=== PATIENT | female | born 1940 | race Caucasian/White ===

== ENCOUNTER 2020-07-26 09:49 | Outpatient (RCR) | payer MEDICARE, SELFPAY ==
--- NOTE | 2020-07-26 14:10 | PTOPEVAL ---
Thank you for referring Chel Levine to [facility].? The patient is scheduled to be seen for therapy? ____x/week for ___ weeks. Please review, sign, date and return this plan of care CECE. I agree with and certify that the following plan of care is medically necessary. Referring Physician Date Admitting Provider: Attending Provider: Angela Singer, Referring Provider: *PT Outpatient Evaluation Start: 07/26/20 10:04 Freq: Status: Active Protocol: Document 07/26/20 10:05 [facility] (Rec: 07/26/20 14:09 [facility] [id number]) Therapy Assessment Status Assessment Status Assessment Status Evaluation Evaluation Information Problem Diagnosis bilateral knee pain, generalized weakness, SOA Onset 07/24/20 Additional Evaluation Detail LEFS = 27% functionally declined Subjective Information patient reports she has been Query Text:As Reported By Patient/ having increased difficulty Family with ambulation distance and time since the beginning of the year. she reports she has had increased SOA with normal activities around home and walking to the mailbox. she reports she has been monitored for heart issues but is not seeing a punch press setter. she reports she is sheduled to see a finishing and shipping supervisor. 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 Prior Level of Function Comments Additional Prior Level of Function patient reports she would like Comments to get back to walking her dog, walking around her house, performing chores at home, and recreational participation . Pain Assessment Timing of Pain Assessment Timing of Pain Assessment Assessment Pain Scale Pain Scale Used Numeric (1 - 10) Self Report Pain Assessment Bilateral Thumb(s) Reported Pain Level 6 Bilateral Knee(s) Reported Pain Level 6 Pain Score Pain Score 6,6: Self Report Interventions Used Interventions Used By Clinicians Activity or ADL's,Education, Exercise Lower Extremity Range of Motion General Lower Extremity Range of Motion Gross Lower Extremity Range of Motion -8 degrees from 0 arom Comments
== END 2020-09-06 18:00 | disposition home or self-care (01) ==
LOC: CHSPT 09:49
PROVIDERS: PCP Internal Medicine Geriatric Medicine; Visit Provider Internal Medicine Geriatric Medicine
DX: R06.02 Shortness of breath (principal); M17.10 Unilateral primary osteoarthritis, unspecified knee; M18.0 Bilateral primary osteoarthritis of first carpometacarpal joints; G89.4 Chronic pain syndrome
CPT/HCPCS: 97110; 97162; 97530

== ENCOUNTER 2020-10-04 15:27 | Outpatient (CLI) | payer MEDICARE, SELFPAY ==
[2020-10-04 17:17] LABS: Anion Gap 12 mmol/L (8-16); Blood Urea Nitrogen 21 mg/dL (7-18); Calcium 9.1 mg/dL (8.5-10.1); Carbon Dioxide 27 mmol/L (21-32); Chloride 105 mmol/L (98-108); Estimated Glomerular Filt Rate 42; Glucose 108 mg/dL (70-99); Magnesium 1.8 mg/dL (1.8-2.4); Osmolality Calculated 302 mOsm/kg (285-295); Potassium 4.6 mmol/L (3.5-5.1); Sodium 144 mmol/L (136-145)
== END 2020-10-04 15:28 | disposition home or self-care (01) ==
LOC: CHSLAB 15:32
PROVIDERS: PCP Internal Medicine Geriatric Medicine; Visit Provider Internal Medicine Geriatric Medicine
DX: E13.22 Other specified diabetes mellitus with diabetic chronic kidney disease (principal); I12.9 Hypertensive chronic kidney disease with stage 1 through stage 4 chronic kidney disease, or unspecified chronic kidney disease; N18.30 Chronic kidney disease, stage 3 unspecified; E83.42 Hypomagnesemia
CPT/HCPCS: 36415; 80048; 83735

== ENCOUNTER 2021-07-12 07:32 | Outpatient (CLI) | payer MEDICARE, SELFPAY ==
[2021-07-12 08:26] LABS: Creatinine Urine 98.22 mg/dL (40-278); MALB Creatinine Ratio 77.8 mg/g (0-30); Microalbumin Urine Random 76.5 mg/L
[2021-07-12 08:35] LABS: Hemoglobin A1C 7.1 % (<5.7)
[2021-07-12 08:39] LABS: Alanine Aminotransferase 14 U/L (14-59); Albumin Level 3.5 g/dL (3.4-5.0); Alkaline Phosphatase 60 U/L (46-116); Anion Gap 6 mmol/L (8-16); Aspartate Amino Transferase 13 U/L (15-37); Bilirubin,Total 0.4 mg/dL (0.00-1.00); Blood Urea Nitrogen 22 mg/dL (7-18); Calcium 8.5 mg/dL (8.5-10.1); Carbon Dioxide 32 mmol/L (21-32); Chloride 102 mmol/L (98-108); Estimated Glomerular Filt Rate 47; Glucose 139 mg/dL (70-99); LDL Cholesterol Direct 58 mg/dL (0-130); Osmolality Calculated 295 mOsm/kg (285-295); Potassium 4.2 mmol/L (3.5-5.1); Sodium 140 mmol/L (136-145); Total Protein 6.5 g/dL (6.4-8.2)
== END 2021-07-12 07:33 | disposition home or self-care (01) ==
LOC: CHSLAB 07:37
PROVIDERS: PCP Internal Medicine Geriatric Medicine; Visit Provider Internal Medicine Geriatric Medicine
DX: E11.29 Type 2 diabetes mellitus with other diabetic kidney complication (principal); R80.9 Proteinuria, unspecified
CPT/HCPCS: 36415; 80053; 82043; 83036; 83721

== ENCOUNTER 2021-07-29 07:35 | Outpatient (CLI) | payer MEDICARE, SELFPAY ==
[2021-07-29 08:14] LABS: Anion Gap 11 mmol/L (8-16); Blood Urea Nitrogen 22 mg/dL (7-18); Calcium 8.9 mg/dL (8.5-10.1); Carbon Dioxide 25 mmol/L (21-32); Chloride 105 mmol/L (98-108); Estimated Glomerular Filt Rate 39; Glucose 153 mg/dL (70-99); Osmolality Calculated 298 mOsm/kg (285-295); Potassium 3.9 mmol/L (3.5-5.1); Sodium 141 mmol/L (136-145); Thyroid Stimulating Hormone 1.35 uIU/mL (0.36-3.74)
== END 2021-07-29 07:36 | disposition home or self-care (01) ==
LOC: CHSLAB 07:38
PROVIDERS: PCP Internal Medicine Geriatric Medicine; Visit Provider Internal Medicine Geriatric Medicine
DX: I50.32 Chronic diastolic (congestive) heart failure (principal); E11.59 Type 2 diabetes mellitus with other circulatory complications; I15.2 Hypertension secondary to endocrine disorders
CPT/HCPCS: 36415; 80048; 84443

== ENCOUNTER 2021-10-01 21:32 | Emergency (ER) | payer MEDICARE, SELFPAY ==
--- NOTE | ~2021-10-01 | XR_ITS ---
EXAMINATION: XR chest 1V portable 10/01/2021 22:34 INDICATION: History of A. fib. Vomiting. PROCEDURE: AP portable chest COMPARISON: No prior studies for comparison. FINDINGS: The lungs are clear. The cardiomediastinal silhouette is within normal limits. There are no pleural effusions. There is no pneumothorax suspected. There is a healed left humeral neck fract ure. There is a right shoulder arthroplasty. IMPRESSION: 1: NO ACUTE CARDIOPULMONARY DISEASE. Reviewed, dictated and finalized at location A.
--- NOTE | ~2021-10-01 | CT_ITS ---
EXAMINATION: CT abdomen pelvis wo con DATE: 10/01/2021 22:19 INDICATION: Abdominal pain and nausea TECHNIQUE: Computed tomography (CT) of the abdomen and pelvis was performed without intravenous contr ast. The dose-length product was 1084.80 mGy-cm. Automated exposure control and iterative reconstruct ion technique were employed. COMPARISON: None. FINDINGS: There is a 12 mm nodule in the right lower lobe, image 21. There is a calcified granuloma i n the right lower lobe. Heart size normal. Moderate size hiatal hernia. No significant pleural or per icardial effusion. Status post cholecystectomy. There are calcified granulomas in the liver and splee n. The pancreas, adrenal glands are unremarkable. There are small subcentimeter hypodensities of both kidneys which are too small to characterize. There is a punctate nonobstructing left renal cyst ston e. There is dilated fluid-filled small bowel in the proximal and mid abdomen with transition in the l eft. Umbilical hernia, consistent with obstruction. Transition is best seen on images 120-132 within the hernia. No significant vascular abnormality. No lymphadenopathy. Moderate lower thoracic and lumb ar spondylosis with grade 1 spondylolisthesis at L4-5 and L5-S1. Levoscoliosis. IMPRESSION: 1. Small bowel obstruction with transition in the left periumbilical hernia. 2: Right lower lobe nodule measuring 12 mm, suspicious for bronchogenic carcinoma. Recommend follow-u p [address] chest or PET/CT scan. 3: Moderate size hiatal hernia. Reviewed, dictated and finalized at location A. IMPRESSION: 1. Small bowel obstruction with transition in the left periumbilical hernia. 2: Right lower lobe nodule measuring 12 mm, suspicious for bronchogenic carcino ma. Recommend follow-up [address] chest or PET/CT scan. 3: Moderate size hiatal hernia.
[2021-10-01 21:40] VITALS: BP 151/80; PULSE 90; RESP 20; TEMP 36.3; O2SAT 97
--- NOTE | 2021-10-01 21:54 | ECG_ITS ---
Measurements Intervals [place] Rate: 86 P: 54 TX: 184 QRS: 7 QRSD: 110 T: 62 QT: 366 QTc: 439 Interpretive Statements SINUS RHYTHM LEFT VENTRICULAR HYPERTROPHY AND ST-T CHANGE BORDERLINE ECG Electronically Signed On 10-02-2021 6:33:29 CDT by Eduardo Velasco D.O.
[2021-10-01 22:11] LABS: Add Urine Microscopic? YES; Appearance Urine Clear (Clear); Bilirubin Urine Negative (Negative); Blood Urine Negative (Negative); Color Urine Yellow (Yellow); Glucose Urine UA Negative (Negative); Ketones Urine Negative (Negative); Leukocyte Esterase Ur Trace LEU/UL (Negative); Nitrate Urine Negative (Negative); Protein Urine 2+ (Negative); Specific Grav Ur 1.025 (1.010-1.020); Urobilinogen Urine 0.2 mg/dL (0.2-1.0)
[2021-10-01 22:17] LABS: Bacteria Urine Trace /hpf; RBC Urine 0-2 /hpf (0-2); Squamous Epithelial Cell Urine Few /hpf (Few)
[2021-10-01] MEDS: SODIUM CHLORIDE 0.9% IV 1,000 ML 999 ML IV CONT (22:31)
[2021-10-01 22:32] LABS: Basophils Absolute Auto 0.03 K/mm3 (0.00-0.10); Basophils Percent Auto 0.2 % (0.0-1.0); Eosinophils Absolute Auto 0.06 K/mm3 (0.02-0.50); Eosinophils Percent Auto 0.3 % (1.0-6.0); Hematocrit 42.3 % (35.0-42.0); Hemoglobin 13.6 g/dL (11.7-13.8); Immature Granulocyte Absolute 0.09 K/mm3 (0.00-0.00); Immature Granulocyte Percent A 0.5 % (0.0-0.0); Lymphocytes Absolute Auto 0.79 K/mm3 (1.10-4.50); Lymphocytes Percent Auto 4.5 % (18.0-42.0); Mean Corpuscular HGB Conc 32.2 g/dL (32.0-36.0); Mean Corpuscular Hemoglobin 27.6 pg (27.0-31.0); Mean Corpuscular Volume 85.8 fL (78.0-102.0); Mean Platelet Volume 9.7 fl (9.2-11.8); Monocytes Absolute Auto 0.93 K/mm3 (0.10-0.90); Monocytes Percent Auto 5.3 % (2.0-11.0); Neutrophils Absolute Auto 15.7 K/mm3 (1.7-7.2); Neutrophils Percent Auto 89.2 % (50.0-70.0); Platelet Count Result 297 K/mm3 (150-420); Red Blood Count 4.93 M/mm3 (4.20-5.40); Red Cell Distribution Width 13.6 % (11.6-14.4); White Blood Count 17.6 K/mm3 (4.8-10.8)
[2021-10-01] MEDS: ONDANSETRON INJ 4 MG/2 ML VIAL IV PUSH ×2 (22:34→23:29)
[2021-10-01] MEDS: PANTOPRAZOLE SODIUM IV 40 MG VIAL IV PUSH (22:41)
[2021-10-01 22:43] VITALS: BP 160/82; PULSE 86; RESP 20; O2SAT 97
[2021-10-01 22:48] VITALS: BP 162/73; PULSE 78
[2021-10-01 22:50] VITALS: BP 165/70; PULSE 86
[2021-10-01 22:52] LABS: Alanine Aminotransferase 14 U/L (14-59); Albumin Level 4.5 g/dL (3.4-5.0); Alkaline Phosphatase 97 U/L (46-116); Anion Gap 12 mmol/L (8-16); Aspartate Amino Transferase 14 U/L (15-37); Bilirubin,Total 0.6 mg/dL (0.00-1.00); Blood Urea Nitrogen 28 mg/dL (7-18); Calcium 10.2 mg/dL (8.5-10.1); Carbon Dioxide 27 mmol/L (21-32); Chloride 97 mmol/L (98-108); Estimated CRCL calculation 24 ml/min; Estimated Glomerular Filt Rate 31; Glucose 218 mg/dL (70-99); Lactic Acid Reflex 1.6 mmol/L (0.4-2.0); Osmolality Calculated 294 mOsm/kg (285-295); Potassium 4.1 mmol/L (3.5-5.1); Sodium 136 mmol/L (136-145); Total Protein 8.9 g/dL (6.4-8.2); Troponin I 8.2 ng/L (0.00-60.4)
[2021-10-01 23:06] LABS: Lipase 51 U/L (73-393)
--- NOTE | 2021-10-01 23:16 | PC.NURSE ---
Reports back , ERP discussed c pt and D-I-L need for transfer to GI surgeon. Pt requests to go to [facility], call page placed to Paula Dozier, will await call back.
[2021-10-01 23:26] LABS: SARS-CoV-2 RNA PCR Negative (Negative)
--- NOTE | 2021-10-01 23:39 | PC.NURSE ---
Pt resting, VSS, no n/v, IV antibiotics infusing as per order, Awaiting call back from onckwame Seth.
[2021-10-01] MEDS: metroNIDAZOLE 500 MG/ISO 100ML 500 MG/100 ML BAG 100 MG IVPB (23:43)
--- NOTE | 2021-10-02 00:11 | PC.NURSE ---
Call back from Dr Seth at [facility], spoke c Dr Harris, orders obtained and accepted for transfer.Will await hospitalist to call back.
--- NOTE | 2021-10-02 00:16 | PC.NURSE ---
Hold order for NG tube per Dr Harris. Pt resting, has no n/f and states she is feeling better.
[2021-10-02 00:17] VITALS: BP 160/72; PULSE 81; RESP 18; O2SAT 98
[2021-10-02 00:58] VITALS: BP 142/63; PULSE 84; RESP 18; TEMP 36.6; O2SAT 96
--- NOTE | 2021-10-02 01:00 | PC.NURSE ---
Call back from hospitalist, accepting Dr Leblanc, will await call back for bed assignment and placement. Paperwork signed for transfer. Pt resting, VSS.
--- NOTE | 2021-10-02 01:03 | ED.NAVMDI ---
HPI - Nausea/Vomiting/Diarrhea General Chief complaint: Nausea/Vomiting/Diarrhea Stated complaint: vomiting Time Seen by Provider: 10/01/21 21:36 Source: patient and RN notes reviewed Mode of arrival: wheelchair Limitations: no limitations History of Present Illness MD elicited complaint: nausea, diarrhea and abdominal pain Description of diarrhea: watery Associated nausea: Yes Associated abdominal pain: Yes Location of pain: periumbilical Pain consistency: constant Severity: mild Pain scale (0-10): 3 Quality: cramping and aching Exacerbating factors: none Relieving factors: none Context: history of abdominal surgery Related Data Home Medications Medication Instructions Recorded Confirmed albuterol sulfate 90 mcg/actuation 2 inh inhalation PRN PRN Shortness 10/01/21 10/01/21 aerosol inhaler Of Breath Or Wheezing apixaban 5 mg tablet (Eliquis) 1 tablet PO BID 10/01/21 10/01/21 diltiazem HCl 240 mg 1 cap PO DAILY 10/01/21 10/01/21 capsule,extended release 24 hr, controlled (DILT-XR) furosemide 20 mg tablet 1 tablet PO BID 10/01/21 10/01/21 guaifenesin 400 mg tablet (Chest 1 tablet PO TID PRN Congestion 10/01/21 10/01/21 Congestion Relief) labetalol 100 mg tablet 1 tablet PO BID 10/01/21 10/01/21 omeprazole 20 mg capsule,delayed 1 cap PO DAILY 10/01/21 10/01/21 release rosuvastatin 10 mg tablet 1 tablet PO DAILY 10/01/21 10/01/21 spironolactone 25 mg tablet 12.5 mg PO DAILY 10/01/21 10/01/21 tramadol 50 mg tablet 1 tablet PO BID 10/01/21 10/01/21 insulin degludec 100 unit/mL (3 15 unit subcut DAILY 10/02/21 10/02/21 mL) subcutaneous pen (Tresiba FlexTouch U-100 insulin) Allergies Allergy/AdvReac Type Severity Reaction Status Date / Time No Known Allergies Allergy Verified 10/01/21 22:00 Review of Systems Review of Systems: All systems reviewed & are unremarkable except as noted in HPI and below Constitutional: Constitutional: Reports no additional constitutional complaints Eyes: Eyes: Reports no additional eye complaints ENT: Reports system reviewed and no additional complaints, except as documented Cardiovascular: Cardiovascular: Reports no additional cardiovascular complaints Respiratory: Respiratory: Reports no additional respiratory complaints Gastrointestinal: Gastrointestinal: Reports no additional gastrointestinal complaints Genitourinary: Genitourinary: Reports no additional female genitourinary complaints Musculoskeletal: Musculoskeletal: Reports no additional musculoskeletal complaints Integumentary/Breasts: Skin/Breast: Reports system reviewed and no additional complaints, except as docu Neurologic: Reports system reviewed and no additional complaints, except as documented Psychiatric: Psychiatric: Reports no additional psychiatric complaints Endocrine: Endocrine: Reports no additional endocrine complaints Hematologic/Lymphatic: Hematologic/Lymphatic: Reports no additional hematologic/lymphatic complaints Allergic/Immunologic: Allergic/Immunologic: Reports no additional allergic/immunologic complaints [facility] Past Medical History Medical History (Updated 10/02/21 @ 01:22 by Yany Harris MD) SBO (small bowel obstruction) UTI (urinary tract infection) Exam Const: General: healthy appearing and no acute distress Nutritional Appearance: well nourished Orientation/consciousness: patient oriented x3 Limitations: no limitations HENMT: Head: normal to inspection Ears: external ears normal, TM's normal bilaterally and EAC's normal General nose exam: Normal external nose present and Normal nares present Face and sinus: normal facial exam and sinuses nontender Mouth: Yes Normal oral and palatal mucosa present and Yes moist mucous membranes Teeth and gingiva: dentition normal Throat: posterior oropharynx normal Eyes: Conjunctivae: conjunctivae normal Pupils: Equal, round and reactive pupils present EOM: EOMs intact bilaterally Neck: Neck: normal visual inspe
[2021-10-02 01:31] VITALS: BP 152/78; PULSE 82; RESP 20; TEMP 36.6; O2SAT 98
--- NOTE | 2021-10-02 01:37 | PC.NURSE ---
Report called to Jerilyn at [facility], Call paged for [facility] for pt transfer.
== END 2021-10-02 02:00 | disposition short-term general hospital (02) ==
PROVIDERS: Emergency Provider Emergency Medicine; PCP Internal Medicine Geriatric Medicine
DX: K56.609 Unspecified intestinal obstruction, unspecified as to partial versus complete obstruction (principal); N39.0 Urinary tract infection, site not specified; Z20.822 Contact with and (suspected) exposure to COVID-19
CPT/HCPCS: 36415; 71045; 74176; 80053; 81001; 83605; 83690; 84484; 85025; 87040; 93005; 96361; 96365; 96367; 96375; 96376; 99284; 99285; C9113; C9803; J0696; J2405; J7030; U0003; U0005

== ENCOUNTER 2021-10-02 02:32 | Inpatient (IN) | payer MEDICARE, SELFPAY ==
--- NOTE | ~2021-10-02 | XR_ITS ---
EXAMINATION: XR abdomen obstructive series DATE: 10/03/2021 08:12 INDICATION: Intermittent small bowel obstruction TECHNIQUE: Frontal supine and upright views of the abdomen were obtained. COMPARISON: 10/02/2021 FINDINGS: No free intraperitoneal gas. A few persistent gas-filled but not frankly dilated loops of small bowel consistent with likely improving small bowel obstruction. Cholecystectomy clips in right upper quadr ant. Interval advancement of several small densities potentially barium previously in the stomach but now scattered throughout the bowels in the lower abdomen and pelvis. Calcified nodule at the right l víctor base consistent with old granulomatous disease. Cardiomediastinal silhouette within normal limits for AP technique. Right shoulder arthroplasty. Advanced left glenohumeral osteoarthritis-with old fr acture. IMPRESSION: 1. Improving small bowel obstruction. Reviewed, dictated and finalized at location B.
--- NOTE | ~2021-10-02 | XR_ITS ---
EXAMINATION: XR abdomen obstructive series DATE: 10/02/2021 09:26 INDICATION: Small bowel obstruction. TECHNIQUE: Upright and supine views of the abdomen were obtained. COMPARISON: CT abdomen and pelvis 10/01/2021 FINDINGS: There are dilated loops of small bowel. No free intraperitoneal gas. The colon is decompres sed. Surgical clips in the right upper quadrant are likely from cholecystectomy. There is a right marylin ulder arthroplasty. IMPRESSION: 1. Persistently dilated small bowel, consistent with small bowel obstruction. Reviewed, dictated and finalized at location A.
[2021-10-02 02:40] VITALS: BP 179/88; PULSE 85; RESP 16; TEMP 36.6; O2SAT 97
--- NOTE | 2021-10-02 03:32 | ECG_ITS ---
Measurements Intervals [place] Rate: 77 P: 60 VT: 221 QRS: -6 QRSD: 85 T: 12 QT: 384 QTc: 436 Interpretive Statements SINUS RHYTHM WITH SINUS ARRHYTHMIA WITH FIRST DEGREE AV BLOCK ATRIAL PREMATURE COMPLEXES LOW QRS VOLTAGE IN PRECORDIAL LEADS VOLTAGE CRITERIA FOR LVH BORDERLINE T WAVE ABNORMALITY- INFERIOR LEADS BASELINE WANDER- I, II, AVR, AVL, V4-V6 ABNORMAL ECG Electronically Signed On 10-02-2021 14:27:42 CDT by Eduardo Velasco D.O.
--- NOTE | 2021-10-02 03:33 | ADMGEN ---
This patient, Chel Levine, was admitted to 3 [facility] Surg Room 311-01. Patient/family oriented to hospital policies and general routines including ID bracelet, bed and alarms, visiting hours, pain management, procedures, bathroom and other care routines, personal items, smoking policy, room service/diet, and visiting hours. Information on how to activate the Rapid Response Team has been discussed. Patient/Family are encouraged to report perceived risks to care and to ask questions if they do not understand what they are told or what they should do.
[2021-10-02 04:00] VITALS: BMI 35.6
[2021-10-02] MEDS: DEXTROSE 5%/0.45% SOD CHL 1,000 ML 75 ML IV CONT ×2 (05:00→17:38)
[2021-10-02 06:00] VITALS: BP 166/75; PULSE 93; RESP 16; TEMP 36.7; O2SAT 96
[2021-10-02] MEDS: ONDANSETRON INJ 4 MG/2 ML VIAL IV PUSH (06:02)
[2021-10-02 06:18] LABS: Basophils Percent Auto 0.2 % (0.2-1.2); Hematocrit 38.5 % (37.0-47.0); Hemoglobin 12.4 g/dL (12.0-15.0); Immature Granulocyte Absolute 0.06 K/mm3 (0.00-0.031); Immature Granulocyte Percent A 0.4 % (0-0.5); Lymphocytes Absolute Auto 0.73 K/mm3 (0.9-3.2); Lymphocytes Percent Auto 5.2 % (18.3-44.2); Mean Corpuscular HGB Conc 32.2 g/dl (32-36); Mean Corpuscular Hemoglobin 27.3 pg (26-34); Mean Corpuscular Volume 84.6 fl (80-100); Mean Platelet Volume 9.7 fl (7.4-10.4); Monocytes Absolute Auto 0.9 K/mm3 (0.1-0.6); Neutrophils Absolute Auto 12.5 K/mm3 (1.3-6.7); Neutrophils Percent Auto 88.2 % (45.5-73.1); Platelet Count Result 258 k/mm3 (150-375); Red Blood Count 4.55 M/mm3 (4.2-5.4); Red Cell Distribution Width 13.8 % (11.5-14.5); White Blood Count 14.2 K/mm3 (4.5-10.0)
[2021-10-02 06:39] LABS: Lactic Acid Reflex 1.2 mmol/L (0.7-2.0); Magnesium 1.4 mg/dL (1.6-2.3); Phosphorus 4.5 mg/dL (2.5-4.5)
[2021-10-02 07:05] LABS: Anion Gap 10 mmol/L (8-16); Blood Urea Nitrogen 22 mg/dL (7-17); Carbon Dioxide 26 mmol/L (22-30); Chloride 102 mmol/L (98-107); Estimated CRCL calculation 31 ml/min; Estimated Glomerular Filt Rate 43; Glucose 196 mg/dL (65-110); Sodium 138 mmol/L (137-145)
--- NOTE | 2021-10-02 08:02 | PM.IMHP ---
H&P: HPI History of Present Illness Date/Time: 10/02/21 08:02 Chief Complaint: Nausea, vomiting, diarrhea and acute abdominal Narrative: Patient is an 81-year-old female with a past medical history frequent UTIs, hyperlipidemia, small-bowel obstruction (patient has had previous abdominal surgeries) AFib on Eliquis for anticoagulation, and diabetes mellitus. Patient presented to [facility] from an [facility] due to acute abdominal pain, nausea, episodes of emesis and diarrhea. Patient did endorse multiple doses of MiraLax and Colace prior to admission. Which may have contributed diarrhea episodes. While in the emergency department labs and imaging were obtained. Patient had an elevated WBC 17.6, hemoglobin 13.6, hematocrit 42.3, platelets 297, sodium 136, potassium 4.1, an elevated creatinine at 1.61, patient's baseline 1.2 with an elevated BUN at 28. Patient was also noted to be hyperglycemic at 2:18 a.m., UA essentially negative. CT of the abdomen and pelvis was obtained revealed a small-bowel obstruction with transition in the left. Occult hernia and right lower lobe measuring 12 mm ?suspicious for bronchogenic carcinoma. Recommend follow-up [address] chest or PET/CT scan, however the patient does follow-up with a web art director she was recently referred to, at this time the web art director did not see significant interventions needed to be performed for the shortness of breath the patient has been experiencing as well as the 12 May meter right lower lobe mass. Will however place an order for CT of the chest and defer to primary care physician on outpatient basis within 3 months. The chest x-ray did not reveal acute cardiopulmonary disease. Dr. Seth with General surgery was consulted for a small-bowel obstruction and the patient was transferred to [facility]. While the patient has been admitted pending to hospitalist service she has been made NPO, started on IV fluid resuscitation and replace serum electrolytes. Patient's magnesium was noted to be 1.4 and she received 1 g of magnesium. Pending General surgery's recommendation. She reported that Dr. Seth saw her in the emergency department and reduced her hernia. Serial abdominal x-rays continue disease show possible small bowel obstruction. Will defer NG tube placement to General surgery. Patient is on significant medications for AFib. Patient reports she was recently started on diltiazem approximately 1 month ago, patient also takes labetalol, will continue IV medications for heart rate control. Review of Systems Review of Systems: All systems reviewed & are unremarkable except as noted in HPI and below PMFSH Past Medical History Medical History (Updated 10/02/21 @ 08:23 by Viv Romano APRN) SBO (small bowel obstruction) UTI (urinary tract infection) Family History Family History (Updated 10/02/21 @ 05:24 by Jerilyn Yan RN) Mother Rush disease Father Cancer Social History Social History Smoking status: Never smoker Alcohol intake: never Spiritual care concerns: No Meds Home Medications and Allergies Home Medications Medication Instructions Recorded Confirmed Type albuterol sulfate 90 mcg/actuation 2 inh inhalation PRN PRN Shortness 10/01/21 10/02/21 History aerosol inhaler Of Breath Or Wheezing apixaban 5 mg tablet (Eliquis) 2.5 mg PO BID 10/01/21 10/02/21 History diltiazem HCl 240 mg 1 cap PO DAILY 10/01/21 10/02/21 History capsule,extended release 24 hr, controlled (DILT-XR) furosemide 20 mg tablet 1 tablet PO BID 10/01/21 10/02/21 History guaifenesin 400 mg tablet (Chest 1 tablet PO TID PRN Congestion 10/01/21 10/02/21 History Congestion Relief) labetalol 100 mg tablet 1 tablet PO BID 10/01/21 10/02/21 History omeprazole 20 mg capsule,delayed 1 cap PO DAILY 10/01/21 10/02/21 History release rosuvastatin 10 mg tablet 1 tablet PO DAILY 10/01/21 10/02/21 History spironolactone 25 mg tablet 12
[2021-10-02 08:38] LABS: Hemoglobin A1C 6.9 % (<5.7)
[2021-10-02] MEDS: MAGNESIUM SULF 1 GM/D5W 100 ML 1 GM/100 ML BAG IVPB (09:05)
--- NOTE | 2021-10-02 11:56 | PM.CNGS ---
Assessment and Plan Assessment and plan (1) SBO (small bowel obstruction): Code(s): K56.609 - Unspecified intestinal obstruction, unspecified as to partial versus complete obstruction Status: Acute Assessment and Plan: Secondary to the left periumbilical hernia, which is soft and reducible now. This seems to be resolving. Obstructive series still shows some dilated small bowel but she had a BM this morning and is clinically improving. Will start a clear liquid diet and repeat plain films tomorrow. We discussed treatment options with the patient. She does not require emergent surgery at this time, but she is at risk for future bowel obstructions, incarceration, and/or strangulation of this hernia. She has multiple co-morbidities and is on Eliquis, which increases her risks for surgery, which we discussed. Her Eliquis has been held since yesterday at 8:00 am. We would recommend that if she can tolerate a diet and this resolves, then she could be discharged to follow-up as an outpatient to discuss surgical repair electively once medically optimized. Will order an abdominal binder to be given to the patient now. (2) Periumbilical hernia: Code(s): K42.9 - Umbilical hernia without obstruction or gangrene Status: Acute Assessment and Plan: Soft and reducible. Discussed surgical repair with the patient. See plan above. Will order an abdominal binder. (3) KAVITHA (acute kidney injury): Code(s): N17.9 - Acute kidney failure, unspecified Status: Acute Assessment and Plan: Improving. Continue IV fluid hydration, monitor labs. (4) Leukocytosis: Code(s): D72.829 - Elevated white blood cell count, unspecified Status: Acute Assessment and Plan: Unclear etiology. Could be a stress reaction. Lactic acid normal. WBC trending down and she is afebrile. UA negative. COVID negative. CXR negative. Okay from our standpoint to stop the IV Zosyn. 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 (6) Diabetes mellitus: Code(s): E11.9 - Type 2 diabetes mellitus without complications Status: Acute Assessment and Plan: IDDM on Tresiba. Hgb A1C 6.9. Management per Hospitalist. Currently on a sliding scale and accuchecks. (7) Obesity (BMI 30-39.9): Code(s): E66.9 - Obesity, unspecified Status: Acute Assessment and Plan: Encouraged diet and lifestyle modifications for weight loss. Plan I have discussed the patient's case and plan of care with Dr. Seth. Thank you for allowing us to see the patient in consultation and we will continue to follow along with you. History of Present Illness Consult details Consult date: 10/02/21 Reason for consult: other (Small bowel obstruction secondary to a left periumbilical hernia) Requesting physician: Elza Roman MD Narrative: This is an 81-year-old female who presented to the ER with complaints of nausea and vomiting. She reports that yesterday she had noticed some nausea throughout the day and began vomiting in the afternoon. She also does endorse some periumbilical abdominal pain that was mild and she noticed this after the nausea had began. She has a history of a laparoscopic umbilical hernia repair years ago at [facility] with a recurrent periumbilical hernia. She states this hernia had been asymptomatic leading up to now. She is aware of how to manually reduce this at home. When she had symptoms yesterday, she had noticed the hernia, but was so sick with vomiting she did not think it was related to her hernia and did not try reducing it at home. She came into [place] ER for evaluation last night. CT scan of the abdomen/pelvis showed a small bowel obstruction with a transition point in the left periumbilical hernia. Also n
[2021-10-02 12:20] LABS: Glucose Point of Care 176 mg/dl (65-105)
[2021-10-02 14:00] VITALS: BP 155/75; PULSE 78; RESP 18; TEMP 36.7; O2SAT 97
[2021-10-02 14:03] VITALS: O2SAT 97
[2021-10-02 17:28] LABS: Glucose Point of Care 183 mg/dl (65-105)
[2021-10-02 21:15] VITALS: PULSE 83; O2SAT 95
[2021-10-02 21:37] VITALS: BP 150/57; PULSE 83; RESP 17; TEMP 36.7; O2SAT 95
[2021-10-02 23:29] LABS: Glucose Point of Care 158 mg/dl (65-105)
[2021-10-03 05:34] LABS: Glucose Point of Care 168 mg/dl (65-105)
[2021-10-03 05:55] VITALS: BP 139/60; PULSE 87; RESP 18; TEMP 36.8; O2SAT 95
[2021-10-03 06:48] LABS: Basophils Percent Auto 0.4 % (0.2-1.2); Eosinophils Absolute Auto 0.4 K/mm3 (0-0.3); Eosinophils Percent Auto 4.6 % (0-4.4); Hematocrit 36.4 % (37.0-47.0); Hemoglobin 11.1 g/dL (12.0-15.0); Immature Granulocyte Absolute 0.06 K/mm3 (0.00-0.031); Immature Granulocyte Percent A 0.7 % (0-0.5); Lymphocytes Absolute Auto 1.33 K/mm3 (0.9-3.2); Lymphocytes Percent Auto 14.8 % (18.3-44.2); Mean Corpuscular HGB Conc 30.5 g/dl (32-36); Mean Corpuscular Hemoglobin 27.3 pg (26-34); Mean Corpuscular Volume 89.4 fl (80-100); Mean Platelet Volume 9.9 fl (7.4-10.4); Monocytes Percent Auto 10.6 % (2.6-8.5); Neutrophils Absolute Auto 6.2 K/mm3 (1.3-6.7); Neutrophils Percent Auto 68.9 % (45.5-73.1); Platelet Count Result 236 k/mm3 (150-375); Red Blood Count 4.07 M/mm3 (4.2-5.4)
[2021-10-03 07:07] LABS: Lactic Acid Reflex 1.4 mmol/L (0.7-2.0)
[2021-10-03 07:10] LABS: Alanine Aminotransferase 10 U/L (6-35); Albumin Level 3.7 g/dL (3.5-5.1); Alkaline Phosphatase 65 U/L (38-126); Anion Gap 6 mmol/L (8-16); Aspartate Amino Transferase 18 U/L (14-36); Bilirubin,Total 0.5 mg/dL (0.2-1.3); Blood Urea Nitrogen 15 mg/dL (7-17); Calcium 8.4 mg/dL (8.4-10.2); Carbon Dioxide 26 mmol/L (22-30); Chloride 103 mmol/L (98-107); Estimated CRCL calculation 31 ml/min; Estimated Glomerular Filt Rate 43; Glucose 175 mg/dL (65-110); Magnesium 1.8 mg/dL (1.6-2.3); Potassium 3.7 mmol/L (3.4-5.0); Sodium 135 mmol/L (137-145)
[2021-10-03 08:13] LABS: Glucose Point of Care 187 mg/dl (65-105)
--- NOTE | 2021-10-03 11:13 | PM.IMPN ---
Progress Note: A&P Assessment and Plan (1) SBO (small bowel obstruction): Code(s): K56.609 - Unspecified intestinal obstruction, unspecified as to partial versus complete obstruction Status: Inactive Assessment and Plan: Monitor I&Os, vital signs, neuro status and patient is a fall risk Monitor serum electrolytes and CBC General surgery consulted to further evaluate small bowel obstruction if the patient needs surgical intervention or fails to improve with NG decompression. Defer placement for NG tube for non operative management to General surgery Gentle IV fluid resuscitation given the patient's NPO status Discontinued IV antibiotics LFTs. WNL. UA appears essentially unremarkable. Will review out line facilities chart P.r.n. Anti emetics, avoid reglan serial abdominal imaging continue to revealed possible small bowel obstruction-deferred to General surgery (2) Abnormal CT scan: Code(s): R93.89 - Abnormal findings on diagnostic imaging of other specified body structures Status: Acute Assessment and Plan: Right lower lobe nodule measuring 12 mm, suspicious for bronchogenic carcinoma. Recommend follow-up [address] chest or PET/CT scan. Patient reports she has followed up with Pulmonary about these findings. She has an appointment on October 15. (3) KAVITHA (acute kidney injury): Code(s): N17.9 - Acute kidney failure, unspecified Status: Acute Assessment and Plan: Provide gentle IV fluid resuscitation Patient's baseline creatinine and BUN 1.2/10 1010/02/2021 labs showed improvement from the time of admission. atient did receive IV fluid resuscitation prior to arrival. On arrival creatinine was 1.61 and BUN 28, today BUN 22/creatinine 1.2 (4) Physical debility: Code(s): R53.81 - Other malaise Status: Acute Assessment and Plan: Patient currently feels improved mobility. Will order physical therapy occupational therapy evaluate and treat. (5) Diabetes mellitus: Code(s): E11.9 - Type 2 diabetes mellitus without complications Status: Acute Assessment and Plan: Insulin Lispro sliding scale, Accu-checks qAc and HS and Hold oral hypoglycemics Clear liquid diet advance as tolerated per General surgery HgbA1c 6.9% (6) Hypomagnesemia: Code(s): E83.42 - Hypomagnesemia Status: Acute Assessment and Plan: Patient's magnesium levels noted be 1.4 on labs. Replace serum electrolytes, 1 g magnesium IVPB -stable Subjective Date/time seen: 10/03/21 11:13 Patient reports she feels significantly better. She had a bowel movement yesterday. She has not had a bowel movement today. Repeat imaging appeared improvement of SBO. Continue clear liquid diet. Defer to General surgery. Patient pending discharge based on General surgery's recommendations. General surgery would like to perform an outpatient hernia repair. Abdominal binder will be placed on the patient's, discussed this with the nursing staff at bedside this morning. No acute interventions required during the night. Patient denies any chest pain shortness a breath, abdominal pain. Hernia continues to be reducible. Review of Systems Review of Systems: All systems reviewed & are unremarkable except as noted in HPI and below Exam Narrative: General: No acute distress. Mental Status: Awake, alert and oriented to person, place, and time with clear speech. Skin: Skin in warm, dry and intact without rashes or lesions. Head: Normocephalic and atraumatic. Eyes: Conjunctivae are clear without exudates or hemorrhage. Sclera is non-icteric. EOM are intact, PERRLA. Ears: The external ear and canal are non-tender and without swelling or discharge. Nose: Nasal mucosa is pink and moist. Septum midline. Nares patent bilaterally. Throat: Oral mucosa pink and moist with good dentition. Tongue midline. Neck: The neck supple without adenopathy. Trachea midline. No JVD. Cardi
[2021-10-03 11:42] LABS: Glucose Point of Care 181 mg/dl (65-105)
--- NOTE | 2021-10-03 13:06 | PM.PNGS ---
Progress Note: A&P Assessment and Plan (1) SBO (small bowel obstruction): Code(s): K56.609 - Unspecified intestinal obstruction, unspecified as to partial versus complete obstruction Status: Inactive Assessment and Plan: Resolving. Likely related to either the left periumbilical hernia or intra-abdominal adhesions from previous surgery. Plain films this morning suggest that this is improving. Will advance to a full liquid diet. May be advanced as tolerated to low fiber with diabetic restrictions. Will consult a dietitian to educate the patient on a low fiber, diabetic diet (which is what we would want her to be on when she is eventually discharged). Will also add Miralax daily for bowel stimulation. This should be continued on discharge as well. If she is having more than 3 BMs daily, then she could back off the Miralax and only take as needed. (2) Periumbilical hernia: Code(s): K42.9 - Umbilical hernia without obstruction or gangrene Status: Acute Assessment and Plan: Still soft and reducible. Continue to use the abdominal binder with activity and when sitting up during the day. Educated patient again about how to manually reduce her hernia at home if needed. Will plan to have the patient follow-up with her Facility Assistant, Stone Layer, and PCP after discharge to get clearance for surgery. Instructed her to call our office to schedule a follow-up appointment with Dr. Seth once she has seen all specialist and has been cleared. He can then see her in the office and plan to schedule her hernia repair accordingly. (3) Anticoagulant long-term use: Code(s): Z79.01 - meterman (current) use of anticoagulants Status: Acute Assessment and Plan: Okay to resume Eliquis. (4) Diabetes mellitus: Code(s): E11.9 - Type 2 diabetes mellitus without complications Status: Acute (5) Obesity (BMI 30-39.9): Code(s): E66.9 - Obesity, unspecified Status: Acute Assessment and Plan: Encouraged diet and lifestyle modifications to promote weight loss after discharge. This would benefit her overall health and also help optimize her for surgery. Plan I have discussed the patient's case and plan of care with Dr. Seth. Subjective Subjective Date/Time Seen: 10/03/21 13:06 Patient reports: no new complaints, feels better, tolerating liquids well, flatus (today) and bowel movement (x2 yesterday) Interval history: Patient seen and examined. She reports feeling well today. Feeling better every day. No abdominal pain, nausea, or vomiting. She is doing well with clear liquids. Review of Systems Review of Systems: All systems reviewed & are unremarkable except as noted in HPI and below Exam Const: General: comfortable, no acute distress and awake Orientation/consciousness: patient oriented x3 GI: Inspection: non-distended GI Palp: Yes Soft to palpation, No Tenderness to palpation present (GI), No Guarding due to palpation present (GI), Yes Hernia present (soft, reducible, nontender left periumbilical hernia) and No Rebound tenderness present Auscultation: normal bowel sounds Extrem: General: normal to inspection and no edema Psych: Insight: Good insight present (Psych) Objective Data Vital Signs Vital Signs: Vital Signs - 24 hr 10/02/21 14:03 10/02/21 14:00 10/02/21 20:00 Temperature 98.0 F Pulse Rate 78 Respiratory Rate 18 Blood Pressure 155/75 H Pulse Oximetry 97 97 Oxygen Delivery Room Air Room Air 10/02/21 21:37 10/02/21 21:15 10/03/21 05:55 Temperature 98.0 F 98.2 F Pulse Rate 83 83 87 Respiratory Rate 17 18 Blood Pressure 150/57 H 139/60 Pulse Oximetry 95 95 95 Oxygen Delivery Room Air 10/03/21 08:45 Temperature Pulse Rate Respiratory Rate Blood Pressure Pulse Oximetry Oxygen Delivery Room Air Intake/Output Intake/Output: Intake & Output 09/30/21 10/01/21 10/02/21 10/03/21 23:59 23:59 23:59 23:5
[2021-10-03 13:48] VITALS: BP 152/83; PULSE 67; RESP 18; TEMP 36.6; O2SAT 96
[2021-10-03] MEDS: polyethylene glycoL 3350 17 GM POWD.PACK PO (15:18)
[2021-10-03] MEDS: PANTOPRAZOLE 40 MG TABLET PO (16:15)
[2021-10-03] MEDS: APIXABAN 2.5 MG TABLET PO (16:16)
[2021-10-03] MEDS: FUROSEMIDE 20 MG TABLET PO (16:17)
[2021-10-03 16:53] LABS: Glucose Point of Care 141 mg/dl (65-105)
[2021-10-03 20:50] VITALS: BP 139/62; PULSE 75; RESP 18; TEMP 36.4; O2SAT 96
[2021-10-03 20:53] VITALS: PULSE 75
[2021-10-03] MEDS: LABETALOL HCL 100 MG TABLET PO (20:53)
[2021-10-03 23:08] LABS: Glucose Point of Care 150 mg/dl (65-105)
[2021-10-04 05:15] LABS: Glucose Point of Care 160 mg/dl (65-105)
[2021-10-04 05:30] VITALS: BP 142/55; PULSE 54; RESP 18; TEMP 36.7; O2SAT 95
[2021-10-04 06:40] LABS: Basophils Percent Auto 0.3 % (0.2-1.2); Eosinophils Absolute Auto 0.5 K/mm3 (0-0.3); Eosinophils Percent Auto 5.4 % (0-4.4); Hematocrit 34.8 % (37.0-47.0); Hemoglobin 11.1 g/dL (12.0-15.0); Immature Granulocyte Absolute 0.05 K/mm3 (0.00-0.031); Immature Granulocyte Percent A 0.6 % (0-0.5); Lymphocytes Absolute Auto 1.59 K/mm3 (0.9-3.2); Lymphocytes Percent Auto 18.4 % (18.3-44.2); Mean Corpuscular HGB Conc 31.9 g/dl (32-36); Mean Corpuscular Hemoglobin 27.3 pg (26-34); Mean Corpuscular Volume 85.5 fl (80-100); Mean Platelet Volume 9.7 fl (7.4-10.4); Monocytes Percent Auto 11.1 % (2.6-8.5); Neutrophils Absolute Auto 5.6 K/mm3 (1.3-6.7); Neutrophils Percent Auto 64.2 % (45.5-73.1); Platelet Count Result 229 k/mm3 (150-375); Red Blood Count 4.07 M/mm3 (4.2-5.4); Red Cell Distribution Width 13.7 % (11.5-14.5); White Blood Count 8.7 K/mm3 (4.5-10.0)
[2021-10-04 06:52] LABS: Alanine Aminotransferase 10 U/L (6-35); Albumin Level 3.8 g/dL (3.5-5.1); Alkaline Phosphatase 60 U/L (38-126); Anion Gap 4 mmol/L (8-16); Aspartate Amino Transferase 20 U/L (14-36); Bilirubin,Total 0.4 mg/dL (0.2-1.3); Blood Urea Nitrogen 14 mg/dL (7-17); Calcium 8.8 mg/dL (8.4-10.2); Carbon Dioxide 31 mmol/L (22-30); Chloride 103 mmol/L (98-107); Estimated CRCL calculation 31 ml/min; Estimated Glomerular Filt Rate 43; Glucose 145 mg/dL (65-110); Potassium 3.7 mmol/L (3.4-5.0); Sodium 138 mmol/L (137-145)
[2021-10-04 08:18] LABS: Glucose Point of Care 161 mg/dl (65-105)
[2021-10-04 08:32] VITALS: PULSE 58
[2021-10-04] MEDS: APIXABAN 2.5 MG TABLET PO ×2 (08:32→16:20)
[2021-10-04] MEDS: FUROSEMIDE 20 MG TABLET PO ×2 (08:32→16:20)
[2021-10-04] MEDS: polyethylene glycoL 3350 17 GM POWD.PACK PO (08:32)
[2021-10-04] MEDS: LABETALOL HCL 100 MG TABLET PO (08:32)
[2021-10-04] MEDS: PANTOPRAZOLE 40 MG TABLET PO (08:32)
[2021-10-04] MEDS: ROSUVASTATIN 10 MG TABLET PO (08:32)
--- NOTE | 2021-10-04 10:30 | PM.DS ---
DS: Admitting Diagnosis Discharge Date 10/04/2021 Admitting Diagnosis Small-bowel obstruction Hernia Right lower lobe nodule measuring 12 mm DS: Discharge Diagnosis Discharge Diagnosis (1) SBO (small bowel obstruction): Code(s): K56.609 - Unspecified intestinal obstruction, unspecified as to partial versus complete obstruction Status: Inactive Assessment and Plan: Monitor I&Os, vital signs, neuro status and patient is a fall risk Monitor serum electrolytes and CBC General surgery consulted to further evaluate small bowel obstruction if the patient needs surgical intervention or fails to improve with NG decompression. Defer placement for NG tube for non operative management to General surgery Gentle IV fluid resuscitation given the patient's NPO status Discontinued IV antibiotics LFTs. WNL. UA appears essentially unremarkable. Will review out line facilities chart P.r.n. Anti emetics, avoid reglan serial abdominal imaging continue to revealed possible small bowel obstruction-deferred to General surgery General surgery ordered an abdominal binder for the hernia, abdominal binder in place upon examined discharge. (2) Abnormal CT scan: Code(s): R93.89 - Abnormal findings on diagnostic imaging of other specified body structures Status: Acute Assessment and Plan: Right lower lobe nodule measuring 12 mm, suspicious for bronchogenic carcinoma. Recommend follow-up [address] chest or PET/CT scan. Patient reports she has followed up with Pulmonary about these findings. She has an appointment on October 15. (3) KAVITHA (acute kidney injury): Code(s): N17.9 - Acute kidney failure, unspecified Status: Acute Assessment and Plan: Provide gentle IV fluid resuscitation Patient's baseline creatinine and BUN 1.2/21 10/02/2021 labs showed improvement from the time of admission. atient did receive IV fluid resuscitation prior to arrival. On arrival creatinine was 1.61 and BUN 28, today BUN 22/creatinine 1.2 (4) Physical debility: Code(s): R53.81 - Other malaise Status: Acute Assessment and Plan: Patient currently feels improved mobility. Will order physical therapy occupational therapy evaluate and treat. (5) Diabetes mellitus: Code(s): E11.9 - Type 2 diabetes mellitus without complications Status: Acute Assessment and Plan: Insulin Lispro sliding scale, Accu-checks qAc and HS and Hold oral hypoglycemics Clear liquid diet advance as tolerated per General surgery HgbA1c 6.9% (6) Hypomagnesemia: Code(s): E83.42 - Hypomagnesemia Status: Acute Assessment and Plan: Patient's magnesium levels noted be 1.4 on labs. Replace serum electrolytes, 1 g magnesium IVPB -stable DS: Summary Hospital Course Reason for hospitalization: Small-bowel obstruction Hospital Course: Patient is an 81-year-old female with a past medical history frequent UTIs, hyperlipidemia, small-bowel obstruction (patient has had previous abdominal surgeries) AFib on Eliquis for anticoagulation, and diabetes mellitus.? Patient presented to [facility] from an [facility] due to acute abdominal pain, nausea, episodes of emesis and diarrhea.? Patient did endorse multiple doses of MiraLax and Colace prior to admission.? Which may have contributed diarrhea episodes. While in the emergency department labs and imaging were obtained.? Patient had an elevated WBC 17.6, hemoglobin 13.6, hematocrit 42.3, platelets 297, sodium 136, potassium 4.1, an elevated creatinine at 1.61, patient's baseline 1.2 with an elevated BUN at 28.? Patient was also noted to be hyperglycemic at 2:18 a.m., UA essentially negative.? CT of the abdomen and pelvis was obtained revealed a small-bowel obstruction with transition in the left.? Occult hernia and right lower lobe measuring 12 mm??suspicious for bronchogenic carcinoma. Recommend follow-up [address] chest or PET/CT scan, h
[2021-10-04 11:56] LABS: Glucose Point of Care 180 mg/dl (65-105)
--- NOTE | 2021-10-04 12:26 | PM.PNGS ---
Progress Note: A&P Assessment and Plan (1) SBO (small bowel obstruction): Code(s): K56.609 - Unspecified intestinal obstruction, unspecified as to partial versus complete obstruction Status: Inactive Assessment and Plan: Resolving. Likely related to either the left periumbilical hernia or intra-abdominal adhesions from previous surgery. Plain films this morning suggest that this is improving. May be advanced as tolerated to low fiber with diabetic restrictions. Have consulted a dietitian to educate the patient on a low fiber, diabetic diet (which is what we would want her to be on when she is eventually discharged). Will also add Miralax daily for bowel stimulation. This should be continued on discharge as well. If she is having more than 3 BMs daily, then she could back off the Miralax and only take as needed. Okay with me if patient decides to see a surgeon who works at [facility]. PCP can make the referral if she prefers that. (2) Periumbilical hernia: Code(s): K42.9 - Umbilical hernia without obstruction or gangrene Status: Acute Assessment and Plan: Still soft and reducible. Continue to use the abdominal binder with activity and when sitting up during the day. Educated patient again about how to manually reduce her hernia at home if needed. Will plan to have the patient follow-up with her Back Tender Pulp Drier, Engineering Assistant, and PCP after discharge to get clearance for surgery. Instructed her to call our office to schedule a follow-up appointment with Dr. Seth once she has seen all specialist and has been cleared. He can then see her in the office and plan to schedule her hernia repair accordingly. (3) Anticoagulant long-term use: Code(s): Z79.01 - meterman (current) use of anticoagulants Status: Acute Assessment and Plan: Okay to resume Eliquis. (4) Diabetes mellitus: Code(s): E11.9 - Type 2 diabetes mellitus without complications Status: Acute (5) Obesity (BMI 30-39.9): Code(s): E66.9 - Obesity, unspecified Status: Acute Assessment and Plan: Encouraged diet and lifestyle modifications to promote weight loss after discharge. This would benefit her overall health and also help optimize her for surgery. Subjective Subjective Date/Time Seen: 10/04/21 12:00 Patient reports: no new complaints, feels better, tolerating a regular diet ( Diabetic, low-fiber), flatus (+) and bowel movement Review of Systems Review of Systems: All systems reviewed & are unremarkable except as noted in HPI and below Constitutional: Constitutional: Reports as per HPI and Denies fever(s) Cardiovascular: Cardiovascular: Denies chest pain and Denies dyspnea Respiratory: Respiratory: Reports no additional respiratory complaints and Denies dyspnea Gastrointestinal: Gastrointestinal: Reports as per HPI and Denies bloating Musculoskeletal: Musculoskeletal: Reports no additional musculoskeletal complaints Neurologic: Denies memory loss Psychiatric: Psychiatric: Denies anxiety and Denies memory loss Exam Narrative: General: No acute distress. Mental Status: Awake, alert and oriented to person, place, and time with clear speech. Skin: Skin in warm, dry and intact without rashes or lesions. Head: Normocephalic and atraumatic. Eyes: Conjunctivae are clear without exudates or hemorrhage. Sclera is non-icteric. EOM are intact, PERRLA. Ears: The external ear and canal are non-tender and without swelling or discharge. Nose: Nasal mucosa is pink and moist. Septum midline. Nares patent bilaterally. Throat: Oral mucosa pink and moist with good dentition. Tongue midline. Neck: The neck supple without adenopathy. Trachea midline. No JVD. Cardiac: S1 and S2 regular rate and rhythm. No murmurs, gallops, or rubs auscultated. Respiratory: Chest wall symmetric, nontender and without deformity or trauma. Respirations even and unlabored. Lung sounds are clear to auscult
[2021-10-04 14:00] VITALS: BP 128/59; PULSE 53; RESP 18; TEMP 36.4; O2SAT 97
[2021-10-04 17:07] LABS: Glucose Point of Care 220 mg/dl (65-105)
== END 2021-10-04 17:45 | disposition home or self-care (01) | DRG 394 ==
PROVIDERS: Surgery; Admitting Provider Internal Medicine; PCP Internal Medicine Geriatric Medicine; Visit Provider Nurse Practitioner Family
DX: K42.0 Umbilical hernia with obstruction, without gangrene (principal); K56.50 Intestinal adhesions [bands], unspecified as to partial versus complete obstruction; N17.9 Acute kidney failure, unspecified; E11.65 Type 2 diabetes mellitus with hyperglycemia; R53.81 Other malaise; E83.42 Hypomagnesemia; E78.5 Hyperlipidemia, unspecified; I48.91 Unspecified atrial fibrillation; R93.89 Abnormal findings on diagnostic imaging of other specified body structures; D72.829 Elevated white blood cell count, unspecified; E66.9 Obesity, unspecified; Z68.35 Body mass index [BMI] 35.0-35.9, adult; Z79.01 Long term (current) use of anticoagulants
CPT/HCPCS: 36415; 74019; 80048; 80053; 82948; 83036; 83605; 83735; 84100; 85025; 93005; 96361; 96374; 96375; 97161; 97165; A9270; G0378; G0379; J2405; J2543; J3475

== ENCOUNTER 2021-10-10 10:15 | Outpatient (CLI) | payer MEDICARE, SELFPAY ==
[2021-10-10 10:42] LABS: Basophils Absolute Auto 0.04 K/mm3 (0.00-0.10); Basophils Percent Auto 0.5 % (0.0-1.0); Eosinophils Absolute Auto 0.26 K/mm3 (0.02-0.50); Eosinophils Percent Auto 3.2 % (1.0-6.0); Hematocrit 36.3 % (35.0-42.0); Hemoglobin 11.7 g/dL (11.7-13.8); Immature Granulocyte Absolute 0.04 K/mm3 (0.00-0.00); Immature Granulocyte Percent A 0.5 % (0.0-0.0); Lymphocytes Absolute Auto 1.21 K/mm3 (1.10-4.50); Lymphocytes Percent Auto 15.1 % (18.0-42.0); Mean Corpuscular HGB Conc 32.2 g/dL (32.0-36.0); Mean Corpuscular Hemoglobin 27.9 pg (27.0-31.0); Mean Corpuscular Volume 86.6 fL (78.0-102.0); Mean Platelet Volume 9.9 fl (9.2-11.8); Monocytes Absolute Auto 0.63 K/mm3 (0.10-0.90); Monocytes Percent Auto 7.9 % (2.0-11.0); Neutrophils Absolute Auto 5.8 K/mm3 (1.7-7.2); Neutrophils Percent Auto 72.8 % (50.0-70.0); Platelet Count Result 303 K/mm3 (150-420); Red Blood Count 4.19 M/mm3 (4.20-5.40); Red Cell Distribution Width 13.8 % (11.6-14.4)
[2021-10-10 11:12] LABS: Creatinine Urine 106.31 mg/dL (40-278); MALB Creatinine Ratio 36.7 mg/g (0-30); Microalbumin Urine Random 39.1 mg/L
[2021-10-10 11:25] LABS: Alanine Aminotransferase 19 U/L (14-59); Albumin Level 3.7 g/dL (3.4-5.0); Alkaline Phosphatase 69 U/L (46-116); Anion Gap 10 mmol/L (8-16); Aspartate Amino Transferase 15 U/L (15-37); Bilirubin,Total 0.4 mg/dL (0.00-1.00); Blood Urea Nitrogen 21 mg/dL (7-18); Calcium 8.8 mg/dL (8.5-10.1); Carbon Dioxide 26 mmol/L (21-32); Chloride 104 mmol/L (98-108); Estimated Glomerular Filt Rate 34; Glucose 157 mg/dL (70-99); LDL Cholesterol Direct 43 mg/dL (0-130); Osmolality Calculated 296 mOsm/kg (285-295); Potassium 3.8 mmol/L (3.5-5.1); Sodium 140 mmol/L (136-145); Total Protein 6.5 g/dL (6.4-8.2)
== END 2021-10-10 10:16 | disposition home or self-care (01) ==
LOC: CHSLAB 10:19
PROVIDERS: PCP Internal Medicine Geriatric Medicine; Visit Provider Internal Medicine Geriatric Medicine
DX: E11.29 Type 2 diabetes mellitus with other diabetic kidney complication (principal); R80.9 Proteinuria, unspecified; Z79.4 Long term (current) use of insulin
CPT/HCPCS: 36415; 80053; 82043; 83036; 83721; 85025

== ENCOUNTER 2022-11-15 07:54 | Outpatient (CLI) | payer MEDICARE, SELFPAY ==
--- NOTE | ~2022-11-15 | XR_ITS ---
XR humerus RT DATE: 11/15/2022 08:30 INDICATION: Follow-up to August 08, 2022 surgery TECHNIQUE: 3 views COMPARISON: None FINDINGS: There is prominent diffuse osteopenia. There is a right humeral head prosthesis. There is a 17 cm long plate along the lateral aspect of the proximal and mid humeral shaft with C3 through screws in addition to cerclage wire, providing director international al fixation for transverse fracture(s) of the proximal and mid humeral shaft. No prior radiographs ar e available for comparison.). There is approximately 5 mm posterior displacement of the distal fragme nt and mild apex anterior angulation. Mild periosteal new bone formation is noted, indicating some healing response. Normal alignment at the acromioclavicular, glenohumeral and elbow joints. IMPRESSION: Internally fixated proximal and mid right humeral shaft fracture (s) Prominent osteopenia Reviewed, dictated and finalized at location A. IMPRESSION: Internally fixated proximal and mid right humeral shaft fracture (s ) Prominent osteopenia
[2022-11-15 08:43] LABS: Hemoglobin A1C 7.3 % (<5.7)
[2022-11-15 09:01] LABS: Albumin Level 3.1 g/dL (3.4-5.0); Alkaline Phosphatase 123 U/L (46-116); Anion Gap 10 mmol/L (8-16); Aspartate Amino Transferase 13 U/L (15-37); Bilirubin,Total 0.3 mg/dL (0.00-1.00); Blood Urea Nitrogen 31 mg/dL (7-18); Calcium 9.1 mg/dL (8.5-10.1); Carbon Dioxide 27 mmol/L (21-32); Chloride 103 mmol/L (98-108); Estimated Glomerular Filt Rate 31; Glucose 144 mg/dL (70-99); LDL Cholesterol Direct 53 mg/dL (0-130); Osmolality Calculated 299 mOsm/kg (285-295); Potassium 4.3 mmol/L (3.5-5.1); Sodium 140 mmol/L (136-145); Total Protein 6.7 g/dL (6.4-8.2)
[2022-11-15 09:21] LABS: Alanine Aminotransferase 10 U/L (14-59)
== END 2022-11-15 07:55 | disposition home or self-care (01) ==
LOC: CHSLAB 08:02
PROVIDERS: PCP Internal Medicine Geriatric Medicine; Visit Provider Internal Medicine Geriatric Medicine
DX: E11.29 Type 2 diabetes mellitus with other diabetic kidney complication (principal); R80.9 Proteinuria, unspecified; Z79.4 Long term (current) use of insulin; S42.391K Other fracture of shaft of right humerus, subsequent encounter for fracture with nonunion; M85.88 Other specified disorders of bone density and structure, other site
CPT/HCPCS: 36415; 73060; 80053; 83036; 83721

== ENCOUNTER 2023-01-27 13:49 | Outpatient (RCR) | payer MEDICARE, SELFPAY ==
--- NOTE | 2023-01-27 15:40 | OPREHPOC ---
Outpatient Therapy Plan of Care This is a Multidisciplinary Plan of Care that may contain components documented by all disciplines (PT, OT, and ST.) PT Problem 1 PT Problem #1 Knowledge Deficit PT Goal 1 Goal Patient to demonstrate independence with HEP Target Visit 5 PT Problem 2 PT Problem #2 Impaired Range of Motion PT Goal 1 Goal Patient to demonstrate 120 deg of R shoulder AROM flexion to improve ability to reach into cabinets Target Visit 10 PT Problem 3 PT Problem #3 Impaired Strength PT Goal 1 Goal Patient to demonstrate 4/5 R shoulder strength to improve lifting for house hold tasks Target Visit 10 PT Problem 4 PT Problem #4 Impaired Functional Mobil PT Goal 1 Goal 1. Patient to score 20% improvement on QuickDASH 2. Patient to report ability to dress with no increase in R shoulder pain Target Visit 10
--- NOTE | 2023-01-27 15:40 | PTOPEVAL1 ---
Assessment and note entered by Luz Marina Porter DPT Evaluation Information Assessment Status Evaluation Diagnosis R shoulder pain Onset 01/22/23 Subjective Information Patient reports on Nov 04 last year she fell and broke her R humerus. She had surgery on July of 2022 to repair the fracture. She reports she had a history R shoulder replacement in 2011. She reports since the surgery she has not been able to reach above her shoulder height. She reports it is progressively feeling tighter. She reports difficulty with reaching for house hold tasks, reaching behind her to dress, and lifting objects. Reported Pain Level Pain Score 0: Self Report Assessment PT Clinical Summary Patient is a 82 year old female who presents to PT with R shoulder pain. She demonstrates decreased R shoulder active and passive ROM and decreased R shoulder strength limiting her ability to complete house hold tasks, dress and lift objects around the house. She would benefit from skilled PT to address impairments and return to PLOF. Plan of Care Interventions Electrical Stimulation,Gait Training,Hot Pack/Cold Pack,Manual Therapy,Neuro Re-education,Patient/ Caregiver Educati,Therapeutic Activities, Therapeutic Exercise PT Services Indicated Yes Treatment Frequency and 2x weekly for 10 visits Duration These treatments will address the objective and functional deficits as defined above. The patient will be advanced safely and appropriately in order for the patient to progress towards his/her prior level of function. Additional exercises will be introduced and as well as a comprehensive home exercise program upon discharge, if needed, ?to ensure carryover of functional gains achieved in the clinic. This treatment plan has been reviewed and agreement upon by the patient.
--- NOTE | 2023-03-04 14:18 | OPREHPOC ---
Outpatient Therapy Plan of Care This is a Multidisciplinary Plan of Care that may contain components documented by all disciplines (PT, OT, and ST.) PT Problem 1 PT Problem #1 Knowledge Deficit PT Goal 1 Goal Patient to demonstrate independence with HEP Target Visit 5 Progress Met PT Problem 2 PT Problem #2 Impaired Range of Motion PT Goal 1 Goal Patient to demonstrate 120 deg of R shoulder AROM flexion to improve ability to reach into cabinets met passively, continue Target Visit 16 Progress Partially Met PT Problem 3 PT Problem #3 Impaired Strength PT Goal 1 Goal Patient to demonstrate 4/5 R shoulder strength to improve lifting for house hold tasks continue Target Visit 16 Progress Not Met PT Problem 4 PT Problem #4 Impaired Functional Mobil PT Goal 1 Goal 1. Patient to score 20% improvement on QuickDASH. continue 2. Patient to report ability to dress with no increase in R shoulder pain. continue Target Visit 10 Progress Partially Met
--- NOTE | 2023-03-04 14:18 | PTOPREEVAL ---
Assessment and note entered by JT File, PT Evaluation Information Assessment Status Re-evaluation Diagnosis R shoulder pain Onset 01/22/23 Subjective Information patient reports she feels Good today. she reports she continues to not be able to lift the R arm up from her side in front or to the side to use it for any lifting, carrying, reaching activities. she would like to continue to try and improve this reach and use of the R arm. Reported Pain Level Pain Score 0: Self Report Assessment PT Clinical Summary mrs. quiñones presents to skilled PT for her 10th skilled therapy visit. she presents still with liimited active mobility and strength in the R shoulder, but improved R shoulder passive flexion and no pain. she continues to lack abiltiy to raise the R arm away from her side for any functional use such as dressing, lifting, and carrying. she would benefit from continued skilled PT to improve her active rom, strength, and functional use of the R UE to improve her quality of life/return to prior level activities. Plan of Care Interventions Electrical Stimulation,Gait Training,Hot Pack/Cold Pack,Manual Therapy,Neuro Re-education,Patient/ Caregiver Educati,Therapeutic Activities, Therapeutic Exercise PT Services Indicated Yes Treatment Frequency and continue skilled PT 2x weekly for 6 visits Duration These treatments will address the objective and functional deficits as defined above. The patient will be advanced safely and appropriately in order for the patient to progress towards his/her prior level of function. Additional exercises will be introduced and as well as a comprehensive home exercise program upon discharge, if needed, ?to ensure carryover of functional gains achieved in the clinic. This treatment plan has been reviewed and agreement upon by the patient.
--- NOTE | 2023-04-03 14:02 | PCPTNOTE ---
patient had to cancel therapy today as she has a conflicting appointment with another MD.
--- NOTE | 2023-04-09 14:43 | PCPTNOTE ---
Patient cx to help a friend with a flat tire
--- NOTE | 2023-04-14 10:51 | PTOPDC ---
Assessment and note entered by JT File, PT Evaluation Information Assessment Status Discharge Diagnosis R shoulder pain Onset 01/22/23 Subjective Information patient reports she would like to be re-evaluated today and end skilled PT. she reports she will continue with HEP at home. she reports she continues to not be able to lift the R arm away from the body. Reported Pain Level Pain Score 0: Self Report Assessment PT Clinical Summary mrs. quiñones presents to skilled PT services for her 15th skilled PT visit for her R shoulder pain. she continues to dislpay deficits in active R shoulder rom and strength. she hast met goals for HEP performance, and progress made in passive R shoulder rom. however, her rom and strength have not improved enough to meet rom/strength/ functional goals. she will DC skilled PT today to independent HEP and follow up with any continue skilled needs. Plan of Care PT Services Indicated Yes
== END 2023-04-14 17:05 | disposition home or self-care (01) ==
LOC: CHSPT 13:49
PROVIDERS: Visit Provider Internal Medicine Geriatric Medicine
DX: M25.511 Pain in right shoulder (principal); G89.29 Other chronic pain
CPT/HCPCS: 97110; 97150; 97161

== ENCOUNTER 2023-06-18 08:16 | Outpatient (CLI) | payer MEDICARE, SELFPAY ==
[2023-06-18 10:25] LABS: Alanine Aminotransferase 17 U/L (14-59); Albumin Level 3.7 g/dL (3.4-5.0); Alkaline Phosphatase 113 U/L (46-116); Anion Gap 10 mmol/L (4-12); Aspartate Amino Transferase 14 U/L (15-37); Bilirubin,Total 0.4 mg/dL (0.00-1.00); Blood Urea Nitrogen 28 mg/dL (7-18); Carbon Dioxide 28 mmol/L (21-32); Chloride 103 mmol/L (98-108); Cholesterol 127 mg/dL (0-200); Estimated Glomerular Filt Rate 36; Glucose 124 mg/dL (70-99); LDL Cholesterol Direct 57 mg/dL (0-130); Osmolality Calculated 298 mOsm/kg (285-295); Potassium 4.9 mmol/L (3.5-5.1); Sodium 141 mmol/L (136-145); Total Protein 7.2 g/dL (6.4-8.2)
== END 2023-06-18 08:17 | disposition home or self-care (01) ==
LOC: CHSLAB 08:20
PROVIDERS: PCP Internal Medicine Geriatric Medicine; Visit Provider Internal Medicine Geriatric Medicine
DX: E11.29 Type 2 diabetes mellitus with other diabetic kidney complication (principal); R80.9 Proteinuria, unspecified; Z79.4 Long term (current) use of insulin
CPT/HCPCS: 36415; 80053; 82465; 83036; 83721

== ENCOUNTER 2023-07-14 13:34 | Outpatient (CLI) | payer MEDICARE, SELFPAY ==
[2023-07-14 13:43] LABS: Collection Time Urine 24 HOURS
[2023-07-14 13:50] LABS: Creatinine Urine 46.27 mg/dL (40-278); Patient Weight 180 Lbs
[2023-07-14 13:53] LABS: Creatinine Clearance Urine 36.2 ml/min (97-137); Serum Creat 1.38; Total Volume 24 Hour Urine 1600 ml
== END 2023-07-14 13:35 | disposition home or self-care (01) ==
LOC: CHSLAB 13:36
PROVIDERS: PCP Internal Medicine Geriatric Medicine; Visit Provider Internal Medicine Geriatric Medicine
DX: E11.29 Type 2 diabetes mellitus with other diabetic kidney complication (principal); R80.9 Proteinuria, unspecified; Z79.4 Long term (current) use of insulin
CPT/HCPCS: 82575

== ENCOUNTER 2023-07-17 13:49 | Outpatient (CLI) | payer MEDICARE, SELFPAY ==
--- NOTE | ~2023-07-17 | CT_ITS ---
EXAMINATION: CT diagnostic chest wo con DATE: 07/17/2023 14:15 INDICATION: lung mass TECHNIQUE: Computed tomography (CT) of the chest was performed without intravenous contrast. Addition al 3D reconstructions utilizing coronal maximum intensity projection (MIP) were performed. Automated exposure control and iterative reconstruction technique were employed. The dose-length product was 48 6.03 mGy-cm. COMPARISON: None FINDINGS: Mild emphysema. 4.4 x 3.9 cm right lower lobe mass which is concerning for primary bronchogenic carci noma. There are a few additional smaller masses in the right lower lobe the next largest measuring 2. 0 x 1.5 cm . There is also couple 1.3 cm left lower lobe nodules one of which lies along a linear ban d of discoid atelectasis/scarring. There are a few additional scattered bilateral subcentimeter pulmo nary nodules. All of these are concerning for metastatic disease. Calcified right lower lobe nodule c onsistent with old granulomatous disease. Heart size is normal with left atrial enlargement. Atherosc lerotic coronary artery calcifications. No pericardial or pleural effusion. Small sliding-type hiatal hernia. Thoracic aorta is normal in caliber. No pathologically enlarged thoracic lymphadenopathy. 2. 5 cm left thyroid mass. 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 Advanced left glenohumeral osteoarthritis. Cholecystectomy clip at the g allbladder fossa. Visualized upper abdomen is otherwise unremarkable. Mild thoracic kyphosis with sev ere spondylosis. IMPRESSION: 1. 4.4 cm right lower lobe mass with multiple additional smaller nodules and masses in both lungs deb picious for primary bronchogenic carcinoma and metastatic disease. Consider CT-guided biopsy for path ologic correlation. 2. 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 3. Left atrial enlargement. 4. Small sliding-type hiatal hernia. Reviewed, dictated and finalized at location A. IMPRESSION: 1. 4.4 cm right lower lobe mass with multiple additional smaller nodules and ma sses in both lungs suspicious for primary bronchogenic carcinoma and metastatic disease. Consider CT-guided biopsy for pathologic correlation. 2. 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 3. Left atrial enlargement. 4. Small sliding-type hiatal hernia.
== END 2023-07-17 13:50 | disposition home or self-care (01) ==
LOC: CHSIMG 13:51
PROVIDERS: PCP Internal Medicine Geriatric Medicine; Visit Provider Nurse Practitioner
DX: R91.8 Other nonspecific abnormal finding of lung field (principal); M19.012 Primary osteoarthritis, left shoulder; Z96.611 Presence of right artificial shoulder joint; I51.7 Cardiomegaly; K44.9 Diaphragmatic hernia without obstruction or gangrene
CPT/HCPCS: 71250

== ENCOUNTER 2023-12-31 13:37 | Outpatient (CLI) | payer MEDICARE, SELFPAY ==
[2023-12-31 13:55] VITALS: PULSE 57; O2SAT 96
[2023-12-31 14:02] VITALS: PULSE 105; O2SAT 95
--- NOTE | 2023-12-31 14:08 | HOMEO2EVAL ---
Evaluation was performed at [facility] Home Oxygen Evaluation RC: Home Oxygen (O2) Evaluation Start: 12/31/23 14:04 Freq: Status: Active Protocol: RPE Activity Type Activity Date Activity User E-sign Co-sign Detail Recorded Client Recorded Date Recorded By Document 12/31/23 13:55 SJB [email or web address] 12/31/23 14:07 SJB Document 12/31/23 14:02 [email or web address] [email or web address] 12/31/23 14:07 SJB 12/31/23 12/31/23 13:55 14:02 Home O2 Evaluation [Oxygen] -Test Phase Resting Exercise -Oxygen Delivery Room Air Room Air [Pulse Oximetry] -Pulse Oximetry (90-100 %) 96 95 [Pulse Rate] -Pulse Rate (60-100 beats/min) 57 L 105 H [Evaluation] -Activity Tolerance Good -Rating of Perceived Dyspnea (PD) +2 Mild, Some Difficulty, Noticeable to the Observer -Rate of Perceived Exertion (PE) 12 Query Text:Click the Protocol Button to View the RPE Scale [Exercise] -Ambulation Distance (feet) 600 -Ambulation Distance (meters) 182.87 [Comments] -Home Oxygen Evaluation Comments Will begin walk Pt walked on r/a. approx. 600 ft, stopping x 2 to rest. Sp02 remained at 95% and above through walk. HR ranged from 57-105. Pt known a fib. PLB encouraged. Tolerated well , talking through out walk. [Charges] -Evaluation Charges O2 Evaluation Charge
== END 2023-12-31 13:38 | disposition home or self-care (01) ==
LOC: CHSAUDIO 13:40
PROVIDERS: PCP Internal Medicine Geriatric Medicine; Visit Provider Nurse Practitioner
DX: J45.30 Mild persistent asthma, uncomplicated (principal)
CPT/HCPCS: 94618

== ENCOUNTER 2024-01-04 10:26 | Outpatient (CLI) | payer MEDICARE, SELFPAY ==
--- NOTE | ~2024-01-04 | CT_ITS ---
EXAMINATION:CT diagnostic chest wo con DATE: 01/04/2024 10:46 INDICATION: Right lung lower lobe mass. TECHNIQUE: Computed tomography (CT) of the chest was performed without intravenous contrast. Automate d exposure control and iterative reconstruction technique were employed. The dose-length product (DLP ) was 222.40 mGy-cm. COMPARISON: Chest CT 07/17/2023 FINDINGS: There is mild emphysema. A calcified right lung nodule and calcified right hilar lymph node s are consistent with old granulomatous disease. There are greater than 10 nodules and masses in the lungs. For example, a 3.7 x 2.8 cm mass in right lung lower lobe previously measured 4.2 x 4.0 cm. Th ere is a 2.2 cm nodule in left upper lobe that previously measured 0.3 cm. There is a 2.2 cm nodule i n right lower lobe that previously measured 0.5 cm. No pleural effusion. There is a 2.2 cm nodule in left thyroid lobe. There is mild mediastinal lymphadenopathy. No pleural effusion. The heart size is normal. There are coronary artery calcifications. No pericardial effusion. There is a small sliding h iatal hernia. There are changes of cholecystectomy. 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 The re is severe thoracic spondylosis. Thoracic kyphosis is noted. IMPRESSION: 1. Worsened pulmonary nodules and masses, consistent with metastatic disease. 2. Left thyroid nodule. Further evaluation is likely not needed given the patient's comorbidities. Reviewed, dictated and finalized at location A. IMPRESSION: 1. Worsened pulmonary nodules and masses, consistent with metastatic disease. 2. Left thyroid nodule. Further evaluation is likely not needed given the patie nt's comorbidities.
== END 2024-01-04 10:27 | disposition home or self-care (01) ==
LOC: CHSIMG 10:28
PROVIDERS: PCP Internal Medicine Geriatric Medicine; Visit Provider Nurse Practitioner
DX: R91.8 Other nonspecific abnormal finding of lung field (principal); E04.1 Nontoxic single thyroid nodule
CPT/HCPCS: 71250

== ENCOUNTER 2024-02-10 10:43 | Outpatient (RCR) | payer MEDICARE, SELFPAY ==
--- NOTE | 2024-02-10 16:01 | OPREHPOC ---
Outpatient Therapy Plan of Care This is a Multidisciplinary Plan of Care that may contain components documented by all disciplines (PT, OT, and ST.) PT Problem 1 PT Problem #1 Knowledge Deficit PT Goal 1 Goal / Goal Update 1. independent and compliant with HEP Target Visit 6 PT Problem 2 PT Problem #2 Pain PT Goal 1 Goal / Goal Update 1. 2/10 or less pain in the R knee at worst. Target Visit 12 PT Problem 3 PT Problem #3 Impaired Strength PT Goal 1 Goal / Goal Update 1. 4+/5 or better R knee strength Target Visit 12 PT Problem 4 PT Problem #4 Impaired Functional Mobil PT Goal 1 Goal / Goal Update 1. LEFS to display 35% or less functional deficits 2. patient to perform tug in less than 15 seconds 3. patient to perform 5x sit to mechanical engineering draftsperson less than 12 seconds 4. patient to ambulate 6 minutes without rest with improved efficiency Target Visit 12
--- NOTE | 2024-02-10 16:02 | PTOPEVAL1 ---
Assessment and note entered by JT File, PT Evaluation Information Assessment Status Evaluation Diagnosis chronic pain, knee arthritis, h/o total shoulder replacement R Other ICD-10 Condition Codes ( G89.4; M17.10; Z96.611 PT) Onset 02/08/24 Subjective Information patient reports she is having issues with her R knee and R shoulder. she reports the R knee bothers her more. she believes she may have strained a mm in her knee after she was working on bending the knee at home with the other leg in sitting. she reports the R shoulder has been limited since a fall and fracture after shoulder replacement. she reports the R knee pops and cracks, and the R elbow pops and cracks. she reports the knee is sore from time to time and feels it is burning/achy. she reports she is not able to use the R arm much, and has been this way since her fracture. she reports she has had no falls recently. Reported Pain Level Pain Score 4,0: Self Report Assessment PT Clinical Summary mrs quiñones is an 83 yo woman who presents to skilled PT services for evaluation and treatment of R shoulder and R knee pain. she presents with limited R shoulder mobility from a fall and fracture after joint replacement. she also displays limited R knee mobility and pain from OA. she reports being most limited in her activities due to the knee. she does have decreased R knee rom, strength, and abnormal gait mechanics. she also displays an increased fall risk per the tug and 5x sit to stand. she would benefit from continued skilled PT services to improve her objective/functional deficits and return to prior level functional activity performance/quality of life. Plan of Care Interventions Gait Training,Manual Therapy,Neuro Re-education, Patient/Caregiver Educati,Therapeutic Activities, Therapeutic Exercise PT Services Indicated Yes Treatment Frequency and 2x weekly for 12 visits Duration These treatments will address the objective and functional deficits as defined above. The patient will be advanced safely and appropriately in order for the patient to progress towards his/her prior level of function. Additional exercises will be introduced and as well as a comprehensive home exercise program upon discharge, if needed, ?to ensure carryover of functional gains achieved in the clinic. This treatment plan has been reviewed and agreement upon by the patient.
--- NOTE | 2024-02-17 13:55 | PCPTNOTE ---
Pt cancelled session this date. Notes she has a hurting dog loose in her back yard and is trying to track down the international relations teacher. She is scheduled for next week.
--- NOTE | 2024-04-07 14:29 | OPREHPOC ---
Outpatient Therapy Plan of Care This is a Multidisciplinary Plan of Care that may contain components documented by all disciplines (PT, OT, and ST.) PT Problem 1 PT Problem #1 Knowledge Deficit PT Goal 1 Goal / Goal Update 1. independent and compliant with HEP Target Visit 6 Progress Not Met PT Problem 2 PT Problem #2 Pain PT Goal 1 Goal / Goal Update 1. 2/10 or less pain in the R knee at worst. Target Visit 12 Progress Met PT Problem 3 PT Problem #3 Impaired Strength PT Goal 1 Goal / Goal Update 1. 4+/5 or better R knee strength Target Visit 12 Progress Met PT Problem 4 PT Problem #4 Impaired Functional Mobility PT Goal 1 Goal / Goal Update 1. LEFS to display 35% or less functional deficits . not met 2. patient to perform tug in less than 15 seconds. nearly met 3. patient to perform 5x sit to development and housing director less than 12 seconds. met 4. patient to ambulate 6 minutes without rest with improved efficiency. not met due to SOB and feeling tired. Target Visit 12 Progress Partially Met
--- NOTE | 2024-04-07 14:29 | PTOPDC ---
Assessment and note entered by JT File, PT Evaluation Information Assessment Status Discharge Diagnosis chronic pain, knee arthritis, h/o total shoulder replacement R Other ICD-10 Condition Codes ( G89.4; M17.10; Z96.611 PT) Onset 02/08/24 Subjective Information patient reports the knee and shoulder no longer hurt. she reports she is limited in walking and activities due to her breathing/fatigue and SOB. Reported Pain Level Pain Score 0: Self Report Assessment PT Clinical Summary mrs. quiñones presents to skilled PT for her 10th skilled therapy visit. she displays improved R knee strength and 5x sit to stand performance. however, she still is limited in ambulation endurance and TUG speed goals. she is most limited during endurance activities due to SOB/exhaustion . patient reports she is ready to DC therapy at this time. she has no pain any longer, and reports she will do her best to return to exercises. as of this date, she will be DC'd to an independent HEP. Plan of Care PT Services Indicated Yes
== END 2024-04-07 14:39 | disposition home or self-care (01) ==
LOC: CHSPT 10:43
PROVIDERS: Visit Provider Internal Medicine Geriatric Medicine
DX: G89.4 Chronic pain syndrome (principal); M17.10 Unilateral primary osteoarthritis, unspecified knee; Z96.611 Presence of right artificial shoulder joint
CPT/HCPCS: 97110; 97112; 97161

== ENCOUNTER 2024-07-08 10:27 | Outpatient (CLI) | payer MEDICARE, SELFPAY ==
--- NOTE | ~2024-07-08 | CT_ITS ---
CT Scan of the Chest without Contrast: Clinical Indication: Lung nodule Technique: Contiguous sections were acquired throughout the chest without intravenous contrast. Dose reduction technique was used on this scan by utilizing automated exposure control and iterative recon struction technique. The dose-length product (DLP) was 585.01 mGy-cm. COMPARISON: 01/04/2024 Findings: Stable probable cystic left thyroid lobe nodule. There is no evidence of any significant mediastinal, hilar or axillary lymphadenopathy. The mediastin al soft tissues appear normal. There is no evidence of pleural or pericardial effusion. 2.0 x 0.7 cm left apical pulmonary nodule is significantly decreased in size from prior exam. Additio nal subcentimeter left apical nodules are also probably mildly decreased unchanged (axial image 17). Probable stable 4 mm anterior right upper lobe nodule (axial image 51). 2.2 x 1.90 right lower lobe n odules also decreased from prior exam (axial image 63). Additional 1.3 cm right lower lobe nodule per ipherally is also decreased (axial image 76). Additional right basilar pulmonary nodules are also mil dly decreased (axial image 82). 1.1 cm left basilar pulmonary nodule is essentially unchanged (axial image 85). Images through the upper abdomen reveal no abnormalities. Impression: Multiple pulmonary nodules, as detailed above, most of which are decreased in size, compatible with p artial response to interval therapy. Reviewed, dictated and finalized at location M. Impression: Multiple pulmonary nodules, as detailed above, most of which are decreased in s ize, compatible with partial response to interval therapy.
--- OUTSIDE RECORDS SUMMARY | 2024-07-08 10:36 | XMS_ITS | Encounter Summary ---
Author Organization [facility] Healthcare Address [address] [place] [address] Care Team Providers Care Grades 1 Through 6 Teacher Name Role Phone Angela Singer MD Primary Care Provider + [phone] Antonio Grady Unavailable Unavail able Ced Holloway MD Unavailable + Yevgeniy Jenkins MD Unavailable [phone] Colton Graham MD Unavailable Sy Sherman MD Unavailable [phone] Stephanie Gardner LPN Unavailable [phone] Lito Arroyo MD Unavailable [phone] Omaira Rob MD Unavailable [phone] Chris Bates MD Unavailable Winnie Hogan MA Unavailable [phone] Zuleyka Keene LCSW Unavailable [phone] Lito Arroyo MD Unavailable [phone] Encounter Details Date Type Department Care Team (Late st Contact Info) Description 07/22/2021 Telephone [facility] [address] [place] [id number] Rosanne Miller, RT Social History Tobacco Use Types Packs/Day Years Used Date Smoking Tobacco: Never Smokeless Tobacco: Never Alcohol Use Standard Drinks/Week Comments No 0 (1 standard drink = 0.6 oz pur e alcohol) PHQ-2 Answer Date Recorded PHQ-2 Total Score (If total score is 3 or more points, staff should administer the PHQ-9) 0 07/16/2021 Comments No Sex and Gender Information Value Date Recorded Sex Assigned at Not on file Legal 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 Gender Identity Not on file Sexual Orientation Not on file Occupation Industry Job Start Date Job End Date retired Not on file Not on file Not on file documented as of this encounter Plan of Treatment Not on file documented as of this encounter Visit Diagnoses Not on filedocumented in this encounter Care Teams Grades 1 Through 6 Teacher Relationship Specialty Start Date End Date Angela Singer MD PCP - General 06/20/16 Antonio Grady Gastroenterology 02/02/17 Ced Holloway MD [address] [place] [address] Consulting Physician Gastroenterology 02/02/17 Yevgeniy Jenkins MD [address] [place] [address] Consulting Physician Ophthalmology 02/02/17 Colton Graham MD [address] [place] [address] Consulting Physician General Surgery 09/05/19 Sy Sherman MD [address] [place] [address] Consulting Physician Cardiovascular Disease 01/22/20 Stephanie Gardner, HIGHWAY TRAFFIC CONTROL TECHNICIAN [address] [place] [address] ACO Care Bone Plant Supervisor 11/12/21 11/21/21 Lito Arroyo MD [address] [place] [address] [address] [place] [address] Referring Physician Orthopedic Surgery 02/06/22 Omaira Rob MD [address] [place] [address] [address] [place] [address] Consulting Physician Cardiology 07/22/22 Chris Bates MD [address] [place] [address] [address] [place] [address] Consulting Physician Pulmonary Disease 07/22/22 Winnie Hogan MA [address] [place] [address] [address] [place] [address] ACO Care Bone Plant Supervisor 08/13/22 08/13/22 Zuleyka Keene, [address] [place] [address] Golf Club Head Inspector Webfocus Developer 08/19/22 09/03/22 Lito Arroyo MD [address] [place] [address] [address] [place] [address] Referring Physician Orthopedic Surgery 08/19/22 documented as of this encounter
--- OUTSIDE RECORDS SUMMARY | 2024-07-08 10:36 | XMS_ITS | Continuity of Care Document ---
[facility] Organization [facility] [address] [place] [address] Phone Care Team Providers Care Extract Operator Name Role Phone Scott SINHA, Jaymie Unavailable Unavailable Allergies, Adverse Reactions, Alerts Substance Reaction Status Criticality amlodipine Active No Information Medications Medication Instructions Dosage Effective Dates (start - stop) Status Comments VITAMIN D3 (unknown strength) take one tablet daily Not Available - Active magnesium 30 mg tablet take one tablet daily - Active furosemide 20 mg tablet take 1 tablet by oral route every day 20 MG - Active Tresiba FlexTouch U-100 insulin 100 unit/mL (3 mL) subcutaneous pen inject by subcutaneous route as per insulin protocol 0.00 - Active omeprazole 20 mg tablet,delayed release take one tablet daily - Active rosuvastatin 10 mg tablet take one tablet daily - Active Artificial Tears (dextran 70-hypromellose) eye drops take one tablet daily - Active labetalol 100 mg tablet take 1 tablet by oral route 2 times every day 100 MG - Active B-12 (unknown strength) take 1 by oral route every day Not Available - Active Eliquis 5 mg tablet take 1 tablet by oral route 2 times every day 5 MG - Active Tramadol 50 mg Tab take 1 tablet (50MG) by ORAL route every 6 hours as needed 50 MG - Active Tylenol Arthritis 650 mg Tab take 2 tablet (1300MG) by ORAL route every 8 hours as needed - Active Procedures Procedure Date No Charge Optomap Fundus Photos 024 No Charge Refraction Eye Exam & Treatment Xcellent A 3000 60 C No Charge Refraction Office/outpatient Visit, Est Refraction Office/outpatient Visit, Est No Charge Optomap Fundus Photos 022 Sensorimotor Eval/Diag Office/outpatient Visit, Est No Charge Optomap Fundus Photos 022 Sensorimotor Eval/Diag No Charge GDX Retina Office/outpatient Visit, Est No Charge Refraction Post-op Follow-up Visit Post-op Follow-up Visit Remove Cataract, Post Op Care Remove Cataract, Insert Lens,Comanaged M IOLMaster-Professional No Charge Refraction Post-op Follow-up Visit Remove Cataract, Post Op Care 2 Remove Cataract, Insert Lens,Comanaged M IOLMaster-Professional No Charge Refraction No Charge Optomap Fundus Photos 021 IOLMaster-Technical No Charge Orbscan Office/outpatient Visit, Est No Charge Optomap Fundus Photos 021 No Charge Refraction Eye Exam & Treatment No Charge Optomap Fundus Photos 020 Eye Exam & Treatment No Charge Refraction Eye Exam & Treatment Eye Exam & Treatment No Charge Refraction Eye Exam & Treatment No Charge Refraction Office/outpatient Visit, Est No Charge Refraction Eye Exam & Treatment Eye Exam Established Pt Office/outpatient Visit, Est Office/outpatient Visit, Est Office/outpatient Visit, Est Office/outpatient Visit, Est Office/outpatient Visit, Est Office/outpatient Visit, New Eye Exam & Treatment Certified EMR Visual Field Examination(s) Corneal Pachymetry Fundus Photography W/ Report Advance Directives Directive Yes / No Effective Date File Name No Information Encounters Encounter Description Practice Location Reason(s) For Visit Diagnoses Date Provider Providers Copied on Encounter [facility], [address] [place] [address] [address], [place], [place], [address], tel:[phone] [place] Profession[place] Complete Exam (chief complaint) Dry eye syndrome of bilateral lacrimal glandsType 2 diabetes mellitus without complication s 4 Scott OD Jaymie. [address] [place] [address] [address], [address], [place], [place], [address], [place]. tel:[phone] Referring Provider: Angela Singer MD, [address] [place], [address]. tel:[phone] Office/outpa [place]ient [place], [facility] [place] [address] [place] [address] [address], [place], [place], [address], [place] tel:[phone] [place] Glasses Check (chief complaint) Dry eye syndrome of bilateral lacrimal glandsInterm ittent esotropia 4 Scott OD Jaymie. [address] [place] [address] [address], [address], [place], [place], [address], [place]. tel:[phone] Referring Provider: Anglea Singer MD, [address], [place], [address]. tel:[phone] Office/outpa tient Visit, [facility] [place], [address] [place] [address] [address], [place], [place], [address], [place] tel:[phone] [place] Follow up visit (chief complaint) DiplopiaCN III palsy, right 3 Gregory Vuong. [address] [facility], [address], [place], [place], [address], [place]. tel:[phone] Referring Provider: Angela Singer MD, [address] [place], [address]. tel:[phone] Office/outpa tient Visit, [facility], [address], [place], [place], [address], [place] tel:[phone] [place] Follow up visit (chief complaint) DiplopiaOcul ar trauma, right eye, sequela 2 Gregory Vuong. [address] [facility], [facility] [place], [address], [place]. tel:[phone] Referring Provider: Angela Singer MD, [address] [place], [address]. tel:[phone] Office/outpa tient Visit, [facility] [place], [address], [place], [place], [address], [place] tel:[phone] [place] Prof[place] fuzzy vision (chief complaint) Ocular trauma of right eye, initial encounterCN III palsy, rightRight abducens nerve palsyH/O Dietz's palsyDry eye syndrome of left eyePseudopha ben of both eyesDiplopia Nov- 2 Gregory Vuong. [address] [employer] [facility], [facility] A, [place], [place], [address], [place]. tel:[phone] Referring Provider: Angela Singer MD, [address], [place], [address]. tel:[phone] [facility], [address], [place], [place], [address], [place] tel:[phone] [place] 1 mo CE PO (07/24/21) (chief complaint) Post op visit 2 Valerio OD Alie. [address], [address], [place], [place], [address], [place]. tel:[phone] Referring Provider: Angela Singer MD, [address] [place], [address]. tel:[phone] [facility], [address] [place] [address] [address], [place], [place], [address], tel:[phone] [place] 1 wk CE PO (07/24/21) (chief complaint) Post op visit 2 Valerio OD Alie. [address] [place] [address] [address], [address], [place], [place], [address], [place]. tel:[phone] Referring Provider: Angela Singer MD, [address] [place], [address]. tel:[phone] [facility], [address] [place] [address] [address], [place], [place], [address], tel:[phone] [place] 1 day CE PO (chief complaint) Post op visit 2 Valerio OD Alie. [address] [place], [place] [address], [address], [place], [place], [address], [place]. tel:[phone] Referring Provider: Angela Singer MD, [address] [place], [address]. tel:[phone] [facility], [address] [place] [address] [address], [place], [place], [address], [place] tel:[phone] [facility] [place] No Information 2 Gregory Vuong. [address] [facility], [address], [place], [place], [address], [place]. tel:[phone] Referring Provider: Angela Singer MD, [address] [place], [address]. tel:[phone] [facility], [address] [place] [address] [address], [place], [place], [address], [place] tel:[phone] [place] Prof[place] No Information 2 Gregory Vuong. [address], [address], [place], [place], [address], [place]. tel:[phone] Referring Provider: Angela Singer MD, [address] [place], [address]. tel:[phone] [facility], [address], [place], [place], [address], [place] tel:[phone] [place] 2 week s/p PCIOL (chief complaint) Encounter for examination following surgery 2 Gregory Vuong. [address] [facility], [address], [place], [place], [address], [place]. tel:[phone] Referring Provider: Angela Singer MD, [address] [place], [address]. tel:[phone] [facility], [address], [place], [place], [address], [place] tel:[phone] [place] 1 day CE PO (chief complaint) Post op visit 2 Gregory Vuong. [address] [facility], [address], [place], [place], [address], [place]. tel:[phone] Referring Provider: Angela Singer MD, [address] [place], [address]. tel:[phone] [facility], [address], [place], [place], [address], [place] tel:[phone] [place] [address] [facility] No Information 2 Gregory Vuong. [address] [facility], [address], [place], [place], [address], [place]. tel:[phone] Referring Provider: Angela Singer MD, [address] [place], [address]. tel:[phone] [facility], [address], [place], [place], [address], [place] tel:[phone] [place] No Information 2 Gregory Vuong. [address] [employer], [address], [address], [place]. tel:[phone] Referring Provider: Angela Singer MD, [address] [place], [address]. tel:[phone] Office/outpa tient Visit, [facility] [place], [address] [place] [address] [address], [place], [place], [address], [place] [phone] [place] 6 month Cataract check (chief complaint) Age-related nuclear cataract of both eyesType 2 diabetes mellitus without complication sHistory of Dietz's palsy 1 Gregory Vuong. [address] [employer], [facility] [place], [address], [place]. tel:[phone] Referring Provider: Angela Singer MD, [address] [place], [address]. tel:[phone] [facility], [address] [place] [address] [address], [place], [place], [address], [place] tel:[phone] [place] Complete Exam (chief complaint) Age-related nuclear cataract of both eyesType 2 diabetes mellitus without complication s 1 Gregory Vuong. [address] [employer]iff[employer], [address], [address], [place]. tel:[phone] Referring Provider: Angela Singer MD, [address] [place], [address]. tel:[phone] [facility] [place] [facility] [facility], [address] [place] [address] [address], [place], [place], [address], [place] tel:[phone] [place] Complete Exam (chief complaint) Age-related nuclear cataract of both eyesType 2 diabetes mellitus without complication s 0 Gregory Vuong. [address] [employer], [address], [place], [place], [address], [place]. tel:[phone] Referring Provider: Angela Singer MD, [address], [place], [address]. tel:[phone] [facility], [address], [place], [place], [address], [place] [phone] [place] No Information 0 Gregory Vuong. [address] [employer], [address], [address], [place]. tel:[phone] [facility], [address], [place], [place], [address], [place] tel:[phone] [place] Profession[place] Cataract evaluation (chief complaint) Age-related nuclear cataract of both eyesType 2 diabetes mellitus without complication s 9 Gregory Vuong. [address] [employer], [address], [address], [place]. tel:[phone] Referring Provider: Angela Singer MD, [address], [place], [address]. tel:[phone] [facility], [address], [place], [place], [address], [place] [phone] [place] Profession[place] No Information 9 Gregory Vuong. [address] [employer], [address], [address], [place]. tel:[phone] [facility], [address], [place], [place], [address], [place] tel:[phone] [place] diabetic eye exam (chief complaint) Age-related nuclear cataract, bilateralTyp e 2 diabetes mellitus without complication s 8-201 8 Gregory Vuong. [address] [employer], [address], [place], [place], [address], [place]. tel:[phone] Referring Provider: Angela Singer MD, [address], [place], [address]. tel:[phone] [facility], [address], [place], [place], [address], [place] tel:[phone] [place] Complete Exam (chief complaint) No Information May-1 0-201 7 Gregory Vuong. [address] [facility], [address], [place], [place], [address], [place]. tel:[phone] Referring Provider: Angela Singer MD, [address], [place], [address]. tel:[phone] Office/outpa tient Visit, [facility] [place], [address], [place], [place], [address], [place] tel:[phone] [place] Cataract evaluation (chief complaint) No Information Nov-0 9-201 6 Gregory Vuong. [address] [facility], [address], [place], [place], [address], [place]. tel:[phone] Referring Provider: Angela Singer MD, [address], [place], [address]. tel:[phone] [facility], [address], [place], [place], [address], [place] tel:[phone] [place] Profession[place] Difficulty reading (chief complaint) No Information July-2 5-201 6 Gregory Vuong. [address] [facility], [address], [place], [place], [address], [place]. tel:[phone] Referring Provider: Angela Singer MD, [address], [place], [address]. tel:[phone] [facility], [address], [place], [place], [address], [place] tel:[phone] [place] Lagophthalmo s check RUL (chief complaint) No Information 6 Gregory Vuong. [address], [address], [place], [address], [place]. tel:[phone] Referring Provider: Angela Singer MD, [address] [place], [address]. tel:[phone] Office/outpa tient Visit, [facility], [address] [place] [address] [address], [place], [place], [address], [place] tel:[phone] [place] 3 week follow for Lagophthalmo s (chief complaint) No Information 5 Gregory Vuong. [address] [employer] ConsultingC[facility] Hospital[facility], [address], [place], [address], [place]. tel:[phone] Referring Provider: Angela Singer MD, [address] [place], [address]. tel:[phone] Office/outpa tient Visit, [facility], [address] [place] [address] [address], [place], [place], [address], [place] tel:[phone] [place] Blurry vision (chief complaint) No Information 5 Gregory Vuong. [address] [employer] [address], [address], [place], [address], [place]. tel:[phone] Referring Provider: Angela Singer MD, [address] [place], [address]. tel:[phone] Office/outpa tient Visit, [facility], [address] [place] [address] [address], [place], [place], [address], [place] tel:[phone] [place] follow up (chief complaint) No Information 3 0 5 Gregory Vuong. [address] [employer] [address], [address], [place], [address], [place]. tel:[phone] Referring Provider: Angela Singer MD, [address], [place], [address]. tel:[phone] Office/outpa tient Visit, [facility], [address] [place] [address] [address], [place], [place], [address], [place] tel:[phone] [place] blurry vision (chief complaint) No Information Oct-2 3-201 5 Gregory Vuong. [address], [place], [place], [address], [place]. tel:[phone] Referring Provider: Angela Singer MD, [address] [place], [address]. tel:[phone] Office/outpa tient Visit, [facility] [place], [address] [place] [address] [address], [place], [place], [address], [place] tel:[phone] [place] Cranial Nerve VII Palsy F/U (chief complaint) No Information Oct-2 0-201 5 Gregory Vuong. [address], [place], [place], [address], [place]. tel:[phone] Referring Provider: Angela Singer MD, [address] [place], [address]. tel:[phone] Office/outpa tient Visit, [facility], [address] [place] [address] [address], [place], [place], [address], [place] tel:[phone] [place] Prof[place] work in emergency (chief complaint) No Information Oct-1 6-201 5 Gregory Vuong. [address], [place], [place], [address], [place]. tel:[phone] Referring Provider: Angela Singer MD, [address], [place], [address]. tel:[phone] [facility], [address] [place] [address] [address], [place], [place], [address], [place] tel:[phone] SEC [facility] Professiona l No Information 2 Sandra Joya. [address] [facility], [address], [place], [place], [address], [place]. tel:[phone] Referring Provider: Angela Singer MD, [address], [place], [address]. tel:[phone] Family History Family Member Type Diagnosis Age At Onset Problem (finding) Family history of Cance r Payers Payer name Insurance type Covered republican ID Authoriza tion(s) [place] [id number] [facility] [id number] Social History Type Description Quantity Date Captured Comments Alcohol Use Details No Caffeine Use Details coffee 2 cups per day Tobacco Use Status Current non-smoker Smoking Status Never smoker Non-Smoking Tobacco Use Details : No Details Available : No Details Available Sex Female Sexual Orientation Don't Know Gender Identity Female Chief Complaint And Reason For Visit From encounter dated '09/14/2023 10:00'. Complete Exam (chief complaint). Description: The 83 year old patient presents for evaluation of Complete Exam in the right eye and left eye. Pt states no pain or discomfort in OU and pt states that picture frames in house still seem crooked and pt states that OS gets blurry every now and then and pt states this comes and goes. Reason For Referral Reason For Referral No Information Plan Of Treatment Date Type Action Status Appointment Chel Levine BOOKED Patient Education Double Vision: Care Ins tructions completed Patient Education Double Vision: Care Ins tructions completed Patient Education Cataract Surgery: What to Expect at H~ completed Patient Education Cataracts: Care Instruc tions completed Patient Education Cataracts: Care Instruc tions completed Patient Education Cataracts: Care Instruc tions completed History Of Present Illness Encounter Date Complaint History Of Prese nt Illness Complete Exam The 83 year old patient presents for evaluation of Complete Exam in the right eye and left eye. Pt states no pain or discomfort in OU and pt states that picture frames in house still seem crooked and pt states that OS gets blurry every now and then and pt states this comes and goes. Glasses Check The 82 year old patient presents for evaluation of Glasses Check in the right eye and left eye. Pt states that Glasses don't seem right. Follow up visit The 82 year old patient presents for a 6 month IOP check and motility check. Patient is a Type II diabetic. Patient has hx of [place] Palsy and ocular trauma OD. Patient states when she looks to the side things look crooked on the wall. Patient had shoulder sx in July. Follow up visit The 81 year old patient presents for a 3 month follow for double vision. Patient states double vision comes and goes. Patient states when she looks to the left everything looks distorted. Patient states PCP ordered more blood work and patient states we should have those results. fuzzy vision The 81 year old patient presents for evaluation of fuzzy vision in the left eye. Hx of PCIOL OU. Patient states she fell in October and had a fracture in her shoulder and since her fall her VA in her left eye is fuzzy. Patient fell on carpet. Patient states when she looks off to the side her VA seems crooked and depth perception seems off since the fall. Patient states her BS has been running high, BS checked today @ 165, unknown a1c, and PCP treats her diab. 1 mo CE PO (07/24/21) The 80 year old patient presents for evaluation of 1 mo CE PO (07/24/21) in the right eye. Pt reports she finished all CE PO gtts and isn't currently using any gtts, OU. Pt reports OD is doing fine, and VA is a lot better since CE. 1 wk CE PO (07/24/21) The 80 year old patient presents for evaluation of 1 wk CE PO (07/24/21) in the right eye. Pt reports she is using Vigamox QID OD, Pred QID OD, and Ketorolac QID OD. Pt reports OD is doing good and VA is a lot better since CE. 1 day CE PO The 80 year old patient presents for evaluation of 1 day CE PO in the right eye. Pt reports she is using Vigamox QID OD, Pred QID OD, and Ketorolac QID OD. PO instructions were given, explained, and understood by pt. Pt reports OD is doing good, no pain or discomfort and VA is definitely better since CE. 2 week s/p PCIOL The 80 year old patient presents for evaluation of 2 week s/p PCIOL in the left eye 05/27/21. Patient states VA is great with the left eye. Patient using p/o gtts as directed. c/o with the right eye is difficulty seeing road signs, reading small print, and trouble seeing in bright light and glare at night. 1 day CE PO The 80 year old client presents for evaluation of 1 day CE PO in the left eye. Pt reports she is using Vigamox QID OS, Pred QID OS, and Ketorolac QID OS. PO instructions were given, explained, and understood by pt. Pt reports OS is doing good, no pain or discomfort, and she can't believe how bright things are already. 6 month Cataract check The 80 ye ar old female presents for evaluation of 6 month Cataract check in the right eye and left eye. 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 Patient states her VA has gotten slightly more blurry especially when reading small print. Patient has difficulty watching television due to VA with both eyes. Patient states sometimes bright lights are bothersome with both eyes. BS checked this am @ 151, unknown a1c, and PCP treats her diab. Complete Exam The 80 year old female presents for evaluation of Complete Exam in the right eye and left eye. Hx of CAT OU, AD6Gsiwa OD, and Lagophthalmos OD. Pt is IDDM II x unknown amount of time, followed by PCP, pt reports BS was 160 this am and she is unsure of A1C but it was good about 1 mos ago. Pt reports she can see everything she needs to see with gls and isn't interested in CE at this time. Pt reports she doesn't use gtts, OU. Complete Exam The 79 year old female presents for evaluation of Complete Exam in the right eye and left eye. Hx cataract OU, CN6 palsy OD, Lagophthalmos RUL, BREANNE OU. DM2, last a1c unknown, BS 142 as of this morning, followed by Dr. Singer. Pt reports stable vision in current spec Rx. PT reports dryness OU, but does not take gtts. Cataract evaluation The 77 year old female presents for a cataract evaluation ou. Patient is a Type II diabetic and BS was 134 on Thursday. Patient denies any changes in vision. Patient states she just passed her vision drivers test on Thursday. Patient states she is not interested in cataract sx at this time. diabetic eye exam The 76 year ol d female presents for a complete diabetic eye exam. Patient takes no medication for DM. Patient states a few days ago BS was 115, a1c last month was below 7. Patient denies any changes in vision. Patient states sometimes she blinks and vision clears up. Patient states she has dry eyes and needs to get some more AT. Complete Exam The 75 year old female presents for Complete Exam in the right eye and left eye. Hx Cataracts OU, Cranial Nerve Palsy, Lagophthalmos RUL, SPK. Pt state shse recently got new glasses and they are working great. PT states her vision is doing fine. Pt denies using eye drops. Pt denies pain/discomfort OU. Cataract evaluation The 75 year old female presents for a 6 month cataract check ou. Patient thinks the hearing in left ear has come back. Patient thinks the left eye is a little weaker. Difficulty reading The 74 year o ld female presents for a complete cataract check ou. 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 Patient states a little harder to read the tv guide on tv. Lagophthalmos check RUL The 74 y ear old female presents for Lagophthalmos check RUL. Hx Lagophthalmos RUL, CN VII palsy. Pt using Genteal gel at night before bed. Ran out of Poly QID OD. Pt states she has had some irritation but the wind has been blowing a lot. 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 Patient states OD is slightly better but still can't close OD all the way. Patient using the víctor 4 to 5 times a day in the OD and Polytrim QID OD. Patient currently still wearing the eye patch at night and occ during the day when she is outside. 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 Patient is using Poly qid OD and Lacrilube OD. Patient states OD is improving. Patient states medicare woudn't cover the stimulator device. 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 Pt using Poly QID OD, Lacrilube 5-6 times per day OD, refresh drops prn for dryness OD. Pt patching eye every day all day. Patient tapes OD closed at night. Patient is still unable to close right eyelids. Patient states OD feels fine, no complaints. blurry vision The 74 year old female presents for a 3 day follow up for SPK OD. Patient states she notices a difference doing the therapy. Patient is using Poly qid and Lacri-lube 6 times a day. Patient recently put the ointment in and vision is blurry. Patient presented in the office with eye patch on OD. Cranial Nerve VII Palsy F/U The 74 year old female presents for Cranial Nerve VII Palsy F/U. Patient was in the office on 01/05/[address] Singer for [place] Palsy and Lagophthalmos OD. Patient reports things are getting a bit better. Patient states she has a little ability to move OD eyelids now and she has been going to therapy as well. Patient is almost done with the prescription of Acyclovir and Prednisone. Patient has been using the Lacrilube faithfully OD. Patient uses warm compress and refresh tears before she reapplies the Lacrilube OD. Patient has been keeping it patched as well. 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 Patient has [place] Palsy on right side. Patient is unable to blink OD. Patient was examined earlier today by Dr Singer and prescribed Prednisone 20mg po every 8 hours, and an ophthalmic ointment to use at night. Functional Status Date Functional Assessmen t No Information Instructions Date Instruction Additional Infor betty Impression/Plan Impression/Plan Impression/Plan Impression/Plan Impression/Plan Impression/Plan Impression/Plan Impression/Plan Impression/Plan Impression/Plan Impression/Plan Impression/Plan Impression/Plan Impression/Plan Surgery not indicated now. 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 Follow up - Return t o clinic in 1 year for complete exam Impression/Plan - 7t h CN palsy has resolved. Patient shows excellent orbicularis strength OU. The vision OU is stable and patient is not having any visual trouble at this time. Patient understands she has a cataract in both eyes that is just starting to affect the vision. CE is not recommended at this time. Patient will monitor the vision and call with changes. Recommend patient return in 6 months or sooner with problems. 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 There is no further lagophthalmos. Ocular dryness OD is greatly improved. Continue AT víctor QHS OD and AT drops PRN OD. Patient has recent onset sudden hearing loss of the left ear. Concern that this represents a left CN VIII deficit in conjunction with her right CN VII palsy. Her PCP has already ordered an MRI, which I agree with. No results as of yet. Discussed early cataracts. Recommend observation at this time. Follow up in 6 months with cataract check. 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 Recommend patient continue to patch OD while she is sleeping to ensure complete closure. Patient will continue the AFT víctor QHS OD and AFT as needed throughout the day. Recommend patient return in 3 months for complete with BCVA and BAT. 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 Cranial nerves II- and VIII-XII remain intact. Continue present management. Patient will return in 6-8 weeks or sooner with problems. 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 Current treatment working well for patient. Continue the Lubricating víctor 4 to 5 times daily OD and the Polytrim QID OD until gone. Return to clinic in 3 weeks or sooner with problems. Follow up - RTC in 2 weeks. 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 Signifiant improvement in expsure keratopathy today. Advised pt to continue Lacrilube ointment 5-6 times a day and Poly QID OD. RTC in 2 weeks for f/u. Impression/Plan - Vi mirlande decreased due to exposure keratopathy and AT víctor. Ocular surface dry today. Lagophthalmos RUL 8 mm; Exposure keratopathy; 3-4+SPK; no evidence of infiltrates. After instilling eye wash in the office today, vision in the right eye went from CF3 to 20/400; PH 20/200. Advised pt to use Lacrilube 6 times a day and Polytrim QID OD. If no improvement at next visit, discussed the need for temporary tarsorrhaphy. Pt will consider. RTC in 1 week for f/u. Follow up - RTC in 1 week for f/ u Follow up - Return i n 3 days with Yevgeniy Jenkins M.D. for Follow up - Return i n 3 days with Yevgeniy Jenkins M.D. for Impression/Plan - Oc ular surface very dry today. Add Polytrim QID for prophylaxis given irregular corneal surface. Advised to use Polytrim 5 minutes before Lacri-lube; Continue Lacrilube at least 6 times per day or more. Taped OD shut today in clinic. RTC this thursday; discussed the possible need for temporary tarsorrhaphy OD if exposure kerratopathy worsens. Impression/Plan - Di scussed cranial nerve VII palsy and the inability to close eyelid and resultant severe dry eyes. Agree with Dr. Singer's choice to start Acyclovir, Prednisone and Lacrilube. I recommended that the patient use Lacrilube 6 times per day. Discussed that ointment will blur vision. Discussed taping the eyelid closed whild sleeping and showed friend how to properly do this. RTC next Thursday. Letter sent to Dr. Singer. 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
--- OUTSIDE RECORDS SUMMARY | 2024-07-08 10:37 | XMS_ITS | Encounter Summary ---
Author Organization [facility] Address [address] [place] [address] Phone Care Team Providers Care Film Vault Supervisor Name Role Phone Angela Singer MD Primary Care Provider [phone] Antonio Grady Unavailable Unavail able Ced Holloway MD Unavailable + Yevgeniy Jenkins MD Unavailable [phone] Colton Graham MD Unavailable Sy Sherman MD Unavailable [phone] Stephanie Gardner LPN Unavailable Lito Arroyo MD Unavailable [phone] Omaira Rob MD Unavailable [phone] Chris Bates MD Unavailable Winnie Hogan MA Unavailable Zuleyka Keene LCSW Unavailable Lito Arroyo MD Unavailable Encounter Details Date Type Department Care Team (Late st Contact Info) Description 10/10/2021 Orders Only [facility] [address] [place] [address] Angela Singer MD [address] [place] [address] Social History Tobacco Use Types Packs/Day Years [...] on file 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 Gender Identity Not on file Sexual Orientation Not on file Occupation Industry Job Start Date Job End Date retired Not on file Not on file Not on file documented as of this encounter Plan of Treatment Not on file documented as of this encounter Procedures Procedure Name Priority Date/Time Associated Diagnosis Comments SCAN - LABS 10/10/2021 documented in this encounter Results * SCAN - LABS (10/10/2021) Angela Singer MD Final Resu lt documented in this encounter Visit Diagnoses Not on filedocumented in this encounter Care Teams Film Vault Supervisor Relationship Specialty Start Date End Date Angela Singer MD PCP - General 06/20/16 Antonio Grady Gastroenterology 02/02/17 Ced Holloway MD [address] [place] [address] Consulting Physician Gastroenterology 02/02/17 Yevgeniy Jenkins MD [address] [place] [address] Consulting Physician Ophthalmology 02/02/17 Colton Graham MD [address] [place] [address] Consulting Physician General Surgery 09/05/19 Sy Sherman MD [address] [place] [address] Consulting Physician Cardiovascular Disease 01/22/20 Stephanie Gardner MOLDER MACHINE TENDER [address] [place] [address] [address] [place] [address] [employer] 11/12/21 11/21/21 Lito Arroyo MD [address] [place] [address] [address] [place] [address] Referring Physician Orthopedic Surgery 02/06/22 Omaira Rob MD [address] [place] [address] [address] [place] [address] Consulting Physician Cardiology 07/22/22 Chris Bates MD [address] [place] [address] [address] [place] [address] Consulting Physician Pulmonary Disease 07/22/22 Winnie Hogan, [place] [address] [place] [address] [address] [place] [address] [employer] 08/13/22 08/13/22 Zuleyka Keene, [address] [place] [address] Precision Jig Grinder Horseradish Grinder 08/19/22 09/03/22 Lito Arroyo MD [address] [place] [address] [address] [place] [address] Referring Physician Orthopedic Surgery 08/19/22 documented as of this encounter
--- OUTSIDE RECORDS SUMMARY | 2024-07-08 10:37 | XMS_ITS | Clinical Summary ---
Author Organization [facility] Address [address] [facility], [address] [address] Phone Care Team Providers Care Telex Operator Name Role Phone Angela Singer MD Primary Care Provider Allergies Active Allergy Reactions Criticality Noted Date Comments Amlodipine Swelling Medium 07/06/2017 Carvedilol Other (see Comments) Low 07/24/2020 And Bradycardia Lisinopril Swelling Medium 07/06/2017 Lips swelling/tingling Metformin Diarrhea Low 03/04/2019 Metoprolol Other (see Comments) Low 06/22/2017 And slow pulse Nebivolol Other (see Comments) Low 07/24/2020 Slow pulse, no fatigue Medications lisinopril-hydro chlorothiazide (PRINZIDE, ZESTORETIC) 20-12.5 MG Tablet 1 6 Active omeprazole (PRILOSEC) 20 MG CAPSULE DELAYED RELEASE daily. 0 6 Active predniSONE (DELTASONE) 20 MG Tablet 0 6 Active traMADol (ULTRAM) 50 MG Tablet 2 times daily. 5 6 Active hydrochlorothiaz mc 12.5 MG Tablet Take by mouth daily. Active Cholecalciferol (VITAMIN D3) 1000 UNIT Tablet Take by mouth daily. Active Docusate Calcium (STOOL SOFTENER PO) Take by mouth as needed. Active Cyanocobalamin (VITAMIN B 12 PO) Take by mouth daily. Active Aspirin 81 MG Tablet Take 81 mg by mouth daily. Active acetaminophen (TYLENOL) 650 MG Tablet Controlled Release Take 650 mg by mouth every 6 hours as needed for Pain. Active Fexofenadine HCl (KASSANDRA PO) Take by mouth daily as needed. Active diazepam (VALIUM) 5 MG TabletIndication s:Hearing loss, sensorineural, asymmetrical Take 1 Tab by mouth 2 times daily as needed for Anxiety for up to 2 doses. First dose night before test. Second dose 1 hour prior to testing, if patient feels she needs it. 2 Tab 0 6 Active Additional Information Patient not taking.Reported on 08/09/2020 magnesium oxide (MAG-OX) 400 MG Tablet TAKE 1 TABLET BY MOUTH TWICE A DAY 1 Active Eliquis 5 MG Tablet 2 times daily. STOP TAKING 3 DAYS BEFORE PROCEDURE 1 Active Tresiba FlexTouch 100 UNIT/ML Solution Pen-injector INJECT 15 UNITS UNDER THE SKIN NIGHTLY 1 Active rosuvastatin (CRESTOR) 10 MG Tablet Take 10 mg by mouth daily. 1 Active hydrALAZINE 25 MG Tablet 2 times daily. 1 Active Diclofenac Sodium (VOLTAREN) 1 % Gel Apply 2 g. 1 Active Lidocaine HCl 4 % Cream Apply. 1 Active furosemide (LASIX) 20 MG Tablet 2 times daily. 1 Active Turmeric Curcumin 500 MG Capsule Take 500 mg by mouth daily. 1 Active fluticasone (Flonase) 50 MCG/ACT Suspension 1-2 Sprays by Nasal route daily as needed. Use in each nostril as directed. Active guaiFENesin 400 MG Tablet Take by mouth daily as needed. Active Active Problems Problem Noted Date Diagnosed Date Lung infiltrate on CT 08/09/2020 Persistent atrial fibrillation 08/09/2020 Type 2 diabetes mellitus wit hout complication, with long-term current use of insulin 08/09/2020 Immunizations Immunization Administration Dates Next Due Influenza, High-dose, Quadrivalent 01/07/2021, Influenza, Injectable, Quadrivalent 01/04/2018,1 03/23/2015 Influenza, Seasonal, Injectable, Undefined 12/28 Influenza, Trivalent, Adjuvanted, PF 01/17/2019 Influenza, high-dose, trivalent, PF 12/02/2016,1 Zoster Vaccine, live 04/06/2012 Family History * Patient is adopted Relation Name Status Comments Mother Other Social History Tobacco Use Types Packs/Day Years Used Date Smoking Tobacco: Never Smokeless Tobacco: Never Tobacco Cessation:Counseling Given: No Alcohol Use Standard Drinks/Week Comments No 0 (1 standard drink = 0.6 oz pur e alcohol) Comments No Sex and Gender Information Value Date Recorded Sex Assigned at Not on file Legal Sex Female 11:16 PM CDT Gender Identity Not on file Sexual Orientation Not on file 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 on file Not on file Not on f ile Last Filed Vital Signs Vital Sign Reading Time Taken Comments Blood Pressure 184/76 08/14/2020 10:45 AM CDT Pulse 65 08/14/2020 10:45 AM CDT Temperature 36.1 C (97 F) 08/14/2020 10:45 AM CDT Respiratory Rate 18 08/14/2020 10:45 AM CDT Oxygen Saturation 98% 08/14/2020 10:45 AM CDT Inhaled Oxygen Concentration - - Weight 80.7 kg (178 lb) 08/14/2020 6:58 AM CDT Height 154.9 cm (5' 1 ) 08/14/2020 6:58 AM CDT Body Mass Index 33.63 08/14/2020 6:58 AM CDT Plan of Treatment Health Maintenance Due Date Last Done Comments Diabetes: Eye Exam 1940 Diabetes: Foot Exam 1940 Hepatitis C Virus (HCV) Screening 1940 TdaP Immunization 1940 Pneumococcal Immunization (50+ years) (1 of 2 - PCV) 1957 Zoster Immunization (2 of 3) 06/01/2012 04/06/2012 Respiratory Syncytial Virus (RSV) Immunization (Adult) (1 - 1-dose 75+ series) 2013 Diabetes: Nephropathy Screening 08/13/2016 08/14/2015 Diabetes: Hemoglobin A1c 12/19/2020 06/18/2020 Influenza Immunization (#1) 11/22/202312/21, 11/25/2019, 01/17/2019, Additional history exists SARS-COV-2 Immunization ( season) 2023 09/06/2021, 02/04/2021, 06/22/2020, Additional history exists Hepatitis B Immunization Aged Out No longer eligible based on patient's age to complete this topic Meningococcal Immunization (ACWY) Aged Out No longer eligible based on patient's age to complete this topic Rotavirus Immunization Aged Out No lo nger eligible based on patient's age to complete this topic Procedures Procedure Name Priority Date/Time Associated Diagnosis Comments CREATININE BLOOD W/ GFR STAT 08/14/2015 7:30 AM CDT from Last 3 Months or Most Recently Relevant to Health Maintenance Results * Creatinine Blood w/ GFR (08/14/2015 7:30 AM CDT) CREATININE, BLOOD 0.79 0.60 - 1.30 mg/dL 08/14/2015 7:43 AM CDT [facility] GFR, EST. NONAFRICAN >60 >=60 08/14/2015 7:43 AM CDT [facility] GFR, EST. >60 >=60 08/14/2015 7:43 AM CDT [facility] Comment: Creatinine Clearance is the preferred criteria for selecting drug dose adjustments in renally impaired patients. The GFR is provided as addtional pertinent clinical information. 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
--- OUTSIDE RECORDS SUMMARY | 2024-07-08 10:37 | XMS_ITS | Encounter Summary ---
Author Organization [facility] Healthcare Address [address] [place] [address] Care Team Providers Care Historical Guide Name Role Phone Angela Singer MD Primary Care Provider + [phone] Antonio Grady Unavailable Unavail able Ced Holloway MD Unavailable + Yevgeniy Jenkins MD Unavailable [phone] Colton Graham MD Unavailable Lito Arroyo MD Unavailable [phone] Omaira Rob MD Unavailable [phone] Chris Bates MD Unavailable Lito Arroyo MD Unavailable [phone] Encounter Details Date Type Department Care Team (Late st Contact Info) Description 07/04/2024 Telephone [facility] [address] [place] [id number] Angela Singer MD [address] [place] [address] Social History Tobacco Use Types Packs/Day Years Used Date Smoking Tobacco: Never Smokeless Tobacco: Never Alcohol Use Standard Drinks/Week Comments No 0 (1 standard drink = 0.6 oz pur e alcohol) Social Connection and Isolat ion Panel [NHANES] Answer Date Recorded In a typical week, how many times do you talk on the phone with family, friends, or neighbors? More than three times a week 08/20/2022 How often do you get togethe r with friends or relatives? More than three times a week 08/20/2022 How often do you attend chur ch or baptist services? Never 08/20/2022 Do you belong to any clubs o r organizations such as worship groups, unions, fraternal or athletic groups, or school groups? No 08/20/2022 How often do you attend meet ings of the clubs or organizations you belong to? Never 08/20/2022 Are you , , di vorced, , never , or living with a partner? 08/20/2022 AUDIT-C Answer Date Recorded Q1: How often do you have a drink containing alcohol? Never 12/26/2022 Q2: How many drinks containi ng alcohol do you have on a typical day when you are drinking? Patient does not drink Q3: How often do you have si x or more drinks on one occasion? Never 12/26/2022 Overall Financial Resource Strain (CARDIA) Answe r Date Recorded How hard is it for you to pa y for the very basics like food, housing, medical care, and heating? Not very hard 08/20/2022 PHQ-2 Answer Date Recorded PHQ-2 Total Score (If total score is 3 or more points, staff should administer the PHQ-9) 0 07/28/2023 Hunger Vital Sign Answer Date Recorded Within the past 12 months, y ou worried that your food would run out before you got the money to buy more. Never true 08/21/19 23 Within the past 12 months, t he food you bought just didn't last and you didn't have money to get more. Never true 08/20/2022 PRAPARE - Transportation Answer Date Re corded In the past 12 months, has l ack of transportation kept you from medical appointments or from getting medications? Yes 07/23 In the past 12 months, has l ack of transportation kept you from meetings, work, or from getting things needed for daily living? No 08/20/2022 Housing Stability Vital Sign Answer Florentin e Recorded In the last 12 months, was t here a time when you were not able to pay the mortgage or rent on time? No 08/20/2022 In the last 12 months, how many places have you lived? 1 08/20/2022 In the last 12 months, was t here a time when you did not have a steady place to sleep or slept in a fci (including now)? No 08/20/2022 Personal Safety Answer Date Recorded Have you ever been in or are you currently in a harmful physical or emotional relationship or is someone making you feel afraid or unsafe? 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 Gender Identity Not on file Sexual Orientation Not on file Occupation Industry Job Start Date Job End Date retired Not on file Not on file Not on file documented as of this encounter Miscellaneous Notes * Telephone Encounter - Colette Santiago RN - 07/05/2024 8:44 AM CDT This is correct continue the blood thinners \ Noted Thank you Please refill tramadol Pt would like a refill on the tramadol Last filled 06/03?2525 per illp Last visit 02/04/2024 Next visit 08/11/2024 Please fill the tramadol Rx is to old to fill * Telephone Encounter - Colette Santiago RN - 07/04/2024 12:03 PM CDT Pt is just having a filling no need to stop the blood thinner Pt would like a refill on the tramadol Last filled 06/03?2525 per illp Last visit 02/04/2024 Next visit 08/11/2024 Please fill the tramadol Rx is to old to fill * Telephone Encounter - Karine Vasquez - 07/04/2024 9:49 AM CDT Pt states she is having dental work done on 07/05/24. She is getting a filling . Pt is on Eliquis. Pt would like to advise on the Eliquis. Pt also needs a new script Tramadol sent to [facility]. [facility] Don Cbn#[phone] patient documented in this encounter Plan of Treatment Not on file documented as of this encounter Visit Diagnoses Not on filedocumented in this encounter Care Teams Historical Guide Relationship Specialty Start Date End Date Angela Singer MD PCP - General 06/20/16 Antonio Grady Gastroenterology 02/02/17 Ced Holloway MD [address] [place] [address] [place] [address] Consulting Physician Gastroenterology 02/02/17 Yevgeniy Jenkins MD [address] [place] [address] [place] [address] Consulting Physician Ophthalmology 02/02/17 Colton Graham MD [address] [place] [address] Consulting Physician General Surgery 09/05/19 Lito Arroyo MD [address] [place] [address] [place] [address] Referring Physician Orthopedic Surgery 02/06/22 Omaira Rob MD [address] [place] [address] [place] [address] Consulting Physician Cardiology 07/22/22 Chris Bates MD [address] [place] [address] Consulting Physician Pulmonary Disease 07/22/22 Lito Arroyo MD [address] [place] [address] Referring Physician Orthopedic Surgery 08/19/22 documented as of this encounter
--- OUTSIDE RECORDS SUMMARY | 2024-07-08 10:37 | XMS_ITS | Encounter Summary ---
Author Organization [facility] Address [address] [place] [address] Phone Care Team Providers Care Appliance Installer Name Role Phone Angela Singer MD Primary Care Provider Antonio Grady Unavailable Unavail able Ced Holloway MD Unavailable + Yevgeniy Jenkins MD Unavailable [phone] Antonio Bravo OD Unavailable [phone] Colton Graham MD Unavailable Sy Sherman MD Unavailable [phone] Minna Dos Santos MA Unavailable [phone] Stephanie Gardner LPN Unavailable Lito Arroyo MD Unavailable [phone] Omaira Rob MD Unavailable [phone] Chris Bates MD Unavailable Winnie Hogan MA Unavailable Zuleyka KeeneW Unavailable [phone] Lito Arroyo MD Unavailable Encounter Details Date Type Department Care Team (Late st Contact Info) Description 11/04/2016 Orders Only [facility] [address] [place] [address] Angela Singer MD [address] [place] [address] Diabetes mellitus without complication (HCC) (Primary Dx) Social History Tobacco Use Types Packs/Day Years Used Date Smoking Tobacco: Never Alcohol Use Standard Drinks/Week Comments No 0 (1 standard drink = 0.6 oz pur e alcohol) Comments Unknown Sex and Gender Information Value Date Recorded Sex Assigned at Not on file Legal 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 Gender Identity Not on file Sexual Orientation Not on file documented as of this encounter Plan of Treatment Scheduled Orders Name Type Priority Associated Diagnoses Orde r Schedule Microalbumin / creatinine ratio, urine, random Lab Routine Diabetes mellitus without complication (HCC) Expected: 11/23/2016, Expires: 11/04/2017 documented as of this encounter Procedures Procedure Name Priority Date/Time Associated Diagnosis Comments MICROALBUMIN, RANDOM URINE (W/CREATININE) Routine 11/14/2016 11:35 AM CDT CREATININE, URINE, RANDOM Routine 11/14/2016 11:35 AM CDT CHOLESTEROL, LDL, DIRECT Routine 11/14/2016 11:35 AM CDT Diabetes mellitus without complication (HCC) HEMOGLOBIN A1C Routine 11/14/2016 11:34 AM CDT Diabetes mellitus without complication (HCC) COMPREHENSIVE METABOLIC PANEL Routine 11/14/2016 11:34 AM CDT Diabetes mellitus without complication (HCC) documented in this encounter Results * MICROALBUMIN, RANDOM URINE (W/CREATININE) (11/14/2016 11:35 AM CDT) Microalbumin, ur 1.6 See Note: mg/dL [facility] [place] Comment: Reference Range: Reference Range Not established Microalbumin/creat ratio 13 <30 mcg/mg creat [facility] [place] Comment: The ADA defines abnormalities in albumin excretion as follows: Category Result (mcg/mg creatinine) Normal <30 Microalbuminuria 30-299 Clinical albuminuria > OR = 300 The ADA recommends that at least two of three specimens collected within a 3-6 month period be abnormal before considering a patient to be within a diagnostic category. 11/14/2016 11:3 5 AM CDT 11/14/2016 11:35 AM CDT Narrative [facility] - 11/15/2016 12:05 PM CDT FASTING:YES Resulting Agency Comment Performing Organization Information: Site ID: [facility] Name: [facility] Address: [address] [place] [phone] Director: Bird Donald D.O. MPH us Angela Singer MD LAB URINE ORDERABLES Final Result Performing Organization Address [facility] Co de Phone Number [facility] [place] * Creatinine, urine, random (11/14/2016 11:35 AM CDT) Creatinine, ur 123 20 - 320 mg/dL [facility] 11/14/2016 11:3 5 AM CDT 11/14/2016 11:35 AM CDT Narrative [facility] - 11/15/2016 12:05 PM CDT FASTING:YES Resulting Agency Comment Performing Organization Information: Site ID: [facility]IN Name: Hyth[facility]ona Address: [address] [place] [phone] Director: Bird Donald D.O. MPH Angela Singer MD LAB URINE ORDERABLES Final Result Performing Organization Address [facility] de Phone Number M[facility]IN Lucero * (ABNORMAL) Cholesterol, LDL, direct (11/14/2016 11:35 AM CDT) LDL, direct 115(H) <100 mg/dL [facility] Comment: Greatly elevated Triglycerides values (>1200 mg/dL) interfere with the dLDL assay. As no Triglycerides testing was ordered, interpret results with caution. Desirable range <100 mg/dL for patients with CHD or diabetes and <70 mg/dL for diabetic patients with known heart disease. Blood specimen (specimen) 11/14/2016 11:35 AM CDT 11/14/2016 11:35 AM CDT Narrative [facility] - 11/15/2016 12:05 PM CDT FASTING:YES Resulting Agency Comment Performing Organization Information: Site ID: [facility] Name: [facility] Address: [address] [phone] Director: Bird Donald D.O., MPH us Angela Singer MD LAB BLOOD ORDERABLES Final Result [facility] [place] * (ABNORMAL) Comprehensive metabolic panel (11/14/2016 11:34 AM CDT) Glucose 110(H) 65 - 99 mg/dL [facility] [place] Comment: Fasting reference interval For someone without known diabetes, a glucose value between 100 and 125 mg/dL is consistent with prediabetes and should be confirmed with a follow-up test. BUN 22 7 - 25 mg/dL [facility] [place] Creatinine 0.94(H) 0.60 - 0.93 mg/dL [facility] [place] Comment: For patients >49 years of age, the reference limit for Creatinine is approximately 13% higher for people identified as -Namibian. eGFR NON-AFR. DOMINICAN 58(L) > OR = 60 mL/min/1. 73m2 [facility] [place] EGFR 67 > OR = 60 mL/min/1. 73m2 [facility] [place] BUN/creat ratio 23(H) 6 - 22 (calc) [facility] [place] Sodium 140 135 - 146 mmol/L [facility] [place] Potassium, pl 4.7 3.5 - 5.3 mmol/L [facility] [place] Chloride 105 98 - 110 mmol/L [facility] [place] CO2 28 20 - 31 mmol/L [facility] [place] Calcium 9.7 8.6 - 10.4 mg/dL [facility] [place] Protein, sr 7.0 6.1 - 8.1 g/dL [facility] [place] Albumin 4.3 3.6 - 5.1 g/dL [facility] [place] Globulin 2.7 1.9 - 3.7 g/dL (calc) [facility] [place] Alb/glob ratio 1.6 1.0 - 2.5 (calc) [facility] [place] Bilirubin, total 0.5 0.2 - 1.2 mg/dL [facility] [place] Alk phos 67 33 - 130 U/L [facility] [place] AST 18 10 - 35 U/L [facility] [place] ALT (SGPT) 14 6 - 29 U/L [facility] [place] Blood specimen (specimen) 11/14/2016 11:34 AM CDT 11/14/2016 11:34 AM CDT Narrative [facility] - 11/15/2016 4:03 AM CDT FASTING:YES Resulting Agency Comment Performing Organization Information: Site ID: [facility] Name: [facility] Address: [address] [phone] Director: Bird Donald D.O., MPH us Angela Singer MD LAB BLOOD ORDERABLES Final Result Performing Organization Address [facility] Co de Phone Number [facility] Lucero * (ABNORMAL) Hemoglobin A1c (11/14/2016 11:34 AM CDT) Hgb A1C 5.9(H) <5.7 % of total Hgb [facility] Comment: For someone without known diabetes, a hemoglobin A1c value between 5.7% and 6.4% is consistent with prediabetes and should be confirmed with a follow-up test. For someone with known diabetes, a value <7% indicates that their diabetes is well controlled. A1c targets should be individualized based on duration of diabetes, age, comorbid conditions, and other considerations. This assay result is consistent with an increased risk of diabetes. Currently, no consensus exists regarding use of hemoglobin A1c for diagnosis of diabetes for children. Blood specimen (specimen) 11/14/2016 11:34 AM CDT 11/14/2016 11:34 AM CDT Narrative [facility] - 11/15/2016 4:03 AM CDT FASTING:YES Resulting Agency Comment Performing Organization Information: Site ID: [facility] Name: [facility] Address: [address] [place] [address] Director: Bird Donald D.O., MPH us Angela Singer MD LAB BLOOD ORDERABLES Final Result Performing Organization Address City/[facility]/ZIP Co de Phone Number [facility] [place] documented in this encounter Visit Diagnoses Diagnosis Diabetes mellitus without complication (HCC)- Primary Type II or unspecified type diabetes mellitus without mention of complication, not stated as uncontrolled documented in this encounter Care Teams Appliance Installer Relationship Specialty Start Date End Date Angela Singer MD PCP - General 06/20/16 Antonio Grady Gastroenterology 02/02/17 Ced Holloway MD [address] [place] [address] Consulting Physician Gastroenterology 02/02/17 Yevgeniy Jenkins MD [address] [place] [address] Consulting Physician Ophthalmology 02/02/17 Antonio Bravo OD [address] [place] [address] Ophthalmology 02/02/17 02/02/17 Colton Graham MD [address] [place] [address] Consulting Physician General Surgery 09/05/19 Sy [place] MD [address] [place] [address] Consulting Physician Cardiovascular Disease 01/22/20 Minna Dos Santos MA [address] [place] [address] [address] [place] [address] ACO Care Tactical Air Defense Controller 05/05/20 05/05/20 Stephanie Gardner LPN [address] [place] [address] [address] [place] [address] ACO Care Tactical Air Defense Controller 11/12/21 11/21/21 Lito Arroyo MD [address] [place] [address] [address] [place] [address] Referring Physician Orthopedic Surgery 02/06/22 Omaira Rob MD [address] [place] [address] [address] [place] [address] Consulting Physician Cardiology 07/22/22 Chris Bates MD [address] [place] [address] [address] [place] [address] Consulting Physician Pulmonary Disease 07/22/22 Winnie Hogan MA [address] [place] [address] [address] [place] [address] ACO Care Tactical Air Defense Controller 08/13/22 08/13/22 Zuleyka Keene, [address] [place] [address] Machine Adjuster Leader Case Trim Mobile Lounge Driver 08/19/22 09/03/22 Lito Arroyo MD [address] [place] [address] [address] [place] [address] Referring Physician Orthopedic Surgery 08/19/22 documented as of this encounter
--- OUTSIDE RECORDS SUMMARY | 2024-07-08 10:37 | XMS_ITS | Encounter Summary ---
Author Organization [facility] Address [address] [place] [address] Phone Care Team Providers Care Reimbursement Spec Name Role Phone Angela Singer MD Primary Care Provider [phone] Reason for Referral * Radiology Services (Routine) - Closed Specialty Diagnoses / Procedures Referred By Contac t Referred To Contact Radiology Diagnoses Pre-op testing Procedures EKG 12 LEAD Donaldo Shin MD [address] [place] [address] Phone: tel: fax: Referral ID Status Reason Start Date Expiration Date Visits Re quested Visits Authorized [id number] Closed 08/10/2020 1 1 Encounter Details Date Type Department Care Team (Late st Contact Info) Description 08/10/2020 Transcribe Orders [facility] Preop/Pacu II [address] [place] [address] Donaldo Shin MD [address] [place] [address] Pre-op testing (Primary Dx) Social History Tobacco Use Types [...] 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 No / Unsure 08/11/2020 9:03 AM CDT documented as of this encounter Plan of Treatment Not on file documented as of this encounter Results * EKG 12 LEAD (08/11/2020 9:52 AM CDT) Ventricular Rate BPM EXTERNAL EKG Atrial Rate BPM EXTERNAL EKG P-R Interval 132 ms EXTERNAL EKG QRS Duration 90 ms EXTERNAL EKG Q-T Duration 416 ms EXTERNAL EKG QTC CALCULATION 487 ms EXTERNAL EKG P [place] 54 degrees EXTERNAL EKG R [place] 43 degrees EXTERNAL EKG T [place] 38 degrees EXTERNAL EKG 08/11/2020 9:52 AM CDT Impressions EXTERNAL EKG - 08/13/2020 8:58 AM CDT Sinus rhythm with PACs Comparison Summary: No serial comparison made Summary: Borderline ECG Confirmed by Darron Brown [id number] on 08/13/2020 8:58:18 AM Narrative Procedure Note Omaira Rob MD - 08/13/2020 IMPRESSION: Sinus rhythm with PACs Comparison Summary: No serial comparison made Summary: Borderline ECG Confirmed by Darron Brown [id number] on 08/13/2020 8:58:18 AM us Donaldo Shin MD IMG ECG ORDERABLES Final Resu lt EXTERNAL EKG * (ABNORMAL) BASIC METABOLIC PANEL W/ CALCIUM TOTAL (08/11/2020 9:48 AM CDT) SODIUM 136 136 - 144 mmol/L 08/11/2020 10:18 AM CDT [facility] POTASSIUM 4.1 3.5 - 5.1 mmol/L 08/11/2020 10:18 AM CDT [facility] CHLORIDE 99(L) 100 - 110 mmol/L 08/11/2020 10:18 AM CDT [facility] CO2, VENOUS 27 22 - 32 mmol/L 08/11/2020 10:18 AM CDT [facility] ANION GAP 14.1 8.0 - 20.0 mmol/L 08/11/2020 10:18 AM CDT [facility] GLUCOSE 141(H) 70 - 99 mg/dL 08/11/2020 10:18 AM CDT [facility] BUN 24(H) 8 - 23 mg/dL 08/11/2020 10:18 AM CDT [facility] CREATININE, BLOOD 1.23(H) 0.60 - 1.10 mg/dL 08/11/2020 10:18 AM CDT [facility] BUN/CREATININE RATIO 20 12 - 20 ratio 08/11/2020 10:18 AM CDT [facility] CALCIUM 9.3 8.9 - 10.3 mg/dL 08/11/2020 10:18 AM CDT [facility] GFR, EST. NONAFRICAN 42(L) >=60 08/11/2020 10:18 AM CDT [facility] GFR, EST. 51(L) >=60 08/11/2020 10:18 AM CDT [facility] Comment: Creatinine Clearance is the preferred criteria for selecting drug dose adjustments in renally impaired patients. The GFR is provided as additional pertinent clinical information. GFR is reported in mL/min/1.73 sq m. IS THE PATIENT REQUIRED TO BE FASTING? No 08/11/2020 10:18 AM CDT [facility] Blood Venipuncture / Unknown 08/11/2020 9:48 AM CDT 08/11/2020 9:51 AM CDT us Donaldo Shin MD CHEMISTRY ORDERABLES Final Re sult [facility] [address] [place] [address] * HEMOGLOBIN & HEMATOCRIT (H&H) (08/11/2020 9:48 AM CDT) HEMOGLOBIN (HGB) 12.2 12.0 - 15.8 g/dL 08/11/2020 9:58 AM CDT [facility] HEMATOCRIT (HCT) 38.3 36.0 - 47.0 % 08/11/2020 9:58 AM CDT [facility] Blood Venipuncture / Unknown 08/11/2020 9:48 AM CDT 08/11/2020 9:51 AM CDT us Donaldo Shin MD HEMATOLOGY ORDERABLES Final R esult [facility] [address] [place] [address] documented in this encounter Visit Diagnoses Diagnosis Pre-op testing- Primary Preoperative examination, unspecified Pre-op testing Preoperative examination, unspecified documented in this encounter Care Teams Reimbursement Spec Relationship Specialty Start Date End Date Angela Singer MD [address] [facility] [place] [address] PCP - General Internal Medicine 08/08/15 documented as of this encounter
--- OUTSIDE RECORDS SUMMARY | 2024-07-08 10:37 | XMS_ITS | Clinical Summary ---
Author Organization [facility] Address [address] [place] [address] Care Team Providers Care Unit Clerk Name Role Phone Angela Baez MD Primary Care Provider [phone] Antonio Grady Unavailable Unavail able Ced Holloway MD Unavailable + Yevgeniy Jenkins MD Unavailable [phone] Jay Graham MD Unavailable Lito Arroyo MD Unavailable [phone] Omaira Rob MD Unavailable [phone] Chris Bates MD Unavailable Lito Arroyo MD Unavailable [phone] Allergies Active Allergy Reactions Criticality Noted Date Comments Amlodipine Other (See comments) Medium 07/06/2017 Just did not want to take it Nebivolol Other (See comments) Low 07/24/2020 Slow pulse, no fatigue Carvedilol Fatigue Low 07/24/2020 And Bradycardia Hydrocodone Hives,Itching,Rash Medium 04/29/2022 Lisinopril Swelling Medium 07/06/2017 Lips swelling/tingling Metformin Diarrhea Low 03/04/2019 Metoprolol Fatigue Low 06/22/2017 And slow pulse Medications acetaminophen ER (TYLENOL ARTHRITIS PAIN) 650 mg 8 hr tablet take 1 Tablet by oral route every 6 hours as needed 0 0 013 Active cholecalciferol (VITAMIN D-3) 5,000 unit tablet Take 1 tablet (5,000 Units total) by mouth daily Active ascorbic acid (VITAMIN C) 500 mg tablet,chewable Take 1 tablet/chew tab (500 mg total) by mouth daily Active polyethylene glycol (MIRALAX) 17 gram/dose bulk powder Take 17 g by mouth daily Active acetaminophen (TYLENOL) 500 mg tabletIndications :Chronic pain disorder Take 1 tablet (500 mg total) by mouth 2 (two) times a day With Tylenol ER 650 and the tramadol twice daily 100 tablet 1 024 2024 Active cyanocobalamin (Vitamin B-12) 1,000 mcg tabletIndications :Leach's esophagus with dysplasia Take 1 tablet (1,000 mcg total) by mouth daily 90 tablet 3 Active pen needle, diabetic (BD Ultra-Fine Short Pen Needle) 31 gauge x 5/16 needleIndications :Type 2 diabetes mellitus with microalbuminuria, with long-term current use of insulin ([facility]) USE TO INJECT INSULIN ONCE DAILY. DX: E11.9 100 each 4 024 Active apixaban (Eliquis) 5 mg tabletIndications :Paroxysmal atrial fibrillation ([facility]) Take 0.5-1 tablets (2.5-5 mg total) by mouth 2 (two) times a day 90 tablet 2 Active dilTIAZem XR 240 mg 24 hr capsuleIndication s:Paroxysmal atrial fibrillation (HCC) Take 1 capsule (240 mg total) by mouth daily 90 capsule 2 Active fexofenadine (KASSANDRA) 180 mg tabletIndications :Chronic rhinitis Take 1 tablet (180 mg total) by mouth daily 90 tablet 1 Active fluticasone propionate (FLONASE) 50 mcg/actuation nasal sprayIndications: Chronic rhinitis Administer 2 sprays into each nostril daily 16 mL 5 Active furosemide (LASIX) 20 mg tabletIndications :Chronic diastolic CHF (congestive heart failure) ([facility]),Hypertensio n complicating diabetes ([facility]) Take 1 tablet (20 mg total) by mouth 2 (two) times a day 180 tablet 2 Active guaiFENesin ER (MUCINEX) 600 mg 12 hr tabletIndications :Chronic rhinitis Take 2 tablets (1,200 mg total) by mouth as needed for cough 60 tablet 5 Active insulin degludec (TRESIBA) 100 unit/mL (3 mL) pen for injectionIndicati ons:Controlled type 2 diabetes mellitus with microalbuminuria, with long-term current use of insulin ([facility]),Type 2 diabetes mellitus with stage 3b chronic kidney disease, with long-term current use of insulin ([facility]) Inject 0.3-0.4 mL (30-40 Units total) under the skin daily before breakfast 45 mL 3 024 2024 Active labetaloL (NORMODYNE,TRANDA TE) 100 mg tabletIndications :Controlled type 2 diabetes mellitus with microalbuminuria, with long-term current use of insulin ([facility]),Type 2 diabetes mellitus with stage 3b chronic kidney disease, with long-term current use of insulin ([facility]),Chronic diastolic CHF (congestive heart failure) ([facility]) Take 1 tablet (100 mg total) by mouth 2 (two) times a day 180 tablet 2 Active lancets ([place] Delica Plus Lancet) 30 gauge miscIndications:C ontrolled type 2 diabetes mellitus with microalbuminuria, with long-term current use of insulin ([facility]),Type 2 diabetes mellitus with stage 3b chronic kidney disease, with long-term current use of insulin ([facility]) USE TO CHECK BLOOD GLUCOSE LEVEL TWICE DAILY E11.2 200 each 3 Active omeprazole (PriLOSEC) 20 mg capsuleIndication s:Leach's esophagus with dysplasia Take 1 capsule (20 mg total) by mouth daily before breakfast 90 capsule 3 Active blood glucose diagnostic (OneTouch Ultra Test) strip USE TO MONITOR GLUCOSE LEVELS TWICE DAILY E11.9 100 strip 4 Active rosuvastatin (CRESTOR) 10 mg tabletIndications :Controlled type 2 diabetes mellitus with microalbuminuria, with long-term current use of insulin ([facility]),Multiple-ty pe hyperlipidemia Take 1 tablet (10 mg total) by mouth daily 90 tablet 2 Active spironolactone (ALDACTONE) 25 mg tabletIndications :Chronic diastolic CHF (congestive heart failure) ([facility]),Hypertensio n complicating diabetes ([facility]) Take 1 tablet (25 mg total) by mouth daily 90 tablet 2 11/14/2 024 Active fluticasone propion-salmetero L (ADVAIR DISKUS) 500-50 mcg/dose diskus inhaler Inhale 1 puff 2 (two) times a day Rinse mouth with water after use. Do not swallow. 60 each 11 025 Active albuterol HFA (PROVENTIL HFA,VENTOLIN HFA,PROAIR HFA) 90 mcg/actuation inhalerIndication s:Mild persistent asthma without complication INHALE 2 PUFFS EVERY 6 HOURS NEEDED FOR WHEEZING 25.5 each 3 025 Active traMADoL (ULTRAM) 50 mg tabletIndications :Chronic pain disorder Take 1 tablet (50 mg total) by mouth 2 (two) times a day as needed for pain for pain 60 tablet 1 025 Active linaGLIPtin (TRADJENTA) 5 mg tabletIndications :type 2 diabetes mellitus Take 1 tablet (5 mg total) by mouth daily 30 tablet 2 020 2019 Discontinued spironolactone-hy droCHLOROthiazide (ALDACTAZIDE) 25-25 mg per tabletIndications :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 (HCC) Take 1 tablet by mouth daily 90 tablet 1 020 2020 Discontinued hydrALAZINE (APRESOLINE) 25 mg tabletIndications :hypertension Take 1 tablet (25 mg total) by mouth 2 (two) times a day after breakfast and dinner 60 tablet 4 021 2020 Discontinued albuterol HFA (PROVENTIL HFA,VENTOLIN HFA,PROAIR HFA) 90 mcg/actuation inhalerIndication s:Mild persistent asthma without complication Inhale 2 puffs every 6 (six) hours as needed for wheezing 3 each 3 024 2024 Discontinued Wixela Inhub 250-50 mcg/dose diskus inhalerIndication s:Mild persistent asthma without complication INHALE 1 PUFF TWICE A DAY -RINSE MOUTH WITH WATER AFTER USE. DO NOT SWALLOW. 60 each 3 024 2024 Discontinued(A lternate therapy) traMADoL (ULTRAM) 50 mg tabletIndications :Chronic pain disorder Take 1 tablet (50 mg total) by mouth 2 (two) times a day as needed for pain for pain 60 tablet 5 024 2024 Discontinued(R indra) Active Problems Problem Noted Date Diagnosed Date Cat scratch 07/28/2023 Mild persistent asthma without complication 09/2023 Assessment & Plan (02/05/2024 8:59 AM ADJUNCT SPANISH INSTRUCTOR): Continue Wixela 250/50 twice daily She is aware to rinse and spit after use Albuterol as needed only, she was aware of indications for use Avoid triggers I previously ordered a 6 minute walk test to assess for exertional hypoxia We have discussed signs and symptoms that would require earlier evaluation or change to her plan of care Assessment & Plan (11/02/2023 1:43 PM CDT): Continue Wixela 250/50 twice daily She was aware to rinse and spit after use Albuterol as needed only, we have discussed indications for use Avoid triggers I have ordered a 6 minute walk test to assess for exertional hypoxia Assessment & Plan (07/30/2023 2:56 PM CDT): She has had good clinical benefit from ICS/LABA Continue Wixela 250 twice daily Albuterol as needed only, discussed indications for use Assessment & Plan (04/29/2023 2:40 PM ADJUNCT SPANISH INSTRUCTOR): She has currently not on maintenance therapy and is using albuterol 3 to 4 times a day Previously on Symbicort 80/4.5 I have encouraged her to fill out the patient assistance paperwork, staff provided this for her today and she is aware to bring this back when completed so we can fax this for her. In the interim I have given her a sample of Breo Ellipta 100 to start She is aware to rinse and spit after use Albuterol as needed, discussed indications for use Chronic right shoulder pain 01/22/2023 Assessment & Plan (01/28/2023 9:24 PM ADJUNCT SPANISH INSTRUCTOR): 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 Tenderness and marked weakness as noted above. No acute findings on exam. Will REFER to PT for further assessment. Continue Tylenol/tramadol as needed for pain. Heat/ice as tolerated. Influenza vaccine administered 01/22/2023 Assessment & Plan (01/28/2023 9:24 PM ADJUNCT SPANISH INSTRUCTOR): 23-24 influenza vaccine administered in office today. 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 Baez in January or sooner if necessary Closed displaced oblique fracture of shaft of ri ght humerus 11/05/2021 Incisional hernia, without obstruction or gangre ne 10/18/2021 Overview (10/18/2021): Added automatically from request for surgery [id number] SBO (small bowel obstruction) 10/12/2021 On continuous oral anticoagulation 08/13/2021 Lung mass 08/12/2021 Overview (06/22/2024): Consultation June 2024 Chris Sanz,:e right lower lung mass did evolve rather quickly from some tree-in-bud nodularity with suspected mucus plugging - radial EBUS guided biopsies of the lesion in addition to linear EBUS guided FNA of her lymphadenopathy did not reveal any evidence of malignancy - Later a CT-guided biopsy demonstrated acute on chronic inflammation and consolidation without evidence of malignancy - She continues to have multifocal areas of rapidly increasing nodular densities bilaterally that have waxed and waned likely indicative of multifocal infection - they are markedly FDG avid and malignancy can not be excluded, but it is felt to be a less likely explanation, nonetheless short term follow-up CT imaging was recommended and not yet performed === Repeat chest CT [facility] January 05, 2024 multiple pulmonary nodules looks like metastatic disease. He was referred back to Chris Sanz, === December 2022 Chris Sanz, biopsy right lower lobe pulmonary nodule (-) August 2022 follow-up enlarged pulmonary nodules / Chest CT required consultation with Pulmonary Medicine referred to Chris Sanz, New nodular and ground-glass opacities in the right lower lobe and to a lesser degree the left lower lobe. Suspect infectious/inflammatory including atypical etiology given additional persistent areas of tree-in-bud nodularity compared to 08/31/2021. New irregular noncalcified nodule in the left lower lobe measuring up to 2 cm. Nonspecific but also favor infectious/inflammatory. Stable cardiomegaly. >>OVERVIEW FOR MASS OF RIGHT LUNG WRITTEN ON 01/25/2023 8:36 PM BY ANGELA BAEZ MD Followed carefully by Chris Sanz, as of January 2023 his recommendations: 1 . Lung mass - the right lower lung mass did evolve rather quickly from some tree-in-bud nodularity with suspected mucus plugging - radial EBUS guided biopsies of the lesion in addition to linear EBUS guided FNA of her lymphadenopathy did not reveal any evidence of malignancy - while an infectious process is favored given its appearance and evolution over time, malignancy is still not excluded - she has completed a course of antibiotics and reports significant improvement - we discussed short term follow-up imaging surveillance, if the lesion persists or has evidence of growth I would recommend that we discuss CT-guided lung biopsy - CT scan is scheduled for 02/25/2023 Assessment & Plan (02/05/2024 8:56 AM ADJUNCT SPANISH INSTRUCTOR): Radial EBUS guided biopsies of the original lesion in her right lower lobe in addition to linear EBUS guided FNA of her lymphadenopathy did not reveal any evidence of malignancy Her first PET-CT did have significant uptake in the right lower lobe pleural- based mass She subsequently underwent CT-guided needle biopsy in August of 2023. Four core samples were obtained with no evidence of malignancy, atypical bacterial infection/NTM, or fungal organisms. The samples did reveal mixed acute and chronic inflammation with consolidation. Although this is reassuring, there is a possibility that the areas of greatest uptake were not accessed during biopsy. We discussed this and she agreed to further imaging surveillance Repeat CT chest demonstrated bilateral pulmonary masses and subsequent PET-CT did demonstrate PET avidity. Reviewed all imaging with Dr. Bates Based on the rapid presentation in absence of significant lymphadenopathy malignancy is felt to be very unlikely, rather mucus plugging is a more reasonable diagnosis. In addition, she does not have any other clinical signs that are worrisome I have recommended NAC and flutter valve with close imaging follow-up She is reluctant to have an additional biopsy but after a long discussion agrees to follow-up imaging 3 months from prior Assessment & Plan (11/02/2023 1:42 PM CDT): Radial EBUS guided biopsies of the lesion in addition to linear EBUS guided FNA of her lymphadenopathy did not reveal any evidence of malignancy Her PET-CT did have significant uptake in the right lower lobe pleural-based mass She underwent CT-guided needle biopsy in August of 2023. Four core samples were obtained with no evidence of malignancy, atypical bacterial infection/NTM, or fungal organisms. The samples did reveal mixed acute and chronic inflammation with consolidation. Although this is reassuring, there is a possibility that the areas of greatest uptake were not accessed during biopsy. We have discussed this and she agrees to further imaging surveillance at this time Repeat CT chest 6 months from prior Assessment & Plan (07/30/2023 2:55 PM CDT): Radial EBUS guided biopsies of the lesion in addition to linear EBUS guided FNA of her lymphadenopathy did not reveal any evidence of malignancy After reviewing her CT scan from June there is still significant concern for malignancy I have had an extensive discussion with her about bronchoscopy with biopsy versus percutaneous biopsy Ideally navigational bronchoscopy would give the highest diagnostic yield however she would have to travel to [place] for this and she is hesitant. She is amenable to repeat bronchoscopy with biopsy here at [facility] or percutaneous biopsy done here as well. will discuss with the interventional radiologist We will arrange for her to hold Eliquis prior to the procedure when scheduled Assessment & Plan (04/29/2023 2:38 PM ADJUNCT SPANISH INSTRUCTOR): The right lower lobe lung mass has slightly decreased in size where as other pulmonary nodules have increased or remained stable This is indicative of infectious process Radial EBUS guided biopsies of the lesion in addition to linear EBUS guided FNA of her lymphadenopathy did not reveal any evidence of malignancy While an infectious process is favored given its appearance and evolution over time, malignancy is still not excluded We discussed short term follow-up imaging surveillance, and she is amenable to repeating CT scan in 6 months, not three - this was ordered today She asserts she is uninterested in CT-guided lung biopsy at anytime in the future Hypertension complicating diabetes 07/16/2021 Assessment & Plan (01/28/2023 9:19 PM ADJUNCT SPANISH INSTRUCTOR): BP stable in office today on current therapy. No acute findings on exam. Elevated BnP last week with cardiology. They doubled lasix for 2 weeks. Discussed starting jardiance but patient has fear of side effects. Will re-start spironolactone. Continue current regimen and low salt diet. Assessment & Plan (11/25/2022 12:09 PM CDT): BP stable in office today on current therapy. No acute findings on exam. 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 Monitor BP daily and record, call in 2 weeks with readings. Continue current regimen and low salt diet. Assessment & Plan (12/10/2021 2:01 PM CDT): Stable on current therapy Negative exam findings, no patient complaints Blood pressure readings in office and on home record stable Refilled spironolactone Follow up in January with Dr. Baez or sooner if necessary Bronchiolitis 07/16/2021 Pre-ulcerative calluses 07/16/2021 Pre-operative clearance 04/23/2021 Assessment & Plan (04/23/2021 12:26 PM ADJUNCT SPANISH INSTRUCTOR): Patient presents today for evaluation prior to cataract surgery with [employer]. She is overall doing well and without acute issue. No acute exam findings on exam today. Given that procedure is done under local anesthetic she is considered an acceptable risk for planned procedure. She will contact surgeon to determine if they require her to hold Eliquis pre-procedure if so, will arrange per our protocol. Patient will follow up as scheduled or sooner if needed. Chronic diastolic CHF (congestive heart failure) 10/26/2020 Assessment & Plan (11/02/2023 1:43 PM CDT): Continue furosemide 20 mg b.i.d. She should monitor daily weights Continue to follow-up with cardiology Assessment & Plan (07/30/2023 2:57 PM CDT): Dyspnea was improved with furosemide 20 mg twice daily, continue this dose along with daily weights Assessment & Plan (11/25/2022 12:10 PM CDT): ontrolled on lasix, labetalol, cardizem, and eliquis. No acute findings on exam today. Due to worsening Flame Annealing Machine Setter, will stop spironolactone. Continue current regimen and heart healthy diet. Keep follows with cardiology as scheduled. Assessment & Plan (12/10/2021 2:06 PM CDT): Stable on current therapy Negative exam findings, no patient complaints Blood pressure readings in office and on home record stable Refilled spironolactone Follow up in January with Dr. Baez or sooner if necessary Assessment & Plan (10/26/2020 11:09 AM CDT): I suspect the patient's dyspnea is related to chronic diastolic CHF with an acute exacerbation in the spring. Her H2FPEF score suggests a 94% probability of heart failure. She seems to be well compensated at present. I will obtain proBNP value to establish a new baseline. If AF rates are adequate, on Holter monitoring, it may be reasonable to consider an ischemic evaluation for her acute symptoms back in May. I will see the patient in follow-up to establish any additional plan of care. Shortness of breath 07/24/2020 Overview (07/24/2020): Workup showed this is from deconditioning Echocardiogram June 2020 normal Conclusions: Normal global left ventricular systolic function. Ejection fraction is visually estimated at 60 to 65 %. Mild mitral annular calcification. Mild mitral valve regurgitation. Normal structure of the aortic valve. Normal structure of the tricuspid valve. Trivial regurgitation in the tricuspid valve. Electronically Signed By: Dr Sy Sherman 2020-05-23 11:50:55 ADJUNCT SPANISH INSTRUCTOR Lung function studies 07/16/2020 The study showed good patient effort. Spirometry showed proportionate decrease in FEV1 and FVC suggestive of restrictive/pseudo restrictive defect with significant acute response to bronchodilator indicating component of hyperreactive airway disease. Lung volume showed no restrictive defect indicating finding on spirometry secondary to dynamic airway obstruction. ERV was reduced secondary to overweight. Diffusion was moderately reduced indicating moderate ventilation/perfusion mismatch. DLCO/VA was also reduced. Airway resistance was increased. Flow volume loops showed technically limited study with moderate airflow limitations. No previous data to compare, clinical correlation is recommended. Restrictive lung disease 07/16/2020 Overview (07/16/2020): Images from the original note were not included. Lung function studies 07/16/2020 The study showed good patient effort. Spirometry showed proportionate decrease in FEV1 and FVC suggestive of restrictive/pseudo restrictive defect with significant acute response to bronchodilator indicating component of hyperreactive airway disease. Lung volume showed no restrictive defect indicating finding on spirometry secondary to dynamic airway obstruction. ERV was reduced secondary to overweight. Diffusion was moderately reduced indicating moderate ventilation/perfusion mismatch. DLCO/VA was also reduced. Airway resistance was increased. Flow volume loops showed technically limited study with moderate airflow limitations. No previous data to compare, clinical correlation is recommended. Autumn Rodrigues MD [phone] Chronic congestive heart failure 05/16/2020 Assessment & Plan (08/19/2022 7:09 PM CDT): Stable on current therapy. No acute findings on exam, BP stable. No edema, taking lasix and spironolactone as rxd. Continue current regimen and heart healthy diet. Keep follows with Dr. rob as scheduled. Umbilical hernia 09/05/2019 Assessment & Plan (02/20/2022 9:35 AM ADJUNCT SPANISH INSTRUCTOR): Continue to avoid weight lifting for another 4 weeks. Continue stool softener to avoid straining. Abdominal binder for comfort. Patient will call us back with any further questions or concerns. Assessment & Plan (10/17/2021 10:06 AM CDT): We will set the patient up for a robotic assisted ventral hernia repair as well as repair of the umbilical hernia. We have discussed the need for mesh implantation. We discussed the possibility of having to convert to an open procedure. Will have her see Cardiology And her primary care doctor for clearance in preparation as she will need to hold her full anticoagulation. She is in understanding of the plan. Arthritis of knee 09/05/2019 Multiple-type hyperlipidemia 03/04/2019 Assessment & Plan (11/25/2022 12:08 PM CDT): Controlled on Rosuvastatin, refilled in office today. BMI stable at 33.8 Assessment & Plan (12/10/2021 2:02 PM CDT): Stable on current therapy Negative physical exam, no patient complaints Refilled rosuvastatin Follow up with Dr. Baez in January or sooner if necessary Sensorineural hearing loss ( SNHL) of left ear with restricted hearing of right ear 03/04/2019 Type 2 diabetes mellitus wit h chronic kidney disease, with long-term current use of insulin 02/17/2018 Overview (02/17/2018): New diagnosis confirm January 2018 no medications yet referred for diabetic counseling Assessment & Plan (01/28/2023 9:25 PM ADJUNCT SPANISH INSTRUCTOR): Recent HbA1c was up to 7.3. No acute symptoms or findings on exam. No strict diet, attempting to lower carb intake. Continue current insulin regimen Discussed low carb diet in detail. Heart healthy exercise as tolerated. Recheck diabetic labs before follow up in 3 months. Assessment & Plan (11/25/2022 12:04 PM CDT): Recent HbA1c was up to 7.3. AM sugars running 130-170s according to record. No acute symptoms or findings on exam. Admits she has been cheating a lot on the diet. Weight stable, BMI at 33.8. discussed increasing Tresiba, patient would like to see what she can do with diet first. Advised if sugars continue to stay above 130 she is to go to 27 units on tresiba. Discussed low carb diet in detail. Heart healthy exercise as tolerated. Follow in 3 months. Assessment & Plan (08/19/2022 7:18 PM CDT): States sugars at home deondre gomez did not bring record with her. Last HbA1c on 07/22/22 was 6.8. Continue tresiba as ordered at 25u daily. Encouraged low carb diet and portion control. Heart healthy exercise encouraged. Keep follow and repeat labs in November. Assessment & Plan (12/10/2021 2:04 PM CDT): Chronic problem, recently uncontrolled following hospital discharge s/p right arm fracture Rehab facility wasn't compliant with diabetes medication regimen according to patient and daughter Blood glucose readings from patient log since returning home ranged from low 100's to 150s fasting on average Denies symptoms of hyperglycemia Continue with Tresiba 30 units nightly Continue other diabetes medications as ordered Follow low carbohydrate diet Continue monitoring blood sugars - report consistently elevated readings Follow up in January with Dr. Baez or sooner if necessary - get diabetic labs before January appointment Dizziness 02/17/2018 Intertrigo 02/17/2018 Paroxysmal atrial fibrillation 07/25/2017 Overview (11/05/2020): 11/05/2020 no Afib 30 day CardioNet result controlled sick sinus and Conclusions: 1. Predominant rhythm is wandering atrial pacemaker/MAT with the slowest heart rate of 44 beats per minute and the fastest heart rate of 107 beats per minute. 2. Heart rate and rate variability is appropriate. 3. No prolonged pauses. 4. The patient recorded no symptoms during the study. 5. There were 2 asymptomatic short runs of SVT: 3 beats at 140 beats per minute and 9 beats at 140 beats per minute. 6. There were a few asymptomatic short runs of ventricular bigeminy and also ventricular trigeminy. Dr Sy Sherman2021-08-16 14:36:35 CDT New findings paroxysmal atrial fibrillation the July 2017 1. Predominant rhythm is normal sinus rhythm. 2. Heart rate and rate variability is appropriate. 3. No prolonged pauses. 4. There are events of atrial fibrillation noted. There appears to be several short runs of asymptomatic A. fib. lasting 5 beats, 6 beats, 7 beats. 5. Twenty beat of wide complex tachycardia could be A. Fib. with aberrancy.Dr Sy Sherman2018-05-03 09:17:41 CDT Assessment & Plan (07/28/2023 10:42 PM CDT): >>ASSESSMENT AND PLAN FOR CHRONIC ATRIAL FIBRILLATION (HCC) WRITTEN ON 10/26/2020 11:06 AM BY NUHA HEREDIA, Patient's persistent atrial fibrillation is now likely chronic. Some of her monitoring has suggested some accelerated rates since I plan to validate adequate rate control with 24 hour Holter. I suspect she has chronic diastolic CHF that is exacerbated by her atrial fibrillation. Assessment & Plan (11/25/2022 12:07 PM CDT): Controlled on labetalol, cardizem, and eliquis. No acute findings on exam today. Continue current regimen and heart healthy diet. Keep follows with cardiology as scheduled. Obesity (BMI 30-39.9) 02/02/2017 Chronic rhinitis 02/02/2017 Chronic pain disorder 01/29/2017 Leach's esophagus 08/06/2013 Overview (06/18/2017): Leach's esophagus with low grade dysplasia, EGD June 09, 2017, 2 cm hiatal hernia biopsies (+) Leach's no dysplasia Dr. Queen Assessment & Plan (11/25/2022 12:12 PM CDT): Controlled on Omeprazole, refilled in office today. Assessment & Plan (12/10/2021 2:06 PM CDT): Stable on current therapy No acute exam findings, no patient complaints at this time Refilled omeprazole, continue as ordered Follow up in January with Dr. 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 M. Rotman. Healing well. Still has limited movement as noted above. Continue pain meds as needed. Ice will help also. Keep follows with surgeon as scheduled. Resolved Problems Problem Noted Date Diagnosed Date Resolved Date Surgery, elective 02/06/2022 08/19/2022 Elevated pulse rate 10/21/2017 09/05/19 20 Assessment & Plan (10/21/2017 12:25 PM CDT): Patient is spirits in tachycardia for the last 2 days he etiology undetermined she does not have any chest pain shortness breath no fever no chills no night sweats just tachycardia. Heart rate in office is 140-150 range using the pulse oximeter on repeated occasions. Patient is on blood pressure medications spironolactone and a blood pressure is 162/98. O2 saturations 96% patient no acute distress. Plans at this time add metoprolol 50 mg daily request a progress report next 24 hr. Patient understands if she becomes worse she needs to go to the emergency room. This includes symptoms of chest pain shortness breath syncope just not feeling well. 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 08/06/2013 02/04/2024 Overview (06/27/2016): HYPERTENSION NOS Prediabetes 08/06/2013 09/05/2019 Overview (06/28/2016): Prediabetes Insomnia 08/06/2013 09/05/2019 Overview (06/28/2016): Insomnia Encounters Date Type Department Care Team Description 07/05/2024 [facility] [address] [place] [address] Angela Baez MD Chronic pain disorder 07/04/2024 Telephone [facility] [address] [place] [phone] Angela Baez MD 06/21/2024 10:45 AM CDT Office Visit [facility] Pulmonary at [address] [place] [address] Chris Bates MD Moderate persistent asthma without complication (Primary Dx); Lung mass; Chronic diastolic CHF (congestive heart failure) (HCC) 05/17/2024 Telephone [facility] at [address] [place] [address] Risa Thakkar LPN Appt/CT 04/29/2024 9:00 AM ADJUNCT SPANISH INSTRUCTOR Office Visit [facility] [place] [address] [place] [address] Isabelle Arriaza, REINIER Intertrigo (Primary Dx) from Last 3 Months Immunizations Immunization Administration Dates Next Due Influenza Virus Vaccine Trivalent Mdv 01/17/2019 Influenza, Quad, Adjuvantate d, Intramuscular 01/13/2022 Influenza, Quadrivalent, Hig h Dose, Preservative Free, Intrr 01/22/2023,01/07/2021,11/25/2019 Influenza, Quadrivalent, Spl it, Intramuscular 01/04/2018,01/22/2016,03/21/2013 Influenza, Split 03/21/2013 Influenza, Trivalent, Adjuva nted, Intramuscular 01/17/2019 Influenza, Trivalent, High D ose, Split, Preservative Free, Intramuscular 02/04/2024,01/07/2021,12/02/2016,01/02 Influenza, Trivalent, IM (MDV) 5,12/28/2013,03/21/2013,01/03,01/13/2007 Influenza, Unspecified 12/02/2016,01/03/2016,10/2013 Moderna SARS-CoV-2 Monovalen t Vaccination (12+ YRS) 02/04/2021,06/22/2020,05/25/2020 Pneumococcal Conjugate PCV 13 06/26/2014 Pneumococcal Polysaccharide PPV23 01/30/2016, Td, adsorbed 11/02/2006 Tdap 07/24/2022,09/10/2011 ZOSTER LIVE 04/06/2012,03/18/2012 Surgical History Surgery Date Site/Laterality Comments TUBAL LIGATION Bilateral tubal ligation TOTAL ABDOMINAL HYSTERECTOMY W/ BILATERAL SALPINGOOPHORECTOMY Hysterectomy, total abdominal, BSO TOTAL ABDOMINAL HYSTERECTOMY W/ BILATERAL SALPINGOOPHORECTOMY 03/23/1990 - 03/22/1991 Hysterectomy, total abdominal, BSO HERNIA REPAIR SHOULDER SURGERY LITO ARROYO ROTATOR CUFF REPAIR Right LITO ARROYO ESOPHAGOGASTRODUODENOSCOPY 03/23/2011 - 03/22/2012 ESOPHAGOSCOPY / EGD 06/15/2017 Dr. Queen 2 cm hiatal hernia biopsy (+) Leach's no dysplasia TOTAL SHOULDER REPLACEMENT 03/23/2010 - 03/22/2011 shoulder replaced ESOPHAGOGASTRODUODENOSCOPY 07/22/2011 - 08/21/2011 LAPAROSCOPIC CHOLECYSTECTOMY 09/21/2015 - 10/21/2015 Dr. Brown UMBILICAL HERNIA REPAIR 02/06/2022 JAY Santos REVISION TOTAL SHOULDER ARTHROPLASTY 01/21/2022 - 02/19/2022 LITO Triplett US GUIDED LUNG BIOPSY 12/26/2022 Right Chris Sanz,: Right lower lobe nodule biopsy (-) Medical History Medical History Date Comments Hypertension Hypertension Osteoporosis Osteoporosis Arthritis Arthritis Allergic Cataract Diabetes mellitus (HCC) Hyperlipidemia HL (hearing loss) Gallbladder & bile duct stone with obstruction Varicella [employer] Chronic GERD 01/29/2017 Dietz's palsy x2 Obesity (BMI 30-39.9) 02/02/2017 Leach's esophagus 2007- Paroxysmal atrial fibrillation (HCC) 07/25/2017 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 ( HCC) Chronic congestive heart failure (HCC) Sick sinus syndrome (HCC) Ventricular tachycardia (HCC) Supraventricular tachycardia Shortness of breath Type 2 diabetes mellitus (HCC) Mild persistent asthma without complication 2023 Family History * Patient is adopted Medical History Relation Name Comments No Known Problems Father Cancer Mother Pituitary Other Mother Other Son 1 small cell lung cancer Brain cancer Son 2 Relation Name Status Comments Father Mother Son 1 Son 2 Social History Tobacco Use Types Packs/Day Years Used Date Smoking Tobacco: Never Smokeless Tobacco: Never Tobacco Cessation:Counseling Given: Not Answered Alcohol Use Standard Drinks/Week Comments No 0 [...] often do you attend chur ch or oriental orthodox services? Never 08/20/2022 Do you belong to any clubs o r organizations such as hinduism groups, unions, fraternal or athletic groups, or [...] place to sleep or slept in a intermediate (including now)? No 08/20/2022 Personal Safety Answer Date Recorded Have you ever been in or are you currently in a harmful physical or emotional relationship or is someone making you feel afraid or unsafe? Denies 09/18/2023 Comments No Sex and Gender Information Value Date Recorded Sex Assigned at Not on file Legal Sex Female 10:52 AM ADJUNCT SPANISH INSTRUCTOR Gender Identity Not on file Sexual Orientation Not on file Occupation Industry Job Start Date Job End Date retired Not on file Not on file Not on file Obstetrics History Last Filed Vital Signs Vital Sign Reading Time Taken Comments Blood Pressure 138/69 06/21/2024 10:43 AM CDT Pulse 62 06/21/2024 10:43 AM CDT Temperature 36.2 C (97.2 F) 06/21/2024 10:43 AM CDT Respiratory Rate 18 06/21/2024 10:43 AM CDT Oxygen Saturation 96% 06/21/2024 10:43 AM CDT Inhaled Oxygen Concentration - - Weight 84.6 kg (186 lb 6.4 oz) 06/21/2024 10:43 AM CDT Height 154.9 cm (5' 1 ) 06/21/2024 10:43 AM CDT Body Mass Index 35.22 06/21/2024 10:43 AM CDT Plan of Treatment Health Maintenance Due Date Last Done Comments Hepatitis B Screening 1958 Zoster Vaccine (2 of 3) 06/01/2012 04/06/2012, 03/18 Foot Exam 07/17/2023 07/16/2022 Osteoporosis Screening-Bone Density Scan 07/24/2023 07/23/2021 Covid-19 Vaccine (2023-2 5 season) 2023 03/11/2022, 09/06/2021, 02/04/2021, Additional history exists Depression Screening 07/27/2024 07/28/2023, 07/22/2022, 07/16/2021, Additional history exists Well Visit 65+ 07/27/2024 07/28/2023, 04/2022, 07/16/2021, Additional history exists Hemoglobin A1C 08/03/2024 02/04/2024, 100 05/2022, 07/22/2022, Additional history exists Dilated Eye Exam 09/13/2024 09/14/2023 Fall Risk Assessment 09/17/2024 09/18/2023, 07/28/2023, 07/22/2022, Additional history exists Albumin Creatinine Ratio, Urine 02/03/2025 02/04/2024, 12/23/2022, 01/27/2022, Additional history exists Lipid Panel 02/03/2025 02/04/2024, 02/20, 03/04/2016, Additional history exists eGFR 02/03/2025 02/04/2024, 0 05/2022, 07/22/2022, Additional history exists DTaP/Tdap/Td Vaccine (3 - Td or Tdap) 07/24/2032 07/24/2022, 09/10/2011, 11/02/2006 Pneumococcal vaccine 65+ Completed 016, 06/26/2014, 11/17/2008 Influenza Vaccine Completed 02/04/2024, , 01/13/2022, Additional history exists Medical Devices Implanted Type Area Steam Drier Tender Device Identifier Shelf Expiration Date Model / Serial / Lot [employer]/C R Bard Ventralight St Sepra 6x4in Monofilament Absorbable Low Profile Latex Free [id number] - [id number] Implanted:Qty: 1 on 02/05/2022 by Jay Graham MD at [facility] N/A: Abdomen [employer] Bard 07/17/2023 [id number] / / [id number] Procedures Procedure Name Priority Date/Time Associated Diagnosis Comments ALBUMIN CREATININE RATIO, URINE Routine 02/04/2024 10:35 AM ADJUNCT SPANISH INSTRUCTOR Type 2 diabetes mellitus with microalbuminuria, with long-term current use of insulin (HCC) EGFR Routine 02/04/2024 10:32 AM ADJUNCT SPANISH INSTRUCTOR Type 2 diabetes mellitus with microalbuminuria, with long-term current use of insulin (HCC) HEMOGLOBIN A1C Routine 02/04/2024 10:32 AM ADJUNCT SPANISH INSTRUCTOR Type 2 diabetes mellitus with microalbuminuria, with long-term current use of insulin (HCC) LIPID PANEL Routine 02/04/2024 10:32 AM ADJUNCT SPANISH INSTRUCTOR Type 2 diabetes mellitus with microalbuminuria, with long-term current use of insulin (HCC) HM DIABETES EYE EXAM Routine 09/14/2023 2:23 PM CDT DEXA AXIAL SKELETON BONE DENSITY 1 OR MORE SITES Schedule Routine, Read Routine (OP Routine) 07/23/2021 12:34 PM CDT Menopause from Last 3 Months or Most Recently Relevant to Health Maintenance Results * (ABNORMAL) Albumin Creatinine Ratio, Urine (02/04/2024 10:35 AM ADJUNCT SPANISH INSTRUCTOR) Albumin Ur 25.3 mg/L Comment: Interpretive Data No reference range established. Current interpretive data was last revised 2018. Testing performed by: [address] [address] Creatinine Ur 78.1 mg/dL [facility] Comment: Interpretive Data No reference range established. Current interpretive data was last revised 2018. Testing performed by: [facility], [address] [place] [address]., [id number] Albumin Creatinine Ratio, Ur 32(H) 1 - 29 mg/g [facility] Comment:Testing performed by : [address] [address] Urine 02/04/2024 10:3 5 AM ADJUNCT SPANISH INSTRUCTOR 02/04/2024 9:39 PM ADJUNCT SPANISH INSTRUCTOR us Angela Baez MD LAB URINE ORDERABLES Final Result [facility] [address] [place] [address] * (ABNORMAL) eGFR (02/04/2024 10:32 AM ADJUNCT SPANISH INSTRUCTOR) eGFR 40(L) >=60 mL/min/1. 73 m2 Comment: Interpretive Data Reference Interval Normal >/= 90 mL/min/1.73m2 Mildly decreased* 60 - 89 mL/min/1.73m2 Mildly to moderately decreased 45 - 59 mL/min/1.73m2 Moderately to severely decreased 30 - 44 mL/min/1.73m2 Severely decreased 15 - 29 mL/min/1.73m2 Kidney Failure < 15 mL/min/1.73m2 *Relative to young adult level Estimated glomerular filtration rate is determined by the 2020 CKD-EPI equation recommended by the National Kidney Foundation (A Unifying Approach to GFR Estimation: Recommendations of the NKF-ASK Task Force on Reassessing the Inclusion of Race in Diagnosing Kidney Disease, JASN 2020). The CKD-EPI equation should not be used for patients with unstable renal function and has not been validated in children and those over 70. Current interpretive data was last reviewed 2021. Testing performed by: [address] [address] Blood 02/04/2024 10:3 2 AM ADJUNCT SPANISH INSTRUCTOR 02/04/2024 6:46 PM ADJUNCT SPANISH INSTRUCTOR us Angela Baez MD LAB BLOOD ORDERABLES Final Result [facility] [id number] [facility] [place] [address] * (ABNORMAL) Hemoglobin A1c (02/04/2024 10:32 AM ADJUNCT SPANISH INSTRUCTOR) Hgb A1C 7.6(H) 4.0 - 5.6 % Comment:Testing performed by : [address] [address] Estimated Average Glucose 171 mg/dL [facility] Comment: The ADA recommends reporting an estimated Average Glucose (eAG) with all Hemoglobin A1c results using the equation derived from a study of 507 normal and diabetic adults. Minority populations were underrepresented and children were not included. (Diabetes Care 31:5334-7267, 2008). The eAG is not equivalent to a fasting glucose. Testing performed by: [address] [address] Blood 02/04/2024 10:3 2 AM ADJUNCT SPANISH INSTRUCTOR 02/04/2024 6:26 PM ADJUNCT SPANISH INSTRUCTOR us Angela Baez MD LAB BLOOD ORDERABLES Final Result [facility] [address] [place] [address] * Lipid panel (02/04/2024 10:32 AM ADJUNCT SPANISH INSTRUCTOR) Cholesterol 124 30 - 199 mg/dL Comment: Interpretive Data Ages < or = 19 years Acceptable: <170 mg/dL Borderline high: 170-199 mg/dL High: >or= 200 mg/dL Ages > or = 20 years Desirable: <200 mg/dL Borderline high: 200-239 mg/dL High: >or= 240 mg/dL Literature References: 1. Expert Panel on Integrated Guidelines for Cardiovascular Health and Risk Reduction in Children and Adolescents. Pediatrics 2011;128:S213 2. NCEP Expert Panel. Circulation 2004;110:227 Current Interpretive Data was last revised on 2017. Testing performed by: [address] [address] Triglycerides 126 <=149 mg/dL [facility] Comment: Interpretive Data Ages < or = 9 years Acceptable: <75 mg/dL Borderline high: 75-99 mg/dL High: >or= 100 mg/dL Ages 10 to 20 years Acceptable: <90 mg/dL Borderline high: 90-129 mg/dL High: >or= 130 mg/dL Ages > or = 20 years Desirable: <150 mg/dL Borderline high: 150-199 mg/dL High: 200-499 mg/dL Very high: >or= 499 mg/dL Literature References: 1. Expert Panel on Integrated Guidelines for Cardiovascular Health and Risk Reduction in Children and Adolescents. Pediatrics 2011;128:S213 2. NCEP Expert Panel. Circulation 2004;110:227 Current Interpretive Data was last revised on 2017. Testing performed by: [address], [place]., [address] HDL 42 >=40 mg/dL [facility] Comment: Interpretive Data Ages < or = 19 years Acceptable: >45 mg/dL Borderline low: 40-45 mg/dL Low: <40 mg/dL Ages > or = 20 years Desirable: >or= 60 mg/dL Low: <40 mg/dL Literature References: 1. Expert Panel on Integrated Guidelines for Cardiovascular Health and Risk Reduction in Children and Adolescents. Pediatrics 2011;128:S213 2. NCEP Expert Panel. Circulation 2004;110:227 Current Interpretive Data was last revised on 2017. Testing performed by: [facility], [address] [place] [address]., [address] LDL, calculated 60 <=129 mg/dL [facility] Comment: Interpretive Data Ages < or = 19 years Acceptable: <110 mg/dL Borderline high: 110-129 mg/dL High: >or= 130 mg/dL Ages > or = 20 years Optimal: <100 mg/dL Near optimal: 100-129 mg/dL Borderline high: 130-159 mg/dL High: >160 mg/dL Calculated using the Ruben LDL-C estimating equation. This equation was implemented on 2023. Prior to this date LDL-C was estimated using the Friedewald equation. Literature References: 1. Expert Panel on Integrated Guidelines for Cardiovascular Health and Risk Reduction in Children and Adolescents. Pediatrics 2011;128:S213 2. NCEP Expert Panel. Circulation 2004;110:227 3. Ruben Moore et al. CASS Cardiol. 2019July 21;5(5):540-548. doi: 10.1001/[email or web address] Current Interpretive Data was last revised on 2023. Testing performed by: [facility], [address] [place] [address]., [address] Non-HDL Cholesterol 82 mg/dL [facility] Comment: Interpretive Data Ages < or = 19 years Acceptable: <120 mg/dL Borderline high: 120-144 mg/dL High: >145 mg/dL Ages > or = 20 years When triglycerides are >200 mg/dL, Non-HDL cholesterol is a secondary target of therapy with treatment goals that are 30 mg/dL greater than the LDL cholesterol target. Literature References: 1. Expert Panel on Integrated Guidelines for Cardiovascular Health and Risk Reduction in Children and Adolescents. Pediatrics 2011;128:S213 2. NCEP Expert Panel. Circulation 2004;110:227 Current Interpretive Data was last revised on 2017. Testing performed by: [facility], [address] [place] [address]., [address] Chol/HDL ratio 3 [facility] Comment:Testing performed by : [facility], [address] [place] [address]., [address] Blood 02/04/2024 10:3 2 AM ADJUNCT SPANISH INSTRUCTOR 02/04/2024 6:26 PM ADJUNCT SPANISH INSTRUCTOR Angela Baez MD LAB BLOOD ORDERABLES Final Result [facility] [id number] [facility] [place] [address] * DIABETES EYE EXAM (09/14/2023 2:23 PM CDT) SCRIBED DIABETIC DILATED EYE EXAM Normal Historical Provider HEALTH MAINTENANCE Final Result * Dexa Axial Skeleton Bone Density 1 or 2 Site (07/23/2021 12:34 PM CDT) Anatomical Region Laterality Modality Body N/A Other 07/23/2021 9:25 PM CDT Narrative 07/23/2021 9:26 PM CDT EXAM DESCRIPTION: DEXA AXIAL SKELETON BONE DENSITY 1 OR MORE SITES REASON FOR STUDY: 80 y/o year old F with given history of screening. Postmenopausal Steam Drier Tender/Model: Jampp (S/N [id number]) CLINICAL INFORMATION: Current height: 61 inches Maximum height: 61 inches Weight: 187 pounds Risk factors: Postmenopausal COMPARISON: None available. FINDINGS: AP LUMBAR SPINE L1-L4: Total BMD is 0.973 g/cm2 T-score is -0.7 LEFT HIP: Total BMD is 0.882 g/cm2 T-score is -0.5 Femoral neck BMD is 0.643 g/cm2 T-score is -1.9 IMPRESSION: Based on the left femoral neck bone mineral density (T-score -1.9) the patient has low bone mass. Fracture risk assessment (FRAX): 10 year risk for a major osteoporotic fracture is 14 % 10 year risk for a hip fracture is 3.8 % The FRAX tool has not been validated in patients currently or previously treated with pharmacotherapy for osteoporosis. In such patients, clinical judgement must be exercised in interpreting FRAX scores as the fracture risk may be overestimated. REFERENCE: Bone mineral density: Normal (T-score above or = -1.0) Low bone mass (T-score between -1.0 and -2.5) replaces the previously used term osteopenia Osteoporosis (T-score = or below -2.5) Medical evaluation for secondary causes of low bone mineral density may be appropriate. FRAX is a World Health Organization validated fracture risk assessment tool that calculates a person's 10 year probability of a major osteoporosis related fracture and hip fracture. According to the National Osteoporosis Foundation guidelines, postmenopausal women and men age 50 or older with low bone mass and a 10 year probability of a major osteoporosis related fracture = or greater than 20% or a 10 year probability of a hip fracture = or greater than 3% should be considered for treatment. For further information, including treatment recommendations, please refer to the 2013 ISCD Official Positions (http://www.iscd.org) and the NOF's Clinician's Guide to Prevention and Treatment of Osteoporosis (http://www.nof.org/professionals/clinical-guidelines) THIS IS AN ELECTRONICALLY VERIFIED FINAL REPORT 07/23/2021 9:26 PM - Electronically signed by Rodrigo Jimenez M.D. MF: [id number] Report ID: [id number] Reading Location: [id number] Procedure Note Rodrigo Jimenez MD - 07/23/2021 EXAM DESCRIPTION: DEXA AXIAL SKELETON BONE DENSITY 1 OR MORE SITES REASON FOR STUDY: 80 y/o year old F with given history ofscreening. Postmenopausal Steam Drier Tender/Model: Jampp (S/N [id number]) CLINICAL INFORMATION: Current height: 61 inches Maximum height: 61 inches Weight: 187 pounds Risk factors: Postmenopausal COMPARISON: None available. FINDINGS: AP LUMBAR SPINE L1-L4: Total BMD is 0.973 g/cm2 T-score is -0.7 LEFT HIP: Total BMD is 0.882 g/cm2 T-score is -0.5 Femoral neck BMD is 0.643 g/cm2 T-score is -1.9 IMPRESSION: Based on the left femoral neck bone mineral density (T-score -1.9) the patient has low bone mass. Fracture risk assessment (FRAX): 10 year risk for a major osteoporotic fracture is 14 % 10 year risk for a hip fracture is 3.8 % The FRAX tool has not been validated in patients currently or previously treated with pharmacotherapy for osteoporosis. In such patients, clinical judgement must be exercised in interpreting FRAX scores as the fracturerisk may be overestimated. REFERENCE: Bone mineral density: Normal (T-score above or = -1.0) Low bone mass (T-score between -1.0 and -2.5) replaces thepreviously used term osteopenia Osteoporosis (T-score = or below -2.5) Medical evaluation for secondary causes of low bone mineral density may be appropriate. FRAX is a World Health Organization validated fracture risk assessmenttool that calculates a person's 10 year probability of a major osteoporosisrelated fracture and hip fracture. According to the National OsteoporosisFoundation guidelines, postmenopausal women and men age 50 or older with low bonemass and a 10 year probability of a major osteoporosis related fracture = or greater than 20% or a 10 year probability of a hip fracture = or greaterthan 3% should be considered for treatment. For further information, including treatment recommendations, please referto the 2013 ISCD Official Positions (http://www.iscd.org) and the NOF's Clinician's Guide to Prevention and Treatment of Osteoporosis (http://[email or web address].org/professionals/[email or web address]-[email or web address]) THIS IS AN ELECTRONICALLY VERIFIED FINAL REPORT 07/23/2021 9:26 PM - Electronically signed by Rodrigo Jimenez M.D. MF: BUD Report ID: [id number] Reading Location: [place] [address] Angela Baez MD IMKilo DXA PROCEDURES Final R esult from Last 3 Months or Most Recently Relevant to Health Maintenance Insurance COMMERCIAL [facility] MEDICARE MEDICARE [facility] MEDICARE [facility] MEDICARE SUPPLEMENT MEDICARE [facility] MEDICARE SUPPLEMENT Advance Directives For more information, please contact: [phone] Documents on File Type Date Recorded Patient Property Caretaker Expl anation ADVANCE DIRECTIVE 08/27/2023 8:24 AM POLST - PHYS ORDER FOR PT PREFERENCES * Full Code (Latest Code Status on File) Date Activated Date Inactivated Comments 06/15/2017 9:33 AM 06/15/2017 2:00 PM Care Teams Unit Clerk Relationship Specialty Start Date End Date Angela Baez MD PCP - General 06/20/16 Antonio Grady Gastroenterology 02/02/17 Ced Holloway MD [address] [place] [address] 162 [facility] 204 [place] [address] Consulting Physician Gastroenterology 02/02/17 Yevgeniy Jenkins MD 12 [facility] 162 [facility] 204 [place] [address] Consulting Physician Ophthalmology 02/02/17 Jay Graham MD 12 [facility] 162 [facility] [address] [place] [address] Consulting Physician General Surgery 09/05/19 Lito Arroyo MD [address] [facility] 162 [facility] 204 [place] [address] Referring Physician Orthopedic Surgery 02/06/22 Omaira Rob MD [address] [facility] 204 [place] [address] Consulting Physician Cardiology 07/22/22 Chris Bates MD [address] [place] [address] Consulting Physician Pulmonary Disease 07/22/22 Lito Arroyo MD [address] [facility] 204 [place] [address] Referring Physician Orthopedic Surgery 08/19/22
--- OUTSIDE RECORDS SUMMARY | 2024-07-08 10:37 | XMS_ITS | Encounter Summary ---
Author Organization [facility] Address [address] [place] [address] Care Team Providers Care Encephalographer Name Role Phone Angela Singer MD Primary Care Provider [phone] Antonio Grady Unavailable Unavail able Ced Holloway MD Unavailable + Yevgeniy Jenkins MD Unavailable [phone] Colton Graham MD Unavailable Lito Arroyo MD Unavailable [phone] Omaira Rob MD Unavailable [phone] Chris Bates MD Unavailable Lito Arroyo MD Unavailable [phone] Encounter Details Date Type Department Care Team (Late st Contact Info) Description 07/17/2023 Orders Only [facility] [address] [place] [address] Scanning, Provider Social History Tobacco Use Types Packs/Day Years [...] week 08/20/2022 How often do you attend [facility] or [facility] services? Never 08/20/2022 Do you belong to any clubs o r organizations such as evangelical groups, unions, fraternal or athletic groups, or [...] points, staff should administer the PHQ-9) 0 07/22/2022 Hunger Vital Sign Answer Date Recorded Within [...] making you feel afraid or unsafe? 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 Gender Identity Not on file Sexual Orientation Not on file Occupation Industry Job Start Date Job End Date retired Not on file Not on file Not on file documented as of this encounter Plan of Treatment Not on file documented as of this encounter Procedures Procedure Name Priority Date/Time Associated Diagnosis Comments SCAN - RADIOLOGY/IMAGING 07/17/2023 documented in this encounter Results * SCAN - RADIOLOGY/IMAGING (07/17/2023) Anatomical Region Laterality Modality Other us Provider Scanning Final Result documented in this encounter Visit Diagnoses Not on filedocumented in this encounter Care Teams Encephalographer Relationship Specialty Start Date End Date Angela Singer MD PCP - General 06/20/16 Antonio Grady Gastroenterology 02/02/17 Ced Holloway MD [address] [place] [address] 162 [facility] 204 [place] [address] Consulting Physician Gastroenterology 02/02/17 Yevgeniy Jenkins MD [address] [facility] [address] [place] [address] [place] [address] Consulting Physician Ophthalmology 02/02/17 Colton Graham MD [address] [facility] [address] [facility] [address] [place] [address] Consulting Physician General Surgery 09/05/19 Lito Arroyo MD [address] [facility] [address] [facility] 204 [place] [address] Referring Physician Orthopedic Surgery 02/06/22 Omaira Rob MD [address] [facility] 204 [place] [address] Consulting Physician Cardiology 07/22/22 Chris Bates MD [address] [place] [address] Consulting Physician Pulmonary Disease 07/22/22 Lito Arroyo MD [address] [facility] 204 [place] [address] Referring Physician Orthopedic Surgery 08/19/22 documented as of this encounter
--- OUTSIDE RECORDS SUMMARY | 2024-07-08 10:37 | XMS_ITS | Referral Summary ---
Author Organization [facility] Address [address] [place] [address] Care Team Providers Care Reinstatement Clerk Name Role Phone Angela Baez MD Primary Care Provider + [phone] Antonio Grady Unavailable Unavail able Ced Holloway MD Unavailable + Yevgeniy Jenkins MD Unavailable [phone] Colton Graham MD Unavailable Lito Arroyo MD Unavailable [phone] Omaira Rob MD Unavailable [phone] Chris Bates MD Unavailable Lito Arroyo MD Unavailable [phone] Encounters Date Type Department Care Team Description 07/05/2024 Orders Only [facility] [address] [place] [phone] Angela Baez MD Chronic pain disorder 07/04/2024 Telephone [facility] [address] [place] [address] Angela Baez MD 06/21/2024 10:45 AM CDT Office Visit [facility] Pul[facility] at [place] [address] [facility] [address] [place] [address] Chris Bates MD Moderate persistent asthma without complication (Primary Dx); Lung mass; Chronic diastolic CHF (congestive heart failure) (HCC) 05/17/2024 Telephone [facility] Pulmonary at [address] [place] [address] Risa Thakkar LPN Appt/CT 04/29/2024 9:00 AM SPECIAL SERVICES SUPERVISOR Office Visit [facility] [place] [address] [place] [place] [address] Isabelle Arriaza, REINIER Intertrigo (Primary Dx) from Last 3 Months Allergies Active Allergy Reactions Criticality Noted Date [...] total) by mouth daily 90 tablet 3 024 Active pen needle, diabetic (BD Ultra-Fine Short Pen Needle) 31 gauge x 5/16 needleIndications :Type 2 diabetes mellitus with microalbuminuria, with long-term current use of insulin ([facility]) USE TO INJECT INSULIN ONCE DAILY. DX: E11.9 100 each 4 024 Active apixaban (Eliquis) 5 mg tabletIndications :Paroxysmal atrial fibrillation (HCC) Take 0.5-1 tablets (2.5-5 mg total) by mouth 2 (two) times a day 90 tablet 2 Active dilTIAZem XR 240 mg 24 hr capsuleIndication s:Paroxysmal atrial fibrillation (HCC) Take 1 capsule (240 mg total) by mouth daily 90 capsule 2 024 Active fexofenadine (KASSANDRA) 180 mg tabletIndications :Chronic rhinitis Take 1 tablet (180 mg total) by mouth daily 90 tablet 1 Active fluticasone propionate (FLONASE) 50 mcg/actuation nasal sprayIndications: Chronic rhinitis Administer 2 sprays into each nostril daily 16 mL 5 Active furosemide (LASIX) 20 mg tabletIndications :Chronic diastolic CHF (congestive heart failure) ([facility]),Hypertensio n complicating diabetes ([facility]) Take 1 tablet (20 mg total) by [...] microalbuminuria, with long-term current use of insulin ([facility]),Type 2 diabetes mellitus with stage 3b chronic kidney disease, with long-term current use of insulin ([facility]) Inject 0.3-0.4 mL (30-40 Units total) under the skin daily before breakfast 45 mL 3 024 2024 Active labetaloL (NORMODYNE,TRANDA TE) 100 mg tabletIndications :Controlled type 2 diabetes mellitus with microalbuminuria, with long-term current use of insulin ([facility]),Type 2 diabetes mellitus with stage 3b chronic kidney disease, with long-term current use of insulin ([facility]),Chronic diastolic CHF (congestive heart failure) ([facility]) Take 1 tablet (100 mg total) by mouth 2 (two) times a day 180 tablet 2 024 Active lancets (Palladium Life SciencesTouch Delica Plus Lancet) 30 gauge miscIndications:C ontrolled type 2 diabetes mellitus with microalbuminuria, with long-term current use of insulin ([facility]),Type 2 diabetes mellitus with stage 3b chronic kidney disease, with long-term current use of insulin ([facility]) USE TO CHECK BLOOD GLUCOSE LEVEL TWICE DAILY E11.2 200 each 3 024 Active omeprazole (PriLOSEC) 20 mg capsuleIndication s:Leach's esophagus with dysplasia Take 1 capsule (20 mg total) by mouth daily before breakfast 90 capsule 3 024 Active blood glucose diagnostic (Palladium Life SciencesTouch Ultra Test) strip USE TO MONITOR GLUCOSE LEVELS TWICE DAILY E11.9 100 strip 4 Active rosuvastatin (CRESTOR) 10 mg tabletIndications :Controlled type 2 diabetes mellitus with microalbuminuria, with long-term current use of insulin ([facility]),Multiple-ty pe hyperlipidemia Take 1 tablet (10 mg total) by mouth daily 90 tablet 2 024 Active spironolactone (ALDACTONE) 25 mg tabletIndications :Chronic diastolic CHF (congestive heart failure) ([facility]),Hypertensio n complicating diabetes ([facility]) Take 1 tablet (25 mg total) by mouth daily 90 tablet 2 Active fluticasone propion-salmetero L (ADVAIR DISKUS) 500-50 mcg/dose diskus inhaler Inhale 1 puff 2 (two) times a day Rinse mouth with water after use. Do not swallow. 60 each 11 Active albuterol HFA (PROVENTIL HFA,VENTOLIN HFA,PROAIR HFA) [...] pain 60 tablet 5 024 2024 Discontinued(R eoamparoer) Active Problems Problem Noted Date Diagnosed Date Cat scratch 07/28/2023 Mild persistent asthma without complication 09/2023 Assessment & Plan (02/05/2024 8:59 AM SPECIAL SERVICES SUPERVISOR): Continue Wixela 250/50 twice daily She is [...] use Assessment & Plan (04/29/2023 2:40 PM SPECIAL SERVICES SUPERVISOR): She has currently not on maintenance therapy [...] 01/22/2023 Assessment & Plan (01/28/2023 9:24 PM SPECIAL SERVICES SUPERVISOR): 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 Tenderness and marked weakness as noted above. No acute findings on exam. Will REFER to PT for further assessment. Continue Tylenol/tramadol as needed for pain. Heat/ice as tolerated. Influenza vaccine administered 01/22/2023 Assessment & Plan (01/28/2023 9:24 PM SPECIAL SERVICES SUPERVISOR): 23-24 influenza vaccine administered in office today. [...] on examination Patient has appointment today with roller stitcher - keep appointment Follow up with Dr. Baez in January or sooner if necessary Closed displaced oblique fracture of shaft of ri ght humerus 11/05/2021 Incisional hernia, without obstruction or gangre ne 10/18/2021 Overview (10/18/2021): Added automatically from request for surgery [id number] SBO (small bowel obstruction) 10/12/2021 On continuous [...] not yet performed === Repeat chest [facility] January 05, 2024 multiple pulmonary nodules looks [...] WRITTEN ON 01/25/2023 8:36 PM BY ANGELA BAZE MD Followed carefully by Chris Sanz, as [...] 02/25/2023 Assessment & Plan (02/05/2024 8:56 AM SPECIAL SERVICES SUPERVISOR): Radial EBUS guided biopsies of the original [...] however she would have to travel to [place] for this and she is hesitant. She is amenable to repeat bronchoscopy with biopsy here at [facility] or percutaneous biopsy done here as well. will discuss with the interventional radiologist We will arrange for her to hold Eliquis prior to the procedure when scheduled Assessment & Plan (04/29/2023 2:38 PM SPECIAL SERVICES SUPERVISOR): The right lower lobe lung mass has [...] 07/16/2021 Assessment & Plan (01/28/2023 9:19 PM SPECIAL SERVICES SUPERVISOR): BP stable in office today on current [...] therapy. No acute findings on exam. Worsening Dedenter on recent labs, will stop spironolactone. Monitor [...] 04/23/2021 Assessment & Plan (04/23/2021 12:26 PM SPECIAL SERVICES SUPERVISOR): Patient presents today for evaluation prior to [...] findings on exam today. Due to worsening Dedenter, will stop spironolactone. Continue current regimen and [...] Signed By: Dr Sy Sherman 2020-05-23 11:50:55 SPECIAL SERVICES SUPERVISOR Lung function studies 07/16/2020 The study showed [...] clinical correlation is recommended. Autumn Rodrigues MD [phone] Chronic congestive heart failure 05/16/2020 Assessment & Plan (08/19/2022 7:09 PM CDT): Stable on current therapy. No acute findings on exam, BP stable. No edema, taking lasix and spironolactone as rxd. Continue current regimen and heart healthy diet. Keep follows with Dr. rob as scheduled. Umbilical hernia 09/05/2019 Assessment & Plan (02/20/2022 9:35 AM SPECIAL SERVICES SUPERVISOR): Continue to avoid weight lifting for another [...] counseling Assessment & Plan (01/28/2023 9:25 PM SPECIAL SERVICES SUPERVISOR): Recent HbA1c was up to 7.3. No [...] 7:18 PM CDT): States sugars at home ar jason did not bring record with her. 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 Julito Arroyo. Healing well. Still has limited movement as [...] Prediabetes Insomnia 08/06/2013 09/05/2019 Overview (06/28/2016): Insomnia Immunizations Immunization Administration Dates Next Due Influenza [...] adsorbed 11/02/2006 Tdap 07/24/2022,09/10/2011 ZOSTER LIVE 04/06/2012,03/18/2012 Social History Tobacco Use Types Packs/Day Years [...] 08/20/2022 How often do you attend chur or confucianist services? Never 08/20/2022 Do you belong to any clubs o r organizations such as orthodoxy groups, unions, fraternal or athletic groups, or [...] place to sleep or slept in a fdc (including now)? No 08/20/2022 Personal Safety Answer Date Recorded Have you ever been in or are you currently in a harmful physical or emotional relationship or is someone making you feel afraid or unsafe? Denies 09/18/2023 Comments No Sex and Gender Information Value Date Recorded Sex Assigned at Not on file Legal Sex Female 10:52 AM SPECIAL SERVICES SUPERVISOR Gender Identity Not on file Sexual Orientation Not on file Occupation Industry Job Start Date Job End Date retired Not on file Not on file Not on file Last Filed Vital Signs Vital Sign Reading [...] 06/21/2024 10:43 AM CDT Plan of Treatment Not on file Medical Devices Implanted Type Area Low Voltage Electrician Device Identifier Shelf Expiration Date Model / Serial / Lot [employer]/C R Bard Ventralight St Sepra 6x4in Monofilament Absorbable Low Profile Latex Free [id number] - [id number] Implanted:Qty: 1 on 02/05/2022 by Colton Graham MD at [facility] N/A: Abdomen [employer]/C R Bard 07/17/2023 [id number] / / [id number] Procedures Procedure Name Priority Date/Time Associated Diagnosis Comments ALBUMIN CREATININE RATIO, URINE Routine 02/04/2024 10:35 AM SPECIAL SERVICES SUPERVISOR Type 2 diabetes mellitus with microalbuminuria, with long-term current use of insulin (HCC) EGFR Routine 02/04/2024 10:32 AM SPECIAL SERVICES SUPERVISOR Type 2 diabetes mellitus with microalbuminuria, with long-term current use of insulin (HCC) HEMOGLOBIN A1C Routine 02/04/2024 10:32 AM SPECIAL SERVICES SUPERVISOR Type 2 diabetes mellitus with microalbuminuria, with long-term current use of insulin (HCC) LIPID PANEL Routine 02/04/2024 10:32 AM SPECIAL SERVICES SUPERVISOR Type 2 diabetes mellitus with microalbuminuria, with long-term current use of insulin (HCC) HM DIABETES EYE EXAM Routine 09/14/2023 2:23 PM CDT DEXA AXIAL SKELETON BONE DENSITY 1 OR MORE SITES Schedule Routine, Read Routine (OP Routine) 07/23/2021 12:34 PM CDT Menopause from Last 3 Months or Most Recently Relevant to Health Maintenance Results * (ABNORMAL) Albumin Creatinine Ratio, Urine (02/04/2024 10:35 AM SPECIAL SERVICES SUPERVISOR) Albumin Ur 25.3 mg/L Comment: Interpretive Data No reference range established. Current interpretive data was last revised 2018. Testing performed by: , [address] [place] [address], [place] [address] Creatinine Ur 78.1 mg/dL [facility] Comment: Interpretive Data No reference range established. Current interpretive data was last revised 2018. Testing performed by: , [address] [place] [address], [place] [address] Albumin Creatinine Ratio, Ur 32(H) 1 - 29 mg/g [facility] Comment:Testing performed by : [address] [address] Urine 02/04/2024 10:3 5 AM SPECIAL SERVICES SUPERVISOR 02/04/2024 9:39 PM SPECIAL SERVICES SUPERVISOR us Angela Baez MD LAB URINE ORDERABLES Final Result Performing Organization Address [facility] Co de Phone Number [facility] [address] [place] [address] * (ABNORMAL) eGFR (02/04/2024 10:32 AM SPECIAL SERVICES SUPERVISOR) eGFR 40(L) >=60 mL/min/1. 73 m2 Comment: [...] was last reviewed 2021. Testing performed by: [address] [address] Blood 02/04/2024 10:3 2 AM SPECIAL SERVICES SUPERVISOR 02/04/2024 6:46 PM SPECIAL SERVICES SUPERVISOR us Angela Baez MD LAB BLOOD ORDERABLES Final Result Performing Organization Address City/[facility]/ZIP Co de Phone Number [facility] [place] [address] Department of [place] [place], [place] [id number] * (ABNORMAL) Hemoglobin A1c (02/04/2024 10:32 AM SPECIAL SERVICES SUPERVISOR) Hgb A1C 7.6(H) 4.0 - 5.6 % Comment:Testing performed by : [address] [address] Estimated Average Glucose 171 mg/dL [facility] Comment: The ADA recommends reporting an estimated Average Glucose (eAG) with all Hemoglobin A1c results using the equation derived from a study of 507 normal and diabetic adults. Minority populations were underrepresented and children were not included. (Diabetes Care 31:9621-3789, 2008). The eAG is not equivalent to a fasting glucose. Testing performed by: , [address] [place] [address]., [address] Blood 02/04/2024 10:3 2 AM SPECIAL SERVICES SUPERVISOR 02/04/2024 6:26 PM SPECIAL SERVICES SUPERVISOR us Angela Baez MD LAB BLOOD ORDERABLES Final Result [facility] [address] Department of Laboratories [place], [place] [id number] * Lipid panel (02/04/2024 10:32 AM SPECIAL SERVICES SUPERVISOR) Cholesterol 124 30 - 199 mg/dL Comment: [...] last revised on 2017. Testing performed by: [address] [address] Triglycerides 126 <=149 mg/dL [facility] Comment: Interpretive Data Ages < [...] last revised on 2017. Testing performed by: [address] [address] HDL 42 >=40 mg/dL [facility] Comment: Interpretive Data Ages < or = [...] last revised on 2017. Testing performed by: , [address] [place] [address]., [address] LDL, calculated 60 <=129 mg/dL [facility] Comment: [...] NCEP Expert Panel. Circulation 2004;110:227 3. Ruben Nair al. CASS Cardiol. 2020 July 21;5(5):540-548. doi: 10.1001/jamacardio.2020.0013 Current Interpretive Data was last revised on 2023. Testing performed by: [address] [address] Non-HDL Cholesterol 82 mg/dL [facility] Comment: Interpretive [...] last revised on 2017. Testing performed by: [address] [address] Chol/HDL ratio 3 [facility] Comment:Testing performed by : [address] [address] Blood 02/04/2024 10:3 2 AM SPECIAL SERVICES SUPERVISOR 02/04/2024 6:26 PM SPECIAL SERVICES SUPERVISOR Angela Baez MD LAB BLOOD ORDERABLES Final Result [facility] [address] Department of Laboratories [place], [place] [id number] * DIABETES EYE EXAM (09/14/2023 2:23 PM [...] F with given history of screening. Postmenopausal Low Voltage Electrician/Model: TripLingo (S/N [id number]) CLINICAL INFORMATION: Current height: 61 inches Maximum [...] Rodrigo Jimenez M.D. MF: BUD Report ID: [id number] Reading Location: [id number] Procedure Note Rodrigo Jimenez MD - 07/23/2021 EXAM DESCRIPTION: DEXA AXIAL SKELETON BONE DENSITY 1 OR MORE SITES REASON FOR STUDY: 80 y/o year old F with given history ofscreening. Postmenopausal Low Voltage Electrician/Model: eCircle Discovery SL (S/N [id number]) CLINICAL INFORMATION: Current height: 61 inches Maximum [...] Rodrigo Jimenez M.D. 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 ADVANCE DIRECTIVE 08/27/2023 8:24 AM POLST - PHYS ORDER FOR PT PREFERENCES * Full Code (Latest Code Status on File) Date Activated Date Inactivated Comments 06/15/2017 9:33 AM 06/15/2017 2:00 PM Care Teams Reinstatement Clerk Relationship Specialty Start Date End Date Angela Baez MD PCP - General 06/20/16 Antonio Grady Gastroenterology 02/02/17 Ced Holloway MD [address] [facility] [address] [place] [address] Consulting Physician Gastroenterology 02/02/17 Yevgeniy Jenkins MD [address] [place] [address] [place] [address] Consulting Physician Ophthalmology 02/02/17 Colton Graham MD [address] [facility] [address] [place] [address] Consulting Physician General Surgery 09/05/19 Lito Arroyo MD [address] [facility] [address] [place] [address] Referring Physician Orthopedic Surgery 02/06/22 Omaira Rob MD [address] [facility] [address] [place] [address] Consulting Physician Cardiology 07/22/22 Chris Bates MD [address] [place] [address] Consulting Physician Pulmonary Disease 07/22/22 Lito Arroyo MD [address] [facility] 204 [place] [address] Referring Physician Orthopedic Surgery 08/19/22
--- OUTSIDE RECORDS SUMMARY | 2024-07-08 10:37 | XMS_ITS | Encounter Summary ---
Author Organization [facility] Address [address] [place] [address] Phone Care Team Providers Care Comic Book Artist Name Role Phone Angela Singer MD Primary Care Provider [phone] Antonio Grady Unavailable Unavail able Ced Holloway MD Unavailable + Yevgeniy Jenkins MD Unavailable [phone] Colton Graham MD Unavailable Sy Sherman MD Unavailable [phone] Stephanie Gardner LPN Unavailable Lito Arroyo MD Unavailable Omaira Rob MD Unavailable [phone] Chris Bates MD Unavailable Winnie Hogan MA Unavailable Zuleyka Keene LCSW Unavailable Lito Arroyo MD Unavailable Encounter Details Date Type Department Care Team (Late st Contact Info) Description 06/27/2021 Orders Only [facility] [address] [place] [address] Amanuel Singer MD [address] [place] [address] Social History Tobacco Use Types Packs/Day Years Used Date Smoking Tobacco: Never Smokeless Tobacco: Never Alcohol Use Standard Drinks/Week Comments No 0 (1 standard drink = 0.6 oz pur e alcohol) PHQ-2 Answer Date Recorded PHQ-2 Total Score (If total score is 3 or more points, staff should administer the PHQ-9) 0 03/19/2020 Comments No Sex and Gender Information Value Date Recorded Sex Assigned at Not on file Legal Sex Female 10:52 AM MEDIA RELATIONS MANAGER Gender Identity Not on file Sexual Orientation Not on file Occupation Industry Job Start Date Job End Date retired Not on file Not on file Not on file documented as of this encounter Plan of Treatment Not on file documented as of this encounter Procedures Procedure Name Priority Date/Time Associated Diagnosis Comments SCAN - LABS 06/27/2021 documented in this encounter Results * SCAN - LABS (06/27/2021) Amanuel Singer MD Final Result documented in this encounter Visit Diagnoses Not on filedocumented in this encounter Care Teams Comic Book Artist Relationship Specialty Start Date End Date Angela Singer MD PCP - General 06/20/16 Antonio Grady Gastroenterology 02/02/17 Ced Holloway MD [address] [place] [address] Consulting Physician Gastroenterology 02/02/17 Yevgeniy Jenkins MD [address] [place] [address] Consulting Physician Ophthalmology 02/02/17 Colton Graham MD [address] [place] [address] Consulting Physician General Surgery 09/05/19 Sy Sherman MD [address] [place] [address] Consulting Physician Cardiovascular Disease 01/22/20 Stephanie Gardner LPN [address] [place] [address] [address] [place] [address] ACO Care Tube Bender 11/12/21 11/21/21 Lito Arroyo MD [address] [place] [address] [address] [place] [address] Referring Physician Orthopedic Surgery 02/06/22 Omaira Rob MD [address] [place] [address] [address] [place] [address] Consulting Physician Cardiology 07/22/22 Chris Bates MD [address] [place] [address] [address] [place] [address] Consulting Physician Pulmonary Disease 07/22/22 Winnie Hogan MA [address] [place] [address] [address] [place] [address] ACO Care Tube Bender 08/13/22 08/13/22 Zuleyka Keene, [address] [place] [address] Deck Lid Fitter Train Conductor 08/19/22 09/03/22 Lito Arroyo MD [address] [place] [address] [address] [place] [address] Referring Physician Orthopedic Surgery 08/19/22 documented as of this encounter
--- OUTSIDE RECORDS SUMMARY | 2024-07-08 10:37 | XMS_ITS | Clinical Summary ---
Author Organization [facility] Address [address] [place] [address] Care Team Providers Care Hosiery Repairer Name Role Phone Unavailable Primary Care Provider Unavailabl e Source Comments [facility],non-owned Affiliates and Associated Physician Practices is amultiple site organization consisting of ambulatory clinics and hospital sitesin [place], [place], [place] and [place]. This disclosure is being madepursuant to the Care Everywhere program and may not contain all information available regarding this patient. Last updated 17.[facility] Allergies Active Allergy Reactions Criticality Noted Date Comments Carvedilol Other Low 07/24/2020 And Bradycardia Lisinopril Swelling Medium 07/06/2017 Lips swelling/tingling Lips swelling/tingling Metformin Diarrhea Low 03/04/2019 Metoprolol Other Low 06/22/2017 And slow pulse Nebivolol Other Low 07/24/2020 Slow pulse, no fatigue Medications * Be aware that medications may not be up to date on this document. Alwaysverify current medications with the patient. labetalol (Normodyne; Trandate) 100 MG tablet Take 100 mg by mouth 2 times daily 2 Active furosemide (Lasix) 20 MG tablet Take 20 mg by mouth 2 times daily 1 Active omeprazole (PriLOSEC) 20 MG capsule Take 20 mg by mouth daily before breakfast 2 Active traMADol (Ultram) 50 MG tablet Take 50 mg by mouth 2 times daily 2 Active acetaminophen CR (Tylenol Arthritis Pain) 650 MG tablet Take 650 mg by mouth every 6 hours as needed Active Cholecalcifero l 25 MCG (1000 UT) Take 1,000 Units by mouth once daily Active Cyanocobalamin 1000 MCG Take 1,000 mcg by mouth once daily 1 Active rosuvastatin (Crestor) 10 MG tablet Take 10 mg by mouth once daily 1 Active fexofenadine (Angie) 180 MG tablet Take 180 mg by mouth once daily Active docusate sodium (Colace) 100 MG capsule Take 100 mg by mouth once daily as needed for Constipation Active polyethylene glycol 3350 (Miralax) 17 GM/SCOOP powder Take 17 g by mouth at bedtime Active fluticasone propionate (Flonase) 50 MCG/ACT nasal spray [place] 2 sprays into each nostril once daily as needed Active insulin degludec (Tresiba) 100 UNIT/ML pen Inject 15 Units subcutaneously once daily Active spironolactone (Aldactone) 25 MG tablet Take 25 mg by mouth once daily Active apixaban (Eliquis) 5 MG tablet Take 2.5 mg by mouth 2 times daily Active guaiFENesin 400 MG tablet Take 400 mg by mouth once daily 1 Active HYDROcodone-ac etaminophen ([place]) 5-325 MG tablet Take 1 (one) tablet by mouth every 4 hours as needed 12 tablet 2 Active Active Problems Problem Noted Date Diagnosed Date Closed displaced oblique fracture of shaft of ri ght humerus 11/05/2021 Immunizations Immunization Administration Dates Next Due INFLUENZA VACCINE, TRIV. (AF LURIA, FLUZONE TRIVALENT; 6MO+) (IIV3) 01/19/2015,01/04/2008,01/13/2007 FLU VACCINE QUAD IIV4 SPLIT 0.25 ML IM 01/04/2018,01/22/2016 FLU VACCINE TRI IIV3 SPLIT I M (FLUVIRIN) 12/28/2013 INFLUENZA VACCINE 12/28/2013 INFLUENZA VACCINE, ADJUVANTE D, TRIV. (FLUAD TRIVALENT; 65Y+) (AIIV3) 01/17/2019 INFLUENZA VACCINE, HIGH-DOSE , QUADR. (FLUZONE HIGH-DOSE QUADRIVALENT; 65Y+), 0.7 ML (HD-IIV4) 01/07/2021,11/25/2019,12/02/2016,2015 INFLUENZA VACCINE, QUADR. (A FLURIA, FLUZONE QUADRIVALENT; 6MO+) (IIV4) 03/21/2013 PNEUMOCOCCAL PPSV23 01/30/2016,11/17/2008 Pneumococcal Pcv13 Conj 06/26/2014 TDAP, HISTORIC VACCINE 09/10/2011 Td (Adult), 2 Lf Tetanus Tox oid, Adsorbed, Pf 11/02/2006 ZOSTER VACCINE, LIVE 04/06/2012,03/18/2012 Social History Tobacco Use Types Packs/Day Years Used Date Smoking Tobacco: Never Alcohol Use Standard Drinks/Week Comments Never 0 (1 standard drink = 0.6 oz pur e alcohol) Hunger Vital Sign Answer Date Recorded Within the past 12 months, y ou worried that your food would run out before you got the money to buy more. Never true 11/07/19 22 Within the past 12 months, t he food you bought just didn't last and you didn't have money to get more. Never true 11/06/2021 Comments Unknown Sex and Gender Information Value Date Recorded Sex Assigned at Not on file Legal Sex Female 1:37 PM CDT Gender Identity Not on file Sexual Orientation Not on file Last Filed Vital Signs Vital Sign Reading Time Taken Comments Blood Pressure 112/71 11/07/2021 4:29 PM CDT Pulse 82 11/07/2021 4:29 PM CDT Temperature 36.8 C (98.3 F) 11/07/2021 4:29 PM CDT Respiratory Rate 18 11/07/2021 4:29 PM CDT Oxygen Saturation 90% 11/07/2021 4:29 PM CDT Inhaled Oxygen Concentration - - Weight 81.6 kg (180 lb) 11/05/2021 12:07 AM CDT Height 154.9 cm (5' 1 ) 11/05/2021 12:07 AM CDT Body Mass Index 34.01 11/05/2021 12:07 AM CDT Plan of Treatment Health Maintenance Due Date Last Done Comments BONE DENSITY TESTING 1940 MEDICARE AWV 12 MONTHS 1940 ZOSTER VACCINE (2 of 3) 06/01/2012 04/06/2012, 03/18 Respiratory Syncytial Virus (RSV) Vaccine Pt: or over 60 yrs (1 - 1-dose 75+ series) 2013 DTAP/TDAP/TD VACCINES (2 - Td or Tdap) 09/09/2021 09/10/2011, 11/02/2006 COVID-19 VACCINE ( season) 2023 09/06/2021, 02/04/2021, 06/22/2020, Additional history exists DEPRESSION SCREENING 03/23/2024 INFLUENZA VACCINE (Season Ended) 2024 01/07/2021, 11/25/2019, 01/17/2019, Additional history exists PNEUMOCOCCAL VACCINE 50+ Completed 016, 06/26/2014, 11/17/2008 HEPATITIS B VACCINE Aged Out No longe r eligible based on patient's age to complete this topic HIB VACCINE Aged Out No longer eligi ble based on patient's age to complete this topic HPV VACCINE Aged Out No longer eligi ble based on patient's age to complete this topic MENINGOCOCCAL (Group B) VACCINE SHARED DECISION-MAKING Aged Out No longer eligible based on patient's age to complete this topic MENINGOCOCCAL GROUPS A/C/Y/W VACCINE Aged Out No longer eligible based on patient's age to complete this topic Insurance MEDICARE MEDICARE COMMERCIAL GENERIC Advance Directives * Full Code (Latest Code Status on File) Date Activated Date Inactivated Comments 11/05/2021 9:50 AM 11/07/2021 7:12 PM
== END 2024-07-08 10:28 | disposition home or self-care (01) ==
PROVIDERS: PCP Internal Medicine Geriatric Medicine; Visit Provider Internal Medicine Pulmonary Disease
DX: R91.8 Other nonspecific abnormal finding of lung field (principal); R94.2 Abnormal results of pulmonary function studies
CPT/HCPCS: 71250; 94060; 94726; 94729

== ENCOUNTER 2024-08-18 11:56 | Outpatient (CLI) | payer MEDICARE, SELFPAY ==
--- NOTE | ~2024-08-18 | DEXA_ITS ---
Bone Density Report Name: ROSEANN CARDONA I Age: 83 Sex: Female Ethnicity: White Date of : 1940 Indication: postmenopausal; screening for osteoporosis; prior fracture; asthma or emphysema; hysterectomy; rheumatoid arthritis; Referring Provider: SASHA, MARK Study: Bone densitometry was performed. Exam Date: August 18, 2024 Accession number: [id number] Bone Density: Region BMD T-score Z-score Classification AP Spine(L1-L4) 0.904 -1.3 1.6 Osteopenia Femoral Neck (Left) 0.548 -2.7 -0.2 Osteoporosis Total Hip (Left) 0.782 -1.3 1.0 Osteopenia Femoral Neck (Right) 0.573 -2.5 0.0 Osteoporosis Total Hip (Right) 0.737 -1.7 0.7 Osteopenia Femoral Neck Mean 0.560 -2.6 -0.1 Osteoporosis Total Hip Mean 0.760 -1.5 0.8 Osteopenia World Health Organization criteria for BMD impression classify patients as: Normal (T-score at or above -1.0), Osteopenia (T-score between -1.0 and -2.5), or Osteoporosis (T-score at or below -2.5). 10-year Fracture Risk: FRAX not reported because: Some T-score for Spine Total or Hip Total or Femoral Neck at or below -2.5 Clinical Information Provided by Patient: Has had a low trauma fracture Has rheumatoid arthritis Has used the following medications: Vitamin D Has the following medical conditions: Asthma or Emphysema, Hysterectomy Patient maximum height was 61 No regular weight bearing exercise Drinks caffeinated beverages Onset of menses at age 9 Number of children 2 Impression: The patient has established osteoporosis, based on the Left Femoral Neck T-score and the existence of a prior fracture. The patient has risk factors, including: previous fracture. Discussion: HIGH RISK OF FRACTURE. BONE DENSITY IS UNDESIRABLY LOW AT ONE OR MORE SKELETAL SITES, CONSISTENT WITH POSTMENOPAUSAL OSTEOPOROSIS. This patient's lowest T-score, in a patient who has previously fractured, meets the World Health Organization's (WHO) criteria for severe osteoporosis. In untreated patients, the risk of osteoporotic fracture increases approximately two-fold for each 1.0 SD decrease in T-score. Low bone density is not the only risk factor for fracture; also consider factors such as patient's age, frailty or poor health, risk of falling, risk of injury, previous osteoporotic fracture, family history of osteoporosis, cigarette smoking, low body weight, etc. Not everyone with low bone mineral density has osteoporosis; osteomalacia and other metabolic bone disorders should also be considered. Patients who have osteoporosis should be evaluated for specific diseases and conditions (secondary causes) that may cause or contribute to bone loss. The [place] Association of Clinical Endocrinologists (AACE) and National Osteoporosis Foundation (NOF) recommend pharmacologic intervention for all postmenopausal women whose T-score is in this range. The patient should follow a healthful lifestyle (good nutrition with adequate calcium and vitamin D, and appropriate weight-bearing exercise). Follow-Up: Consider a repeat BMD and Vertebral Fracture Assessment (VFA) exam in 2 years or sooner if medically necessary, to reassess this patient's status. Reported by: MALCOLM on 08/18/2024 1:36:00 PM. Reviewed, dictated and finalized at location A.
--- OUTSIDE RECORDS SUMMARY | 2024-08-18 12:03 | XMS_ITS | Clinical Summary ---
Author Organization [facility] Address [address] [facility] [place] [address] Care Team Providers Care Light Armored Reconnaissance Officer Name Role Phone Unavailable Primary Care Provider Unavailabl e Source Comments [facility],non-owned Affiliates and Associated Physician Practices is amultiple site organization consisting of ambulatory clinics and hospital sitesin [place], [place], [place] and [place]. This disclosure is being madepursuant to the Care Everywhere program and may not contain all information available regarding this patient. Last updated 17.[facility] Allergies Active Allergy Reactions Criticality Noted Date [...] fluticasone propionate (Flonase) 50 MCG/ACT nasal spray [place] 2 sprays into each nostril once daily [...] mouth once daily 1 Active HYDROcodone-ac etaminophen ([place]) 5-325 MG tablet Take 1 (one) tablet [...] 12:07 AM CDT Height 154.9 cm (5' 1) 11/05/2021 12:07 AM CDT Body Mass Index [...]
--- OUTSIDE RECORDS SUMMARY | 2024-08-18 12:03 | XMS_ITS | Referral Summary ---
Author Organization [facility] Address [address] [place] [address] Care Team Providers Care Purchaser Name Role Phone Angela Baez MD Primary Care Provider [phone] Ced Holloway MD Unavailable + Yevgeniy Jenkins MD Unavailable [phone] Colton Graham MD Unavailable Lito Arroyo MD Unavailable [phone] Chris Bates MD Unavailable Eduardo Velasco DO Unavailable [phone] Encounters Date Type Department Care Team Description 08/11/2024 11:30 AM CDT Lab [facility] [address] [place] [address] Type 2 diabetes mellitus with microalbuminuria, with long-term current use of insulin (HCC); Multiple-type hyperlipidemia; Need for hepatitis B screening test; Hypertension complicating diabetes (HCC); Vitamin D deficiency 08/11/2024 8:30 AM CDT Office Visit [facility] [address] [place] [address] Angela Baez MD Annual physical exam (Primary Dx); Type 2 diabetes mellitus with stage 3b chronic kidney disease, with long-term current use of insulin (HCC); Microalbuminuria due to type 2 diabetes mellitus (HCC); Shortness of breath; Sleep disorder breathing; Mild persistent asthma without complication; Bronchiolitis; Chronic diastolic CHF (congestive heart failure) (HCC); Paroxysmal atrial fibrillation (HCC); Hypertension complicating diabetes (HCC); Multiple-type hyperlipidemia; Chronic rhinitis; Leach's esophagus with dysplasia; Dietz's palsy; Sensorineural hearing loss (SNHL) of left ear with restricted hearing of right ear; H/O total shoulder replacement, right; Chronic pain disorder; Seborrheic dermatitis; Intertrigo; Menopause; Need for hepatitis B screening test; Vitamin D deficiency; Immunization counseling 07/27/2024 Telephone [facility] [address] [place] [address] Angela Baez MD 07/20/2024 Telephone [facility] Pulmonary at [address] [place] [address] results 07/08/2024 Orders Only [facility] Health Information Management [address] [place] [address] Scanning, Provider 07/08/2024 Ancillary Procedure [facility] Outside Films 07/05/2024 Orders Only [facility] [address] [facility] [address] [place] [address] Angela Baez MD Chronic pain disorder 07/04/2024 Telephone [facility] 1 [facility] [address] [place] [address] Angela Baez MD 06/21/2024 10:45 AM CDT Office Visit [facility] Pulmonary at [address] [place] [address] Chris Bates MD Moderate persistent asthma without complication (Primary Dx); Lung mass; Chronic diastolic CHF (congestive heart failure) ([facility]) from Last 3 Months Allergies Active Allergy [...] (5,000 Units total) by mouth daily Active polyethylene glycol (MIRALAX) 17 gram/dose bulk powder Take 17 g by mouth daily Active guaiFENesin ER (MUCINEX) 600 mg 12 hr tabletIndications :Chronic rhinitis Take 2 tablets (1,200 mg total) by mouth as needed for cough 60 tablet 5 024 Active lancets (Office DepotTouch Delica Plus Lancet) 30 gauge miscIndications:C ontrolled type 2 diabetes mellitus with microalbuminuria, with long-term current use of insulin ([facility]),Type 2 diabetes mellitus with stage 3b chronic kidney disease, with long-term current use of insulin ([facility]) USE TO CHECK BLOOD GLUCOSE LEVEL TWICE DAILY E11.2 200 each 3 024 Active blood glucose diagnostic (Office DepotTouch Ultra Test) strip USE TO MONITOR GLUCOSE LEVELS TWICE DAILY E11.9 100 strip 4 024 Active fluticasone propion-salmetero L (ADVAIR DISKUS) 500-50 mcg/dose diskus inhaler Inhale 1 puff 2 (two) times a day Rinse mouth with water after use. Do not swallow. 60 each 025 Active albuterol HFA (PROVENTIL HFA,VENTOLIN HFA,PROAIR HFA) 90 mcg/actuation inhalerIndication s:Mild persistent asthma without complication INHALE 2 PUFFS EVERY 6 HOURS NEEDED FOR WHEEZING 25.5 each 3 025 Active ammonium lactate (AMLACTIN) 12 % creamIndications: Dry Skin Apply topically daily 385 g 025 Active clotrimazole (Itch Relief, clotrimazole,) 1 % creamIndications: Intertrigo Apply topically 2 (two) times a day for 14 days Under the breasts and in the groin area for the intertrigo 60 g 11 025 2024 Active traZODone (DESYREL) 50 mg tabletIndications :Sleep disorder breathing Take 0.5-1 tablets (25-50 mg total) by mouth nightly as needed for sleep May have 90 days at future refills if this works 30 tablet 6 025 2024 Active apixaban (Eliquis) 5 mg tabletIndications :Paroxysmal atrial fibrillation (HCC) Take 0.5-1 tablets (2.5-5 mg total) by mouth 2 (two) times a day 90 tablet 2 Active empagliflozin (JARDIANCE) 10 mg tabletIndications :type 2 diabetes mellitus Take 1 tablet (10 mg total) by mouth daily 30 tablet 6 Active dilTIAZem XR 240 mg 24 hr capsuleIndication s:Paroxysmal atrial fibrillation (HCC) Take 1 capsule (240 mg total) by mouth daily 90 capsule 2 Active fexofenadine (KASSANDRA) 180 mg tabletIndications :Chronic rhinitis Take 1 tablet (180 mg total) by mouth daily 90 tablet 2 Active pen needle, diabetic (BD Ultra-Fine Short Pen Needle) 31 gauge x 5/16 needleIndications :Microalbuminuria due to type 2 diabetes mellitus (HCC) USE TO INJECT INSULIN ONCE DAILY. DX: E11.9 100 each 4 Active cyanocobalamin (Vitamin B-12) 1,000 mcg tabletIndications :Leach's esophagus with dysplasia Take 1 tablet (1,000 mcg total) by mouth daily 90 tablet 3 Active fluticasone propionate (FLONASE) 50 mcg/actuation nasal sprayIndications: Chronic rhinitis Administer 2 sprays into each nostril daily 16 mL 5 Active furosemide (LASIX) 20 mg tabletIndications :Chronic diastolic CHF (congestive heart failure) (HCC),Hypertensio n complicating diabetes (HCC) Take 1 tablet (20 mg total) by mouth 2 (two) times a day 180 tablet 2 Active insulin degludec (TRESIBA) 100 unit/mL (3 mL) pen for injectionIndicati ons:Type 2 diabetes mellitus with stage 3b chronic kidney disease, with long-term current use of insulin ([facility]) Inject 0.3-0.4 mL (30-40 Units total) under the skin daily before breakfast 45 mL 2 025 2025 Active labetaloL (NORMODYNE,TRANDA TE) 100 mg tabletIndications :Type 2 diabetes mellitus with stage 3b chronic kidney disease, with long-term current use of insulin ([facility]),Chronic diastolic CHF (congestive heart failure) ([facility]) Take 1 tablet (100 mg total) by mouth 2 (two) times a day 180 tablet 2 Active omeprazole (PriLOSEC) 20 mg capsuleIndication s:Leach's esophagus with dysplasia Take 1 capsule (20 mg total) by mouth daily before breakfast 90 capsule 3 Active rosuvastatin (CRESTOR) 10 mg tabletIndications :Type 2 diabetes mellitus with stage 3b chronic kidney disease, with long-term current use of insulin ([facility]),Microalbumi harshad due to type 2 diabetes mellitus ([facility]),Chronic diastolic CHF (congestive heart failure) ([facility]),Multiple-ty pe hyperlipidemia Take 1 tablet (10 mg total) by mouth daily 90 tablet 2 Active spironolactone (ALDACTONE) 25 mg tabletIndications :Chronic diastolic CHF (congestive heart failure) ([facility]),Hypertensio n complicating diabetes ([facility]) Take 1 tablet (25 mg total) by mouth daily 90 tablet 2 Active traMADoL (ULTRAM) 50 mg tabletIndications :Chronic [...] DM with CKD stage 3 and hypertension ([facility]) Take 1 tablet by mouth daily 90 tablet 1 020 2020 Discontinued hydrALAZINE (APRESOLINE) 25 mg tabletIndications :hypertension Take 1 tablet (25 mg total) by mouth 2 (two) times a day after breakfast and dinner 60 tablet 4 021 2020 Discontinued ascorbic acid (VITAMIN C) 500 mg tablet,chewable Take 1 tablet/chew tab (500 mg total) by mouth daily 2024 Discontinued(T herapy completed) acetaminophen (TYLENOL) 500 mg tabletIndications :Chronic pain disorder Take 1 tablet (500 mg total) by mouth 2 (two) times a day With Tylenol ER 650 and the tramadol twice daily 100 tablet 1 024 2024 cyanocobalamin (Vitamin B-12) 1,000 mcg tabletIndications :Leach's esophagus with dysplasia Take 1 tablet (1,000 mcg total) by mouth daily 90 tablet 3 024 2024 Discontinued(R eorder) pen needle, diabetic (BD Ultra-Fine Short Pen Needle) 31 gauge x 5/16 needleIndications :Type 2 diabetes mellitus with microalbuminuria, with long-term current use of insulin (HCC) USE TO INJECT INSULIN ONCE DAILY. DX: E11.9 100 each 4 024 2024 Discontinued(R eorder) apixaban (Eliquis) 5 mg tabletIndications :Paroxysmal atrial fibrillation (HCC) Take 0.5-1 tablets (2.5-5 mg total) by mouth 2 (two) times a day 90 tablet 2 024 2024 Discontinued(R eorder) dilTIAZem XR 240 mg 24 hr capsuleIndication s:Paroxysmal atrial fibrillation (HCC) Take 1 capsule (240 mg total) by mouth daily 90 capsule 2 024 2024 Discontinued(R eorder) fexofenadine (KASSANDRA) 180 mg tabletIndications :Chronic rhinitis Take 1 tablet (180 mg total) by mouth daily 90 tablet 1 024 2024 Discontinued(R eorder) fluticasone propionate (FLONASE) 50 mcg/actuation nasal sprayIndications: Chronic rhinitis Administer 2 sprays into each nostril daily 16 mL 5 024 2024 Discontinued(R eorder) furosemide (LASIX) 20 mg tabletIndications :Chronic diastolic CHF (congestive heart failure) ([facility]),Hypertensio n complicating diabetes ([facility]) Take 1 tablet (20 mg total) by mouth 2 (two) times a day 180 tablet 2 024 2024 Discontinued(R eorder) insulin degludec (TRESIBA) 100 unit/mL (3 mL) pen for injectionIndicati ons:Controlled type 2 diabetes mellitus with microalbuminuria, with long-term current use of insulin ([facility]),Type 2 diabetes mellitus with stage 3b chronic kidney disease, with long-term current use of insulin ([facility]) Inject 0.3-0.4 mL (30-40 Units total) under the skin daily before breakfast 45 mL 3 024 2024 Discontinued(R eorder) labetaloL (NORMODYNE,TRANDA TE) 100 mg tabletIndications :Controlled type 2 diabetes mellitus with microalbuminuria, with long-term current use of insulin ([facility]),Type 2 diabetes mellitus with stage 3b chronic kidney disease, with long-term current use of insulin ([facility]),Chronic diastolic CHF (congestive heart failure) ([facility]) Take 1 tablet (100 mg total) by mouth 2 (two) times a day 180 tablet 2 2024 Discontinued(R eorder) omeprazole (PriLOSEC) 20 mg capsuleIndication s:Leach's esophagus with dysplasia Take 1 capsule (20 mg total) by mouth daily before breakfast 90 capsule 3 024 2024 Discontinued(R eorder) rosuvastatin (CRESTOR) 10 mg tabletIndications :Controlled type 2 diabetes mellitus with microalbuminuria, with long-term current use of insulin ([facility]),Multiple-ty pe hyperlipidemia Take 1 tablet (10 mg total) by mouth daily 90 tablet 2 024 2024 Discontinued(R eorder) spironolactone (ALDACTONE) 25 mg tabletIndications :Chronic diastolic CHF (congestive heart failure) ([facility]),Hypertensio n complicating diabetes ([facility]) Take 1 tablet (25 mg total) by mouth daily 90 tablet 2 024 2024 Discontinued(R eorder) traMADoL (ULTRAM) 50 mg tabletIndications :Chronic pain disorder Take 1 tablet (50 mg total) by mouth 2 (two) times a day as needed for pain for pain 60 tablet 1 025 2024 Discontinued(R indra) Active Problems Problem Noted Date Diagnosed Date Mild persistent asthma without complication 09/2023 Assessment & Plan (02/05/2024 8:59 AM TECHNICAL PRODUCT MANAGER): Continue Wixela 250/50 twice daily She is [...] use Assessment & Plan (04/29/2023 2:40 PM TECHNICAL PRODUCT MANAGER): She has currently not on maintenance therapy [...] 01/22/2023 Assessment & Plan (01/28/2023 9:24 PM TECHNICAL PRODUCT MANAGER): 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 Tenderness and marked weakness as noted above. No acute findings on exam. Will REFER to PT for further assessment. Continue Tylenol/tramadol as needed for pain. Heat/ice as tolerated. Influenza vaccine administered 01/22/2023 Assessment & Plan (01/28/2023 9:24 PM TECHNICAL PRODUCT MANAGER): 23-24 influenza vaccine administered in office today. [...] on examination Patient has appointment today with delimer - keep appointment Follow up with Dr. Baez in January or sooner if necessary Closed displaced oblique fracture of shaft of ri ght humerus 11/05/2021 Incisional hernia, without obstruction or gangre ne 10/18/2021 Overview (10/18/2021): Added automatically from request for surgery [id number] SBO (small bowel obstruction) 10/12/2021 On continuous [...] not yet performed === Repeat chest [facility] January 05, 2024 multiple pulmonary nodules [...] 02/25/2023 Assessment & Plan (02/05/2024 8:56 AM TECHNICAL PRODUCT MANAGER): Radial EBUS guided biopsies of the original [...] however she would have to travel to [place] for this and she is hesitant. She is amenable to repeat bronchoscopy with biopsy here at [facility] or percutaneous biopsy done here as well. will discuss with the interventional radiologist We will arrange for her to hold Eliquis prior to the procedure when scheduled Assessment & Plan (04/29/2023 2:38 PM TECHNICAL PRODUCT MANAGER): The right lower lobe lung mass has [...] 07/16/2021 Assessment & Plan (01/28/2023 9:19 PM TECHNICAL PRODUCT MANAGER): BP stable in office today on current [...] therapy. No acute findings on exam. 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 Monitor [...] 04/23/2021 Assessment & Plan (04/23/2021 12:26 PM TECHNICAL PRODUCT MANAGER): Patient presents today for evaluation prior to [...] findings on exam today. Due to worsening Buffing Wheel Inspector, will stop spironolactone. Continue current regimen and [...] Signed By: Dr Sy Sherman 2020-05-23 11:50:55 TECHNICAL PRODUCT MANAGER Lung function studies 07/16/2020 The study showed [...] clinical correlation is recommended. Autumn Rodrigues MD [phone] Chronic congestive heart failure 05/16/2020 Assessment & Plan (08/19/2022 7:09 PM CDT): Stable on current therapy. No acute findings on exam, BP stable. No edema, taking lasix and spironolactone as rxd. Continue current regimen and heart healthy diet. Keep follows with Dr. valera as scheduled. Umbilical hernia 09/05/2019 Assessment & Plan (02/20/2022 9:35 AM TECHNICAL PRODUCT MANAGER): Continue to avoid weight lifting for another [...] counseling Assessment & Plan (01/28/2023 9:25 PM TECHNICAL PRODUCT MANAGER): Recent HbA1c was up to 7.3. No [...] WRITTEN ON 10/26/2020 11:06 AM BY NUHA HEREDIA DO Patient's persistent atrial fibrillation is now likely [...] (08/19/2022 7:14 PM CDT): done 08/08/22 at [facility] by Dr. Julito Arroyo. Healing well. Still has limited movement as noted above. Continue pain meds as needed. Ice will help also. Keep follows with surgeon as scheduled. Resolved Problems Problem Noted Date Diagnosed Date Resolved Date Cat scratch 07/28/2023 08/11/2024 Surgery, elective 02/06/2022 08/19/2022 Elevated pulse rate [...] often do you attend chur ch or yarsani services? Never 08/20/2022 Do you belong to any clubs o r organizations such as congregational groups, unions, fraternal or athletic groups, or school groups? No 08/20/2022 How often do you attend meet ings of the clubs or organizations you belong to? Never 08/20/2022 Are you , , di vorced, , never , or living with a partner? 08/20/2022 AUDIT-C Answer Date Recorded Q1: How often do you have a drink containing alcohol? Never 08/11/2024 Q2: How many drinks containi ng alcohol do you have on a typical day when you are drinking? Patient does not drink Q3: How often do you have si x or more drinks on one occasion? Never 08/11/2024 Overall Financial Resource Strain (CARDIA) Answe r Date Recorded How hard is it for you to pa y for the very basics like food, housing, medical care, and heating? Not very hard 08/20/2022 PHQ-2 Answer Date Recorded PHQ-2 Total Score (If total score is 3 or more points, staff should administer the PHQ-9) 0 08/11/2024 Hunger Vital Sign Answer Date Recorded Within [...] place to sleep or slept in a snf (including now)? No 08/20/2022 Personal Safety Answer Date Recorded Have you ever been in or are you currently in a harmful physical or emotional relationship or is someone making you feel afraid or unsafe? Denies 09/18/2023 Comments No Sex and Gender Information Value Date Recorded Sex Assigned at Not on file Legal Sex Female 10:52 AM TECHNICAL PRODUCT MANAGER Gender Identity Not on file Sexual Orientation Not on file Occupation Industry Job Start Date Job End Date retired Not on file Not on file Not on file Last Filed Vital Signs Vital Sign Reading Time Taken Comments Blood Pressure 110/64 08/11/2024 8:42 AM CDT Pulse 53 08/11/2024 8:42 AM CDT Temperature 36.2 C (97.2 F) 08/11/2024 8:42 AM CDT Respiratory Rate 18 08/11/2024 8:42 AM CDT Oxygen Saturation 97% 08/11/2024 8:42 AM CDT Inhaled Oxygen Concentration - - Weight 83.2 kg (183 lb 6.4 oz) 08/11/2024 8:42 A M CDT Height 154.9 cm (5' 1) 08/11/2024 8:42 AM CDT Body Mass Index 34.65 08/11/2024 8:42 AM CDT Plan of Treatment Not on file Medical Devices Implanted Type Area Mat Tester Device Identifier Shelf Expiration Date Model / Serial / Lot [employer] Ventralight St Sepra 6x4in Monofilament Absorbable Low Profile Latex Free [id number] - [id number] Implanted:Qty: 1 on 02/05/2022 by Colton Graham MD at [facility] N/A: Abdomen [employer] 07/17/2023 [id number] / / [id number] Procedures Procedure Name Priority Date/Time Associated Diagnosis Comments EGFR Routine 08/11/2024 11:30 AM CDT Type 2 diabetes mellitus with microalbuminuria, with long-term current use of insulin (HCC) DIFFERENTIAL AUTO Routine 08/11/2024 11:30 AM CDT Hypertension complicating diabetes (HCC) CBC WITH AUTO DIFFERENTIAL Routine 08/11/2024 11:30 AM CDT Hypertension complicating diabetes (HCC) VITAMIN D 25 HYDROXY Routine 08/11/2024 11:30 AM CDT Hypertension complicating diabetes (HCC) Vitamin D deficiency TSH Routine 08/11/2024 11:30 AM CDT Hypertension complicating diabetes (HCC) ALBUMIN CREATININE RATIO, URINE Routine 08/11/2024 11:30 AM CDT Type 2 diabetes mellitus with microalbuminuria, with long-term current use of insulin (HCC) COMPREHENSIVE METABOLIC PANEL Routine 08/11/2024 11:30 AM CDT Type 2 diabetes mellitus with microalbuminuria, with long-term current use of insulin (HCC) HEMOGLOBIN A1C Routine 08/11/2024 11:30 AM CDT Type 2 diabetes mellitus with microalbuminuria, with long-term current use of insulin (HCC) LIPID PANEL Routine 08/11/2024 11:30 AM CDT Type 2 diabetes mellitus with microalbuminuria, 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 HEPATITIS B SURFACE ANTIGEN Routine 08/11/2024 11:30 AM CDT Need for hepatitis B screening test HEPATITIS B SURFACE ANTIBODY (IMMUNE STATUS) Routine 08/11/2024 11:30 AM CDT Need for hepatitis B screening test HEPATITIS B CORE ANTIBODY, TOTAL Routine 08/11/2024 11:30 AM CDT Need for hepatitis B screening test PULMONARY - RESULT SCAN 07/08/2024 SCAN - RADIOLOGY/IMAGING 07/08/2024 CT BODY OUTSIDE REFERENCE Routine 07/08/2024 12:00 AM CDT HM DIABETES EYE EXAM Routine 09/14/2023 2:23 PM CDT DEXA AXIAL SKELETON BONE DENSITY 1 OR MORE SITES Schedule Routine, Read Routine (OP Routine) 07/23/2021 12:34 PM CDT Menopause from Last 3 Months or Most Recently Relevant to Health Maintenance Results * (ABNORMAL) eGFR (08/11/2024 11:30 AM CDT) eGFR 34(L) >=60 mL/min/1. 73 m2 Comment: Interpretive Data [...] was last reviewed 2021. Testing performed by: [address] [address] Blood 08/11/2024 11:3 0 AM CDT 08/11/2024 8:11 PM CDT us Angela Baez MD LAB BLOOD ORDERABLES Final Result [address] Department [place] [address] * (ABNORMAL) Differential, auto (08/11/2024 11:30 AM CDT) Neutrophil abs 8.26(H) 1.50 - 6.50 K/cumm Comment:Testing performed by : [address] [address] Imm gran abs 0.07 0.00 - 0.10 K/cumm GALLITO Comment:Testing performed by : [address] [address] Lymphocyte abs 1.48 0.80 - 3.30 K/cumm GALLITO Comment:Testing performed by : [address] [address] Monocyte abs 0.78 0.20 - 0.80 K/cumm G[place]ITO Comment:Testing performed by : [facility], [address], [place]., [address] Eosinophil abs 0.27 0.00 - 0.50 K/cumm CERNER CH Comment:Testing performed by : [facility], [address] [place] [address]., [address] Basophil abs 0.04 0.00 - 0.10 K/cumm CERNER CH Comment:Testing performed by : [address] [address] Neutrophil pct 75.7 % CERNER CH Comment: Interpretive Data Percent cell count reference ranges are not reported, since discordance with absolute values may lead to misinterpretation of CBC data. Current Interpretive Data was last revised on 2017. Testing performed by: [address] [address] Imm gran pct 0.6 % CERNER CH Comment: Interpretive Data Percent cell count reference ranges are not reported, since discordance with absolute values may lead to misinterpretation of CBC data. Current Interpretive Data was last revised on 2017. Testing performed by: [address] [address] Lymphocyte pct 13.6 % CERNER CH Comment: Interpretive Data Percent cell count reference ranges are not reported, since discordance with absolute values may lead to misinterpretation of CBC data. Current Interpretive Data was last revised on 2017. Testing performed by: [address] [address] Monocyte pct 7.2 % CERNER CH Comment: Interpretive Data Percent cell count reference ranges are not reported, since discordance with absolute values may lead to misinterpretation of CBC data. Current Interpretive Data was last revised on 2017. Testing performed by: [address] [address] Eosinophil pct 2.5 % CERNER CH Comment: Interpretive Data Percent cell count reference ranges are not reported, since discordance with absolute values may lead to misinterpretation of CBC data. Current Interpretive Data was last revised on 2017. Testing performed by: [address] [address] Basophil pct 0.4 % CERNER CH Comment: Interpretive Data Percent cell count reference ranges are not reported, since discordance with absolute values may lead to misinterpretation of CBC data. Current Interpretive Data was last revised on 2017. Testing performed by: [address], [address] Blood 08/11/2024 11:3 0 AM CDT 08/11/2024 6:03 PM CDT Angela Baez MD LAB BLOOD ORDERABLES Final Result [address] Department [place] [address] * (ABNORMAL) CBC with auto differential (08/11/2024 11:30 AM CDT) WBC 10.90(H) 3.80 - 9.90 K/cumm Comment:Testing performed by : [address], [address] Hgb 10.8(L) 11.9 - 15.5 g/dL CERNER Comment:Testing performed by : [address], [address] Hct 38.4 35.6 - 45.5 % CERNER Comment:Testing performed by : [address], [address] Plt 324 150 - 400 K/cumm CERNER Comment:Testing performed by : [address], [address] MPV 10.0 9.1 - 12.3 fL CERNER CH Comment:Testing performed by : [address], [address] RBC 4.63 3.90 - 5.20 M/cumm CERNER CH Comment:Testing performed by : [address], [address] MCV 82.9 81.3 - 96.4 fL CERNER CH Comment:Testing performed by : [address], [address] MCH 23.3(L) 27.1 - 33.3 pg CERNER CH Comment:Testing performed by : [address], [address] MCHC 28.1(L) 32.3 - 35.7 g/dL GALLITO Comment:Testing performed by : [facility], [address] [place] [address]., [address] RDW CV 15.7(H) 11.1 - 14.9 % GALLITO Comment:Testing performed by : [facility], [address] [place] [address], [address] RDW SD 46.8 35.7 - 48.1 fL GALLITO Comment:Testing performed by : [facility], [address] [place] [address], [address] NRBC abs 0.00 0.00 - 0.01 K/cumm GALLITO Comment:Testing performed by : [address], [address] Blood 08/11/2024 11:3 0 AM CDT 08/11/2024 6:03 PM CDT us Angela Baez MD LAB BLOOD ORDERABLES Final Result [address] Department [place] [address] * Albumin Creatinine Ratio, Urine (08/11/2024 11:30 AM CDT) Albumin Ur 24.6 mg/L Comment: Interpretive Data No reference range established. Current interpretive data was last revised 2018. Testing performed by: [address], [address] Creatinine Ur 83.5 mg/dL [facility] Comment: Interpretive Data No reference range established. Current interpretive data was last revised 2018. Testing performed by: [address], [address] Albumin Creatinine Ratio, Ur 29 1 - 29 mg/g [facility] Comment:Testing performed by : [address] [address] Urine 08/11/2024 11:3 0 AM CDT 08/11/2024 6:03 PM CDT us Angela Baez MD LAB URINE ORDERABLES Final Result Performing Organization Address [facility] Co de Phone Number [place] [address] [address] Department [place] [address] * Hepatitis B core antibody, total Blood (08/11/2024 11:30 AM CDT) Pathologist [facility] [place] Hep B core IgG/IgM Nonreactive Nonreactive Comment:Testing performed by : , [address] [place] [address], [id number] Blood 08/11/2024 11:3 0 AM CDT 08/12/2024 10:17 AM CDT us Angela Baez MD LAB MICROBIOLOGY - GENERAL ORDERABLES Final Result Performing Organization Address [facility] Co de Phone Number [facility] [address] [address] Department [place] [address] * Vitamin D 25 hydroxy (08/11/2024 11:30 AM CDT) Pathologist [facility] [place] Vitamin D 25-OH 42 30 - 80 ng/mL Comment:Testing performed by : [facility], [address] [place] [address], [id number] Blood 08/11/2024 11:3 0 AM CDT 08/11/2024 6:03 PM CDT us Angela Baez MD LAB BLOOD ORDERABLES Final Result Performing Organization Address [facility] Co de Phone Number [place] [address] [address] Department [place] [address] * Hepatitis B surface antibody (immune status) Blood (08/11/2024 11:30 AM CDT) Pathologist [facility] [place] HBsAb (immune status) Nonreactive Comment: Interpretive Data Nonreactive: This result is consistent with a lack of immunity to Hepatitis B Virus when used in the setting of routine screening. Equivocal: The immune status of the individual should be further assessed, if appropriate, after consideration of clinical status, risk factors, and additional diagnostic information. Reactive: This result is consistent with immunity to Hepatitis B Virus when used in the setting of routine screening. Current interpretive data was last revised on 19. Testing performed by: [facility], [address] [place] [address]., [id number] Blood 08/11/2024 11:3 0 AM CDT 08/11/2024 6:03 PM CDT us Angela Baez MD LAB MICROBIOLOGY - GENERAL ORDERABLES Final Result Performing Organization Address City/[facility]/ZIP Co de Phone Number G[place] [address] [address] Department [place] [address] * Hepatitis B Surface Antigen Blood (08/11/2024 11:30 AM CDT) HepBsAg Nonreactive Nonreactive Comment:Testing performed by : [address] [address] Blood 08/11/2024 11:3 0 AM CDT 08/11/2024 6:03 PM CDT us Angela Baez MD LAB MICROBIOLOGY - GENERAL ORDERABLES Final Result Performing Organization Address [facility] Co de Phone Number [place] [address] [facility] Department [place] [address] * TSH (08/11/2024 11:30 AM CDT) Thyroid Stimulating Hormone 2.14 0.30 - 4.20 mcIUnit/mL Comment:Testing performed by : [address] [address] Blood 08/11/2024 11:3 0 AM CDT 08/11/2024 6:03 PM CDT us Angela Baez MD LAB BLOOD ORDERABLES Final Result Performing Organization Address [facility] Co de Phone Number [facility] [address] [address] Department [place] [address] * (ABNORMAL) Hemoglobin A1c (08/11/2024 11:30 AM CDT) Hgb A1C 7.8(H) 4.0 - 5.6 % Comment:Testing performed by : [address] [address] Estimated Average Glucose 177 mg/dL [place] Comment: The ADA recommends reporting an estimated Average Glucose (eAG) with all Hemoglobin A1c results using the equation derived from a study of 507 normal and diabetic adults. Minority populations were underrepresented and children were not included. (Diabetes Care 31:0635-0104, 2008). The eAG is not equivalent to a fasting glucose. Testing performed by: [facility], [address] [place] [address]., [address] Blood 08/11/2024 11:3 0 AM CDT 08/11/2024 6:03 PM CDT Angela Baez MD LAB BLOOD ORDERABLES Final Result [facility] [address] Department [place] [address] * Lipid panel (08/11/2024 11:30 AM CDT) Pathologist [facility] [place] Cholesterol 141 30 - 199 mg/dL Comment: Interpretive Data [...] last revised on 2017. Testing performed by: [address] [address] Triglycerides 102 <=149 mg/dL [facility] Comment: Interpretive Data Ages [...] revised on 2017. Testing performed by: [facility], [address] [place] [address]., [address] HDL 48 >=40 mg/dL [facility] Comment: Interpretive Data Ages [...] revised on 2017. Testing performed by: [facility], [address] [place] [address]., [address] LDL, calculated 74 <=129 mg/dL [facility] Comment: Interpretive Data Ages [...] 2004;110:227 3. Ruben Nair al. CASS Cardiol. 2019July 21;5(5):540-548. doi: 10.1001/[email or web address].2020.0013 Current Interpretive Data was last revised on 2023. Testing performed by: [address] [address] Non-HDL Cholesterol 93 mg/dL [facility] Comment: Interpretive Data Ages < [...] last revised on 2017. Testing performed by: [address] [address] Chol/HDL ratio 3 [place] Comment:Testing performed by : [address] [address] Blood 08/11/2024 11:3 0 AM CDT 08/11/2024 6:03 PM CDT us Angela Baez MD LAB BLOOD ORDERABLES Final Result [address] Department [place] [address] * (ABNORMAL) Comprehensive metabolic panel (08/11/2024 11:30 AM CDT) Sodium 137 135 - 145 mmol/L Comment:Testing performed by : [address] [address] Potassium, pl 4.8 3.3 - 4.9 mmol/L [facility] Comment:Testing performed by : [address] [address] Chloride 100 97 - 110 mmol/L [facility] Comment:Testing performed by : [address] [address] CO2 23 22 - 32 mmol/L [facility] Comment:Testing performed by : [address] [address] Anion gap 14 2 - 15 mmol/L [facility]ER CH Comment:Testing performed by : [address] [address] BUN 32(H) 6 - 25 mg/dL [facility] Comment:Testing performed by : [address] [address] Creatinine 1.49(H) 0.60 - 1.10 mg/dL [facility] Comment:Testing performed by : [address], [address] Glucose 157 70 - 199 mg/dL [facility] Comment: Interpretive Data Fasting glucose >/= 126 mg/dl is diagnostic for diabetes. Fasting is defined as no caloric intake for at least 8 hours. Fasting glucose between 100 mg/dl to 125 mg/dl is diagnostic of prediabetes. In a patient with classic symptoms of hyperglycemia or hyperglycemic crisis, a random glucose >/= 200 mg/dl is diagnostic for diabetes. In the absence of unequivocal hyperglycemia, results should be confirmed by repeat testing. The classification and Diagnosis of Diabetes Diabetes Care 2021; 46: S19-S40. Current interpretive data was last revised 2022. Testing performed by: [address] [address] Calcium 10.0 8.5 - 10.3 mg/dL [facility] Comment:Testing performed by : [address] [address] Bilirubin, total 0.6 0.1 - 1.2 mg/dL [facility] Comment:Testing performed by : [address], [address] Protein, pl 8.1 6.5 - 8.5 g/dL [facility] Comment:Testing performed by : [address], [address] Albumin 4.4 3.5 - 5.0 g/dL [facility] Comment:Testing performed by : [address], [address] Alk phos 122 40 - 130 Units/L [facility] CH Comment:Testing performed by : [address], [address] ALT 9 7 - 45 Units/L [facility] Comment:Testing performed by : [facility], [address] [place] [address]., [address] AST 19 10 - 45 Units/L [facility] Comment:Testing performed by : [facility], [address] [place] [address]., [address] Blood 08/11/2024 11:3 0 AM CDT 08/11/2024 6:03 PM CDT us Angela Baez MD LAB BLOOD ORDERABLES Final Result Performing Organization Address [facility]/ZIP Co de Phone Number [facility] [address] Department of Laboratories [place] [phone] * CT Body Outside Reference (07/08/2024 12:00 AM CDT) Narrative [facility] - 07/18/2024 11:07 AM CDT This order has been auto-finalized and does not contain a result. us Not In File Miscellaneous IMG CT PROCEDURES Clemencia l Result Performing Organization Address [facility]/ZIP Co de Phone Number [facility] * PULMONARY - RESULT SCAN (07/08/2024) Anatomical Region Laterality Modality Other us Provider Scanning Final Result * SCAN - RADIOLOGY/IMAGING (07/08/2024) Anatomical Region Laterality Modality Other us Provider Scanning Final Result * DIABETES EYE EXAM (09/14/2023 2:23 PM CDT) SCRIBED DIABETIC DILATED EYE EXAM Normal us Historical Provider HEALTH MAINTENANCE Final Result * Dexa Axial Skeleton Bone Density 1 or 2 Site (07/23/2021 12:34 PM CDT) Anatomical Region Laterality Modality Body N/A Other 07/23/2021 9:25 PM CDT Narrative 07/23/2021 9:26 PM CDT EXAM DESCRIPTION: DEXA AXIAL SKELETON BONE DENSITY 1 OR MORE SITES REASON FOR STUDY: 80 y/o year old F with given history of screening. 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 MF: BUD Report ID: [id number] Reading Location: [id number] Procedure Note Rodrigo Jimenez MD - 07/23/2021 EXAM DESCRIPTION: DEXA AXIAL SKELETON BONE DENSITY 1 OR MORE SITES REASON FOR STUDY: 80 y/o year old F with given history ofscreening. Postmenopausal Mat Tester/Model: [employer] SL ([id number]/N [id number]) CLINICAL INFORMATION: Current height: 61 inches Maximum [...] Rodrigo Jimenez M.D. 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 ADVANCE DIRECTIVE 08/27/2023 8:24 AM POLST - PHYS ORDER FOR PT PREFERENCES * Full Code (Latest Code Status on File) Date Activated Date Inactivated Comments 06/15/2017 9:33 AM 06/15/2017 2:00 PM Care Teams Purchaser Relationship Specialty Start Date End Date Angela Baez MD PCP - General 06/20/16 Ced Holloway MD [address] [place] [address] Consulting Physician Gastroenterology 02/02/17 Yevgeniy Jenkins MD [address] [place] [address] 162 [facility] [address] [place] [address] Consulting Physician Ophthalmology 02/02/17 Colton Graham MD [address] [place] [address] [address] [facility] [address] [place] [address] Consulting Physician General Surgery 09/05/19 Lito Arroyo MD [address] [place] [address] 162 [facility] [address] [place] [address] Referring Physician Orthopedic Surgery 02/06/22 Chris Bates MD [address] [place] [address] Consulting Physician Pulmonary Disease 07/22/22 Eduardo Velasco DO [address] [place] [address] 162 [facility] [address] [place] [address] Referring Physician Internal Medicine 08/11/24
--- OUTSIDE RECORDS SUMMARY | 2024-08-18 12:03 | XMS_ITS | Encounter Summary ---
Author Organization [facility] Healthcare Address [address] [place] [address] Care Team Providers Care Mds Rn Name Role Phone Angela Singer MD Primary Care Provider + [phone] Antonio Grady Unavailable Unavail able Ced Holloway MD Unavailable + Yevgeniy Jenkins MD Unavailable [phone] Colton Graham MD Unavailable Sy Sherman MD Unavailable [phone] Stephanie Gardner LPN Unavailable Lito Arroyo MD Unavailable Omaira Rob MD Unavailable [phone] Chris Bates MD Unavailable Winnie Hogan MA Unavailable +[phone] Zuleyka Keene LCSW Unavailable [phone] Eduardo Velasco DO Unavailable +[phone] Eduardo Velasco DO Unavailable [phone] Encounter Details Date Type Department Care Team (Late st Contact Info) Description 07/22/2021 Telephone [facility] [address] [place] [address] Rosanne Miller, RT Social History Tobacco Use [...] on file Legal Sex 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 Gender Identity Not on file Sexual Orientation Not on file Occupation Industry Job Start Date Job End Date retired Not on file Not on file Not on file documented as of this encounter Plan of Treatment Not on file documented as of this encounter Visit Diagnoses Not on filedocumented in this encounter Care Teams Mds Rn Relationship Specialty Start Date End Date Angela Singer MD PCP - General 06/20/16 Antonio Grady Gastroenterology 02/02/17 08/10/24 Ced Holloway MD [address] [place] [address] [address] [place] [address] Consulting Physician Gastroenterology 02/02/17 Yevgeniy Jenkins MD [address] [place] [address] [address] [place] [address] Consulting Physician Ophthalmology 02/02/17 Colton Graham MD [address] [place] [address] 162 [facility] [address] [place] [address] Consulting Physician General Surgery 09/05/19 Sy Sherman MD [address] [place] [address] [address] [facility] [address] [place] [address] Consulting Physician Cardiovascular Disease 01/22/20 Stephanie Gardner, CARD GRINDER [address] [place] [address] [address] [place] [address] [employer]CO Care Packaging Designer 11/12/21 11/21/21 Lito Arroyo MD [address] [place] [address] [address] [place] [address] Referring Physician Orthopedic Surgery 02/06/22 Omaira Rob MD [address] [place] [address] [address] [place] [address] Consulting Physician Cardiology 07/22/22 08/10/24 Chris Bates MD [address] [place] [address] [address] [place] [address] Consulting Physician Pulmonary Disease 07/22/22 Winnie Hogan MA [address] [facility] [address] [place] [address] ACO Care Packaging Designer 08/13/22 08/13/22 Zuleyka Keene, [facility] [address] [facility] [address] [place] [address] Poultry Picking Machine Tender Shipping Point Inspector 08/19/22 09/03/22 Eduardo Velasco DO [address] [address] Referring Physician Internal Medicine 08/11/24 Eduardo Velasco DO [address] [facility] [address] [place] [address] Referring Physician Cardiology 08/11/24 08/11/24 documented as of this encounter
--- OUTSIDE RECORDS SUMMARY | 2024-08-18 12:03 | XMS_ITS | Clinical Summary ---
Author Organization [facility] Address [address] [place] [address] Care Team Providers Care Executive Sales Assistant Name Role Phone Angela Baez MD Primary Care Provider [phone] Ced Holloway MD Unavailable + Yevgeniy Jenkins MD Unavailable [phone] Jay Graham MD Unavailable Lito Arroyo MD Unavailable [phone] Chris Bates MD Unavailable Eduardo Velasco DO Unavailable [phone] Allergies Active Allergy Reactions Criticality Noted Date [...] needed for cough 60 tablet 5 Active lancets (Liepin.comTouch Delica Plus Lancet) 30 gauge miscIndications:C ontrolled type 2 diabetes mellitus with microalbuminuria, with long-term current use of insulin ([facility]),Type 2 diabetes mellitus with stage 3b chronic kidney disease, with long-term current use of insulin ([facility]) USE TO CHECK BLOOD GLUCOSE LEVEL TWICE DAILY E11.2 200 each 3 Active blood glucose diagnostic (Liepin.comTouch Ultra Test) strip USE TO MONITOR GLUCOSE LEVELS TWICE DAILY E11.9 100 strip 4 Active fluticasone propion-salmetero L (ADVAIR DISKUS) 500-50 mcg/dose diskus inhaler Inhale 1 puff 2 (two) times a day Rinse mouth with water after use. Do not swallow. 60 each Active albuterol HFA (PROVENTIL HFA,VENTOLIN HFA,PROAIR HFA) 90 mcg/actuation inhalerIndication s:Mild persistent asthma without complication INHALE 2 PUFFS EVERY 6 HOURS NEEDED FOR WHEEZING 25.5 each 3 Active ammonium lactate (AMLACTIN) 12 % creamIndications: Dry Skin Apply topically daily 385 g Active clotrimazole (Itch Relief, clotrimazole,) 1 % creamIndications: Intertrigo Apply topically 2 (two) times a day for 14 days Under the breasts and in the groin area for the intertrigo 60 g 2024 Active traZODone (DESYREL) 50 mg tabletIndications [...] :Microalbuminuria due to type 2 diabetes mellitus ([facility]) USE TO INJECT INSULIN ONCE DAILY. [...] tabletIndications :Chronic diastolic CHF (congestive heart failure) ([facility]),Hypertensio n complicating diabetes ([facility]) Take 1 tablet (20 mg total) by mouth 2 (two) times a day 180 tablet 2 Active insulin degludec (TRESIBA) 100 unit/mL (3 mL) pen for injectionIndicati ons:Type 2 diabetes mellitus with stage 3b chronic kidney disease, with long-term current use of insulin ([facility]) Inject 0.3-0.4 mL (30-40 Units total) under the skin daily before breakfast 45 mL 2 2025 Active labetaloL (NORMODYNE,TRANDA TE) 100 mg tabletIndications :Type 2 diabetes mellitus with stage 3b chronic kidney disease, with long-term current use of insulin ([facility]),Chronic diastolic CHF (congestive heart failure) ([facility]) Take 1 tablet (100 mg total) by mouth 2 (two) times a day 180 tablet 2 Active omeprazole (PriLOSEC) 20 mg capsuleIndication s:Leach's esophagus with dysplasia Take 1 capsule (20 mg total) by mouth daily before breakfast 90 capsule 3 025 Active rosuvastatin (CRESTOR) 10 mg tabletIndications :Type 2 diabetes mellitus with stage 3b chronic kidney disease, with long-term current use of insulin ([facility]),Microalbumi harshad due to type 2 diabetes mellitus ([facility]),Chronic diastolic CHF (congestive heart failure) ([facility]),Multiple-ty pe hyperlipidemia Take 1 tablet (10 mg total) by mouth daily 90 tablet 2 025 Active spironolactone (ALDACTONE) 25 mg tabletIndications :Chronic diastolic CHF (congestive heart failure) ([facility]),Hypertensio n complicating diabetes ([facility]) Take 1 tablet (25 mg total) by mouth daily 90 tablet 2 025 Active traMADoL (ULTRAM) 50 mg tabletIndications [...] DM with CKD stage 3 and hypertension ([facility]) Take 1 tablet by mouth daily 90 [...] microalbuminuria, with long-term current use of insulin ([facility]) USE TO INJECT INSULIN ONCE DAILY. DX: E11.9 100 each 4 024 2024 Discontinued(R eorder) apixaban (Eliquis) 5 mg tabletIndications :Paroxysmal atrial fibrillation ([facility]) Take 0.5-1 tablets (2.5-5 mg total) by mouth 2 (two) times a day 90 tablet 2 2024 Discontinued(R eorder) dilTIAZem XR 240 mg 24 hr capsuleIndication s:Paroxysmal atrial fibrillation ([facility]) Take 1 capsule (240 mg total) by mouth daily 90 capsule 2 2024 Discontinued(R eorder) fexofenadine (KASSANDRA) 180 mg tabletIndications :Chronic rhinitis Take 1 tablet (180 mg total) by mouth daily 90 tablet 1 2024 Discontinued(R eorder) fluticasone propionate (FLONASE) 50 mcg/actuation nasal sprayIndications: Chronic rhinitis Administer 2 sprays into each nostril daily 16 mL 5 2024 Discontinued(R eorder) furosemide (LASIX) 20 mg tabletIndications :Chronic diastolic CHF (congestive heart failure) ([facility]),Hypertensio n complicating diabetes ([facility]) Take 1 tablet (20 mg total) by mouth 2 (two) times a day 180 tablet 2 2024 Discontinued(R eorder) insulin degludec (TRESIBA) 100 unit/mL (3 mL) pen for injectionIndicati ons:Controlled type 2 diabetes mellitus with microalbuminuria, with long-term current use of insulin ([facility]),Type 2 diabetes mellitus with stage 3b chronic kidney disease, with long-term current use of insulin ([facility]) Inject 0.3-0.4 mL (30-40 Units total) under the skin daily before breakfast 45 mL 3 024 2024 Discontinued(R eorder) labetaloL (NORMODYNE,TRANDA TE) 100 mg tabletIndications :Controlled type 2 diabetes mellitus with microalbuminuria, with long-term current use of insulin ([facility]),Type 2 diabetes mellitus with stage 3b chronic kidney disease, with long-term current use of insulin ([facility]),Chronic diastolic CHF (congestive heart failure) ([facility]) Take 1 tablet (100 mg total) by mouth 2 (two) times a day 180 tablet 2 024 2024 Discontinued(R eorder) omeprazole (PriLOSEC) 20 mg capsuleIndication s:Leach's esophagus with dysplasia Take 1 capsule (20 mg total) by mouth daily before breakfast 90 capsule 3 024 2024 Discontinued(R eorder) rosuvastatin (CRESTOR) 10 mg tabletIndications :Controlled type 2 diabetes mellitus with microalbuminuria, with long-term current use of insulin ([facility]),Multiple-ty pe hyperlipidemia Take 1 tablet (10 mg total) by mouth daily 90 tablet 2 024 2024 Discontinued(R eorder) spironolactone (ALDACTONE) 25 mg tabletIndications :Chronic diastolic CHF (congestive heart failure) ([facility]),Hypertensio n complicating diabetes ([facility]) Take 1 tablet (25 mg total) by mouth daily 90 tablet 2 024 2024 Discontinued(R eorder) traMADoL (ULTRAM) 50 mg tabletIndications :Chronic pain disorder Take 1 tablet (50 mg total) by mouth 2 (two) times a day as needed for pain for pain 60 tablet 1 025 2024 Discontinued(R eorder) Active Problems Problem Noted Date Diagnosed Date Mild persistent asthma without complication 09/2023 Assessment & Plan (02/05/2024 8:59 AM RADIO SURVEY WORKER): Continue Wixela 250/50 twice daily She is [...] use Assessment & Plan (04/29/2023 2:40 PM RADIO SURVEY WORKER): She has currently not on maintenance therapy [...] 01/22/2023 Assessment & Plan (01/28/2023 9:24 PM RADIO SURVEY WORKER): 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 Tenderness and marked weakness as noted above. No acute findings on exam. Will REFER to PT for further assessment. Continue Tylenol/tramadol as needed for pain. Heat/ice as tolerated. Influenza vaccine administered 01/22/2023 Assessment & Plan (01/28/2023 9:24 PM RADIO SURVEY WORKER): 23-24 influenza vaccine administered in office today. [...] on examination Patient has appointment today with hot stamp operator - keep appointment Follow up with Dr. Baez in January or sooner if necessary Closed displaced oblique fracture of shaft of ri ght humerus 11/05/2021 Incisional hernia, without obstruction or gangre ne 10/18/2021 Overview (10/18/2021): Added automatically from request for surgery [id number] SBO (small bowel obstruction) 10/12/2021 On continuous [...] BY ANGELA BAEZ MD Followed carefully by Dr. Bates, Chris Rodrigo, as of January 2023 his recommendations: 1 [...] 02/25/2023 Assessment & Plan (02/05/2024 8:56 AM RADIO SURVEY WORKER): Radial EBUS guided biopsies of the original [...] however she would have to travel to [place] for this and she is hesitant. She is amenable to repeat bronchoscopy with biopsy here at [facility] or percutaneous biopsy done here as well. will discuss with the interventional radiologist We will arrange for her to hold Eliquis prior to the procedure when scheduled Assessment & Plan (04/29/2023 2:38 PM RADIO SURVEY WORKER): The right lower lobe lung mass has [...] 07/16/2021 Assessment & Plan (01/28/2023 9:19 PM RADIO SURVEY WORKER): BP stable in office today on current [...] therapy. No acute findings on exam. Worsening Band Cutter on recent labs, will stop spironolactone. Monitor [...] 04/23/2021 Assessment & Plan (04/23/2021 12:26 PM RADIO SURVEY WORKER): Patient presents today for evaluation prior to cataract surgery with [facility]. She is overall doing well and without [...] findings on exam today. Due to worsening Band Cutter, will stop spironolactone. Continue current regimen and [...] Signed By: Dr Sy Sherman 2020-05-23 11:50:55 RADIO SURVEY WORKER Lung function studies 07/16/2020 The study showed [...] clinical correlation is recommended. Autumn Rodrigues MD [phone] Chronic congestive heart failure 05/16/2020 Assessment & Plan (08/19/2022 7:09 PM CDT): Stable on current therapy. No acute findings on exam, BP stable. No edema, taking lasix and spironolactone as rxd. Continue current regimen and heart healthy diet. Keep follows with Dr. valera as scheduled. Umbilical hernia 09/05/2019 Assessment & Plan (02/20/2022 9:35 AM RADIO SURVEY WORKER): Continue to avoid weight lifting for another [...] counseling Assessment & Plan (01/28/2023 9:25 PM RADIO SURVEY WORKER): Recent HbA1c was up to 7.3. No [...] ON 10/26/2020 11:06 AM BY NUHA HEREDIA, DO Patient's persistent atrial fibrillation is now [...] (08/19/2022 7:14 PM CDT): done 08/08/[address] [facility] by Dr. Julito Arroyo. Healing well. Still has limited movement as noted above. Continue pain meds as needed. Ice will help also. Keep follows with surgeon as scheduled. Resolved Problems Problem Noted Date Diagnosed Date Resolved Date Cat scratch 07/28/2023 08/11/2024 Surgery, elective 02/06/2022 08/19/2022 Elevated pulse rate 10/21/2017 09/05/19 Assessment & Plan (10/21/2017 12:25 PM CDT): [...] OP Lab [address] [place] [address] Type 2 diabetes mellitus with microalbuminuria, with long-term current use of insulin (HCC); Multiple-type hyperlipidemia; Need for hepatitis B screening test; Hypertension complicating diabetes (HCC); Vitamin D deficiency 08/11/2024 8:30 AM CDT Office Visit [facility] [address] [place] [address] Angela Baez MD Annual physical exam (Primary [...] Vitamin D deficiency; Immunization counseling 07/27/2024 Telephone [facility] Medical [facility] [address] [place] [address] Angela Baez MD 07/20/2024 Telephone [facility] Group Pulmonary at [address] [place] [address] results 07/08/2024 Orders Only [facility] Information Management [address] [place] [id number] Scanning, Provider 07/08/2024 Ancillary Procedure [facility] [employer] 07/05/2024 Orders Only [facility] [address] [facility] [address] [place] [address] Angela Baez MD Chronic pain disorder 07/04/2024 Telephone [facility] [address] [facility] [address] [place] [address] Angela Baez MD 06/21/2024 10:45 AM CDT Office Visit [facility] Pulmonary at [address] [place] [address] Chris Bates MD Moderate persistent asthma without complication (Primary Dx); Lung mass; Chronic diastolic CHF (congestive heart failure) (HCC) from Last 3 Months Immunizations Immunization Administration [...] [place] US GUIDED LUNG BIOPSY 12/26/[address] Bates, Chris Wallace,: Right lower lobe nodule biopsy (-) Medical [...] ( HCC) Chronic congestive heart failure (HCC) 1 Sick sinus syndrome (HCC) Ventricular tachycardia (HCC) [...] How often do you attend chur or advent services? Never 08/20/2022 Do you belong to any clubs o r organizations such as jainism groups, unions, fraternal or athletic groups, or [...] place to sleep or slept in a jail (including now)? No 08/20/2022 Personal Safety Answer Date Recorded Have you ever been in or are you currently in a harmful physical or emotional relationship or is someone making you feel afraid or unsafe? Denies 09/18/2023 Comments No Sex and Gender Information Value Date Recorded Sex Assigned at Not on file Legal Sex Female 10:52 AM RADIO SURVEY WORKER Gender Identity Not on file Sexual Orientation [...] 08/11/2024 8:42 AM CDT Plan of Treatment Health Maintenance Due Date Last Done Comments Zoster Vaccine (2 of 3) 06/01/2012 04/06/2012, 03/18 Foot Exam 07/17/2023 07/16/2022 Osteoporosis Screening-Bone Density Scan 07/24/2023 07/23/2021 Covid-19 Vaccine (2023-04 5 season) 2023 03/11/2022, 09/06/2021, 02/04/2021, Additional history exists Dilated Eye Exam 09/13/2024 09/14/2023 Hemoglobin A1C 02/11/2025 08/11/2024, 01/21, 12/23/2022, Additional history exists Albumin Creatinine Ratio, Urine 08/11/2025 08/11/2024, 02/04/2024, 12/23/2022, Additional history exists Depression Screening 08/11/2025 08/11/2024, 07/28/2023, 07/22/2022, Additional history exists Fall Risk Assessment 08/11/2025 08/11/2024, 09/18/2023, 07/28/2023, Additional history exists Lipid Panel 08/11/2025 08/11/2024, 01/21, 03/04/2016, Additional history exists Well Visit 65+ 08/11/2025 08/11/2024, 09/2023, 07/22/2022, Additional history exists eGFR 08/11/2025 08/11/2024, 01/21, 12/23/2022, Additional history exists DTaP/Tdap/Td Vaccine (3 - Td or Tdap) 07/24/2032 07/24/2022, 09/10/2011, 11/02/2006 Pneumococcal vaccine 65+ Completed 016, 06/26/2014, 11/17/2008 Influenza Vaccine Completed 02/04/2024, , 01/13/2022, Additional history exists Hepatitis B Screening Completed 08/11/2024 Medical Devices Implanted Type Area Canoe Inspector Device Identifier Shelf Expiration Date Model / Serial / Lot [employer]/C R Bard Ventralight St Sepra 6x4in Monofilament Absorbable Low Profile Latex Free [id number] - [id number] Implanted:Qty: 1 on 02/05/2022 by Jay Graham MD at [facility] N/A: Abdomen [employer] 07/17/2023 [id number] / / [id number] Procedures Procedure Name Priority Date/Time Associated Diagnosis [...] was last reviewed 2021. Testing performed by: [facility], [address] [place] [address]., [id number] Blood 08/11/2024 11:3 0 AM CDT 08/11/2024 8:11 PM CDT us Angela Baez MD LAB BLOOD ORDERABLES Final Result [address] Department [place] [address] * (ABNORMAL) Differential, auto (08/11/2024 11:30 AM CDT) Neutrophil abs 8.26(H) 1.50 - 6.50 K/cumm Comment:Testing performed by : [facility], [address] [place] [address]., [address] Imm gran abs 0.07 0.00 - 0.10 K/cumm CERNER Comment:Testing performed by : [address] [address] Lymphocyte abs 1.48 0.80 - 3.30 K/cumm CERNER Comment:Testing performed by : [address] [address] Monocyte abs 0.78 0.20 - 0.80 K/cumm CERNER Comment:Testing performed by : [address] [address] Eosinophil abs 0.27 0.00 - 0.50 K/cumm CERNER Comment:Testing performed by : [address] [address] Basophil abs 0.04 0.00 - 0.10 K/cumm CERNER Comment:Testing performed by : [address] [address] Neutrophil pct 75.7 % CERNER Comment: Interpretive Data Percent cell count reference ranges are not reported, since discordance with absolute values may lead to misinterpretation of CBC data. Current Interpretive Data was last revised on 2017. Testing performed by: [facility], [address] [place] [address]., [address] Imm gran pct 0.6 % CERNER Comment: Interpretive Data Percent cell count reference ranges are not reported, since discordance with absolute values may lead to misinterpretation of CBC data. Current Interpretive Data was last revised on 2017. Testing performed by: [address] [address] Lymphocyte pct 13.6 % CERNER Comment: Interpretive Data Percent cell count reference ranges are not reported, since discordance with absolute values may lead to misinterpretation of CBC data. Current Interpretive Data was last revised on 2017. Testing performed by: [facility], [address] [place] [address]., [address] Monocyte pct 7.2 % CERNER Comment: Interpretive Data Percent cell count reference ranges are not reported, since discordance with absolute values may lead to misinterpretation of CBC data. Current Interpretive Data was last revised on 2017. Testing performed by: [facility], [address] [place] [address]., [address] Eosinophil pct 2.5 % [facility] Comment: Interpretive Data Percent cell count reference ranges are not reported, since discordance with absolute values may lead to misinterpretation of CBC data. Current Interpretive Data was last revised on 2017. Testing performed by: [address] [address] Basophil pct 0.4 % [facility] Comment: Interpretive Data Percent cell count reference ranges are not reported, since discordance with absolute values may lead to misinterpretation of CBC data. Current Interpretive Data was last revised on 2017. Testing performed by: [address] [address] Blood 08/11/2024 11:3 0 AM CDT 08/11/2024 6:03 PM CDT us Angela Baez MD LAB BLOOD ORDERABLES Final Result [facility] [address] Department [place] [address] * (ABNORMAL) CBC with auto differential (08/11/2024 11:30 AM CDT) WBC 10.90(H) 3.80 - 9.90 K/cumm Comment:Testing performed by : [address], [address] Hgb 10.8(L) 11.9 - 15.5 g/dL CERNER Comment:Testing performed by : [address], [address] Hct 38.4 35.6 - 45.5 % CERNER Comment:Testing performed by : [address], [address] Plt 324 150 - 400 K/cumm CERNER CH Comment:Testing performed by : [address], [address] MPV 10.0 9.1 - 12.3 fL CERNER CH Comment:Testing performed by : [address], [address] RBC 4.63 3.90 - 5.20 M/cumm CERNER CH Comment:Testing performed by : [address], [address] MCV 82.9 81.3 - 96.4 fL CERNER CH Comment:Testing performed by : [address], [address] MCH 23.3(L) 27.1 - 33.3 pg CERNER CH Comment:Testing performed by : [address], [address] MCHC 28.1(L) 32.3 - 35.7 g/dL CERNER CH Comment:Testing performed by : [address], [address] RDW CV 15.7(H) 11.1 - 14.9 % CERNER CH Comment:Testing performed by : [address], [address] RDW SD 46.8 35.7 - 48.1 fL CERNER CH Comment:Testing performed by : [address] [place]., [address] NRBC abs 0.00 0.00 - 0.01 K/cumm [facility] Comment:Testing performed by : [facility], [address] [place] [address]., [address] Blood 08/11/2024 11:3 0 AM CDT 08/11/2024 6:03 PM CDT Angela Baez MD LAB BLOOD ORDERABLES Final Result Performing Organization Address City/[facility]/ZIP Co de Phone Number [facility] [address] [address] Department [place] [address] * Albumin Creatinine Ratio, Urine (08/11/2024 11:30 AM CDT) Albumin Ur 24.6 mg/L Comment: Interpretive Data No reference range established. Current interpretive data was last revised 2018. Testing performed by: [facility], [address] [place] [address]., [address] Creatinine Ur 83.5 mg/dL [facility] Comment: Interpretive Data No reference range established. Current interpretive data was last revised 2018. Testing performed by: [facility], [address] [place] [address]., [address] Albumin Creatinine Ratio, Ur 29 1 - 29 mg/g [facility] Comment:Testing performed by : [facility], [address] [place] [address]., [address] Urine 08/11/2024 11:3 0 AM CDT 08/11/2024 6:03 PM CDT us Angela Baez MD LAB URINE ORDERABLES Final Result Performing Organization Address City/[facility]/ZIP Co de Phone Number [facility] [address] [facility] [place] [place] [address] * Hepatitis B core antibody, total Blood (08/11/2024 11:30 AM CDT) Hep B core IgG/IgM Nonreactive Nonreactive Comment:Testing performed by : [facility], [address] [place] [address] Blood 08/11/2024 11:3 0 AM CDT 08/12/2024 10:17 AM CDT us Angela Baez MD LAB MICROBIOLOGY - GENERAL ORDERABLES Final Result Performing Organization Address [facility]/ZIP Co de Phone Number [facility] [address] [facility] [place] [address] * Vitamin D 25 hydroxy (08/11/2024 11:30 AM CDT) Vitamin D 25-OH 42 30 - 80 ng/mL Comment:Testing performed by : [address] [address] Blood 08/11/2024 11:3 0 AM CDT 08/11/2024 6:03 PM CDT us Angela Baez MD LAB BLOOD ORDERABLES Final Result Performing Organization Address [facility] Co de Phone Number [facility] [address] [facility] [place] [place] [address] * Hepatitis B surface antibody (immune status) Blood (08/11/2024 11:30 AM CDT) Pathologist [facility] HBsAb (immune status) Nonreactive Comment: Interpretive Data [...] last revised on 19. Testing performed by: [address] [address] Blood 08/11/2024 11:3 0 AM CDT 08/11/2024 6:03 PM CDT Result Bear Baez MD LAB MICROBIOLOGY - GENERAL ORDERABLES Final Result Performing Organization Address [facility] Co de Phone Number [facility] [address] [facility] [place] [place] [address] * Hepatitis B Surface Antigen Blood (08/11/2024 11:30 AM CDT) Pathologist [facility] HepBsAg Nonreactive Nonreactive Comment:Testing performed by : [facility], [address] [place] [address], [address] Blood 08/11/2024 11:3 0 AM CDT 08/11/2024 6:03 PM CDT Angela Baez MD LAB MICROBIOLOGY - GENERAL ORDERABLES Final Result Performing Organization Address [facility] Co de Phone Number [facility] [address] [facility] Department [place] [address] * TSH (08/11/2024 11:30 AM CDT) Pathologist [facility] Thyroid Stimulating Hormone 2.14 0.30 - 4.20 mcIUnit/mL Comment:Testing performed by : [facility], [address] [place] [address], [id number] Blood 08/11/2024 11:3 0 AM CDT 08/11/2024 6:03 PM CDT Angela Baez MD LAB BLOOD ORDERABLES Final Result Performing Organization Address City/[facility] Co de Phone Number [facility] [address] [facility] [place] [address] * (ABNORMAL) Hemoglobin A1c (08/11/2024 11:30 AM CDT) Pathologist [facility] Hgb A1C 7.8(H) 4.0 - 5.6 % Comment:Testing performed by : [address] [address] Estimated Average Glucose 177 mg/dL [facility] Comment: The ADA recommends reporting an estimated Average Glucose (eAG) with all Hemoglobin A1c results using the equation derived from a study of 507 normal and diabetic adults. Minority populations were underrepresented and children were not included. (Diabetes Care 31:5930-5827, 2008). The eAG is not equivalent to a fasting glucose. Testing performed by: [facility], [address] [place] [address]., [address] Blood 08/11/2024 11:3 0 AM CDT 08/11/2024 6:03 PM CDT Angela Baez MD LAB BLOOD ORDERABLES Final Result GALLITO [address] Department [place] [address] * Lipid panel (08/11/2024 11:30 AM CDT) Cholesterol 141 30 - 199 mg/dL Comment: [...] last revised on 2017. Testing performed by: [facility], [address] [place] [address]., [address] Triglycerides 102 <=149 mg/dL GALLITO MORRIS Comment: Interpretive Data [...] last revised on 2017. Testing performed by: [facility], [address] [place] [address], [place]., [address] HDL 48 >=40 mg/dL GALLITO Comment: Interpretive [...] last revised on 2017. Testing performed by: [facility], [address] [place] [address]., [address] LDL, calculated 74 <=129 mg/dL GALLITO Comment: [...] 3. Ruben Moore et al. CASS Cardiol. 2020 July 21;5(5):540-548. doi: 10.1001/jamacardio.2020.0013 Current Interpretive Data was last revised on 2023. Testing performed by: [facility], [address] [place] [address], [place]., [address] Non-HDL Cholesterol 93 mg/dL GALLITO Comment: Interpretive [...] last revised on 2017. Testing performed by: [address] [address] Chol/HDL ratio 3 CERNER CH Comment:Testing performed by : [address] [address] Blood 08/11/2024 11:3 0 AM CDT 08/11/2024 6:03 PM CDT Angela Baez MD LAB BLOOD ORDERABLES Final Result [address] Department [place] [address] * (ABNORMAL) Comprehensive metabolic panel (08/11/2024 11:30 AM CDT) Sodium 137 135 - 145 mmol/L Comment:Testing performed by : [address] [address] Potassium, pl 4.8 3.3 - 4.9 mmol/L CERNER CH Comment:Testing performed by : [address] [address] Chloride 100 97 - 110 mmol/L CERNER CH Comment:Testing performed by : [address] [address] CO2 23 22 - 32 mmol/L CERNER CH Comment:Testing performed by : [address] [address] Anion gap 14 2 - 15 mmol/L CERNER CH Comment:Testing performed by : [address], [address] BUN 32(H) 6 - 25 mg/dL CERNER CH Comment:Testing performed by : [address] [address] Creatinine 1.49(H) 0.60 - 1.10 mg/dL CERNER CH Comment:Testing performed by : [address] [address] Glucose 157 70 - 199 mg/dL CERNER [...] was last revised 2022. Testing performed by: [address] [address] Calcium 10.0 8.5 - 10.3 mg/dL CERNER CH Comment:Testing performed by : [address], [address] Bilirubin, total 0.6 0.1 - 1.2 mg/dL CERNER CH Comment:Testing performed by : [address], [address] Protein, pl 8.1 6.5 - 8.5 g/dL CERNER CH Comment:Testing performed by : [address] [address] Albumin 4.4 3.5 - 5.0 g/dL CERNER CH Comment:Testing performed by : [address] [address] Alk phos 122 40 - 130 Units/L CERNER CH Comment:Testing performed by : [address], [address] ALT 9 7 - 45 Units/L CERNER CH Comment:Testing performed by : [address], [address] AST 19 10 - 45 Units/L CERNER CH Comment:Testing performed by : [address] [address] Blood 08/11/2024 11:3 0 AM CDT 08/11/2024 6:03 PM CDT Angela Baez MD LAB BLOOD ORDERABLES Final Result GALLITO MORRIS [address] [address] Department [place] [address] * CT Body Outside Reference (07/08/2024 12:00 AM CDT) Narrative [facility] - 07/18/2024 11:07 AM CDT This order has been auto-finalized and does not contain a result. us Not In File Miscellaneous IMG CT PROCEDURES Clemencia l Result Performing Organization Address City/[facility]/ZIP Co de Phone Number [facility] * PULMONARY [...] F with given history of screening. 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 MF: BUD Report ID: [id number] Reading Location: [id number] Procedure Note Rodrigo Jimenez MD - 07/23/2021 EXAM DESCRIPTION: DEXA AXIAL SKELETON BONE DENSITY 1 OR MORE SITES REASON FOR STUDY: 80 y/o year old F with given history ofscreening. 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 MF: BUD Report ID: [id number] Reading Location: [place] [address] Angela Baez MD IM DXA PROCEDURES Final R esult from Last 3 Months or Most Recently Relevant to Health Maintenance Insurance COMMERCIAL GENERIC MEDICARE MEDICARE [facility] MEDICARE BLUE CROSS MEDICARE SUPPLEMENT MEDICARE [facility] MEDICARE SUPPLEMENT Member Subscriber Plan / Payer (Ef fective 2022-Present) Name:Chel Levine I Relation to Subscriber:Self Name:Chel Levine I Payer ID:[id number] Group ID:[id number] Type:COMMERCIAL Address: [address] [place] [id number] Advance Directives For more information, please contact: [phone] Documents on File Type Date Recorded Patient Placement Assistant Expl anation ADVANCE DIRECTIVE 08/27/2023 8:24 AM POLST - PHYS ORDER FOR PT PREFERENCES * Full Code (Latest Code Status on File) Date Activated Date Inactivated Comments 06/15/2017 9:33 AM 06/15/2017 2:00 PM Care Teams Executive Sales Assistant Relationship Specialty Start Date End Date Angela Baez MD PCP - General 06/20/16 Ced Holloway MD [address] [place] [address] Consulting Physician Gastroenterology 02/02/17 Yevgeniy Jenkins MD [address] [place] [address] Consulting Physician Ophthalmology 02/02/17 Jay Graham MD [address] [place] [address] Consulting Physician General Surgery 09/05/19 Lito Arroyo MD [address] [place] [address] Referring Physician Orthopedic Surgery 02/06/22 Chris Bates MD [address] [place] [address] [address] [place] [address] Consulting Physician Pulmonary Disease 07/22/22 Eduardo Velasco DO [address] [facility] [address] [place] [address] Referring Physician Internal Medicine 08/11/24
--- OUTSIDE RECORDS SUMMARY | 2024-08-18 12:03 | XMS_ITS | Continuity of Care Document ---
Author Organization [facility] Address [address] [address] [facility] [address] [place] [address] Phone Care Team Providers Care Registered Respiratory Therapist Name Role Phone Scott SINHA, Jaymie Unavailable Unavailable Allergies, Adverse Reactions, Alerts Substance Reaction Status Criticality amlodipine Active No Information Medications Medication Instructions Dosage Effective Dates (start - stop) Status Comments VITAMIN D3 (unknown strength) take one tablet daily Not Available - Active labetalol 100 mg tablet take 1 tablet by oral route 2 times every day 100 MG - Active Artificial Tears (dextran 70-hypromellose) eye drops take one tablet daily - Active rosuvastatin 10 mg tablet take one tablet daily - Active omeprazole 20 mg tablet,delayed release take one tablet daily - Active Tresiba FlexTouch U-100 insulin 100 unit/mL (3 mL) subcutaneous pen inject by subcutaneous route as per insulin protocol 0.00 - Active furosemide 20 mg tablet take 1 tablet by oral route every day 20 MG - Active magnesium 30 mg tablet take one tablet daily - Active B-12 (unknown strength) take 1 by oral route every day Not Available - Active Eliquis 5 mg tablet take 1 tablet by oral route 2 times every day 5 MG - Active Tylenol Arthritis 650 mg Tab take 2 tablet (1300MG) by ORAL route every 8 hours as needed - Active Tramadol 50 mg Tab take 1 tablet (50MG) by ORAL route every 6 hours as needed 50 MG - Active Procedures Procedure Date No Charge [...] Diagnoses Date Provider Providers Copied on Encounter [facility], [address] [place] [address] [address], [place], [place], [address], tel:[phone] [place] Profession[place] l Complete Exam (chief complaint) Dry eye syndrome of bilateral lacrimal glandsType 2 diabetes mellitus without complication s 4 Scott OD Jaymie. [address] [place] [address] [address], [address], [place], [place], [address], [place]. tel:[phone] Referring Provider: Angela Singer MD, [address] [place], [address]. tel:[phone] Office/outpa [place], [facility] [address] [place] [address] [address], [place], [place], [address], [place] tel:[phone] [place] Prof[place] Glasses Check (chief complaint) Dry eye syndrome of bilateral lacrimal glandsInterm ittent esotropia 4 Scott OD Jaymie. [address] [place] [address] [address], [address], [place], [place], [address], [place]. tel:[phone] Referring Provider: Angela Singer MD, [address], [place], [address]. tel:[phone] Office/outpa [place]ient Visit, [facility], [address] [place] [address] [address], [place], [place], [address], [place] tel:[phone] [place] Prof[place] Follow up visit (chief complaint) DiplopiaCN III palsy, right 3 Gregory Vuong. [address] [facility], [address], [place], [place], [address], [place]. tel:[phone] Referring Provider: Angela Singer MD, [address] [place], [address]. tel:[phone] Office/outpa tient Visit, [facility], [address], [place], [place], [address], [place] tel:[phone] [place] Follow up visit (chief complaint) DiplopiaOcul ar trauma, right eye, sequela 2 Gregory Vuong. [address] [facility], [facility] [place], [address], [place]. tel:[phone] Referring Provider: Angela Singer MD, [address] [place], [address]. tel:[phone] Office/outpa [place]ient Visit, [facility] [address] [facility] [address], [place], [place], [address], [place] tel:[phone] [place] fuzzy vision (chief complaint) Ocular trauma of right eye, initial encounterCN III palsy, rightRight abducens nerve palsyH/O Dietz's palsyDry eye syndrome of left eyePseudopha ben of both eyesDiplopia Nov- 2 Gregory Vuong. [address] [facility], [facility] [address], [place], [place], [address], [place]. tel:[phone] Referring Provider: Angela Singer MD, [address], [place], [address]. tel:[phone] [facility], [address], [place], [place], [address], [place] tel:[phone] [place] 1 mo CE PO (07/24/21) (chief complaint) Post op visit 2 Valerio OD Alie. [address], [address], [place], [place], [address], [place]. tel:[phone] Referring Provider: Angela Singer MD, [address] [place], [address]. tel:[phone] [facility], [address] [place] [address] [address], [place], [place], [address], tel:[phone] [place] 1 wk CE PO (07/24/21) (chief complaint) Post op visit 2 Valerio OD Alie. [address] [place] [address] [employer], [address], [place], [place], [address], [place]. tel:[phone] Referring Provider: Angela Singer MD, [address] [place], [address]. tel:[phone] [facility], [address] [place] [address] [address], [place], [place], [address], tel:[phone] [place] 1 day CE PO (chief complaint) Post op visit 2 Valerio OD Alie. [address] [place], [place] [address]Th[address], [address], [place], [place], [address], [place]. tel:[phone] Referring Provider: Angela Singer MD, [address] [place], [address]. tel:[phone] [facility], [address] [place] [address] [address], [place], [place], [address], [place] tel:[phone] [facility] No Information 2 Gregory Vuong. [address] [facility], [address], [place], [place], [address], [place]. tel:[phone] Referring Provider: Angela Singer MD, [address] [place], [address]. tel:[phone] [facility], [address] [place] [address] [address], [place], [place], [address], [place] tel:[phone] [place] Prof[place] No Information 2 Gregory Vuong. [address], [address], [place], [place], [address], [place]. tel:[phone] Referring Provider: Angela Singer MD, [address] [place], [address]. tel:[phone] [facility], [address], [place], [place], [address], [place] tel:[phone] [place] 2 week s/p PCIOL (chief complaint) Encounter for examination following surgery 2 Gregory Vuong. [address] [facility], [address], [place], [place], [address], [place]. tel:[phone] Referring Provider: Angela Singer MD, [address] [place], [address]. tel:[phone] [facility], [address], [place], [place], [address], [place] tel:[phone] [place] 1 day CE PO (chief complaint) Post op visit 2 Gregory Vuong. [address] [facility], [address], [place], [place], [address], [place]. tel:[phone] Referring Provider: Angela Singer MD, [address] [place], [address]. tel:[phone] [facility], [address], [place], [place], [address], [place] tel:[phone] [place] [address] Surgery Center No Information 2 Gregory Vuong. [address] [facility], [address], [place], [place], [address], [place]. tel:[phone] Referring Provider: Angela Singer MD, [address] [place], [address]. tel:[phone] [facility], [address], [place], [place], [address], [place] tel:[phone] [place] No Information 2 Gregory Vuong. [address], [address] [place], [address], [place]. tel:[phone] Referring Provider: Angela Singer MD, [address] [place], [address]. tel:[phone] Office/outpa [place]ient Visit, [facility], [address] [place] [address] [address], [place], [place], [address], [place] [phone] [place] 6 month Cataract check (chief complaint) Age-related nuclear cataract of both eyesType 2 diabetes mellitus without complication sHistory of Dietz's palsy 1 Gregory Vuong. [address], [facility] [place], [address], [place]. tel:[phone] Referring Provider: Angela Singer MD, [address] [place], [address]. tel:[phone] [facility], [address] [place] [address] [address], [place], [place], [address], [place] tel:[phone] [place] Complete Exam (chief complaint) Age-related nuclear cataract of both eyesType 2 diabetes mellitus without complication s 1 Gregory Vuong. [address], [address] [place], [address], [place]. tel:[phone] Referring Provider: Angela Singer MD, [address] [place], [address]. tel:[phone] [facility], [address] [place] [address] [address], [place], [place], [address], [place] tel:[phone] [place] Complete Exam (chief complaint) Age-related nuclear cataract of both eyesType 2 diabetes mellitus without complication s 0 Gregory Vuong. [address] [employer] [employer], [address], [place], [place], [address], [place]. tel:[phone] Referring Provider: Angela Singer MD, [address], [place], [address]. tel:[phone] [facility], [address], [place], [place], [address], [place] [phone] [place] No Information 0 Gregory Vuong. [address] [employer], [address] [place], [address], [place]. tel:[phone] [facility], [address], [place], [place], [address], [place] tel:[phone] [place] Profession[place] l Cataract evaluation (chief complaint) Age-related nuclear cataract of both eyesType 2 diabetes mellitus without complication s 9 Gregory Vuong. [address] [employer] [employer], [address] [place], [address], [place]. tel:[phone] Referring Provider: Angela Singer MD, [address], [place], [address]. tel:[phone] [facility], [address], [place], [place], [address], [place] [phone] [place] Profession[place] l No Information 9 Gregory Vuong. [address] [employer] [employer], [address] [place], [address], [place]. tel:[phone] [facility], [address], [place], [place], [address], [place] tel:[phone] [place] diabetic eye exam (chief complaint) Age-related nuclear cataract, bilateralTyp e 2 diabetes mellitus without complication s 8-201 8 Gregory Vuong. [address] [employer], [address], [place], [place], [address], [place]. tel:[phone] Referring Provider: Angela Singer MD, [address] [employer], [place], [address]. tel:[phone] [facility], [address], [place], [place], [address], [place] tel:[phone] [place] Complete Exam (chief complaint) No Information May-1 0-201 7 Gregory Vuogn. [address] [facility], [address], [place], [place], [address], [place]. tel:[phone] Referring Provider: Angela Singer MD, [address], [place], [address]. tel:[phone] Office/outpa [place]ient Visit, [facility] [address], [place], [place], [address], [place] tel:[phone] [place] Cataract evaluation (chief complaint) No Information Nov-0 9-201 6 Gregory Vuong. [address] [facility], [address], [place], [place], [address], [place]. tel:[phone] Referring Provider: Angela Singer MD, [address], [place], [address]. tel:[phone] [facility], [address], [place], [place], [address], [place] tel:[phone] [place] Profession[place] Difficulty reading (chief complaint) No Information July-2 5-201 6 Gregory Vuong. [address] [facility], [address], [place], [place], [address], [place]. tel:[phone] Referring Provider: Angela Singer MD, [address] [employer], [place], [address]. tel:[phone] [facility], [address], [place], [place], [address], [place] tel:[phone] [place] Lagophthalmo s check RUL (chief complaint) No Information 6 Gregory Vuong. [address], [address] [place], [address], [place]. tel:[phone] Referring Provider: Angela Singer MD, [address] [place], [address]. tel:[phone] Office/outpa tient Visit, [facility], [address] [place] [address] [address], [place], [place], [address], [place] tel:[phone] [place] 3 week follow for Lagophthalmo s (chief complaint) No Information 5 Gregory Vuong. [address] [facility], [address], [place], [address], [place]. tel:[phone] Referring Provider: Angela Singer MD, [address] [place], [address]. tel:[phone] Office/outpa tient Visit, [facility], [address] [place] [address] [address], [place], [place], [address], [place] tel:[phone] [place] Blurry vision (chief complaint) No Information 5 Gregory Vuong. [address], [address] [place], [place], [address], [place]. tel:[phone] Referring Provider: Angela Singer MD, [address] [place], [address]. tel:[phone] Office/outpa tient Visit, [facility], [address] [place] [address] [address], [place], [place], [address], [place] tel:[phone] [place] follow up (chief complaint) No Information 3 0 5 Gregory Vuong. [address], [address] [place], [address], [place]. tel:[phone] Referring Provider: Angela Singer MD, [address], [place], [address]. tel:[phone] Office/outpa tient Visit, [facility], [address] [place] [address] [address], [place], [place], [address], [place] tel:[phone] [place] blurry vision (chief complaint) No Information Oct-2 3-201 5 Gregory Vuong. [address], [place], [place], [address], [place]. tel:[phone] Referring Provider: Angela Singer MD, [address] [place], [address]. tel:[phone] Office/outpa [place]ient [place], [facility] [address] [place] [address] [address], [place], [place], [address], [place] tel:[phone] [place] Cranial Nerve VII Palsy F/U (chief complaint) No Information Oct-2 0-201 5 Gregory Vuong. [address], [place], [place], [address], [place]. tel:[phone] Referring Provider: Angela Singer MD, [address] [place], [address]. tel:[phone] Office/outpa tient Visit, [facility], [address] [place] [address] [address], [place], [place], [address], [place] tel:[phone] [place] Prof[place] work in emergency (chief complaint) No Information Oct-1 6-201 5 Gregory Vuong. [address], [place], [place], [address], [place]. tel:[phone] Referring Provider: Angela Singer MD, [address], [place], [address]. tel:[phone] [facility], [address] [place] [address] [address], [place], [place], [address], [place] tel:[phone] SEC [facility] Professiona l No Information 2 Sandra Joya. [address] [facility], [address], [place], [place], [address], [place]. tel:[phone] Referring Provider: Angela Singer MD, [address], [place], [address]. tel:[phone] Family History Family Member Type Diagnosis Age At Onset Problem (finding) Family history of Cance r Payers Payer name Insurance type Covered democrat ID Authoriza tion(s) [place] [id number] [facility] [id number] Social History Type Description Quantity Date Captured [...] Type II diabetic. Patient has hx of Ceres Palsy and ocular trauma OD. Patient states [...] and left eye. Hx of CAT OU, [id number] OD, and Lagophthalmos OD. Pt is IDDM [...] office on 01/05/[address] Singer for Ceres Palsy and Lagophthalmos OD. 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 Patient is unable [...]
--- OUTSIDE RECORDS SUMMARY | 2024-08-18 12:03 | XMS_ITS | Encounter Summary ---
Author Organization [facility] Address [address] [place] [address] Phone Care Team Providers Care Bleacher Operator Name Role Phone Angela Singer MD Primary Care Provider [phone] Reason for Referral * Radiology Services (Routine) - Closed Specialty Diagnoses / Procedures Referred By Contac t Referred To Contact Radiology Diagnoses Pre-op testing Procedures EKG 12 LEAD Donaldo Shin MD #1 [place] [address] Phone: tel: fax: Referral ID Status Reason Start Date Expiration Date Visits Re quested Visits Authorized [id number] Closed 08/10/2020 1 1 Encounter Details Date Type Department Care Team (Late st Contact Info) Description 08/10/2020 Transcribe Orders [facility] Preop/Pacu II 1 [place] [address] Donaldo Shin MD [address] [place] [address] Pre-op testing (Primary Dx) Social History Tobacco [...] 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 file Not on file [...] QTC CALCULATION 487 ms EXTERNAL EKG P [place] 54 degrees EXTERNAL EKG R [place] 43 degrees EXTERNAL EKG T [place] 38 degrees EXTERNAL EKG 08/11/2020 9:52 AM CDT Impressions EXTERNAL EKG - 08/13/2020 8:58 AM CDT Sinus rhythm with PACs Comparison Summary: No serial comparison made Summary: Borderline ECG Confirmed by Darron Brown [id number] on 08/13/2020 8:58:18 AM Narrative Procedure Note Omaira Rob MD - 08/13/2020 IMPRESSION: Sinus rhythm with PACs Comparison Summary: No serial comparison made Summary: Borderline ECG Confirmed by Darron Brown [id number] on 08/13/2020 8:58:18 AM us Donaldo Shin MD IMG ECG ORDERABLES Final Resu lt EXTERNAL EKG * (ABNORMAL) BASIC METABOLIC PANEL W/ CALCIUM TOTAL (08/11/2020 9:48 AM CDT) SODIUM 136 136 - 144 mmol/L 08/11/2020 10:18 AM CDT [facility] POTASSIUM 4.1 3.5 - 5.1 mmol/L 08/11/2020 10:18 AM CDT [facility] CHLORIDE 99(L) 100 - 110 mmol/L 08/11/2020 10:18 AM CDT [facility] CO2, VENOUS 27 22 - 32 mmol/L 08/11/2020 10:18 AM CDT [facility] ANION GAP 14.1 8.0 - 20.0 mmol/L 08/11/2020 10:18 AM CDT [facility] GLUCOSE 141(H) 70 - 99 mg/dL 08/11/2020 10:18 AM CDT [facility] BUN 24(H) 8 - 23 mg/dL 08/11/2020 10:18 AM CDT [facility] CREATININE, BLOOD 1.23(H) 0.60 - 1.10 mg/dL 08/11/2020 10:18 AM CDT [facility] BUN/CREATININE RATIO 20 12 - 20 ratio 08/11/2020 10:18 AM CDT [facility] CALCIUM 9.3 8.9 - 10.3 mg/dL 08/11/2020 10:18 AM CDT [facility] GFR, EST. NONAFRICAN 42(L) >=60 08/11/2020 10:18 AM CDT [facility] GFR, EST. 51(L) >=60 08/11/2020 10:18 AM CDT [facility] Comment: Creatinine Clearance is the preferred criteria for selecting drug dose adjustments in renally impaired patients. The GFR is provided as additional pertinent clinical information. GFR is reported in mL/min/1.73 sq m. IS THE PATIENT REQUIRED TO BE FASTING? No 08/11/2020 10:18 AM CDT [facility] Blood Venipuncture / Unknown 08/11/2020 9:48 AM CDT 08/11/2020 9:51 AM CDT us Donaldo Shin MD CHEMISTRY ORDERABLES Final Re sult [facility] [address] [place] [address] * HEMOGLOBIN & HEMATOCRIT (H&H) (08/11/2020 9:48 AM CDT) HEMOGLOBIN (HGB) 12.2 12.0 - 15.8 g/dL 08/11/2020 9:58 AM CDT [facility] HEMATOCRIT (HCT) 38.3 36.0 - 47.0 % 08/11/2020 9:58 AM CDT [facility] Blood Venipuncture / Unknown 08/11/2020 9:48 AM CDT 08/11/2020 9:51 AM CDT us Donaldo Shin MD HEMATOLOGY ORDERABLES Final R esult [facility] [address] [place] [address] documented in this encounter Visit Diagnoses Diagnosis Pre-op testing- Primary Preoperative examination, unspecified Pre-op testing Preoperative examination, unspecified documented in this encounter Care Teams Bleacher Operator Relationship Specialty Start Date End Date Angela Singer MD [address] [facility] [place] [address] PCP - General Internal Medicine 08/08/15 documented as of this encounter
--- OUTSIDE RECORDS SUMMARY | 2024-08-18 12:03 | XMS_ITS | Encounter Summary ---
Author Organization [facility] Address [address] [place] [address] Phone Care Team Providers Care Pulp And Paper Tester Name Role Phone Angela Singer MD Primary Care Provider Antonio Grady Unavailable Unavail able Ced Holloway MD Unavailable + Yevgeniy Jenkins MD Unavailable [phone] Antonio Bravo OD Unavailable [phone] Colton Graham MD Unavailable Sy Sherman MD Unavailable [phone] Minna Dos Santos MA Unavailable [phone] Stephanie Gardner LPN Unavailable Lito Arroyo MD Unavailable [phone] Omaira Rob MD Unavailable [phone] Chris Bates MD Unavailable Winnie Hogan MA Unavailable Zuleyka KeeneW Unavailable [phone] Eduardo Velasco DO Unavailable [phone] Eduardo Velasco DO Unavailable [phone] Encounter Details Date Type Department Care Team (Late st Contact Info) Description 11/04/2016 Orders Only [facility] [address] [place] [address] Angela Singer MD [address] [place] [address] Diabetes mellitus without complication (HCC) (Primary Dx) Social History Tobacco Use Types Packs/Day Years Used Date Smoking Tobacco: Never Alcohol Use Standard Drinks/Week Comments No 0 (1 standard drink = 0.6 oz pur e alcohol) Comments Unknown Sex and Gender Information Value Date Recorded Sex Assigned at Not on file 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 de Phone Number MARTIN [place] * Creatinine, urine, random (11/14/2016 11:35 AM CDT) Creatinine, ur 123 20 - 320 mg/dL [facility]O SAL[facility]AR 11/14/2016 11:3 5 AM CDT 11/14/2016 11:35 AM CDT Narrative AMADO - 11/15/2016 12:05 PM CDT FASTING:YES Resulting Agency Comment Performing Organization Information: Site ID: MARTIN Name: [facility] Junior Address: [address] [place], [place] [address]ner [facility] [place] [address] Director: Bird Donald D.O., MPH us Angela Singer MD LAB URINE ORDERABLES Final Result Performing Organization Address [facility] de Phone Number MARTIN [place]ero * (ABNORMAL) Cholesterol, LDL, direct (11/14/2016 11:35 AM CDT) LDL, direct 115(H) <100 mg/dL [facility] SAL[facility]AR Comment: Greatly elevated Triglycerides values (>1200 mg/dL) [...] Site ID: MARTIN Name: Amado Junior Address: [address] [address] Director: Bird Donald D.O., MPH Angela Singer MD LAB BLOOD ORDERABLES Final Result [facility] [place] * (ABNORMAL) Comprehensive metabolic panel (11/14/2016 11:34 AM CDT) Glucose 110(H) 65 - 99 mg/dL [facility] [place] Comment: Fasting reference interval For someone without known diabetes, a glucose value between 100 and 125 mg/dL is consistent with prediabetes and should be confirmed with a follow-up test. BUN 22 7 - 25 mg/dL [facility] [place] Creatinine 0.94(H) 0.60 - 0.93 mg/dL [facility] [place] Comment: For patients >49 years of age, the reference limit for Creatinine is approximately 13% higher for people identified as -Austrian. eGFR NON-AFR. MAURITIAN 58(L) > OR = 60 mL/min/1. 73m2 [...] Bilirubin, total 0.5 0.2 - 1.2 mg/dL [facility] [place] Alk phos 67 33 - 130 U/L [facility] [place] AST 18 10 - 35 U/L [facility] [place] ALT (SGPT) 14 6 - 29 U/L [facility] Blood specimen (specimen) 11/14/2016 11:34 AM CDT 11/14/2016 11:34 AM CDT Narrative [facility] - 11/15/2016 4:03 AM CDT FASTING:YES Resulting Agency Comment Performing Organization Information: Site ID: MARTIN Name: Amado Junior Address: [address] [facility] [place] [place] [address] Director: Bird Donald D.O., MPH us Angela Singer MD LAB BLOOD ORDERABLES Final Result [facility] M[facility]IN [place] * (ABNORMAL) Hemoglobin A1c (11/14/2016 11:34 AM CDT) Hgb A1C 5.9(H) <5.7 % of total Hgb [facility] Comment: For someone without known diabetes, a [...] Site ID: MARTIN Name: Amado Junior Address: [address] [place] [address] Director: Bird Donald D.O. MPH us Angela Singer MD LAB BLOOD ORDERABLES Final Result [facility] [place] [place] documented in this encounter Visit Diagnoses Diagnosis Diabetes mellitus without complication (HCC)- Primary Type II or unspecified type diabetes mellitus without mention of complication, not stated as uncontrolled documented in this encounter Care Teams Pulp And Paper Tester Relationship Specialty Start Date End Date Angela Singer MD PCP - General 06/20/16 Antonio Grady Gastroenterology 02/02/17 08/10/24 Ced Holloway MD [address] [place] [address] [address] [facility] [address] [place] [address] Consulting Physician Gastroenterology 02/02/17 Yevgeniy Jenkins MD [address] [place] [address] [address] [facility] [address] [place] [address] Consulting Physician Ophthalmology 02/02/17 Antonio Bravo OD [address] [facility] [address] [facility] [address] [place] [address] Ophthalmology 02/02/17 02/02/17 Colton Graham MD [address] [place] [address] [address] [facility] [address] [place] [address] Consulting Physician General Surgery 09/05/19 Sy Sherman MD [address] [facility] [address] [place] [address] Consulting Physician Cardiovascular Disease 01/22/20 Minna Dos Santos MA [address] [place] [address] [address] [place] [address] ACO Care Pipe Puller 05/05/20 05/05/20 Stephanie Gardner, REED [address] [place] [address] [address] [place] [address] ACO Care Pipe Puller 11/12/21 11/21/21 Lito Arroyo MD [address] [place] [address] [address] [place] [address] Referring Physician Orthopedic Surgery 02/06/22 Omaira Rob MD [address] [place] [address] [address] [place] [address] Consulting Physician Cardiology 07/22/22 08/10/24 Chris Bates MD [address] [place] [address] [address] [place] [address] Consulting Physician Pulmonary Disease 07/22/22 Winnie Hogan MA [address] [place] [address] [address] [place] [address] ACO Care Pipe Puller 08/13/22 08/13/22 Zuleyka Keene, [address] [place] [address] Processing Inspector Group Fitness Instructor 08/19/22 09/03/22 Eduardo Velasco DO [address] [address] Referring Physician Internal Medicine 08/11/24 Eduardo Velasco DO [address] [address] Referring Physician Cardiology 08/11/24 08/11/24 documented as of this encounter
--- OUTSIDE RECORDS SUMMARY | 2024-08-18 12:03 | XMS_ITS | Encounter Summary ---
Author Organization [facility] Address [address] [place] [address] Phone Care Team Providers Care Clutch Mechanic Name Role Phone Angela Singer MD Primary Care Provider + [phone] Antonio Grady Unavailable Unavail able Ced Holloway MD Unavailable + Yevgeniy Jenkins MD Unavailable [phone] Colton Graham MD Unavailable Sy Sherman MD Unavailable [phone] Stephanie Gardner LPN Unavailable Lito Arroyo MD Unavailable Omaira Rob MD Unavailable [phone] Chris Bates MD Unavailable Winnie Hogan MA Unavailable Zuleyka Keene LCSW Unavailable [phone] Eduardo Velasco DO Unavailable [phone] Eduardo Velasco DO Unavailable [phone] Encounter Details Date Type Department Care Team (Late st Contact Info) Description 10/10/2021 Orders Only [facility] [address] [place] [address] Angela Singer MD [address] [place] [address] Social History Tobacco Use Types Packs/Day Years [...] on file 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 Gender Identity Not on file Sexual Orientation [...] on filedocumented in this encounter Care Teams Clutch Mechanic Relationship Specialty Start Date End Date Angela Singer MD PCP - General 06/20/16 Antonio Grady Gastroenterology 02/02/17 08/10/24 Ced Holloway MD [address] [facility] [address] [facility] [address] [place] [address] Consulting Physician Gastroenterology 02/02/17 Yevgeniy Jenkins MD [address] [facility] [address] [place] [address] [place] [address] Consulting Physician Ophthalmology 02/02/17 Colton Graham MD [address] [facility] [address] [place] [address] [place] [address] Consulting Physician General Surgery 09/05/19 Sy Sherman MD [address] [place] [address] [place] [address] Consulting Physician Cardiovascular Disease 01/22/20 Stephanie Gardner LPN [address] [place] [address] [address] [place] [address] ACO Care Mirror Fabrication Supervisor 11/12/21 11/21/21 Lito Arroyo MD [address] [place] [address] [address] [place] [address] Referring Physician Orthopedic Surgery 02/06/22 Omaira Rob MD [address] [place] [address] [address] [place] [address] Consulting Physician Cardiology 07/22/22 08/10/24 Chris Bates MD [address] [place] [address] [address] [place] [address] Consulting Physician Pulmonary Disease 07/22/22 Winnie Hogan MA [address] [place] [address] [address] [place] [address] ACO Care Mirror Fabrication Supervisor 08/13/22 08/13/22 Zuleyka Keene, [address] [place] [address] Bench Loom Weaver Data Management 08/19/22 09/03/22 Eduardo Velasco DO [address] [place] [address] Referring Physician Internal Medicine 08/11/24 Eduardo Velasco DO [address] [facility] [address] [place] [address] Referring Physician Cardiology 08/11/24 08/11/24 documented as of this encounter
--- OUTSIDE RECORDS SUMMARY | 2024-08-18 12:03 | XMS_ITS | Encounter Summary ---
Author Organization [facility] Address [address] [place] [address] Phone Care Team Providers Care Booster Pump Operator Name Role Phone Angela Singer MD Primary Care Provider + [phone] Antonio Grady Unavailable Unavail able Ced Holloway MD Unavailable + Yevgeniy Jenkins MD Unavailable [phone] Colton Graham MD Unavailable Sy Sherman MD Unavailable [phone] Stephanie Gardner LPN Unavailable Lito Arroyo MD Unavailable Omaira Rob MD Unavailable [phone] Chris Bates MD Unavailable Winnie Hogan MA Unavailable Zuleyka Keene LCSW Unavailable [phone] Eduardo Velasco DO Unavailable [phone] Eduardo Velasco DO Unavailable [phone] Encounter Details Date Type Department Care Team (Late st Contact Info) Description 06/27/2021 Orders Only [facility] [address] [place] [address] Amanuel Singer MD [address] [place] [address] Social History Tobacco Use Types Packs/Day Years [...] on file 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 Gender Identity Not on file Sexual Orientation [...] on filedocumented in this encounter Care Teams Booster Pump Operator Relationship Specialty Start Date End Date Angela Singer MD PCP - General 06/20/16 Antonio Grady Gastroenterology 02/02/17 08/10/24 Ced Holloway MD 12 [facility] 162 [facility] 204 [place] [address] Consulting Physician Gastroenterology 02/02/17 Yevgeniy Jenkins MD [address] [facility] [address] [place] [address] [place] [address] Consulting Physician Ophthalmology 02/02/17 Colton Graham MD [address] [facility] [address] [place] [address] [place] [address] Consulting Physician General Surgery 09/05/19 Sy Sherman MD [address] [place] [address] [place] [address] Consulting Physician Cardiovascular Disease 01/22/20 Stephanie Gardner, SHOT BLAST EQUIPMENT OPERATOR [address] [place] [address] [address] [place] [address] ACO Care Retail Mortgage Banker 11/12/21 11/21/21 Lito Arroyo MD [address] [place] [address] [address] [place] [address] Referring Physician Orthopedic Surgery 02/06/22 Omaira Rob MD [address] [place] [address] [address] [place] [address] Consulting Physician Cardiology 07/22/22 08/10/24 Chris Bates MD [address] [place] [address] [address] [place] [address] Consulting Physician Pulmonary Disease 07/22/22 Winnie Hogan MA [address] [place] [address] [address] [place] [address] ACO Care Retail Mortgage Banker 08/13/22 08/13/22 Zuleyka Keene, [address] [place] [address] Practical Nursing Faculty Senior Salesforce Developer 08/19/22 09/03/22 Eduardo Velasco DO [address] [place] [address] Referring Physician Internal Medicine 08/11/24 Eduardo Velasco DO [address] [facility] [address] [place] [address] Referring Physician Cardiology 08/11/24 08/11/24 documented as of this encounter
--- OUTSIDE RECORDS SUMMARY | 2024-08-18 12:03 | XMS_ITS | Clinical Summary ---
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 NONAFRICAN >60 >=60 08/14/2015 7:43 AM CDT [facility] GFR, EST. >60 >=60 08/14/2015 7:43 AM CDT [facility] Comment: Creatinine Clearance is the preferred criteria for selecting drug dose adjustments in renally impaired patients. The GFR is provided as addtional pertinent clinical information. GFR is reported in mL/min/1.73 sq m Blood specimen (specimen) Venous Catheter (IV) / Unknown 08/14/2015 7:30 AM CDT 08/14/2015 7:30 AM CDT us Chino Sage MD CHEMISTRY ORDERABLES Final Res ult [facility] [address] [place] [address] from Last 3 Months or Most Recently Relevant to Health Maintenance Insurance MEDICARE COMMERCIAL GENERIC Advance Directives Documents on File Type Date Recorded Patient Product Management Intern Expl anation Other Advance Directive 08/11/2020 9:23 AM DNR aDVANCED DIRECTI VE Care Teams Drilling Field Professional Relationship Specialty Start Date End Date Angela Singer MD [address] [place] [address] PCP - General Internal Medicine 08/08/15
== END 2024-08-18 11:57 | disposition home or self-care (01) ==
LOC: CHSIMG 12:00
PROVIDERS: PCP Internal Medicine Geriatric Medicine; Visit Provider Internal Medicine Geriatric Medicine
DX: Z78.0 Asymptomatic menopausal state (principal); M85.88 Other specified disorders of bone density and structure, other site; M81.0 Age-related osteoporosis without current pathological fracture
CPT/HCPCS: 77080

== ENCOUNTER 2024-08-22 14:21 | Outpatient (CLI) | payer MEDICARE, SELFPAY ==
--- NOTE | 2024-08-22 14:26 | ECG_ITS ---
Test Date: 2024-08-22 14:35:27 Measurements Intervals [place] Rate: 55 P: 0 [place]: 0 QRS: 5 QRSD: 87 T: 15 QT: 419 QTc: 404 Interpretive Statements ATRIAL FLUTTER/TACHYCARDIA WITH SLOW VENTRICULAR RESPONSE LOW QRS VOLTAGE IN PRECORDIAL LEADS BASELINE ARTIFACT- III, AVR, AVL, AVF, V6 ABNORMAL ECG No previous ECG available for comparison Electronically Signed On 08-22-2024 15:48:18 CDT by Eduardo Velasco D.O.
--- OUTSIDE RECORDS SUMMARY | 2024-08-22 14:40 | XMS_ITS | Encounter Summary ---
Author Organization [facility] Healthcare Address [address] [place] [address] Care Team Providers Care Analytical Data Scientist Name Role Phone Angela Singer MD Primary Care Provider + [phone] Antonio Grady Unavailable Unavail able Ced Holloway MD Unavailable + Yevgeniy Jenkins MD Unavailable [phone] Colton Graham MD Unavailable Sy Sherman MD Unavailable [phone] Stephanie Gardner LPN Unavailable +[phone] Lito Arroyo MD Unavailable +[phone] Omaira Rob MD Unavailable [phone] Chris Bates MD Unavailable Winnie Hogan MA Unavailable [phone] Zuleyka Keene LCSW Unavailable +[phone] Eduardo Velasco DO Unavailable [phone] Eduardo Velasco DO Unavailable [phone] Encounter Details Date Type Department Care Team (Late st Contact Info) Description 07/22/2021 Telephone [facility] [address] [place] [address] Rosanne Miller, RT Social History Tobacco Use [...] on file Legal Sex Female 10:52 AM [employer] Gender Identity Not on file Sexual Orientation Not on file Occupation Industry Job Start Date Job End Date retired Not on file Not on file Not on file documented as of this encounter Plan of Treatment Not on file documented as of this encounter Visit Diagnoses Not on filedocumented in this encounter Care Teams Analytical Data Scientist Relationship Specialty Start Date End Date Angela Singer MD PCP - General 06/20/16 Antonio Grady Gastroenterology 02/02/17 08/10/24 Ced Holloway MD [address] [place] [address] [address] [place] [address] Consulting Physician Gastroenterology 02/02/17 Yevgeniy Jenkins MD [address] [place] [address] [address] [place] [address] Consulting Physician Ophthalmology 02/02/17 Colton Graham MD [address] [place] [address] [address] [facility] [address] [place] [address] Consulting Physician General Surgery 09/05/19 Sy Sherman MD [address] [place] [address] [address] [facility] [address] [place] [address] Consulting Physician Cardiovascular Disease 01/22/20 Stephanie Gardner, BOWL ATTENDANT [address] [place] [address] [address] [place] [address] [employer] Equipment Mechanic 11/12/21 11/21/21 Lito Arroyo MD [address] [place] [address] [address] [place] [address] Referring Physician Orthopedic Surgery 02/06/22 Omaira Rob MD [address] [place] [address] [address] [place] [address] Consulting Physician Cardiology 07/22/22 08/10/24 Chris Bates MD [address] [place] [address] [address] [place] [address] Consulting Physician Pulmonary Disease 07/22/22 Winnie Hogan MA [address] [facility] [address] [place] [address] [employer] Equipment Mechanic 08/13/22 08/13/22 Zuleyka Keene, [facility] [address] [facility] [address] [address] [place] [address] Credit Investigator Hide Inspector 08/19/22 09/03/22 Eduardo Velasco DO [address] [address] Referring Physician Internal Medicine 08/11/24 Eduardo Velasco DO [address] [facility] [address] [place] [address] Referring Physician Cardiology 08/11/24 08/11/24 documented as of this encounter
--- OUTSIDE RECORDS SUMMARY | 2024-08-22 14:40 | XMS_ITS | Clinical Summary ---
Author Organization [facility] Address [address] [place] [address] Care Team Providers Care Spinner Cap Frame Name Role Phone Angela Baez MD Primary Care Provider [phone] Ced Holloway MD Unavailable + Yevgeniy Jenkins MD Unavailable [phone] Jay Graham MD Unavailable Lito Arroyo MD Unavailable [phone] Chris Bates MD Unavailable Eduardo Velasco DO Unavailable [phone] Allergies Active Allergy Reactions Criticality Noted Date [...] for cough 60 tablet 5 Active lancets (MadeiraMadeiraTouch Delica Plus Lancet) 30 gauge miscIndications:C ontrolled type 2 diabetes mellitus with microalbuminuria, with long-term current use of insulin ([facility]),Type 2 diabetes mellitus with stage 3b chronic kidney disease, with long-term current use of insulin ([facility]) USE TO CHECK BLOOD GLUCOSE LEVEL TWICE DAILY E11.2 200 each 3 Active blood glucose diagnostic (MadeiraMadeiraTouch Ultra Test) strip USE TO MONITOR GLUCOSE [...] :Microalbuminuria due to type 2 diabetes mellitus ([facility]) USE TO INJECT INSULIN ONCE DAILY. DX: E11.9 100 each 4 Active cyanocobalamin (Vitamin B-12) 1,000 mcg tabletIndications :Lecah's esophagus with dysplasia Take 1 tablet (1,000 mcg total) by mouth daily 90 tablet 3 Active fluticasone propionate (FLONASE) 50 mcg/actuation nasal sprayIndications: Chronic rhinitis Administer 2 sprays into each nostril daily 16 mL 5 Active furosemide (LASIX) 20 mg tabletIndications :Chronic diastolic CHF (congestive heart failure) ([facility]),Hypertensio n complicating diabetes ([facility]) Take 1 tablet (20 mg total) by mouth 2 (two) times a day 180 tablet 2 Active insulin degludec (TRESIBA) 100 unit/mL (3 mL) pen for injectionIndicati ons:Type 2 diabetes mellitus with stage 3b chronic kidney disease, with long-term current use of insulin ([facility]) Inject 0.3-0.4 mL (30-40 Units total) under the skin daily before breakfast 45 mL 2 2025 Active labetaloL (NORMODYNE,TRANDA TE) 100 mg tabletIndications :Type 2 diabetes mellitus with stage 3b chronic kidney disease, with long-term current use of insulin ([facility]),Chronic diastolic CHF (congestive heart failure) ([facility]) Take 1 tablet (100 mg [...] disease, with long-term current use of insulin ([facility]),Microalbumi harshad due to type 2 diabetes mellitus ([facility]),Chronic diastolic CHF (congestive heart failure) ([facility]),Multiple-ty pe hyperlipidemia Take 1 tablet (10 mg total) by mouth daily 90 tablet 2 025 Active spironolactone (ALDACTONE) 25 mg tabletIndications :Chronic diastolic CHF (congestive heart failure) ([facility]),Hypertensio n complicating diabetes ([facility]) Take 1 tablet (25 mg [...] DM with CKD stage 3 and hypertension ([facility]) Take 1 tablet by mouth [...] microalbuminuria, with long-term current use of insulin ([facility]) USE TO INJECT INSULIN ONCE DAILY. DX: E11.9 100 each 4 024 2024 Discontinued(R eorder) apixaban (Eliquis) 5 mg tabletIndications :Paroxysmal atrial fibrillation ([facility]) Take 0.5-1 tablets (2.5-5 mg total) by mouth 2 (two) times a day 90 tablet 2 2024 Discontinued(R eorder) dilTIAZem XR 240 mg 24 hr capsuleIndication s:Paroxysmal atrial fibrillation ([facility]) Take 1 capsule (240 mg total) by [...] tabletIndications :Chronic diastolic CHF (congestive heart failure) ([facility]),Hypertensio n complicating diabetes ([facility]) Take 1 tablet (20 mg total) by mouth 2 (two) times a day 180 tablet 2 2024 Discontinued(R eorder) insulin degludec (TRESIBA) 100 unit/mL (3 mL) pen for injectionIndicati ons:Controlled type 2 diabetes mellitus with microalbuminuria, with long-term current use of insulin ([facility]),Type 2 diabetes mellitus with stage 3b chronic kidney disease, with long-term current use of insulin ([facility]) Inject 0.3-0.4 mL (30-40 Units total) under the skin daily before breakfast 45 mL 3 024 2024 Discontinued(R eorder) labetaloL (NORMODYNE,TRANDA TE) 100 mg tabletIndications :Controlled type 2 diabetes mellitus with microalbuminuria, with long-term current use of insulin ([facility]),Type 2 diabetes mellitus with stage 3b chronic kidney disease, with long-term current use of insulin ([facility]),Chronic diastolic CHF (congestive heart failure) ([facility]) Take 1 tablet (100 mg [...] microalbuminuria, with long-term current use of insulin ([facility]),Multiple-ty pe hyperlipidemia Take 1 tablet (10 mg total) by mouth daily 90 tablet 2 024 2024 Discontinued(R eorder) spironolactone (ALDACTONE) 25 mg tabletIndications :Chronic diastolic CHF (congestive heart failure) ([facility]),Hypertensio n complicating diabetes ([facility]) Take 1 tablet (25 mg [...] Assessment & Plan (02/05/2024 8:59 AM SPECIAL SKILLS OFFICER): Continue Wixela 250/50 twice daily She is [...] Assessment & Plan (04/29/2023 2:40 PM SPECIAL SKILLS OFFICER): She has currently not on maintenance therapy [...] Assessment & Plan (01/28/2023 9:24 PM SPECIAL SKILLS OFFICER): 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 Tenderness and marked weakness as noted above. No acute findings on exam. Will REFER to PT for further assessment. Continue Tylenol/tramadol as needed for pain. Heat/ice as tolerated. Influenza vaccine administered 01/22/2023 Assessment & Plan (01/28/2023 9:24 PM SPECIAL SKILLS OFFICER): 23-24 influenza vaccine administered in office today. [...] on examination Patient has appointment today with hospice fellow - keep appointment Follow up with Dr. Baez in January or sooner if necessary Closed displaced oblique fracture of shaft of ri ght humerus 11/05/2021 Incisional hernia, without obstruction or gangre ne 10/18/2021 Overview (10/18/2021): Added automatically from request for surgery [id number] SBO (small bowel obstruction) 10/12/2021 On continuous oral anticoagulation 08/13/2021 Lung mass 08/12/2021 Overview (06/22/2024): Consultation June 2024 Chirs Sanz,:e right lower lung mass did evolve [...] not yet performed === Repeat chest [facility] January 05, 2024 multiple pulmonary [...] Assessment & Plan (02/05/2024 8:56 AM SPECIAL SKILLS OFFICER): Radial EBUS guided biopsies of the original [...] however she would have to travel to [place] for this and she is hesitant. She is amenable to repeat bronchoscopy with biopsy here at [facility] or percutaneous biopsy done here as well. will discuss with the interventional radiologist We will arrange for her to hold Eliquis prior to the procedure when scheduled Assessment & Plan (04/29/2023 2:38 PM SPECIAL SKILLS OFFICER): The right lower lobe lung mass has [...] Assessment & Plan (01/28/2023 9:19 PM SPECIAL SKILLS OFFICER): BP stable in office today on current [...] therapy. No acute findings on exam. Worsening Ventilator Specialist on recent labs, will stop spironolactone. Monitor [...] Assessment & Plan (04/23/2021 12:26 PM SPECIAL SKILLS OFFICER): Patient presents today for [facility] She is overall doing well and without [...] findings on exam today. Due to worsening Ventilator Specialist, will stop spironolactone. Continue current regimen and [...] By: Dr Sy Sherman 2020-05-23 11:50:55 SPECIAL SKILLS OFFICER Lung function studies 07/16/2020 The study showed [...] clinical correlation is recommended. Autumn Rodrigues MD [phone] Chronic congestive heart failure 05/16/2020 Assessment & Plan (08/19/2022 7:09 PM CDT): Stable on current therapy. No acute findings on exam, BP stable. No edema, taking lasix and spironolactone as rxd. Continue current regimen and heart healthy diet. Keep follows with Dr. valera as scheduled. Umbilical hernia 09/05/2019 Assessment & Plan (02/20/2022 9:35 AM SPECIAL SKILLS OFFICER): Continue to avoid weight lifting for another [...] Assessment & Plan (01/28/2023 9:25 PM SPECIAL SKILLS OFFICER): Recent HbA1c was up to 7.3. No [...] disorder 01/29/2017 Leach's esophagus 08/06/2013 Overview (06/18/2017): Elach's esophagus with low grade dysplasia, EGD June [...] (08/19/2022 7:14 PM CDT): done 08/08/22 [address] [facility] by Dr. Julito Arroyo. Healing well. Still [...] OP Lab [address] [place] [address] Type 2 diabetes mellitus with microalbuminuria, with long-term current use of insulin (HCC); Multiple-type hyperlipidemia; Need for hepatitis B screening test; Hypertension complicating diabetes (HCC); Vitamin D deficiency 08/11/2024 8:30 AM CDT Office Visit [facility] [address] [place] [address] Angela Baez MD Annual physical exam (Primary [...] Vitamin D deficiency; Immunization counseling 07/27/2024 Telephone [facility] Medical [facility] [address] [place] [address] Angela Baez MD 07/20/2024 Telephone [facility] Pulmonary at [address] [place] [address] results 07/08/2024 Orders Only [facility] Information Management [address] [place] [id number] Scanning, Provider 07/08/2024 Ancillary Procedure [facility] 07/05/2024 Orders Only [facility] [address] [facility] [address] [place] [address] Angela Baez MD Chronic pain disorder 07/04/2024 Telephone [facility] [address] [facility] [address] [place] [address] Angela Baez MD 06/21/2024 10:45 AM CDT Office Visit [facility] Medical Group Pulmonary at [address] [place] [address] Chris Bates MD Moderate persistent asthma without [...] How often do you attend chur or yarsanism services? Never 08/20/2022 Do you belong to any clubs o r organizations such as anabaptism groups, unions, fraternal or athletic groups, or [...] place to sleep or slept in a retirement (including now)? No 08/20/2022 Personal Safety Answer Date Recorded Have you ever been in or are you currently in a harmful physical or emotional relationship or is someone making you feel afraid or unsafe? Denies 09/18/2023 Comments No Sex and Gender Information Value Date Recorded Sex Assigned at Not on file Legal Sex Female 10:52 AM SPECIAL SKILLS OFFICER Gender Identity Not on file Sexual Orientation [...] Completed 08/11/2024 Medical Devices Implanted Type Area Button Facing Machine Operator Device Identifier Shelf Expiration Date Model / Serial / Lot [employer]/C R Bard Ventralight St Sepra 6x4in Monofilament Absorbable Low Profile Latex Free [id number] - [id number] Implanted:Qty: 1 on 02/05/2022 by Jay Graham MD at [facility] N/A: Abdomen [employer] 07/17/2023 [id number] / / [id number] Procedures Procedure Name Priority Date/Time Associated Diagnosis [...] was last reviewed 2021. Testing performed by: [facility], [address] [place] [address]., [id number] Blood 08/11/2024 11:3 0 AM CDT 08/11/2024 8:11 PM CDT us Angela Baez MD LAB BLOOD ORDERABLES Final Result [address] Department [place] [address] * (ABNORMAL) Differential, auto (08/11/2024 11:30 AM CDT) Neutrophil abs 8.26(H) 1.50 - 6.50 K/cumm Comment:Testing performed by : [facility], [address] [place] [address]., [id number] Imm gran abs 0.07 0.00 - 0.10 K/cumm CERNER Comment:Testing performed by : [address] [address] Lymphocyte abs 1.48 0.80 - 3.30 K/cumm CERNER Comment:Testing performed by : [address] [address] Monocyte abs 0.78 0.20 - 0.80 K/cumm CERNER Comment:Testing performed by : [address] [address] Eosinophil abs 0.27 0.00 - 0.50 K/cumm CERNER Comment:Testing performed by : [address] [address] Basophil abs 0.04 0.00 - 0.10 K/cumm CERNER Comment:Testing performed by : [address] [address] Neutrophil pct 75.7 % CERNER Comment: Interpretive Data Percent cell count reference ranges are not reported, since discordance with absolute values may lead to misinterpretation of CBC data. Current Interpretive Data was last revised on 2017. Testing performed by: [facility], [address] [place] [address]., [address] Imm gran pct 0.6 % CERNER Comment: Interpretive Data Percent cell count reference ranges are not reported, since discordance with absolute values may lead to misinterpretation of CBC data. Current Interpretive Data was last revised on 2017. Testing performed by: [address] [address] Lymphocyte pct 13.6 % CERNER Comment: Interpretive Data Percent cell count reference ranges are not reported, since discordance with absolute values may lead to misinterpretation of CBC data. Current Interpretive Data was last revised on 2017. Testing performed by: [facility], [address] [place] [address]., [address] Monocyte pct 7.2 % CERNER Comment: Interpretive Data Percent cell count reference ranges are not reported, since discordance with absolute values may lead to misinterpretation of CBC data. Current Interpretive Data was last revised on 2017. Testing performed by: [facility], [address] [place] [address]., [address] Eosinophil pct 2.5 % [facility] Comment: Interpretive Data Percent cell count reference ranges are not reported, since discordance with absolute values may lead to misinterpretation of CBC data. Current Interpretive Data was last revised on 2017. Testing performed by: [address] [address] Basophil pct 0.4 % [facility] Comment: Interpretive Data Percent cell count reference ranges are not reported, since discordance with absolute values may lead to misinterpretation of CBC data. Current Interpretive Data was last revised on 2017. Testing performed by: [address] [address] Blood 08/11/2024 11:3 0 AM CDT 08/11/2024 6:03 PM CDT us Angela Baez MD LAB BLOOD ORDERABLES Final Result [facility] [address] Department [place] [address] * (ABNORMAL) CBC with auto differential (08/11/2024 11:30 AM CDT) WBC 10.90(H) 3.80 - 9.90 K/cumm Comment:Testing performed by : [address], [address] Hgb 10.8(L) 11.9 - 15.5 g/dL CERNER Comment:Testing performed by : [address], [address] Hct 38.4 35.6 - 45.5 % CERNER Comment:Testing performed by : [address], [address] Plt 324 150 - 400 K/cumm CERNER CH Comment:Testing performed by : [address], [address] MPV 10.0 9.1 - 12.3 fL CERNER CH Comment:Testing performed by : [address], [address] RBC 4.63 3.90 - 5.20 M/cumm CERNER CH Comment:Testing performed by : [address], [address] MCV 82.9 81.3 - 96.4 fL CERNER CH Comment:Testing performed by : [address], [address] MCH 23.3(L) 27.1 - 33.3 pg CERNER CH Comment:Testing performed by : [address], [address] MCHC 28.1(L) 32.3 - 35.7 g/dL CERNER CH Comment:Testing performed by : [address], [address] RDW CV 15.7(H) 11.1 - 14.9 % CERNER CH Comment:Testing performed by : [address], [address] RDW SD 46.8 35.7 - 48.1 fL CERNER CH Comment:Testing performed by : [address] [place]., [address] NRBC abs 0.00 0.00 - 0.01 K/cumm [facility] Comment:Testing performed by : [facility], [address] [place] [address]., [address] Blood 08/11/2024 11:3 0 AM CDT 08/11/2024 6:03 PM CDT Angela Baez MD LAB BLOOD ORDERABLES Final Result Performing Organization Address City/[facility]/ZIP Co de Phone Number [facility] [address] [address] Department [place] [address] * Albumin Creatinine Ratio, Urine (08/11/2024 11:30 AM CDT) Albumin Ur 24.6 mg/L Comment: Interpretive Data No reference range established. Current interpretive data was last revised 2018. Testing performed by: [facility], [address] [place] [address]., [address] Creatinine Ur 83.5 mg/dL [facility] Comment: Interpretive Data No reference range established. Current interpretive data was last revised 2018. Testing performed by: [facility], [address] [place] [address]., [address] Albumin Creatinine Ratio, Ur 29 1 - 29 mg/g [facility] Comment:Testing performed by : [facility], [address] [place] [address]., [address] Urine 08/11/2024 11:3 0 AM CDT 08/11/2024 6:03 PM CDT us Angela Baez MD LAB URINE ORDERABLES Final Result Performing Organization Address City/[facility]/ZIP Co de Phone Number [facility] [address] [facility] Department [employer] [place] [address] * Hepatitis B core antibody, total Blood (08/11/2024 11:30 AM CDT) Hep B core IgG/IgM Nonreactive Nonreactive Comment:Testing performed by : [facility], [address] [place]., [address] Blood 08/11/2024 11:3 0 AM CDT 08/12/2024 10:17 AM CDT us Angela Baez MD LAB MICROBIOLOGY - GENERAL ORDERABLES Final Result Performing Organization Address [facility]/ZIP Co de Phone Number [facility] [address] [facility] Department of [employer] [place] [address] * Vitamin D 25 hydroxy (08/11/2024 11:30 AM CDT) Vitamin D 25-OH 42 30 - 80 ng/mL Comment:Testing performed by : [address] [address] Blood 08/11/2024 11:3 0 AM CDT 08/11/2024 6:03 PM CDT us Angela Baez MD LAB BLOOD ORDERABLES Final Result Performing Organization Address [facility] Co de Phone Number [facility] [address] [facility] Department of [employer] [place] [address] * Hepatitis B surface antibody (immune status) Blood (08/11/2024 11:30 AM CDT) Pathologist [facility] HBsAb (immune status) Nonreactive Comment: Interpretive Data [...] last revised on 19. Testing performed by: [address] [address] Blood 08/11/2024 11:3 0 AM CDT 08/11/2024 6:03 PM CDT Result Bear Baez MD LAB MICROBIOLOGY - GENERAL ORDERABLES Final Result Performing Organization Address [facility] Co de Phone Number [facility] [address] [facility] Department of [employer] [place] [place] [address] * Hepatitis B Surface Antigen Blood (08/11/2024 11:30 AM CDT) Pathologist [facility] HepBsAg Nonreactive Nonreactive Comment:Testing performed by : [facility], [address] [place] [address], [address] Blood 08/11/2024 11:3 0 AM CDT 08/11/2024 6:03 PM CDT Angela Baez MD LAB MICROBIOLOGY - GENERAL ORDERABLES Final Result Performing Organization Address [facility] Co de Phone Number [facility] [address] [facility] Department [place] [address] * TSH (08/11/2024 11:30 AM CDT) Pathologist [facility] Thyroid Stimulating Hormone 2.14 0.30 - 4.20 mcIUnit/mL Comment:Testing performed by : [facility], [address] [place] [address], [address] Blood 08/11/2024 11:3 0 AM CDT 08/11/2024 6:03 PM CDT Angela Baez MD LAB BLOOD ORDERABLES Final Result Performing Organization Address City/[facility] Co de Phone Number [facility] [address] [facility] Department of [employer] [place] [address] * (ABNORMAL) Hemoglobin A1c (08/11/2024 11:30 AM CDT) Pathologist [facility] Hgb A1C 7.8(H) 4.0 - 5.6 % Comment:Testing performed by : [address] [address] Estimated Average Glucose 177 mg/dL [facility] Comment: The ADA recommends reporting an estimated Average Glucose (eAG) with all Hemoglobin A1c results using the equation derived from a study of 507 normal and diabetic adults. Minority populations were underrepresented and children were not included. (Diabetes Care 31:3996-3488, 2008). The eAG is not equivalent to a fasting glucose. Testing performed by: [facility], [address] [place] [address]., [address] Blood 08/11/2024 11:3 0 AM CDT 08/11/2024 6:03 PM CDT Angela Baez MD LAB BLOOD ORDERABLES Final Result [facility] [address] Department [place] [address] * Lipid panel (08/11/2024 11:30 [...] last revised on 2017. Testing performed by: [facility], [address] [place] [address]., [address] Triglycerides 102 <=149 mg/dL [facility] MORRIS Comment: [...] last revised on 2017. Testing performed by: [facility], [address] [place] [address], [place]., [address] HDL 48 >=40 mg/dL [facility] Comment: Interpretive [...] last revised on 2017. Testing performed by: [facility], [address] [place] [address]., [address] LDL, calculated 74 <=129 mg/dL [facility] Comment: [...] last revised on 2023. Testing performed by: [facility], [address] [place] [address], [place]., [address] Non-HDL Cholesterol 93 mg/dL [facility] Comment: Interpretive [...] last revised on 2017. Testing performed by: [address] [address] Chol/HDL ratio 3 C[facility] CH Comment:Testing performed by : [address] [address] Blood 08/11/2024 11:3 0 AM CDT 08/11/2024 6:03 PM CDT Angela Baez MD LAB BLOOD ORDERABLES Final Result [address] Department [place] [address] * (ABNORMAL) Comprehensive metabolic panel (08/11/2024 11:30 AM CDT) Sodium 137 135 - 145 mmol/L Comment:Testing performed by : [address] [address] Potassium, pl 4.8 3.3 - 4.9 mmol/L C[facility] CH Comment:Testing performed by : [address] [address] Chloride 100 97 - 110 mmol/L CERN[facility] CH Comment:Testing performed by : [address] [address] CO2 23 22 - 32 mmol/L [facility] CH Comment:Testing performed by : [address] [address] Anion gap 14 2 - 15 mmol/L [facility] CH Comment:Testing performed by : [address], [address] BUN 32(H) 6 - 25 mg/dL C[facility] CH Comment:Testing performed by : [address] [address] Creatinine 1.49(H) 0.60 - 1.10 mg/dL C[facility] CH Comment:Testing performed by : [address] [address] Glucose 157 70 - 199 mg/dL CERNER [...] was last revised 2022. Testing performed by: [address] [address] Calcium 10.0 8.5 - 10.3 mg/dL [facility] CH Comment:Testing performed by : [address], [address] Bilirubin, total 0.6 0.1 - 1.2 mg/dL [facility] CH Comment:Testing performed by : [address], [address] Protein, pl 8.1 6.5 - 8.5 g/dL [facility] CH Comment:Testing performed by : [address] [address] Albumin 4.4 3.5 - 5.0 g/dL [facility] CH Comment:Testing performed by : [address] [address] Alk phos 122 40 - 130 Units/L [facility] CH Comment:Testing performed by : [address], [address] ALT 9 7 - 45 Units/L [facility] CH Comment:Testing performed by : [address], [address] AST 19 10 - 45 Units/L [facility] CH Comment:Testing performed by : [address] [address] Blood 08/11/2024 11:3 0 AM CDT 08/11/2024 6:03 PM CDT Angela aBez MD LAB BLOOD ORDERABLES Final Result [facility] [address] [address] Department [place] [address] * CT Body Outside Reference (07/08/2024 12:00 AM CDT) Narrative [facility]_PACS[facility] - 07/18/2024 11:07 AM CDT This order has been auto-finalized and does not contain a result. us Not In File Miscellaneous IMG CT PROCEDURES Clemencia l Result Performing Organization Address City/[facility]/ZIP Co de Phone Number RAD_PACS_AMH * PULMONARY [...] F with given history of screening. 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 MF: BUD Report ID: [id number] Reading Location: [id number] Procedure Note Rodrigo Jimenez MD - 07/23/2021 EXAM DESCRIPTION: DEXA AXIAL SKELETON BONE DENSITY 1 OR MORE SITES REASON FOR STUDY: 80 y/o year old F with given history ofscreening. Postmenopausal Button Facing Machine Operator/Model: [employer] SL (S/N [id number]) CLINICAL INFORMATION: Current height: 61 inches Maximum [...] Rodrigo Jimenez M.D. MF: BUD Report ID: [id number] Reading Location: [place] [address] Angela Baez MD IM DXA PROCEDURES Final R esult from Last 3 Months or Most Recently Relevant to Health Maintenance Insurance COMMERCIAL GENERIC MEDICARE MEDICARE [facility]LY [facility] MEDICARE BLUE CROSS MEDICARE SUPPLEMENT MEDICARE [facility] MEDICARE SUPPLEMENT Member Subscriber Plan / Payer (Ef fective 2022-Present) Name:Chel Levine I Relation to Subscriber:Self Name:Chel Levine I Payer ID:[id number] Group ID:[id number] Type:COMMERCIAL Address: [address] [place] [id number] Advance Directives For more information, please contact: [phone] Documents on File Type Date Recorded Patient Plant Quality Manager Expl anation ADVANCE DIRECTIVE 08/27/2023 8:24 AM POLST - PHYS ORDER FOR PT PREFERENCES * Full Code (Latest Code Status on File) Date Activated Date Inactivated Comments 06/15/2017 9:33 AM 06/15/2017 2:00 PM Care Teams Spinner Cap Frame Relationship Specialty Start Date End Date Angela Baez MD PCP - General 06/20/16 Ced Holloway MD [address] [place] [address] Consulting Physician Gastroenterology 02/02/17 Yevgeniy Jenkins MD [address] [place] [address] Consulting Physician Ophthalmology 02/02/17 Jay Graham MD [address] [place] [address] Consulting Physician General Surgery 09/05/19 Lito Arroyo MD [address] [place] [address] Referring Physician Orthopedic Surgery 02/06/22 Chris Bates MD [address] [place] [address] [address] [place] [address] Consulting Physician Pulmonary Disease 07/22/22 Eduardo Velasco DO [address] [facility] [address] [place] [address] Referring Physician Internal Medicine 08/11/24
--- OUTSIDE RECORDS SUMMARY | 2024-08-22 14:41 | XMS_ITS | Continuity of Care Document ---
Author Organization [facility] [place] [address] [facility] [address] [place] [address] Phone Care Team Providers Care Letterer Name Role Phone Scott SINHA, Jaymie Unavailable [...] Diagnoses Date Provider Providers Copied on Encounter [facility], [address] [place] [address] [address], [place], [place], [address], tel:[phone] [place] Profession[place] l Complete Exam (chief complaint) Dry eye syndrome of bilateral lacrimal glandsType 2 diabetes mellitus without complication s 4 Scott OD Jaymie. [address] [place] [address] [address], [address], [place], [place], [address], [place]. tel:[phone] Referring Provider: Angela Singer MD, [address] [place], [address]. tel:[phone] Office/outpa tient Visit, [facility], [address] [place] [address] [address], [place], [place], [address], [place] tel:[phone] [place] Glasses Check (chief complaint) Dry eye syndrome of bilateral lacrimal glandsInterm ittent esotropia 4 Scott OD Jaymie. [address] [place] [address] [address], [address], [place], [place], [address], [place]. tel:[phone] Referring Provider: Angela Singer MD, [address], [place], [address]. tel:[phone] Office/outpa tient Visit, [facility], [address] [place] [address] [address], [place], [place], [address], [place] tel:[phone] [place] Follow up visit (chief complaint) DiplopiaCN III palsy, right 3 Gregory Vuong. [address] [facility], [address], [place], [place], [address], [place]. tel:[phone] Referring Provider: Angela Singer MD, [address] [place], [address]. tel:[phone] Office/outpa tient Visit, [facility], [address] [place], [place], [place], [address], [place] tel:[phone] [place] Follow up visit (chief complaint) DiplopiaOcul ar trauma, right eye, sequela 2 Gregory Vuong. [address] [facility], [facility] [place], [address], [place]. tel:[phone] Referring Provider: Angela Singer MD, [address] [place], [address]. tel:[phone] Office/outpa tient Visit, [facility], [address] [facility], [place], [facility] [address], [place], [place], [address], [place] tel:[phone] [place] Prof[place] fuzzy vision (chief complaint) Ocular trauma of right eye, initial encounterCN III palsy, rightRight abducens nerve palsyH/O Dietz's palsyDry eye syndrome of left eyePseudopha ben of both eyesDiplopia Nov- 2 Gregory Vuong. [address] [facility], [facility] A, [place], [place], [address], [place]. tel:[phone] Referring Provider: Angela Singer MD, [address], [place], [address]. tel:[phone] [facility], [address], [place], [place], [address], [place] tel:[phone] [place] 1 mo CE PO (07/24/21) (chief complaint) Post op visit 2 Valerio OD Alie. [address], [address], [place], [place], [address], [place]. tel:[phone] Referring Provider: Angela Singer MD, [address] [place], [address]. tel:[phone] [facility], [address] [place] [address] [address], [place], [place], [address], tel:[phone] [place] 1 wk CE PO (07/24/21) (chief complaint) Post op visit 2 Valerio OD Alie[address] [place] [address] [employer], [address], [place], [place], [address], [place]. tel:[phone] Referring Provider: Angela Singer MD, [address] [place], [address]. tel:[phone] [facility], [address] [place] [address] [address], [place], [place], [address], tel:[phone] [place] 1 day CE PO (chief complaint) Post op visit 2 Valerio OD Alie. [address] [place], [place] [address], [address], [place], [place], [address], [place]. tel:[phone] Referring Provider: Angela Singer MD, [address] [place], [address]. tel:[phone] [facility], [address] [place] [address] [address], [place], [place], [address], [place] tel:[phone] [place] [facility] No Information 2 Gregory Vuong. [address] [facility], [address], [place], [place], [address], [place]. tel:[phone] Referring Provider: Angela Singer MD, [address] [place], [address]. tel:[phone] [facility], [address] [place] [address] [address], [place], [place], [address], [place] tel:[phone] [place] No Information 2 Gregory Vuong. [address], [address], [place], [place], [address], [place]. tel:[phone] Referring Provider: Angela Singer MD, [address] [place], [address]. tel:[phone] [facility], [address] [place], [place], [place], [address], [place] tel:[phone] [place] 2 week s/p PCIOL (chief complaint) Encounter for examination following surgery 2 Gregory Vuong. [address] [facility], [address], [place], [place], [address], [place]. tel:[phone] Referring Provider: Angeal Singer MD, [address] [place], [address]. tel:[phone] [facility], [address] [place], [place], [place], [address], [place] tel:[phone] [place] 1 day CE PO (chief complaint) Post op visit 2 Gregory Vuong. [address] [facility], [address], [place], [place], [address], [place]. tel:[phone] Referring Provider: Angela Singer MD, [address] [place], [address]. tel:[phone] [facility], [address] [place], [place], [place], [address], [place] tel:[phone] [place] [address] Surgery Center No Information 2 Gregory Vuong. [address] [facility], [address], [place], [place], [address], [place]. tel:[phone] Referring Provider: Angela Singer MD, [address] [place], [address]. tel:[phone] [facility], [address] [place] [address], [place], [place], [address], [place] tel:[phone] [place] No Information 2 Gregory Vuong. [address] [employer] [employer], [address] [place], [address], [place]. tel:[phone] Referring Provider: Angela Singer MD, [address] [place], [address]. tel:[phone] Office/outpa tient Visit, [facility], [address] [place] [address] [address], [place], [place], [address], [place] [phone] [place] 6 month Cataract check (chief complaint) Age-related nuclear cataract of both eyesType 2 diabetes mellitus without complication sHistory of Dietz's palsy 1 Gregory Vuong. [address] [employer], [facility] [place], [place], [address], [place]. tel:[phone] Referring Provider: Angela Singer MD, [address] [place], [address]. tel:[phone] [facility], [address] [place] [address] [address], [place], [place], [address], [place] tel:[phone] [place] Complete Exam (chief complaint) Age-related nuclear cataract of both eyesType 2 diabetes mellitus without complication s 1 Gregory Vuong. [address] [employer], [address] [place], [address], [place]. tel:[phone] Referring Provider: Angela Singer MD, [address] [place], [address]. tel:[phone] [facility], [address] [place] [address] [address], [place], [place], [address], [place] tel:[phone] [place] Complete Exam (chief complaint) Age-related nuclear cataract of both eyesType 2 diabetes mellitus without complication s 0 Gregory Vuong. [address] [employer], [address], [place], [place], [address], [place]. tel:[phone] Referring Provider: Angela Singer MD, [address], [place], [address]. tel:[phone] [facility], [address] [place] [address], [place], [place], [address], [place] [phone] [place] No Information 0 Gregory Vuong. [address] [employer], [address] [place], [address], [place]. tel:[phone] [facility], [address], [place], [place], [address], [place] tel:[phone] [place] Profession[place] l Cataract evaluation (chief complaint) Age-related nuclear cataract of both eyesType 2 diabetes mellitus without complication s 9 Gregory Vuong. [address] [employer], [address] [place], [address], [place]. tel:[phone] Referring Provider: Angela Singer MD, [address], [place], [address]. tel:[phone] [facility], [address] [place], [place], [place], [address], [place] [phone] SEC [place] Professiona l No Information 9 Gregory Vuong. [address] [employer], [address] [place], [address], [place]. tel:[phone] [facility], [address] [place], [place], [place], [address], [place] tel:[phone] [place] diabetic eye exam (chief complaint) Age-related nuclear cataract, bilateralTyp e 2 diabetes mellitus without complication s 8-201 8 Gregory Vuong. [address] [employer], [address], [place], [place], [address], [place]. tel:[phone] Referring Provider: Angela Singer MD, [address], [place], [address]. tel:[phone] [facility], [address] [place] [address], [place], [place], [address], [place] tel:[phone] [place] Complete Exam (chief complaint) No Information May-1 0-201 7 Gregory Vuong. [address] [facility], [address], [place], [place], [address], [place]. tel:[phone] Referring Provider: Angela Singer MD, [address], [place], [address]. tel:[phone] Office/outpa tient Visit, [facility], [address] [place] [address], [place], [place], [address], [place] tel:[phone] [place] Cataract evaluation (chief complaint) No Information Nov-0 9-201 6 Gregory Vuong. [address] [facility], [address], [place], [place], [address], [place]. tel:[phone] Referring Provider: Angela Singer MD, [address], [place], [address]. tel:[phone] [facility], [address] [place] [address], [place], [place], [address], [place] tel:[phone] [place] Profession[place] l Difficulty reading (chief complaint) No Information July-2 5-201 6 Gregory Vuong. [address] [facility], [address], [place], [place], [address], [place]. tel:[phone] Referring Provider: Angela Singer MD, [address], [place], [address]. tel:[phone] [facility], [address] [place] [address], [place], [place], [address], [place] tel:[phone] [place] Lagophthalmo s check RUL (chief complaint) No Information 6 Gregory Vuong. [address], [address] [place], [address], [place]. tel:[phone] Referring Provider: Angela Singer MD, [address] [place], [address]. tel:[phone] Office/outpa tient Visit, [facility], [address] [place] [address] [address], [place], [place], [address], [place] tel:[phone] [place] 3 week follow for Lagophthalmo s (chief complaint) No Information 5 Gregory Vuong. [address] [facility], [address] [place], [address], [place]. tel:[phone] Referring Provider: Angela Singer MD, [address] [place], [address]. tel:[phone] Office/outpa tient Visit, [facility], [address] [place] [address] [address], [place], [place], [address], [place] tel:[phone] [place] Blurry vision (chief complaint) No Information 5 Gregory Vuong. [address] [facility] [address], [address] [place], [place], [address], [place]. tel:[phone] Referring Provider: Angela Singer MD, [address] [place], [address]. tel:[phone] Office/outpa tient Visit, [facility], [address] [place] [address] [address], [place], [place], [address], [place] tel:[phone] [place] follow up (chief complaint) No Information 3 0 5 Gregory Vuong. [address], [address] [place], [place], [address], [place]. tel:[phone] Referring Provider: Angela Singer MD, [address], [place], [address]. tel:[phone] Office/outpa tient Visit, [facility], [address] [place] [address] [address], [place], [place], [address], [place] tel:[phone] [place] blurry vision (chief complaint) No Information Oct-2 3-201 5 Gregory Vuong. [address], [place], [place], [address], [place]. tel:[phone] Referring Provider: Angela Singer MD, [address] [place], [address]. tel:[phone] Office/outpa tient Visit, [facility], [address] [place] [address] [address], [place], [place], [address], [place] tel:[phone] [place] Cranial Nerve VII Palsy F/U (chief complaint) No Information Oct-2 0-201 5 Gregory Vuong. [address], [place], [place], [address], [place]. tel:[phone] Referring Provider: Angela Singer MD, [address] [place], [address]. tel:[phone] Office/outpa tient Visit, [facility], [address] [place] [address] [address], [place], [place], [address], [place] tel:[phone] [place] work in emergency (chief complaint) No Information Oct-1 6-201 5 Gregory Vuong. [address], [place], [place], [address], [place]. tel:[phone] Referring Provider: Angela Singer MD, [address], [place], [address]. tel:[phone] [facility], [address] [place] [address] [address], [place], [place], [address], [place] tel:[phone] [facility] Professiona l No Information 2 Sandra Joya. [address] [facility], [address], [place], [place], [address], [place]. tel:[phone] Referring Provider: Angela Singer MD, [address], [place], [address]. tel:[phone] Family History Family Member Type Diagnosis Age At Onset Problem (finding) Family history of Cance r Payers Payer name Insurance type Covered constitution party ID Authoriza tion(s) [place] [id number] [facility] [id number] Social History Type Description Quantity Date Captured [...] Type II diabetic. Patient has hx of [place] Palsy and ocular trauma OD. Patient states [...] and left eye. Hx of CAT OU, EG0Tlcxs OD, and Lagophthalmos OD. Pt is IDDM [...] office on 01/05/[address] Singer for [place] Palsy and Lagophthalmos OD. 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 Patient has [place] Palsy on right side. Patient is unable [...] ed to Age-related nuclear cataract, bilateral Impression/Plan Follow up - Return t o clinic in 1 year for complete exam Impression/Plan - Di abetes Type II:- Patient [...] in 1 year or sooner with problems. Mild nonproliferativ e diabetic retinopathy of left [...] edema associated with type 2 diabetes mellitus Follow up - Return t o clinic in 6 months for complete exam Impression/Plan - 7t h [...] or sooner with problems. Follow up - Follow u p in [...] up in 6 months with cataract check. 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 Recommend patient continue to patch OD while she is sleeping to ensure complete closure. Patient will continue the AFT víctor QHS OD and AFT as needed throughout the day. Recommend patient return in 3 months for complete with BCVA and BAT. Follow up - 6-8 week s Lagophthalmos [...] OD. RTC in 2 weeks for f/u. Follow up - RTC in 1 week for f/ u Impression/Plan - Vi mirlande decreased due to [...] 1 week for f/u. Follow up - Return i n 3 [...]
--- OUTSIDE RECORDS SUMMARY | 2024-08-22 14:41 | XMS_ITS | Encounter Summary ---
Author Organization [facility] Address [address] [email or web address] [address] Phone Care Team Providers Care Stacker Name Role Phone Angela Singer MD Primary Care Provider [phone] Antonio Grady Unavailable Unavail able Ced Holloway MD Unavailable + Yevgeniy Jenkins MD Unavailable [phone] Colton Graham MD Unavailable Sy Sherman MD Unavailable [phone] Stephanie Gardner LPN Unavailable Lito Arroyo MD Unavailable Omaira Rob MD Unavailable [phone] Chris Bates MD Unavailable Winnie Hogan MA Unavailable Zuleyka Keene LCSW Unavailable [phone] Eduardo Velasco DO Unavailable [phone] Eduardo Velasco DO Unavailable [phone] Encounter Details Date Type Department Care Team (Late st Contact Info) Description 10/10/2021 Orders Only [facility] [address] [email or web address] [address] Angela Singer MD [address] [place] [address] Social History Tobacco Use Types Packs/Day Years [...] on file 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 Gender Identity Not on file Sexual Orientation [...] on filedocumented in this encounter Care Teams Stacker Relationship Specialty Start Date End Date Angela Singer MD PCP - General 06/20/16 Antonio Grady Gastroenterology 02/02/17 08/10/24 Ced Holloway MD [address] [facility] [address] [facility] [address] [place] [address] Consulting Physician Gastroenterology 02/02/17 Yevgeniy Jenkins MD [address] [facility] [address] [place] [address] Consulting Physician Ophthalmology 02/02/17 Colton Graham MD [address] [facility] [address] [place] [address] Consulting Physician General Surgery 09/05/19 Sy Sherman MD [address] [place] [address] Consulting Physician Cardiovascular Disease 01/22/20 Stephanie Gardner LPN [address] [place] [address] [address] [place] [address] [employer] Care Pastry Assistant 11/12/21 11/21/21 Lito Arrooy MD [address] [place] [address] [address] [place] [address] Referring Physician Orthopedic Surgery 02/06/22 Omaira Rob MD [address] [place] [address] [address] [place] [address] Consulting Physician Cardiology 07/22/22 08/10/24 Chris Bates MD [address] [place] [address] [address] [place] [address] Consulting Physician Pulmonary Disease 07/22/22 Winnie Hogan MA [address] [place] [address] [address] [place] [address] ACO Care Pastry Assistant 08/13/22 08/13/22 Zuleyka Keene, [address] [place] [address] Refrigeration Mechanic Tool Marker 08/19/22 09/03/22 Eduardo Velasco DO [address] [place] [address] Referring Physician Internal Medicine 08/11/24 Eduardo Velasco DO [address] [facility] [address] [place] [address] Referring Physician Cardiology 08/11/24 08/11/24 documented as of this encounter
--- OUTSIDE RECORDS SUMMARY | 2024-08-22 14:41 | XMS_ITS | Encounter Summary ---
[facility] Address [address] [place] [address] Phone Care Team Providers Care Dock Superintendent Name Role Phone Angela Singer MD Primary Care Provider Antonio Grady Unavailable Unavail able Ced Holloway MD Unavailable + Yevgeniy Jenkins MD Unavailable [phone] Antonio Bravo OD Unavailable [phone] Colton Graham MD Unavailable Sy Sherman MD Unavailable [phone] Minna Dos Santos MA Unavailable [phone] Stephanie Gardner LPN Unavailable Lito Arroyo MD Unavailable Omaira Rob MD Unavailable [phone] Chris Bates MD Unavailable Winnie Hogan MA Unavailable Zuleyka KeeneW Unavailable [phone] Eduardo Velasco DO Unavailable [phone] Eduardo Velasco DO Unavailable [phone] Encounter Details Date Type Department Care Team (Late st Contact Info) Description 11/04/2016 Orders Only [facility] [address] [place] [address] Angela Singer MD [address] [place] [address] Diabetes mellitus without complication (HCC) (Primary Dx) Social History Tobacco Use Types Packs/Day Years Used Date Smoking Tobacco: Never Alcohol Use Standard Drinks/Week Comments No 0 (1 standard drink = 0.6 oz pur e alcohol) Comments Unknown Sex and Gender Information Value Date Recorded Sex Assigned at Not on file 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 Gender Identity Not on file Sexual Orientation [...] Site ID: MARTIN Name: Amado Junior Address: [address] [facility] [place] [address] Director: Bird Donald D.O., MPH us Angela Singer MD LAB URINE ORDERABLES Final Result Performing Organization Address [facility] de Phone Number MARTIN Lucero * Creatinine, urine, random (11/14/2016 11:35 AM CDT) Creatinine, ur 123 20 - 320 mg/dL AMADO SALAZAR 11/14/2016 11:3 5 AM CDT 11/14/2016 11:35 AM CDT Narrative AMADO - 11/15/2016 12:05 PM CDT FASTING:YES Resulting Agency Comment Performing Organization Information: Site ID: MARTIN Name: Amado Junior Address: [address] [place], [place] [address]ner [facility] [place] [address] Director: Bird Donald D.O., MPH us Angela Singer MD LAB URINE ORDERABLES Final Result Performing Organization Address [facility] de Phone Number MARTIN Lucero * [...] Site ID: MARTIN Name: Amado Junior Address: [address] [address] Director: Bird Donald D.O., MPH Angela Singer MD LAB BLOOD ORDERABLES Final Result [facility] [place] * (ABNORMAL) Comprehensive metabolic panel (11/14/2016 11:34 AM CDT) Glucose 110(H) 65 - 99 mg/dL [facility] [place] Comment: Fasting reference interval For someone without known diabetes, a glucose value between 100 and 125 mg/dL is consistent with prediabetes and should be confirmed with a follow-up test. BUN 22 7 - 25 mg/dL [facility] [place] Creatinine 0.94(H) 0.60 - 0.93 mg/dL [facility] [place] Comment: For patients >49 years of age, the reference limit for Creatinine is approximately 13% higher for people identified as -Turkmen. eGFR NON-AFR. TAJIK 58(L) > OR = 60 mL/min/1. 73m2 [...] Bilirubin, total 0.5 0.2 - 1.2 mg/dL [facility] [place] Alk phos 67 33 - 130 U/L [facility] [place] AST 18 10 - 35 U/L [facility] [place] ALT (SGPT) 14 6 - 29 U/L [facility] Blood specimen (specimen) 11/14/2016 11:34 AM CDT 11/14/2016 11:34 AM CDT Narrative [facility] - 11/15/2016 4:03 AM CDT FASTING:YES Resulting Agency Comment Performing Organization Information: Site ID: MARTIN Name: Amado Junior Address: [address] [facility] [place] [address] Director: Bird Donald D.O., MPH us Angela Singer MD LAB BLOOD ORDERABLES Final Result [facility] MARTIN Gipson * (ABNORMAL) Hemoglobin A1c (11/14/2016 11:34 AM CDT) Hgb A1C 5.9(H) <5.7 % of total Hgb [facility] Comment: For someone without known diabetes, a [...] Site ID: MARTIN Name: Amado Junior Address: [address] [place] [address] Director: Bird Donald D.O. MPH us Angela Singer MD LAB BLOOD ORDERABLES Final Result [facility] documented in this encounter Visit Diagnoses Diagnosis Diabetes mellitus without complication (HCC)- Primary Type II or unspecified type diabetes mellitus without mention of complication, not stated as uncontrolled documented in this encounter Care Teams Dock Superintendent Relationship Specialty Start Date End Date Angela Singer MD PCP - General 06/20/16 Antonio Grady Gastroenterology 02/02/17 08/10/24 Ced Holloway MD [address] [place] [address] [address] [facility] [address] [place] [address] Consulting Physician Gastroenterology 02/02/17 Yevgeniy Jenkins MD [address] [place] [address] [address] [facility] [address] [place] [address] Consulting Physician Ophthalmology 02/02/17 Antonio Bravo OD [address] [facility] [address] [facility] [address] [place] [address] Ophthalmology 02/02/17 02/02/17 Colton Graham MD [address] [place] [address] [address] [facility] [address] [place] [address] Consulting Physician General Surgery 09/05/19 Sy Sherman MD [address] [facility] [address] [place] [address] Consulting Physician Cardiovascular Disease 01/22/20 Minna Dos Santos MA [address] [place] [address] [address] [place] [address] [employer] Care Digital Content Producer 05/05/20 05/05/20 Stephanie Gardner, REED [address] [place] [address] [address] [place] [address] A[employer] Care Digital Content Producer 11/12/21 11/21/21 Lito Arroyo MD [address] [place] [address] [address] [place] [address] Referring Physician Orthopedic Surgery 02/06/22 Omaira Rob MD [address] [place] [address] [address] [place] [address] Consulting Physician Cardiology 07/22/22 08/10/24 Chris Bates MD [address] [place] [address] [address] [place] [address] Consulting Physician Pulmonary Disease 07/22/22 Winnie Hogan MA [address] [place] [address] [address] [place] [address] ACO Care Digital Content Producer 08/13/22 08/13/22 Zuleyka Keene, [address] [place] [address] Seed Cleaning Manager Bearing Grinder 08/19/22 09/03/22 Eduardo Velasco DO [address] [address] Referring Physician Internal Medicine 08/11/24 Eduardo Velasco DO [address] [address] Referring Physician Cardiology 08/11/24 08/11/24 documented as of this encounter
--- OUTSIDE RECORDS SUMMARY | 2024-08-22 14:41 | XMS_ITS | Clinical Summary ---
Author Organization [email or web address] Address [address] [facility] [place] [address] Care Team Providers Care Bird Keeper Name Role Phone Unavailable Primary Care Provider Unavailabl e Source Comments [email or web address],non-owned Affiliates and Associated Physician Practices is amultiple site organization consisting of ambulatory clinics and hospital sitesin [place], [place], [place] and [place]. This disclosure is being madepursuant to the Care Everywhere program and may not contain all information available regarding this patient. Last updated 17.[email or web address] Allergies Active Allergy Reactions Criticality Noted Date [...] fluticasone propionate (Flonase) 50 MCG/ACT nasal spray [place] 2 sprays into each nostril once daily [...] mouth once daily 1 Active HYDROcodone-ac etaminophen ([place]) 5-325 MG tablet Take 1 (one) tablet [...]
--- OUTSIDE RECORDS SUMMARY | 2024-08-22 14:41 | XMS_ITS | Clinical Summary ---
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 NONAFRICAN >60 >=60 08/14/2015 7:43 AM CDT [facility] GFR, EST. >60 >=60 08/14/2015 7:43 AM CDT [facility] Comment: Creatinine Clearance is the preferred criteria for selecting drug dose adjustments in renally impaired patients. The GFR is provided as addtional pertinent clinical information. 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
--- OUTSIDE RECORDS SUMMARY | 2024-08-22 14:41 | XMS_ITS | Encounter Summary ---
Author Organization [facility] Address [address] [place] [address] Phone Care Team Providers Care Aircraft Delivery Checker Name Role Phone Angela Singer MD Primary Care Provider + [phone] Antonio Grady Unavailable Unavail able Ced Holloway MD Unavailable + Yevgeniy Jenkins MD Unavailable [phone] Colton Graham MD Unavailable Sy Sherman MD Unavailable [phone] Stephanie Gardner LPN Unavailable Lito Arroyo MD Unavailable Omaira Rob MD Unavailable [phone] Chris Bates MD Unavailable Winnie Hogan MA Unavailable Zuleyka Keene LCSW Unavailable [phone] Eduardo Velasco DO Unavailable [phone] Eduardo Velasco DO Unavailable [phone] Encounter Details Date Type Department Care Team (Late st Contact Info) Description 06/27/2021 Orders Only [facility] [address] [place] [address] Amanuel Singer MD [address] [place] [address] Social History Tobacco Use Types Packs/Day Years [...] on file Legal Sex 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 Gender Identity Not on file Sexual Orientation [...] on filedocumented in this encounter Care Teams Aircraft Delivery Checker Relationship Specialty Start Date End Date Angela Singer MD PCP - General 06/20/16 Antonio Grady Gastroenterology 02/02/17 08/10/24 Ced Holloway MD [address] [facility] [address] [facility] [address] [place] [address] Consulting Physician Gastroenterology 02/02/17 Yevgeniy Jenkins MD [address] [facility] [address] [place] [address] [place] [address] Consulting Physician Ophthalmology 02/02/17 Colton Graham MD [address] [facility] [address] [place] [address] [place] [address] Consulting Physician General Surgery 09/05/19 Sy Sherman MD [address] [place] [address] [place] [address] Consulting Physician Cardiovascular Disease 01/22/20 Stephanie Gardner, MATCHBOOK MAKER [address] [place] [address] [address] [place] [address] ACO Care Ride Operator 11/12/21 11/21/21 Lito Arroyo MD [address] [place] [address] [address] [place] [address] Referring Physician Orthopedic Surgery 02/06/22 Omaira Rob MD [address] [place] [address] [address] [place] [address] Consulting Physician Cardiology 07/22/22 08/10/24 Chris Bates MD [address] [place] [address] [address] [place] [address] Consulting Physician Pulmonary Disease 07/22/22 Winnie Hogan MA [address] [place] [address] [address] [place] [address] ACO Care Ride Operator 08/13/22 08/13/22 Zuleyka Keene, [address] [place] [address] Assistant Administrator Heating Element Winder 08/19/22 09/03/22 Eduardo Velasco DO [address] [place] [address] Referring Physician Internal Medicine 08/11/24 Eduardo Velasco DO [address] [facility] [address] [place] [address] Referring Physician Cardiology 08/11/24 08/11/24 documented as of this encounter
--- OUTSIDE RECORDS SUMMARY | 2024-08-22 14:41 | XMS_ITS | Referral Summary ---
Author Organization [facility] Address [address] [place] [address] Care Team Providers Care Secondary Set Up Man Name Role Phone Angela Baez MD Primary Care Provider [phone] Ced Holloway MD Unavailable + Yevgeniy Jenkins MD Unavailable [phone] Colton Graham MD Unavailable Lito Arroyo MD Unavailable [phone] Chris Bates MD Unavailable Eduardo Velasco DO Unavailable [phone] Encounters Date Type Department Care Team Description 08/11/2024 11:30 AM CDT Lab [facility] [address] [place] [address] Type 2 diabetes mellitus with microalbuminuria, with long-term current use of insulin (HCC); Multiple-type hyperlipidemia; Need for hepatitis B screening test; Hypertension complicating diabetes (HCC); Vitamin D deficiency 08/11/2024 8:30 AM CDT Office Visit [facility] [address] [place] [address] Angela Baez MD Annual physical [...] Vitamin D deficiency; Immunization counseling 07/27/2024 Telephone [facility] [address] [place] [address] Angela Baez MD 07/20/2024 Telephone [facility] Pulmonary at [address] [place] [address] results 07/08/2024 Orders Only [facility] Health Information Management [address] [place] [address] Scanning, Provider 07/08/2024 Ancillary Procedure [facility] Outside Films 07/05/2024 Orders Only [facility] [address] [facility] [address] [place] [address] Angela Baez MD Chronic pain disorder 07/04/2024 Telephone [facility] 1 [facility] [address] [place] [address] Angela Baez MD 06/21/2024 10:45 AM CDT Office Visit [facility] Pulmonary at [address] [place] [address] Chris Bates MD Moderate persistent asthma without complication (Primary Dx); Lung mass; Chronic diastolic CHF (congestive heart failure) ([facility]) from Last 3 Months Allergies [...] cough 60 tablet 5 024 Active lancets (Doutor RecomendaTouch Delica Plus Lancet) 30 gauge miscIndications:C ontrolled type 2 diabetes mellitus with microalbuminuria, with long-term current use of insulin ([facility]),Type 2 diabetes mellitus with stage 3b chronic kidney disease, with long-term current use of insulin ([facility]) USE TO CHECK BLOOD GLUCOSE LEVEL TWICE DAILY E11.2 200 each 3 024 Active blood glucose diagnostic (Doutor RecomendaTouch Ultra Test) strip USE TO MONITOR GLUCOSE [...] Active cyanocobalamin (Vitamin B-12) 1,000 mcg tabletIndications :Elach's esophagus with dysplasia Take 1 tablet (1,000 [...] disease, with long-term current use of insulin ([facility]) Inject 0.3-0.4 mL (30-40 Units total) under the skin daily before breakfast 45 mL 2 025 2025 Active labetaloL (NORMODYNE,TRANDA TE) 100 mg tabletIndications :Type 2 diabetes mellitus with stage 3b chronic kidney disease, with long-term current use of insulin ([facility]),Chronic diastolic CHF (congestive heart failure) ([facility]) Take 1 tablet (100 mg [...] disease, with long-term current use of insulin ([facility]),Microalbumi harshad due to type 2 diabetes mellitus ([facility]),Chronic diastolic CHF (congestive heart failure) ([facility]),Multiple-ty pe hyperlipidemia Take 1 tablet (10 mg total) by mouth daily 90 tablet 2 Active spironolactone (ALDACTONE) 25 mg tabletIndications :Chronic diastolic CHF (congestive heart failure) ([facility]),Hypertensio n complicating diabetes ([facility]) Take 1 tablet (25 mg [...] DM with CKD stage 3 and hypertension ([facility]) Take 1 tablet by mouth [...] tabletIndications :Chronic diastolic CHF (congestive heart failure) ([facility]),Hypertensio n complicating diabetes ([facility]) Take 1 tablet (20 mg total) by mouth 2 (two) times a day 180 tablet 2 024 2024 Discontinued(R eorder) insulin degludec (TRESIBA) 100 unit/mL (3 mL) pen for injectionIndicati ons:Controlled type 2 diabetes mellitus with microalbuminuria, with long-term current use of insulin ([facility]),Type 2 diabetes mellitus with stage 3b chronic kidney disease, with long-term current use of insulin ([facility]) Inject 0.3-0.4 mL (30-40 Units total) under the skin daily before breakfast 45 mL 3 024 2024 Discontinued(R eorder) labetaloL (NORMODYNE,TRANDA TE) 100 mg tabletIndications :Controlled type 2 diabetes mellitus with microalbuminuria, with long-term current use of insulin ([facility]),Type 2 diabetes mellitus with stage 3b chronic kidney disease, with long-term current use of insulin ([facility]),Chronic diastolic CHF (congestive heart failure) ([facility]) Take 1 tablet (100 mg [...] microalbuminuria, with long-term current use of insulin ([facility]),Multiple-ty pe hyperlipidemia Take 1 tablet (10 mg total) by mouth daily 90 tablet 2 024 2024 Discontinued(R eorder) spironolactone (ALDACTONE) 25 mg tabletIndications :Chronic diastolic CHF (congestive heart failure) ([facility]),Hypertensio n complicating diabetes ([facility]) Take 1 tablet (25 mg [...] 09/2023 Assessment & Plan (02/05/2024 8:59 AM SENIOR ENVIRONMENTAL PRACTICE LEADER): Continue Wixela 250/50 twice daily She is [...] use Assessment & Plan (04/29/2023 2:40 PM SENIOR ENVIRONMENTAL PRACTICE LEADER): She has currently not on maintenance therapy [...] 01/22/2023 Assessment & Plan (01/28/2023 9:24 PM SENIOR ENVIRONMENTAL PRACTICE LEADER): 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 Tenderness and marked weakness as noted above. No acute findings on exam. Will REFER to PT for further assessment. Continue Tylenol/tramadol as needed for pain. Heat/ice as tolerated. Influenza vaccine administered 01/22/2023 Assessment & Plan (01/28/2023 9:24 PM SENIOR ENVIRONMENTAL PRACTICE LEADER): 23-24 influenza vaccine administered in office today. [...] on examination Patient has appointment today with accounting coordinator - keep appointment Follow up with Dr. Baez in January or sooner if necessary Closed displaced oblique fracture of shaft of ri ght humerus 11/05/2021 Incisional hernia, without obstruction or gangre ne 10/18/2021 Overview (10/18/2021): Added automatically from request for surgery [id number] SBO (small bowel obstruction) 10/12/2021 On continuous [...] not yet performed === Repeat chest [facility] January 05, 2024 multiple pulmonary nodules [...] 02/25/2023 Assessment & Plan (02/05/2024 8:56 AM SENIOR ENVIRONMENTAL PRACTICE LEADER): Radial EBUS guided biopsies of the original [...] however she would have to travel to [place] for this and she is hesitant. She is amenable to repeat bronchoscopy with biopsy here at [facility] or percutaneous biopsy done here as well. will discuss with the interventional radiologist We will arrange for her to hold Eliquis prior to the procedure when scheduled Assessment & Plan (04/29/2023 2:38 PM SENIOR ENVIRONMENTAL PRACTICE LEADER): The right lower lobe lung mass has [...] 07/16/2021 Assessment & Plan (01/28/2023 9:19 PM SENIOR ENVIRONMENTAL PRACTICE LEADER): BP stable in office today on current [...] therapy. No acute findings on exam. 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 Monitor [...] 04/23/2021 Assessment & Plan (04/23/2021 12:26 PM SENIOR ENVIRONMENTAL PRACTICE LEADER): Patient presents today for evaluation prior to [...] findings on exam today. Due to worsening Chicken Picker, will stop spironolactone. Continue current regimen and [...] Signed By: Dr Sy Sherman 2020-05-23 11:50:55 SENIOR ENVIRONMENTAL PRACTICE LEADER Lung function studies 07/16/2020 The study showed [...] clinical correlation is recommended. Autumn Rodrigues MD [phone] Chronic congestive heart failure 05/16/2020 Assessment & Plan (08/19/2022 7:09 PM CDT): Stable on current therapy. No acute findings on exam, BP stable. No edema, taking lasix and spironolactone as rxd. Continue current regimen and heart healthy diet. Keep follows with Dr. valera as scheduled. Umbilical hernia 09/05/2019 Assessment & Plan (02/20/2022 9:35 AM SENIOR ENVIRONMENTAL PRACTICE LEADER): Continue to avoid weight lifting for another [...] counseling Assessment & Plan (01/28/2023 9:25 PM SENIOR ENVIRONMENTAL PRACTICE LEADER): Recent HbA1c was up to 7.3. No [...] 7:14 PM CDT): done 08/08/[address] [facility] by Dr. Julito Arroyo. Healing [...] often do you attend chur ch or jain services? Never 08/20/2022 Do you belong to any clubs o r organizations such as restorationism groups, unions, fraternal or athletic groups, or [...] place to sleep or slept in a group home (including now)? No 08/20/2022 Personal Safety Answer Date Recorded Have you ever been in or are you currently in a harmful physical or emotional relationship or is someone making you feel afraid or unsafe? Denies 09/18/2023 Comments No Sex and Gender Information Value Date Recorded Sex Assigned at Not on file Legal Sex Female 10:52 AM SENIOR ENVIRONMENTAL PRACTICE LEADER Gender Identity Not on file Sexual Orientation [...] on file Medical Devices Implanted Type [facility] Device Identifier Shelf Expiration Date Model / Serial / Lot [employer]/C R Bard Ventralight St Sepra 6x4in Monofilament Absorbable Low Profile Latex Free [id number] - [id number] Implanted:Qty: 1 on 02/05/2022 by Colton Graham MD at [facility] N/A: Abdomen [employer] 07/17/2023 [id number] / / [id number] Procedures Procedure Name Priority Date/Time Associated Diagnosis [...] was last reviewed 2021. Testing performed by: [address] [address] Blood 08/11/2024 11:3 0 AM CDT 08/11/2024 8:11 PM CDT us Angela Baez MD LAB BLOOD ORDERABLES Final Result [address] Department [place] [address] * (ABNORMAL) Differential, auto (08/11/2024 11:30 AM CDT) Neutrophil abs 8.26(H) 1.50 - 6.50 K/cumm Comment:Testing performed by : [address] [address] Imm gran abs 0.07 0.00 - 0.10 K/cumm [place] Comment:Testing performed by : [address] [address] Lymphocyte abs 1.48 0.80 - 3.30 K/cumm G[place]O Comment:Testing performed by : [address] [address] Monocyte abs 0.78 0.20 - 0.80 K/cumm G[place]O Comment:Testing performed by : [facility], [address], [place]., [address] Eosinophil abs 0.27 0.00 - 0.50 K/cumm CERNER CH Comment:Testing performed by : [facility], [address] [place] [address]., [address] Basophil abs 0.04 0.00 - 0.10 K/cumm CERNER CH Comment:Testing performed by : [address] [address] Neutrophil pct 75.7 % CERNER CH Comment: Interpretive Data Percent cell count reference ranges are not reported, since discordance with absolute values may lead to misinterpretation of CBC data. Current Interpretive Data was last revised on 2017. Testing performed by: [address] [address] Imm gran pct 0.6 % CERNER CH Comment: Interpretive Data Percent cell count reference ranges are not reported, since discordance with absolute values may lead to misinterpretation of CBC data. Current Interpretive Data was last revised on 2017. Testing performed by: [address] [address] Lymphocyte pct 13.6 % CERNER CH Comment: Interpretive Data Percent cell count reference ranges are not reported, since discordance with absolute values may lead to misinterpretation of CBC data. Current Interpretive Data was last revised on 2017. Testing performed by: [address] [address] Monocyte pct 7.2 % CERNER CH Comment: Interpretive Data Percent cell count reference ranges are not reported, since discordance with absolute values may lead to misinterpretation of CBC data. Current Interpretive Data was last revised on 2017. Testing performed by: [address] [address] Eosinophil pct 2.5 % CERNER CH Comment: Interpretive Data Percent cell count reference ranges are not reported, since discordance with absolute values may lead to misinterpretation of CBC data. Current Interpretive Data was last revised on 2017. Testing performed by: [address] [address] Basophil pct 0.4 % CERNER CH Comment: Interpretive Data Percent cell count reference ranges are not reported, since discordance with absolute values may lead to misinterpretation of CBC data. Current Interpretive Data was last revised on 2017. Testing performed by: [address], [address] Blood 08/11/2024 11:3 0 AM CDT 08/11/2024 6:03 PM CDT Angela Baez MD LAB BLOOD ORDERABLES Final Result [address] Department [place] [address] * (ABNORMAL) CBC with auto differential (08/11/2024 11:30 AM CDT) WBC 10.90(H) 3.80 - 9.90 K/cumm Comment:Testing performed by : [address], [address] Hgb 10.8(L) 11.9 - 15.5 g/dL CERNER Comment:Testing performed by : [address], [address] Hct 38.4 35.6 - 45.5 % CERNER Comment:Testing performed by : [address], [address] Plt 324 150 - 400 K/cumm CERNER Comment:Testing performed by : [address], [address] MPV 10.0 9.1 - 12.3 fL CERNER CH Comment:Testing performed by : [address], [address] RBC 4.63 3.90 - 5.20 M/cumm CERNER CH Comment:Testing performed by : [address], [address] MCV 82.9 81.3 - 96.4 fL CERNER CH Comment:Testing performed by : [address], [address] MCH 23.3(L) 27.1 - 33.3 pg CERNER CH Comment:Testing performed by : [address], [address] MCHC 28.1(L) 32.3 - 35.7 g/dL GALLITO Comment:Testing performed by : [facility], [address] [place] [address]., [address] RDW CV 15.7(H) 11.1 - 14.9 % GALLITO Comment:Testing performed by : [facility], [address] [place] [address], [address] RDW SD 46.8 35.7 - 48.1 fL GALLITO Comment:Testing performed by : [facility], [address] [place] [address], [address] NRBC abs 0.00 0.00 - 0.01 K/cumm GALLITO Comment:Testing performed by : [address], [address] Blood 08/11/2024 11:3 0 AM CDT 08/11/2024 6:03 PM CDT us Angela Baez MD LAB BLOOD ORDERABLES Final Result [address] Department [place] [address] * Albumin Creatinine Ratio, Urine (08/11/2024 11:30 AM CDT) Albumin Ur 24.6 mg/L Comment: Interpretive Data No reference range established. Current interpretive data was last revised 2018. Testing performed by: [address], [address] Creatinine Ur 83.5 mg/dL GALLITO Comment: Interpretive Data No reference range established. Current interpretive data was last revised 2018. Testing performed by: [address], [address] Albumin Creatinine Ratio, Ur 29 1 - 29 mg/g G[place]O Comment:Testing performed by : [address] [address] Urine 08/11/2024 11:3 0 AM CDT 08/11/2024 6:03 PM CDT us Angela Baez MD LAB URINE ORDERABLES Final Result Performing Organization Address [facility] Co de Phone Number G[place]O [address] [place] [address] * Hepatitis B core antibody, total Blood (08/11/2024 11:30 AM CDT) Pathologist [facility] Hep B core IgG/IgM Nonreactive Nonreactive Comment:Testing performed by : [facility], [address] [place] [address], [address] Blood 08/11/2024 11:3 0 AM CDT 08/12/2024 10:17 AM CDT us Angela Baez MD LAB MICROBIOLOGY - GENERAL ORDERABLES Final Result Performing Organization Address [facility] Co de Phone Number [place] [address] [place] [address] * Vitamin D 25 hydroxy (08/11/2024 11:30 AM CDT) Pathologist [facility] Vitamin D 25-OH 42 30 - 80 ng/mL Comment:Testing performed by : [facility], [address] [place] [address], [address] Blood 08/11/2024 11:3 0 AM CDT 08/11/2024 6:03 PM CDT us Angela Baez MD LAB BLOOD ORDERABLES Final Result Performing Organization Address [facility] Co de Phone Number [place] [address] [place] [address] * Hepatitis B surface antibody (immune status) Blood (08/11/2024 11:30 AM CDT) Pathologist [facility] HBsAb (immune status) Nonreactive Comment: Interpretive Data [...] last revised on 19. Testing performed by: [facility], [address] [place] [address]., [address] Blood 08/11/2024 11:3 0 AM CDT 08/11/2024 6:03 PM CDT us Angela Baez MD LAB MICROBIOLOGY - GENERAL ORDERABLES Final Result Performing Organization Address [facility]/ZIP Co de Phone Number G[place]O [address] [place] [address] * Hepatitis B Surface Antigen Blood (08/11/2024 11:30 AM CDT) HepBsAg Nonreactive Nonreactive Comment:Testing performed by : [address] [address] Blood 08/11/2024 11:3 0 AM CDT 08/11/2024 6:03 PM CDT us Angela Baez MD LAB MICROBIOLOGY - GENERAL ORDERABLES Final Result Performing Organization Address [facility] Co de Phone Number G[place] [address] [facility] [place] [address] * TSH (08/11/2024 11:30 AM CDT) Thyroid Stimulating Hormone 2.14 0.30 - 4.20 mcIUnit/mL Comment:Testing performed by : [address] [address] Blood 08/11/2024 11:3 0 AM CDT 08/11/2024 6:03 PM CDT us Angela Baez MD LAB BLOOD ORDERABLES Final Result Performing Organization Address [facility] Co de Phone Number [facility] [address] [place] [address] * (ABNORMAL) Hemoglobin A1c (08/11/2024 11:30 AM CDT) Hgb A1C 7.8(H) 4.0 - 5.6 % Comment:Testing performed by : [address] [address] Estimated Average Glucose 177 mg/dL GALLITO Comment: The ADA recommends reporting an estimated Average Glucose (eAG) with all Hemoglobin A1c results using the equation derived from a study of 507 normal and diabetic adults. Minority populations were underrepresented and children were not included. (Diabetes Care 31:8303-8984, 2008). The eAG is not equivalent to a fasting glucose. Testing performed by: [facility], [address] [place] [address]., [address] Blood 08/11/2024 11:3 0 AM CDT 08/11/2024 6:03 PM CDT Angela Baez MD LAB BLOOD ORDERABLES Final Result G[facility] [address] Department [place] [address] * Lipid panel (08/11/2024 11:30 AM CDT) Pathologist [facility] Cholesterol 141 30 - 199 mg/dL Comment: [...] last revised on 2017. Testing performed by: [address] [address] Triglycerides 102 <=149 mg/dL GALLITO Comment: Interpretive [...] last revised on 2017. Testing performed by: [facility], [address] [place] [address]., [address] HDL 48 >=40 mg/dL GALLITO Comment: Interpretive [...] last revised on 2017. Testing performed by: [facility], [address] [place] [address]., [address] LDL, calculated 74 <=129 mg/dL GALLITO Comment: [...] last revised on 2023. Testing performed by: [address] [address] Non-HDL Cholesterol 93 mg/dL GALLITO Comment: Interpretive [...] last revised on 2017. Testing performed by: [address] [address] Chol/HDL ratio 3 GALLITO Comment:Testing performed by : [address] [address] Blood 08/11/2024 11:3 0 AM CDT 08/11/2024 6:03 PM CDT us Angela Baez MD LAB BLOOD ORDERABLES Final Result [address] Department [place] [address] * (ABNORMAL) Comprehensive metabolic panel (08/11/2024 11:30 AM CDT) Sodium 137 135 - 145 mmol/L Comment:Testing performed by : [address] [address] Potassium, pl 4.8 3.3 - 4.9 mmol/L GALLITO Comment:Testing performed by : [address] [address] Chloride 100 97 - 110 mmol/L GALLITO Comment:Testing performed by : [address] [address] CO2 23 22 - 32 mmol/L GALLITO Comment:Testing performed by : [address] [address] Anion gap 14 2 - 15 mmol/L CERNER CH Comment:Testing performed by : [address] [address] BUN 32(H) 6 - 25 mg/dL CERNER CH Comment:Testing performed by : [address] [address] Creatinine 1.49(H) 0.60 - 1.10 mg/dL CERNER CH Comment:Testing performed by : [address], [address] Glucose 157 70 - 199 mg/dL CERNER [...] was last revised 2022. Testing performed by: [address] [address] Calcium 10.0 8.5 - 10.3 mg/dL CERNER CH Comment:Testing performed by : [address] [address] Bilirubin, total 0.6 0.1 - 1.2 mg/dL CERNER CH Comment:Testing performed by : [address], [address] Protein, pl 8.1 6.5 - 8.5 g/dL CERNER CH Comment:Testing performed by : [address], [address] Albumin 4.4 3.5 - 5.0 g/dL CERNER CH Comment:Testing performed by : [address], [address] Alk phos 122 40 - 130 Units/L CERNER CH Comment:Testing performed by : [address], [address] ALT 9 7 - 45 Units/L CERNER CH Comment:Testing performed by : [facility], [address] [place] [address]., [address] AST 19 10 - 45 Units/L GALLITO Comment:Testing performed by : [facility], [address] [place] [address]., [address] Blood 08/11/2024 11:3 0 AM CDT 08/11/2024 6:03 PM CDT us Angela Baez MD LAB BLOOD ORDERABLES Final Result Performing Organization Address [facility]/ZIP Co de Phone Number GALLITO [address] Department of Laboratories [place] [id number] * CT Body Outside Reference (07/08/2024 12:00 AM CDT) Narrative [facility] - 07/18/2024 11:07 AM CDT This order has been auto-finalized and does not contain a result. us Not In File Miscellaneous IMG CT PROCEDURES Clemencia l Result Performing Organization Address [facility]/ZIP Co de Phone Number [facility] * [...] F with given history of screening. Postmenopausal Hospice Music Therapy/Model: [employer] SL (S/N [id number]) CLINICAL INFORMATION: Current height: 61 inches Maximum [...] Rodrigo Jimenez M.D. MF: BUD Report ID: [id number] Reading Location: [id number] Procedure Note Rodrigo Jimenez MD - 07/23/2021 EXAM DESCRIPTION: DEXA AXIAL SKELETON BONE DENSITY 1 OR MORE SITES REASON FOR STUDY: 80 y/o year old F with given history ofscreening. Postmenopausal Hospice Music Therapy/Model: [address] SL (S/N [id number]) CLINICAL INFORMATION: Current height: 61 inches Maximum [...] Rodrigo Jimenez M.D. MF: BUD Report ID: [id number] Reading Location: [place] [address] Angela Baez MD IMG DXA PROCEDURES Final R esult from Last 3 Months or Most Recently Relevant to Health Maintenance Insurance COMMERCIAL GENERIC MEDICARE MEDICARE [facility]LY [facility] MEDICARE BLUE [employer]OSS MEDICARE SUPPLEMENT MEDICARE [facility] MEDICARE SUPPLEMENT Advance Directives For more information, please contact: [phone] Documents on File Type Date Recorded Patient Maintenance Journeyman Expl anation ADVANCE DIRECTIVE 08/27/2023 8:24 AM POLST - PHYS ORDER FOR PT PREFERENCES * Full Code (Latest Code Status on File) Date Activated Date Inactivated Comments 06/15/2017 9:33 AM 06/15/2017 2:00 PM Care Teams Secondary Set Up Man Relationship Specialty Start Date End Date Angela Baez MD PCP - General 06/20/16 Ced Holloway MD [address] [place] [address] Consulting Physician Gastroenterology 02/02/17 Yevgeniy Jenkins MD [address] [place] [address] [address] [facility] [address] [place] [address] Consulting Physician Ophthalmology 02/02/17 Colton Graham MD [address] [place] [address] [address] [facility] [address] [place] [address] Consulting Physician General Surgery 09/05/19 Lito Arroyo MD [address] [place] [address] [address] [facility] [address] [place] [address] Referring Physician Orthopedic Surgery 02/06/22 Chris Bates MD [address] [place] [id number] Consulting Physician Pulmonary Disease 07/22/22 Eduardo Velasco DO [address] [place] [address] [address] [facility] [address] [place] [address] Referring Physician Internal Medicine 08/11/24
--- OUTSIDE RECORDS SUMMARY | 2024-08-22 14:41 | XMS_ITS | Encounter Summary ---
Author Organization [facility] Address [address] [place] [address] Phone Care Team Providers Care Solution Professional Name Role Phone Angela Singer MD Primary Care Provider [phone] Reason for Referral * Radiology Services (Routine) - Closed Specialty Diagnoses / Procedures Referred By Contac t Referred To Contact Radiology Diagnoses Pre-op testing Procedures EKG 12 LEAD Donaldo Shin MD [address] [place] [address] Phone: tel: fax: Referral ID Status Reason Start Date Expiration Date Visits Re quested Visits Authorized [id number] Closed 08/10/2020 1 1 Encounter Details Date Type Department Care Team (Late st Contact Info) Description 08/10/2020 Transcribe Orders [facility] Preop/Pacu II [address] [place] [id number] Donaldo Shin MD [address] [place] [address] Pre-op testing (Primary Dx) Social History Tobacco [...] 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 Not on file Not [...] QTC CALCULATION 487 ms EXTERNAL EKG P [place] 54 degrees EXTERNAL EKG R [place] 43 degrees EXTERNAL EKG T [place] 38 degrees EXTERNAL EKG 08/11/2020 9:52 AM CDT Impressions EXTERNAL EKG - 08/13/2020 8:58 AM CDT Sinus rhythm with PACs Comparison Summary: No serial comparison made Summary: Borderline ECG Confirmed by Darron Brown [id number] on 08/13/2020 8:58:18 AM Narrative Procedure Note Omaira Rob MD - 08/13/2020 IMPRESSION: Sinus rhythm with PACs Comparison Summary: No serial comparison made Summary: Borderline ECG Confirmed by Darron Brown [id number] on 08/13/2020 8:58:18 AM us Donaldo Shin MD IMG ECG ORDERABLES Final Resu lt EXTERNAL EKG * (ABNORMAL) BASIC METABOLIC PANEL W/ CALCIUM TOTAL (08/11/2020 9:48 AM CDT) SODIUM 136 136 - 144 mmol/L 08/11/2020 10:18 AM CDT [facility] POTASSIUM 4.1 3.5 - 5.1 mmol/L 08/11/2020 10:18 AM CDT [facility] CHLORIDE 99(L) 100 - 110 mmol/L 08/11/2020 10:18 AM CDT [facility] CO2, VENOUS 27 22 - 32 mmol/L 08/11/2020 10:18 AM CDT [facility] ANION GAP 14.1 8.0 - 20.0 mmol/L 08/11/2020 10:18 AM CDT [facility] GLUCOSE 141(H) 70 - 99 mg/dL 08/11/2020 10:18 AM CDT [facility] BUN 24(H) 8 - 23 mg/dL 08/11/2020 10:18 AM CDT [facility] CREATININE, BLOOD 1.23(H) 0.60 - 1.10 mg/dL 08/11/2020 10:18 AM CDT [facility] BUN/CREATININE RATIO 20 12 - 20 ratio 08/11/2020 10:18 AM CDT [facility] CALCIUM 9.3 8.9 - 10.3 mg/dL 08/11/2020 10:18 AM CDT [facility] GFR, EST. NONAFRICAN 42(L) >=60 08/11/2020 10:18 AM CDT [facility] GFR, EST. 51(L) >=60 08/11/2020 10:18 AM CDT [facility] Comment: Creatinine Clearance is the preferred criteria for selecting drug dose adjustments in renally impaired patients. The GFR is provided as additional pertinent clinical information. GFR is reported in mL/min/1.73 sq m. IS THE PATIENT REQUIRED TO BE FASTING? No 08/11/2020 10:18 AM CDT [facility] Blood Venipuncture / Unknown 08/11/2020 9:48 AM CDT 08/11/2020 9:51 AM CDT us Donaldo Shin MD CHEMISTRY ORDERABLES Final Re sult [facility] [address] [place] [address] * HEMOGLOBIN & HEMATOCRIT (H&H) (08/11/2020 9:48 AM CDT) HEMOGLOBIN (HGB) 12.2 12.0 - 15.8 g/dL 08/11/2020 9:58 AM CDT [facility] HEMATOCRIT (HCT) 38.3 36.0 - 47.0 % 08/11/2020 9:58 AM CDT [facility] Blood Venipuncture / Unknown 08/11/2020 9:48 AM CDT 08/11/2020 9:51 AM CDT us Donaldo Shin MD HEMATOLOGY ORDERABLES Final R esult [facility] [address] [place] [address] documented in this encounter Visit Diagnoses Diagnosis Pre-op testing- Primary Preoperative examination, unspecified Pre-op testing Preoperative examination, unspecified documented in this encounter Care Teams Solution Professional Relationship Specialty Start Date End Date Angela Singer MD [address] [facility] [place] [address] PCP - General Internal Medicine 08/08/15 documented as of this encounter
== END 2024-08-22 14:22 | disposition home or self-care (01) ==
LOC: CHSCARD 14:23
PROVIDERS: PCP Internal Medicine Geriatric Medicine; Visit Provider Internal Medicine Cardiovascular Disease
DX: I48.0 Paroxysmal atrial fibrillation (principal); R94.31 Abnormal electrocardiogram [ECG] [EKG]
CPT/HCPCS: 93005

== ENCOUNTER 2024-09-20 13:55 | Outpatient (CLI) | payer MEDICARE, SELFPAY ==
--- OUTSIDE RECORDS SUMMARY | 2024-09-20 13:59 | XMS_ITS | Clinical Summary ---
Author Organization [facility] Address [address] [place] [address] Care Team Providers Care Director [facility] Name Role Phone Angela Baez MD Primary Care Provider [phone] Ced Holloway MD Unavailable + Yevgeniy Jenkins MD Unavailable [phone] Jay Graham MD Unavailable Lito Arroyo MD Unavailable [phone] Chris Bates MD Unavailable Eduardo Velasco DO Unavailable [phone] Allergies Active Allergy Reactions Criticality Noted Date [...] every 6 hours as needed 0 0 03/21/20 13 Active cholecalciferol (VITAMIN D-3) 5,000 unit tablet Take 1 tablet (5,000 Units total) by mouth daily Active polyethylene glycol (MIRALAX) 17 gram/dose bulk powder Take 17 g by mouth daily Active guaiFENesin ER (MUCINEX) 600 mg 12 hr tabletIndications :Chronic rhinitis Take 2 tablets (1,200 mg total) by mouth as needed for cough 60 tablet 5 02/04/20 24 Active lancets (OneTouch Delica Plus Lancet) 30 gauge miscIndications:C ontrolled type 2 diabetes mellitus with microalbuminuria, with long-term current use of insulin ([facility]),Type 2 diabetes mellitus with stage 3b chronic kidney disease, with long-term current use of insulin ([facility]) USE TO CHECK BLOOD GLUCOSE LEVEL TWICE DAILY E11.2 200 each 3 02/04/20 24 Active blood glucose diagnostic (TheJobPostTouch Ultra Test) strip USE TO MONITOR GLUCOSE LEVELS TWICE DAILY E11.9 100 strip 4 02/04/20 24 Active fluticasone propion-salmetero L (ADVAIR DISKUS) 500-50 mcg/dose diskus inhaler Inhale 1 puff 2 (two) times a day Rinse mouth with water after use. Do not swallow. 60 each 06/22/19 25 Active albuterol HFA (PROVENTIL HFA,VENTOLIN HFA,PROAIR HFA) 90 mcg/actuation inhalerIndication s:Mild persistent asthma without complication INHALE 2 PUFFS EVERY 6 HOURS NEEDED FOR WHEEZING 25.5 each 3 07/06/19 25 Active ammonium lactate (AMLACTIN) 12 % creamIndications: Dry Skin Apply topically daily 385 g 08/12/19 25 Active traZODone (DESYREL) 50 mg tabletIndications :Sleep disorder breathing Take 0.5-1 tablets (25-50 mg total) by mouth nightly as needed for sleep May have 90 days at future refills if this works 30 tablet 6 08/12/19 25 Active apixaban (Eliquis) 5 mg tabletIndications :Paroxysmal atrial fibrillation (HCC) Take 0.5-1 tablets (2.5-5 mg total) by mouth 2 (two) times a day 90 tablet 2 08/12/19 25 Active empagliflozin (JARDIANCE) 10 mg tabletIndications :type 2 diabetes mellitus Take 1 tablet (10 mg total) by mouth daily 30 tablet 6 08/12/19 25 Active dilTIAZem XR 240 mg 24 hr capsuleIndication s:Paroxysmal atrial fibrillation (HCC) Take 1 capsule (240 mg total) by mouth daily 90 capsule 2 08/12/19 25 Active fexofenadine (KASSANDRA) 180 mg tabletIndications :Chronic rhinitis Take 1 tablet (180 mg total) by mouth daily 90 tablet 2 08/12/19 25 Active cyanocobalamin (Vitamin B-12) 1,000 mcg tabletIndications :Leach's esophagus with dysplasia Take 1 tablet (1,000 mcg total) by mouth daily 90 tablet 3 08/12/19 25 Active fluticasone propionate (FLONASE) 50 mcg/actuation nasal sprayIndications: Chronic rhinitis Administer 2 sprays into each nostril daily 16 mL 5 08/12/19 25 Active furosemide (LASIX) 20 mg tabletIndications :Chronic diastolic CHF (congestive heart failure) ([facility]),Hypertensio n complicating diabetes ([facility]) Take 1 tablet (20 mg total) by mouth 2 (two) times a day 180 tablet 2 08/12/19 25 Active insulin degludec (TRESIBA) 100 unit/mL (3 mL) pen for injectionIndicati ons:Type 2 diabetes mellitus with stage 3b chronic kidney disease, with long-term current use of insulin ([facility]) Inject 0.3-0.4 mL (30-40 Units total) under the skin daily before breakfast 45 mL 2 08/12/19 25 2025 Active labetaloL (NORMODYNE,TRANDA TE) 100 mg tabletIndications :Type 2 diabetes mellitus with stage 3b chronic kidney disease, with long-term current use of insulin ([facility]),Chronic diastolic CHF (congestive heart failure) ([facility]) Take 1 tablet (100 mg total) by mouth 2 (two) times a day 180 tablet 2 08/12/19 25 Active omeprazole (PriLOSEC) 20 mg capsuleIndication s:Leach's esophagus with dysplasia Take 1 capsule (20 mg total) by mouth daily before breakfast 90 capsule 3 08/12/19 25 Active rosuvastatin (CRESTOR) 10 mg tabletIndications :Type 2 diabetes mellitus with stage 3b chronic kidney disease, with long-term current use of insulin ([facility]),Microalbumi harshad due to type 2 diabetes mellitus ([facility]),Chronic diastolic CHF (congestive heart failure) ([facility]),Multiple-ty pe hyperlipidemia Take 1 tablet (10 mg total) by mouth daily 90 tablet 2 08/12/19 25 Active spironolactone (ALDACTONE) 25 mg tabletIndications :Chronic diastolic CHF (congestive heart failure) ([facility]),Hypertensio n complicating diabetes ([facility]) Take 1 tablet (25 mg total) by mouth daily 90 tablet 2 08/12/19 25 Active traMADoL (ULTRAM) 50 mg tabletIndications :Chronic pain disorder Take 1 tablet (50 mg total) by mouth 2 (two) times a day as needed for pain for pain 60 tablet 1 08/12/19 25 Active pen needle, diabetic (BD Ultra-Fine Short Pen Needle) 31 gauge x 5/16 needleIndications :Microalbuminuria due to type 2 diabetes mellitus (HCC) USE TO INJECT INSULIN ONCE DAILY. 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 ([facility]) Take 1 tablet by mouth daily 90 tablet 1 03/19/20 20 2020 Discontinued hydrALAZINE (APRESOLINE) 25 mg tabletIndications :hypertension Take 1 tablet (25 mg total) by mouth 2 (two) times a day after breakfast and dinner 60 tablet 4 07/25/19 21 2020 Discontinued clotrimazole (Itch Relief, clotrimazole,) 1 % creamIndications: Intertrigo Apply topically 2 (two) times a day for 14 days Under the breasts and in the groin area for the intertrigo 60 g 08/12/192024 pen needle, diabetic (BD Ultra-Fine Short Pen Needle) 31 gauge x 5/16 needleIndications :Microalbuminuria due to type 2 diabetes mellitus (HCC) USE TO INJECT INSULIN ONCE DAILY. 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 Tenderness and marked weakness as noted above. No acute findings on exam. Will REFER to PT for further assessment. Continue Tylenol/tramadol as needed for pain. Heat/ice as tolerated. Influenza vaccine administered 01/22/2023 Assessment & Plan (01/28/2023 9:24 PM AUTOMATIC WINDER OPERATOR): 23-24 influenza vaccine administered in office today. [...] on examination Patient has appointment today with music composition teacher - keep appointment Follow up with Dr. Baez in January or sooner if necessary Closed displaced oblique fracture of shaft of ri ght humerus 11/05/2021 Incisional hernia, without obstruction or gangre ne 10/18/2021 Overview (10/18/2021): Added automatically from request for surgery [id number] SBO (small bowel obstruction) 10/12/2021 On continuous [...] not yet performed === Repeat chest [facility] January 05, 2024 multiple pulmonary nodules [...] MD Followed carefully by Dr. Bates, Chris Wallace, as of January 2023 his recommendations: 1 [...] 02/25/2023 Assessment & Plan (02/05/2024 8:56 AM AUTOMATIC WINDER OPERATOR): Radial EBUS guided biopsies of the original [...] however she would have to travel to [place] for this and she is hesitant. She is amenable to repeat bronchoscopy with biopsy here at [facility] or percutaneous biopsy done here as well. will discuss with the interventional radiologist We will arrange for her to hold Eliquis prior to the procedure when scheduled Assessment & Plan (04/29/2023 2:38 PM AUTOMATIC WINDER OPERATOR): The right lower lobe lung mass has [...] 07/16/2021 Assessment & Plan (01/28/2023 9:19 PM AUTOMATIC WINDER OPERATOR): BP stable in office today on current [...] therapy. No acute findings on exam. Worsening Brick Catcher on recent labs, will stop spironolactone. Monitor [...] 04/23/2021 Assessment & Plan (04/23/2021 12:26 PM AUTOMATIC WINDER OPERATOR): Patient presents today for evaluation prior to [...] findings on exam today. Due to worsening Brick Catcher, will stop spironolactone. Continue current regimen and [...] Signed By: Dr Sy Sherman 2020-05-23 11:50:55 AUTOMATIC WINDER OPERATOR Lung function studies 07/16/2020 The study showed [...] clinical correlation is recommended. Autumn Rodrigues MD [phone] Chronic congestive heart failure 05/16/2020 Assessment & Plan (08/19/2022 7:09 PM CDT): Stable on current therapy. No acute findings on exam, BP stable. No edema, taking lasix and spironolactone as rxd. Continue current regimen and heart healthy diet. Keep follows with Dr. valera as scheduled. Umbilical hernia 09/05/2019 Assessment & Plan (02/20/2022 9:35 AM AUTOMATIC WINDER OPERATOR): Continue to avoid weight lifting for another [...] counseling Assessment & Plan (01/28/2023 9:25 PM AUTOMATIC WINDER OPERATOR): Recent HbA1c was up to 7.3. No [...] PM CDT): States sugars at home ar good did not bring record with her. Last [...] (08/19/2022 7:14 PM CDT): done 08/08/22 [facility] by Dr. Julito Arroyo. Healing well. [...] Encounters Date Type Department Care Team Description 09/06/2024 Telephone [facility] [address] [place] [address] Angela Baez MD 08/18/2024 Orders Only [facility] Information Management [address] [place] [address] Scanning, Provider 08/11/2024 11:30 AM CDT Lab [facility] [address] [place] [address] Type 2 diabetes mellitus with microalbuminuria, with long-term current use of insulin (HCC); Multiple-type hyperlipidemia; Need for hepatitis B screening test; Hypertension complicating diabetes (HCC); Vitamin D deficiency 08/11/2024 8:30 AM CDT Office Visit [facility] [address] [place] [address] Angela Baez MD Annual physical exam (Primary [...] Vitamin D deficiency; Immunization counseling 07/27/2024 [facility] [address] [facility] [address] [place] [address] Angela Baez MD 07/20/2024 Telephone [facility] Pulmonary at [address] [place] [address] Risa Thakkar LPN CT results 07/08/2024 Orders Only [facility] Information Management [address] [place] [address] Scanning, Provider 07/08/2024 Ancillary Procedure [facility] [employer] [facility] 07/05/2024 Orders Only [facility] [address] [facility] [address] [place] [address] Angela Baez MD Chronic pain disorder 07/04/2024 Telephone [facility] [address] [facility] [address] [place] [address] Angela Baez MD 06/21/2024 10:45 AM CDT Office Visit [facility] Medical [facility] Pulmonary at [address] [place] [address] Chris Bates MD Moderate persistent [...] 08/20/2022 How often do you attend chur Remotium or buddhism services? Never 08/20/2022 Do you belong to any clubs o r organizations such as episcopal groups, unions, fraternal or athletic groups, or [...] place to sleep or slept in a correction (including now)? No 08/20/2022 Personal Safety Answer Date Recorded Have you ever been in or are you currently in a harmful physical or emotional relationship or is someone making you feel afraid or unsafe? Denies 09/18/2023 Comments No Sex and Gender Information Value Date Recorded Sex Assigned at Not on file Legal Sex Female 10:52 AM AUTOMATIC WINDER OPERATOR Gender Identity Not on file Sexual Orientation [...] Completed 08/11/2024 Medical Devices Implanted Type Area Raise Miner Device Identifier Shelf Expiration Date Model / Serial / Lot [employer]/C R Bard Ventralight St Sepra 6x4in Monofilament Absorbable Low Profile Latex Free [id number] - [id number] Implanted:Qty: 1 on 02/05/2022 by Jay Graham MD at [facility] N/A: Abdomen [employer] Bard 07/17/2023 [id number] / / [id number] Procedures Procedure Name Priority Date/Time Associated Diagnosis Comments SCAN - RADIOLOGY/IMAGING 08/18/2024 EGFR Routine 08/11/2024 11:30 AM CDT Type [...] Recently Relevant to Health Maintenance Results * SCAN - RADIOLOGY/IMAGING (08/18/2024) Anatomical Region Laterality Modality Other us Provider Scanning Final Result * (ABNORMAL) eGFR (08/11/2024 11:30 AM CDT) [...] was last reviewed 2021. Testing performed by: [address] [address] Blood 08/11/2024 11:3 0 AM CDT 08/11/2024 8:11 PM CDT us Angela Baez MD LAB BLOOD ORDERABLES Final Result [address] Department [place] [address] * (ABNORMAL) Differential, auto (08/11/2024 11:30 AM CDT) Neutrophil abs 8.26(H) 1.50 - 6.50 K/cumm Comment:Testing performed by : [address] [address] Imm gran abs 0.07 0.00 - 0.10 K/cumm [place]O Comment:Testing performed by : [address] [address] Lymphocyte abs 1.48 0.80 - 3.30 K/cumm CERNER CH Comment:Testing performed by : [facility], [address] [place] [address]., [address] Monocyte abs 0.78 0.20 - 0.80 K/cumm CERNER CH Comment:Testing performed by : [facility], [address] [place] [address]., [address] Eosinophil abs 0.27 0.00 - 0.50 K/cumm CERNER CH Comment:Testing performed by : [facility], [address] [place] [address]., [address] Basophil abs 0.04 0.00 - 0.10 K/cumm CERNER CH Comment:Testing performed by : [address] [address] Neutrophil pct 75.7 % CERNER CH Comment: Interpretive Data Percent cell count reference ranges are not reported, since discordance with absolute values may lead to misinterpretation of CBC data. Current Interpretive Data was last revised on 2017. Testing performed by: [address] [address] Imm gran pct 0.6 % CERNER CH Comment: Interpretive Data Percent cell count reference ranges are not reported, since discordance with absolute values may lead to misinterpretation of CBC data. Current Interpretive Data was last revised on 2017. Testing performed by: [address] [address] Lymphocyte pct 13.6 % CERNER CH Comment: Interpretive Data Percent cell count reference ranges are not reported, since discordance with absolute values may lead to misinterpretation of CBC data. Current Interpretive Data was last revised on 2017. Testing performed by: [address] [address] Monocyte pct 7.2 % CERNER CH Comment: Interpretive Data Percent cell count reference ranges are not reported, since discordance with absolute values may lead to misinterpretation of CBC data. Current Interpretive Data was last revised on 2017. Testing performed by: [address] [address] Eosinophil pct 2.5 % CERNER CH Comment: Interpretive Data Percent cell count reference ranges are not reported, since discordance with absolute values may lead to misinterpretation of CBC data. Current Interpretive Data was last revised on 2017. Testing performed by: [address] [address] Basophil pct 0.4 % CERNER Comment: Interpretive Data Percent cell count reference ranges are not reported, since discordance with absolute values may lead to misinterpretation of CBC data. Current Interpretive Data was last revised on 2017. Testing performed by: [address], [address] Blood 08/11/2024 11:3 0 AM CDT 08/11/2024 6:03 PM CDT us Angela Baez MD LAB BLOOD ORDERABLES Final Result [facility] [address] Department [place] [address] * (ABNORMAL) CBC with auto differential (08/11/2024 11:30 AM CDT) WBC 10.90(H) 3.80 - 9.90 K/cumm Comment:Testing performed by : [address] [address] Hgb 10.8(L) 11.9 - 15.5 g/dL PATTINER Comment:Testing performed by : [address], [address] Hct 38.4 35.6 - 45.5 % CERNER Comment:Testing performed by : [address] [address] Plt 324 150 - 400 K/cumm CERNER Comment:Testing performed by : [address] [address] MPV 10.0 9.1 - 12.3 fL CERNER Comment:Testing performed by : [address], [address] RBC 4.63 3.90 - 5.20 M/cumm CERNER Comment:Testing performed by : [address], [address] MCV 82.9 81.3 - 96.4 fL CERNER Comment:Testing performed by : [facility] [address] [place] [address]., [address] MCH 23.3(L) 27.1 - 33.3 pg GALLITO Comment:Testing performed by : [address] [address] MCHC 28.1(L) 32.3 - 35.7 g/dL G[place]O Comment:Testing performed by : [address], [address] RDW CV 15.7(H) 11.1 - 14.9 % GALLITO Comment:Testing performed by : [facility], [address] [place] [address], [address] RDW SD 46.8 35.7 - 48.1 fL [place]O Comment:Testing performed by : [address], [address] NRBC abs 0.00 0.00 - 0.01 K/cumm GALL[place]O Comment:Testing performed by : [address], [address] Blood 08/11/2024 11:3 0 AM CDT 08/11/2024 6:03 PM CDT Angela Baez MD LAB BLOOD ORDERABLES Final Result Performing Organization Address City/State/[facility] Co de Phone Number [address] Department [place] [address] * Albumin Creatinine Ratio, Urine (08/11/2024 11:30 AM CDT) Albumin Ur 24.6 mg/L Comment: Interpretive Data No reference range established. Current interpretive data was last revised 2018. Testing performed by: [address], [address] Creatinine Ur 83.5 mg/dL GALLITO Comment: Interpretive Data No reference range established. Current interpretive data was last revised 2018. Testing performed by: [address], [address] Albumin Creatinine Ratio, Ur 29 1 - 29 mg/g G[place]O Comment:Testing performed by : [address], [place]., [address] Urine 08/11/2024 11:3 0 AM CDT 08/11/2024 6:03 PM CDT us Angela Baez MD LAB URINE ORDERABLES Final Result [place] [address] [place] [address] * Hepatitis B core antibody, total Blood (08/11/2024 11:30 AM CDT) Pathologist [facility] Hep B core IgG/IgM Nonreactive Nonreactive Comment:Testing performed by : [facility], [address] [place] [address]., [address] Blood 08/11/2024 11:3 0 AM CDT 08/12/2024 10:17 AM CDT us Angela Baez MD LAB MICROBIOLOGY - GENERAL ORDERABLES Final Result Performing Organization Address [facility]/ZIP Co de Phone Number [place] [address] [address] [place] [address] * Vitamin D 25 hydroxy (08/11/2024 11:30 AM CDT) Pathologist [facility] Vitamin D 25-OH 42 30 - 80 ng/mL Comment:Testing performed by : [facility], [address] [place] [address]., [address] Blood 08/11/2024 11:3 0 AM CDT 08/11/2024 6:03 PM CDT us Angela Baez MD LAB BLOOD ORDERABLES Final Result [place] [address] [place] [address] * Hepatitis B surface antibody (immune status) Blood (08/11/2024 11:30 AM CDT) HBsAb (immune status) Nonreactive Comment: Interpretive Data [...] last revised on 19. Testing performed by: [address] [address] Blood 08/11/2024 11:3 0 AM CDT 08/11/2024 6:03 PM CDT us Angela Baez MD LAB MICROBIOLOGY - GENERAL ORDERABLES Final Result Performing Organization Address [facility] Co de Phone Number [place] [phone] [facility] Department [place] [place] [address] * Hepatitis B Surface Antigen Blood (08/11/2024 11:30 AM CDT) HepBsAg Nonreactive Nonreactive Comment:Testing performed by : [address] [address] Blood 08/11/2024 11:3 0 AM CDT 08/11/2024 6:03 PM CDT us Angela Baez MD LAB MICROBIOLOGY - GENERAL ORDERABLES Final Result Performing Organization Address City/[facility] Co de Phone Number [facility] [address] [facility] [place] [address] * TSH (08/11/2024 11:30 AM CDT) Thyroid Stimulating Hormone 2.14 0.30 - 4.20 mcIUnit/mL Comment:Testing performed by : [address] [address] Blood 08/11/2024 11:3 0 AM CDT 08/11/2024 6:03 PM CDT us Angela Baez MD LAB BLOOD ORDERABLES Final Result Performing Organization Address [facility] Co de Phone Number [place] [address] [facility] [place] [address] * (ABNORMAL) Hemoglobin A1c (08/11/2024 11:30 AM CDT) Hgb A1C 7.8(H) 4.0 - 5.6 % Comment:Testing performed by : [address] [address] Estimated Average Glucose 177 mg/dL [facility] Comment: The ADA recommends reporting an estimated Average Glucose (eAG) with all Hemoglobin A1c results using the equation derived from a study of 507 normal and diabetic adults. Minority populations were underrepresented and children were not included. (Diabetes Care 31:1618-8342, 2008). The eAG is not equivalent to a fasting glucose. Testing performed by: [address] [address] Blood 08/11/2024 11:3 0 AM CDT 08/11/2024 6:03 PM CDT us Angela Baez MD LAB BLOOD ORDERABLES Final Result Performing Organization Address [facility] Co de Phone Number [place] [address] [facility] [place] [address] * Lipid panel (08/11/2024 11:30 AM CDT) Pathologist [facility] Cholesterol 141 30 - 199 mg/dL Comment: [...] last revised on 2017. Testing performed by: [facility], [address] [place] [address]., [address] Triglycerides 102 <=149 mg/dL G[place]O Comment: Interpretive [...] last revised on 2017. Testing performed by: [facility], [address] [place] [address]., [address] HDL 48 >=40 mg/dL [place] Comment: Interpretive [...] last revised on 2017. Testing performed by: [facility], [address] [place] [address]., [address] LDL, calculated 74 <=129 mg/dL [place]O Comment: Interpretive Data Ages < or = 19 years Acceptable: <110 mg/dL Borderline high: 110-129 mg/dL High: >or= 130 mg/dL Ages > or = 20 years Optimal: <100 mg/dL Near optimal: 100-129 mg/dL Borderline high: 130-159 mg/dL High: >160 mg/dL Calculated using the Miranda LDL-C estimating equation. This equation was implemented on 2023. Prior to this date LDL-C was estimated using the Friedewald equation. Literature References: 1. Expert Panel on Integrated Guidelines for Cardiovascular Health and Risk Reduction in Children and Adolescents. Pediatrics 2011;128:S213 2. NCEP Expert Panel. Circulation 2004;110:227 3. Ruben M et al. CASS Cardiol. 2020 July 21;5(5):540-548. doi: 10.1001/jamacardio.2020.0013 Current Interpretive Data was last revised on 2023. Testing performed by: [address] [address] Non-HDL Cholesterol 93 mg/dL [place] Comment: Interpretive [...] last revised on 2017. Testing performed by: [address] [address] Chol/HDL ratio 3 G[place] Comment:Testing performed by : [address] [address] Blood 08/11/2024 11:3 0 AM CDT 08/11/2024 6:03 PM CDT Angela Baez MD LAB BLOOD ORDERABLES Final Result [place] [address] [place] [address] Department [place] [address] * (ABNORMAL) Comprehensive metabolic panel (08/11/2024 11:30 AM CDT) [facility] Sodium 137 135 - 145 mmol/L Comment:Testing performed by : [address] [address] Potassium, pl 4.8 3.3 - 4.9 mmol/L GALL[place]O MORRIS Comment:Testing performed by : [address] [address] Chloride 100 97 - 110 mmol/L CERNER CH Comment:Testing performed by : [facility], [address] [place] [address]., [address] CO2 23 22 - 32 mmol/L CERNER CH Comment:Testing performed by : [address] [address] Anion gap 14 2 - 15 mmol/L CERNER CH Comment:Testing performed by : [address], [address] BUN 32(H) 6 - 25 mg/dL CERNER CH Comment:Testing performed by : [facility], [address] [place] [address], [address] Creatinine 1.49(H) 0.60 - 1.10 mg/dL CERNER CH Comment:Testing performed by : [address], [address] Glucose 157 70 - 199 mg/dL CERNER [...] classification and Diagnosis of Diabetes Diabetes Care 202; 46: S19-S40. Current interpretive data was last revised 2022. Testing performed by: [address] [address] Calcium 10.0 8.5 - 10.3 mg/dL CERNER CH Comment:Testing performed by : [address] [address] Bilirubin, total 0.6 0.1 - 1.2 mg/dL CERNER CH Comment:Testing performed by : [address] [address] Protein, pl 8.1 6.5 - 8.5 g/dL CERNER CH Comment:Testing performed by : [address], [address] Albumin 4.4 3.5 - 5.0 g/dL CERNER CH Comment:Testing performed by : [facility], [address] [place] [address]., [address] Alk phos 122 40 - 130 Units/L CERNER CH Comment:Testing performed by : [address], [address] ALT 9 7 - 45 Units/L CERNER CH Comment:Testing performed by : [facility], [address] [place] [address], [address] AST 19 10 - 45 Units/L CERNER CH Comment:Testing performed by : [address], [address] Blood 08/11/2024 11:3 0 AM CDT 08/11/2024 6:03 PM CDT Angela Baez MD LAB BLOOD ORDERABLES Final Result Performing Organization Address [facility] Co de Phone Number [address] Department [place] [address] * CT Body Outside Reference (07/08/2024 12:00 AM CDT) Narrative [facility]_PACS[facility] - 07/18/2024 11:07 AM CDT This order has been auto-finalized and does not contain a result. Not In File Miscellaneous IMG CT PROCEDURES Clemencia l Result Performing Organization Address City/[facility]/ZIP Co de Phone Number [facility] * PULMONARY - RESULT SCAN (07/08/2024) Anatomical Region Laterality Modality Other Provider Scanning Final Result * SCAN - [...] F with given history of screening. 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 MF: BUD Report ID: [id number] Reading Location: [place] [address] Procedure Note Rodrigo Jimenez MD - 07/23/2021 EXAM DESCRIPTION: DEXA AXIAL SKELETON BONE DENSITY 1 OR MORE SITES REASON FOR STUDY: 80 y/o year old F with given history ofscreening. 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 ADVANCE DIRECTIVE 08/27/2023 8:24 AM POLST - PHYS ORDER FOR PT PREFERENCES * Full Code (Latest Code Status on File) Date Activated Date Inactivated Comments 06/15/2017 9:33 AM 06/15/2017 2:00 PM Care Teams Director Day Care Center Relationship Specialty Start Date End Date Angela Baez MD PCP - General 06/20/16 Ced Holloway MD [address] [place] [address] Consulting Physician Gastroenterology 02/02/17 Yevgeniy Jenkins MD [address] [place] [address] Consulting Physician Ophthalmology 02/02/17 Jay Graham MD [address] [place] [address] Consulting Physician General Surgery 09/05/19 Lito Arroyo MD [address] [place] [address] Referring Physician Orthopedic Surgery 02/06/22 Chris Bates MD [address] [place] [address] DR CISNEROS [address] [place] [address] Consulting Physician Pulmonary Disease 07/22/22 Eduardo Velasco DO [address] [place] [address] Referring Physician Internal Medicine 08/11/24
--- OUTSIDE RECORDS SUMMARY | 2024-09-20 13:59 | XMS_ITS | Continuity of Care Document ---
Author Organization [facility] Address [address] [place] [address] Phone Care Team Providers Care Emt I/99 Name Role Phone Scott SINHA, Jaymie Unavailable [...] Procedure Date No Charge Optomap Fundus Photos 025 No Charge Refraction Office/outpatient Visit, Est No Charge Optomap Fundus Photos 024 No [...] Yes / No Effective Date File Name Other Directive No N/A N/A WARNING:The information contained in this section is historical and is provided for information only and does not constitute a legal document or any assurance that the information is still accurate. Please verify the information with the mendoza of the legal document before using it for clinical purposes. Encounters Encounter Description Practice Location Reason(s) For Visit Diagnoses Date Provider Providers Copied on Encounter Office/outpa tient Visit, Est [facility], [address] [place] [address] [address], [place], [place], [address], tel:[phone] [place] Professiona l Complete Exam (chief complaint) Intermittent esotropiaTyp e 2 diabetes mellitus without complication sPseudophaki a of both eyes 0-202 5 Scott OD Jaymie. [address] [place] [address] [address], [address], [place], [place], [address], [place]. tel:[phone] Referring Provider: Angela Singer MD, [address] [place], [address]. tel:[phone] [facility], [address], [place], [place], [address], [place] tel:[phone] [place] Profession[place] Complete Exam (chief complaint) Dry eye syndrome of bilateral lacrimal glandsType 2 diabetes mellitus without complication s Aug-04 26-202 4 Scott OD Jaymie. [address] [place] [address] [address], [address], [place], [place], [address], [place]. tel:[phone] Referring Provider: Angela Singer MD, [address], [place], [address]. tel:[phone] Office/outpa tient Visit, [facility], [address] [place] [address] [address], [place], [place], [address], [place] tel:[phone] [place] Profession[place] Glasses Check (chief complaint) Dry eye syndrome of bilateral lacrimal glandsInterm ittent esotropia 4 Scott OD Jaymie. [address] [place] [address] [address], [address], [place], [place], [address], [place]. tel:[phone] Referring Provider: Angela Singer MD, [address], [place], [address]. tel:[phone] Office/outpa tient Visit, [facility], [address] [place] [address] [address], [place], [place], [address], [place] tel:[phone] [place] Profession[place] Follow up visit (chief complaint) DiplopiaCN III palsy, right 3 Gregory Vuong. [email or web address], [address] [place], [address], [place]. tel:[phone] Referring Provider: Angela Singer MD, [address] [place], [address]. tel:[phone] Office/outpa tient Visit, [facility], [address] [place] [address] [address], [place], [place], [address], [place] tel:[phone] [place] Prof[place] Follow up visit (chief complaint) DiplopiaOcul ar trauma, right eye, sequela 2 Jenkins Yevgeniy. [email or web address], [address], [place], [place], [address], [place]. tel:[phone] Referring Provider: Angela Singer MD, [address], [place], [address]. tel:[phone] Office/outpa tient Visit, [facility], [address] [place] [address] [address], [place], [place], [address], [place] tel:[phone] [place] Prof[place] fuzzy vision (chief complaint) Ocular trauma of right eye, initial encounterCN III palsy, rightRight abducens nerve palsyH/O Dietz's palsyDry eye syndrome of left eyePseudopha ben of both eyesDiplopia Sep-2 2 Gregory Vuong. [address] [facility], [facility] [address], [place], [place], [address], [place]. tel:[phone] Referring Provider: Angela Singer MD, [address], [place], [address]. tel:[email or web address] [facility], [facility] [address], [place], [place], [address], tel:[phone] [place] Prof[place] 1 mo CE PO (07/24/21) (chief complaint) Post op visit 2 Valerio OD Alie. [facility] [address], [address], [place], [place], [address], [place]. tel:[phone] Referring Provider: Angela Singer MD, [address], [place], [address]. tel:[email or web address] [facility], [address], [place], [place], [address], tel:[phone] [place] Prof[place] 1 wk CE PO (07/24/21) (chief complaint) Post op visit 2 Valerio OD Alie. [facility] [address], [address], [place], [place], [address], [place]. tel:[phone] Referring Provider: Angela Singer MD, [address], [place], [address]. tel:[email or web address] [facility], [facility] [employer] [address], [place], [place], [address], tel:[phone] [place] Prof[place] 1 day CE PO (chief complaint) Post op visit 2 Valerio Strange. [address] Lost [employer] Name [facility], [address], [place], [place], [address], [place]. tel:[phone] Referring Provider: Angela Singer MD, [address] [place], [address]. tel:[phone] [facility], [address] [place] [address] [address], [place], [place], [address], [place] tel:[phone] [address] [facility] [place] No Information 2 Gregory Vuong. [address] [facility], [address], [place], [place], [address], [place]. tel:[phone] Referring Provider: Angela Singer MD, [address] [place], [address]. tel:[phone] [facility], [address] [place] [address] [address], [place], [place], [address], [place] tel:[phone] SEC [facility] Professiona l No Information 2 Gregory Vuong. [address] [facility], [address] [place], [address], [place]. tel:[phone] Referring Provider: Angela Singer MD, [address] [place], [address]. tel:[phone] [facility], [address] [place] [address] [address], [place], [place], [address], [place] tel:[phone] SEC [facility] Professiona l 2 week s/p PCIOL (chief complaint) Encounter for examination following surgery 2 Gregory Vuong. [address] [facility], [address], [place], [place], [address], [place]. tel:[phone] Referring Provider: Angela Singer MD, [address] [place], [address]. tel:[phone] [facility], [address] [place] [address] [address], [place], [place], [address], [place] tel:[phone] [place] Prof[place] 1 day CE PO (chief complaint) Post op visit 0 2 Gregory Vuong. [address] [facility], [address], [place], [place], [address], [place]. tel:[phone] Referring Provider: Angela Singer MD, [address] [place], [address]. tel:[phone] [facility], [address] [place] [address] [address], [place], [place], [address], [place] [phone] [facility] No Information 0 2 Gregory Vuong. [address] [facility], [address] [place], [address], [place]. tel:[phone] Referring Provider: Angela Singer MD, [address] [place], [address]. tel:[phone] [facility], [address] [place] [address] [address], [place], [place], [address], [place] tel:[phone] [place] Profession[place] No Information 0 2 Gregory Vuong. [address] [facility], [address] [place], [address], [place]. tel:[phone] Referring Provider: Angela Singer MD, [address] [place], [address]. tel:[phone] Office/outpa tient Visit, [facility], [address] [place] [address] [address], [place], [place], [address], [place] tel:[phone] [place] Prof[place] 6 month Cataract check (chief complaint) Age-related nuclear cataract of both eyesType 2 diabetes mellitus without complication sHistory of Dietz's palsy 1 Gregory Vuong. [address] [facility], [address], [place], [place], [address], [place]. tel:[phone] Referring Provider: Angela Singer MD, [address], [place], [address]. tel:[phone] [facility], [address], [place], [place], [address], [place] tel:[phone] [place] Complete Exam (chief complaint) Age-related nuclear cataract of both eyesType 2 diabetes mellitus without complication s 1 Gregory Vuong. [address], [place], [place], [address], [place]. tel:[phone] Referring Provider: Angela Singer MD, [address], [place], [address]. tel:[phone] [facility], [address], [place], [place], [address], [place] [phone] [place] Complete Exam (chief complaint) Age-related nuclear cataract of both eyesType 2 diabetes mellitus without complication s 0 Gregory Vuong. [address], [place], [place], [address], [place]. tel:[phone] Referring Provider: Angela Singer MD, [address], [place], [address]. tel:[phone] [facility], [address], [place], [place], [address], [place] [phone] [place] Prof[place] No Information 0 Gregory Vuong. [address], [address], [place], [place], [address], [place]. tel:[phone] [facility], [address], [place], [place], [address], [place] tel:[phone] [place] Prof[place] Cataract evaluation (chief complaint) Age-related nuclear cataract of both eyesType 2 diabetes mellitus without complication s 201 9 Gregory Vuong. [address], [place], [place], [address], [place]. tel:[phone] Referring Provider: Angela Singer MD, [address], [place], [address]. tel:[phone] [facility], [address], [place], [place], [address], [place] [phone] [place] Prof[place] No Information 3-201 9 Gregory Vuong. [address] [facility] [employer], [address], [place], [place], [address], [place]. tel:[phone] [facility], [address], [place], [place], [address], [place] [phone] [place] Prof[place] diabetic eye exam (chief complaint) Age-related nuclear cataract, bilateralTyp e 2 diabetes mellitus without complication s 8-201 8 Gregory Vuong. [email or web address], [address], [place], [place], [address], [place]. tel:[phone] Referring Provider: Angela Singer MD, [address], [place], [address]. tel:[phone] [facility], [address], [place], [place], [address], [place] [phone] [place] Complete Exam (chief complaint) No Information 0-201 7 Gregory Vuong. [address] [facility] [place] [employer], [address], [place], [place], [address], [place]. tel:[phone] Referring Provider: Angela Singer MD, [address], [place], [address]. tel:[phone] Office/outpa tient Visit, Est [facility], [address], [place], [place], [address], [place] tel:[phone] [place] Cataract evaluation (chief complaint) No Information 6 Gregory Vuong. [address] [facility], [address], [place], [place], [address], [place]. tel:[phone] Referring Provider: Angela Singer MD, [address], [place], [address]. tel:[phone] [facility], [address] [place] [address] [address], [place], [place], [address], [place] tel:[phone] [place] Prof[place] Difficulty reading (chief complaint) No Information 6 Gregory Vuong. [address] [facility], [address] [place], [address], [place]. tel:[phone] Referring Provider: Angela Singer MD, [address] [place], [address]. tel:[phone] [facility], [address] [place] [address] [address], [place], [place], [address], [place] tel:[phone] [place] Lagophthalmo s check RUL (chief complaint) No Information 6 Gregory Vuong. [address] [facility], [address], [place], [place], [address], [place]. tel:[phone] Referring Provider: Angela Singer MD, [address] [place], [address]. tel:[phone] Office/outpa tient Visit, [facility], [address] [place] [address] [address], [place], [place], [address], [place] tel:[phone] [place] 3 week follow for Lagophthalmo s (chief complaint) No Information 5 Gregory Vuong. [address] [facility], [address], [place], [place], [address], [place]. tel:[phone] Referring Provider: Angela Singer MD, [address], [place], [address]. tel:[phone] Office/outpa tient Visit, [facility], [address] [place] [address] [address], [place], [place], [address], [place] tel:[phone] [place] Blurry vision (chief complaint) No Information Jan- 1-201 5 Gregory Vuong. [address], [address] [place], [address], [place]. tel:[phone] Referring Provider: Angela Singer MD, [address] [place], [address]. tel:[phone] Office/outpa tient Visit, [facility], [address] [place] [address] [address], [place], [place], [address], [place] tel:[phone] [place] Prof[place] follow up (chief complaint) No Information Oct-3 0-201 5 Gregory Vuong. [address], [address] [place], [address], [place]. tel:[phone] Referring Provider: Angela Singer MD, [address] [place], [address]. tel:[phone] Office/outpa tient Visit, [facility], [address] [place] [address] [address], [place], [place], [address], [place] tel:[phone] [place] Prof[place] blurry vision (chief complaint) No Information Oct-2 3-201 5 Gregory Vuong. [address], [address] [place], [place], [address], [place]. tel:[phone] Referring Provider: Angela Singer MD, [address] [place], [address]. tel:[phone] Office/outpa tient Visit, [facility], [address] [place] [address] [address], [place], [place], [address], [place] tel:[phone] [place] Cranial Nerve VII Palsy F/U (chief complaint) No Information 0 5 Gregory Vuong. [address] [employer], [address] [place], [address], [place]. tel:[phone] Referring Provider: Angela Singer MD, [address] [place], [address]. 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 [address] [facility], [facility] A, [place], [place], [address], [place]. tel:[phone] Referring Provider: Angela Singer MD, [address] [place], [address]. tel:[phone] [facility], [address] [place] [address] [address], [place], [place], [address], [place] tel:[phone] SEC [place]im MAYRA Professiona l No Information 2 Sandra Joya. [address], [facility] [place], [address], [place]. tel:[phone] Referring Provider: Angela Singer MD, [address] [place], [address]. tel:[phone] Family History Family Member Type Diagnosis Age At Onset Problem (finding) Family history of Cance r Payers Payer name Insurance type Covered alliance party ID Authoriza tion(s) [place] [id number] [facility] [id number] Social History Type Description Quantity Date Captured Comments Alcohol Use Details No Caffeine Use Details coffee 2 cups per day Tobacco Use Status Current non-smoker Smoking Status Never smoker Non-Smoking Tobacco Use Details : No Details Available : No Details Available Sex Female Sexual Orientation Don't Know Gender Identity Female Chief Complaint And Reason For Visit From encounter dated '09/19/2024 13:30'. Complete Exam (chief complaint). Description: The 84 year old patient presents for evaluation of Complete Exam in the right eye and left eye. Pt states that OU seems about the same since last visit. Pt states that OU seems very dry and pt states that they do use gtts for dryness. Pts PCP follows them for diabetes type II and last A1C was 7.0 and last blood sugar reading was 119. Reason For Referral Reason For Referral No [...] Of Prese nt Illness Complete Exam The 84 year old patient presents for evaluation of Complete Exam in the right eye and left eye. Pt states that OU seems about the same since last visit. Pt states that OU seems very dry and pt states that they do use gtts for dryness. Pts PCP follows them for diabetes type II and last A1C was 7.0 and last blood sugar reading was 119. Complete Exam The 83 year old patient [...] Type II diabetic. Patient has hx of [place] Palsy and ocular trauma OD. Patient states [...] and left eye. Hx of CAT OU, RT6Mnuim OD, and Lagophthalmos OD. Pt is IDDM [...] office on 01/05/[address] Singer for [place] Palsy and Lagophthalmos OD. 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 Patient has [place] Palsy on right side. Patient is unable [...] in 6-8 weeks or sooner with problems. 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 Current treatment working well for patient. Continue the Lubricating víctor 4 to 5 times daily OD and the Polytrim QID OD until gone. Return to clinic in 3 weeks or sooner with problems. Follow up - RTC in 3 weeks Follow up - RTC in 2 weeks. [...] dryer than od - at and oint cataracts ou - 1yr Assessments Type Assessment Date assessment Intermittent esotropia assessment Type 2 diabetes mellitus without complications assessment Pseudophakia of both eyes Patient Care Teams Name Effective Dates (start - stop) Status Members No Information
--- OUTSIDE RECORDS SUMMARY | 2024-09-20 13:59 | XMS_ITS | Clinical Summary ---
Author Organization [facility] Address [address] [facility] [place] [address] Care Team Providers Care Property Controller Name Role Phone Unavailable Primary Care Provider Unavailabl e Source Comments [facility],non-owned Affiliates and Associated Physician Practices is amultiple site organization consisting of ambulatory clinics and hospital sitesin [place], [place], [place] and [place]. This disclosure is being madepursuant to the Care Everywhere program and may not contain all information available regarding this patient. Last updated 17.[facility] Allergies Active Allergy Reactions Criticality Noted Date [...] fluticasone propionate (Flonase) 50 MCG/ACT nasal spray [place] 2 sprays into each nostril once daily [...] mouth once daily 1 Active HYDROcodone-ac etaminophen ([place]) 5-325 MG tablet Take 1 (one) tablet [...]
--- OUTSIDE RECORDS SUMMARY | 2024-09-20 13:59 | XMS_ITS | Encounter Summary ---
Author Organization [facility] Address [address] [place] [address] Phone Care Team Providers Care Chart Reader Name Role Phone Angela Singer MD Primary Care Provider Antonio Grady Unavailable Unavail able Ced Holloway MD Unavailable + Yevgeniy Jenkins MD Unavailable [phone] Antonio Bravo OD Unavailable [phone] Colton Graham MD Unavailable Sy Sherman MD Unavailable [phone] Minna Dos Santos MA Unavailable [phone] Stephanie Gardner LPN Unavailable Lito Arroyo MD Unavailable [phone] Omaira Rob MD Unavailable [phone] Chris Bates MD Unavailable Winnie Hogan MA Unavailable Zuleyka KeeneW Unavailable [phone] Eduardo Velasco DO Unavailable [phone] Eduardo Velasco DO Unavailable [phone] Encounter Details Date Type Department Care Team (Late st Contact Info) Description 11/04/2016 Orders Only [facility] [address] [place] [address] Angela Singer MD [address] [place] [address] Diabetes mellitus without complication (HCC) (Primary Dx) Social History Tobacco Use Types Packs/Day Years Used Date Smoking Tobacco: Never Alcohol Use Standard Drinks/Week Comments No 0 (1 standard drink = 0.6 oz pur e alcohol) Comments Unknown Sex and Gender Information Value Date Recorded Sex Assigned at Not on file 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 Gender Identity Not on file Sexual [...] Site ID: MARTIN Name: Amado Junior Address: [address] [facility] [place] [address] Director: Bird Donald D.O., MPH us Angela Singer MD LAB URINE ORDERABLES Final Result Performing Organization Address [facility] de Phone Number MARTIN Lucero * Creatinine, urine, random (11/14/2016 11:35 AM CDT) Creatinine, ur 123 20 - 320 mg/dL [facility]O SALAZAR 11/14/2016 11:3 5 AM CDT 11/14/2016 11:35 AM CDT Narrative AMADO - 11/15/2016 12:05 PM CDT FASTING:YES Resulting Agency Comment Performing Organization Information: Site ID: MARTIN Name: Amado Junior Address: [address] [place], [place] [address] [place] [address] Director: Bird Donald D.O., MPH us Angela Singer MD LAB URINE ORDERABLES Final Result Performing Organization Address [facility] de Phone Number MARTIN Lucero [...] Site ID: MARTIN Name: Amado Junior Address: [address] [address] Director: Bird Donald D.O., MPH Angela Singer MD LAB BLOOD ORDERABLES Final Result [facility] [place] * (ABNORMAL) Comprehensive metabolic panel (11/14/2016 11:34 AM CDT) Glucose 110(H) 65 - 99 mg/dL [facility] [place] Comment: Fasting reference interval For someone without known diabetes, a glucose value between 100 and 125 mg/dL is consistent with prediabetes and should be confirmed with a follow-up test. BUN 22 7 - 25 mg/dL [facility] [place] Creatinine 0.94(H) 0.60 - 0.93 mg/dL [facility] [place] Comment: For patients >49 years of age, the reference limit for Creatinine is approximately 13% higher for people identified as -Bhutanese. eGFR NON-AFR. CAMEROONIAN 58(L) > OR = 60 mL/min/1. 73m2 [...] Bilirubin, total 0.5 0.2 - 1.2 mg/dL [facility] [place] Alk phos 67 33 - 130 U/L [facility] [place] AST 18 10 - 35 U/L [facility] [place] ALT (SGPT) 14 6 - 29 U/L [facility][1] Blood specimen (specimen) 11/14/2016 11:34 AM CDT 11/14/2016 11:34 AM CDT Narrative [facility] - 11/15/2016 4:03 AM CDT FASTING:YES Resulting Agency Comment Performing Organization Information: Site ID: MARTIN Name: Amado Junior Address: [address] [facility] [place] [address] Director: Bird Donald D.O., MPH us Angela Singer MD LAB BLOOD ORDERABLES Final Result [facility] MARTIN [place] * (ABNORMAL) Hemoglobin A1c (11/14/2016 11:34 AM CDT) Hgb A1C 5.9(H) <5.7 % of total Hgb [facility][1] Comment: For someone without known diabetes, a [...] Site ID: MARTIN Name: Amado Junior Address: [address] [place] [address] Director: Bird Donald D.O. MPH us Angela Singer MD LAB BLOOD ORDERABLES Final Result [facility] [place] documented in this encounter Visit Diagnoses Diagnosis Diabetes mellitus without complication (HCC)- Primary Type II or unspecified type diabetes mellitus without mention of complication, not stated as uncontrolled documented in this encounter Care Teams Chart Reader Relationship Specialty Start Date End Date Angela Singer MD PCP - General 06/20/16 Antonio Grady Gastroenterology 02/02/17 08/10/24 Ced Holloway MD [address] [place] [address] [address] [facility] [address] [place] [address] Consulting Physician Gastroenterology 02/02/17 Yevgeniy Jenkins MD [address] [place] [address] [address] [facility] [address] [place] [address] Consulting Physician Ophthalmology 02/02/17 Antonio Bravo OD [address] [facility] [address] [facility] [address] [place] [address] Ophthalmology 02/02/17 02/02/17 Colton Graham MD [address] [place] [address] [address] [facility] [address] [place] [address] Consulting Physician General Surgery 09/05/19 Sy Sherman MD [address] [facility] [address] [place] [address] Consulting Physician Cardiovascular Disease 01/22/20 Minna Dos Santos MA [address] [place] [address] [address] [place] [address] ACO Care Claim Processing Specialist 05/05/20 05/05/20 Stephanie Gardner, REED [address] [place] [address] [address] [place] [address] ACO Care Claim Processing Specialist 11/12/21 11/21/21 Lito Arroyo MD [address] [place] [address] [address] [place] [address] Referring Physician Orthopedic Surgery 02/06/22 Omaira Rob MD [address] [place] [address] [address] [place] [address] Consulting Physician Cardiology 07/22/22 08/10/24 Chris Bates MD [address] [place] [address] [address] [place] [address] Consulting Physician Pulmonary Disease 07/22/22 Winnie Hogan MA [address] [place] [address] [address] [place] [address] ACO Care Claim Processing Specialist 08/13/22 08/13/22 Zuleyka Keene, [address] [place] [address] Glaze Sprayer Pastry Wrapper 08/19/22 09/03/22 Eduardo Velasco DO [address] [address] Referring Physician Internal Medicine 08/11/24 Eduardo Velasco DO [address] [address] Referring Physician Cardiology 08/11/24 08/11/24 documented as of this encounter
--- OUTSIDE RECORDS SUMMARY | 2024-09-20 13:59 | XMS_ITS | Encounter Summary ---
Author Organization [facility] Address [address] [place] [address] Phone Care Team Providers Care Director Of Student Financial Aid Name Role Phone Angela Singer MD Primary Care Provider [phone] Reason for Referral * Radiology Services (Routine) - Closed Specialty Diagnoses / Procedures Referred By Contac t Referred To Contact Radiology Diagnoses Pre-op testing Procedures EKG [address] Donaldo Shin MD [address] [place] [address] Phone: tel: fax: Referral ID Status Reason Start Date Expiration Date Visits Re quested Visits Authorized [id number] Closed 08/10/2020 1 1 Encounter Details Date Type Department Care Team (Late st Contact Info) Description 08/10/2020 Transcribe Orders [facility] Preop/Pacu II [address] [place] [address] Donaldo Shin MD [address] [place] [address] Pre-op testing (Primary Dx) Social History Tobacco [...] 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 on file Not on file [...] QTC CALCULATION 487 ms EXTERNAL EKG P [place] 54 degrees EXTERNAL EKG R [place] 43 degrees EXTERNAL EKG T [place] 38 degrees EXTERNAL EKG 08/11/2020 9:52 AM CDT Impressions EXTERNAL EKG - 08/13/2020 8:58 AM CDT Sinus rhythm with PACs Comparison Summary: No serial comparison made Summary: Borderline ECG Confirmed by Darron Brown [id number] on 08/13/2020 8:58:18 AM Narrative Procedure Note Omaira Rob MD - 08/13/2020 IMPRESSION: Sinus rhythm with PACs Comparison Summary: No serial comparison made Summary: Borderline ECG Confirmed by Darron Brown [id number] on 08/13/2020 8:58:18 AM us Donaldo Shin MD IMG ECG ORDERABLES Final Resu lt EXTERNAL EKG * (ABNORMAL) BASIC METABOLIC PANEL W/ CALCIUM TOTAL (08/11/2020 9:48 AM CDT) SODIUM 136 136 - 144 mmol/L 08/11/2020 10:18 AM CDT [facility] POTASSIUM 4.1 3.5 - 5.1 mmol/L 08/11/2020 10:18 AM CDT [facility] CHLORIDE 99(L) 100 - 110 mmol/L 08/11/2020 10:18 AM CDT [facility] CO2, VENOUS 27 22 - 32 mmol/L 08/11/2020 10:18 AM CDT [facility] ANION GAP 14.1 8.0 - 20.0 mmol/L 08/11/2020 10:18 AM CDT [facility] GLUCOSE 141(H) 70 - 99 mg/dL 08/11/2020 10:18 AM CDT [facility] BUN 24(H) 8 - 23 mg/dL 08/11/2020 10:18 AM CDT [facility] CREATININE, BLOOD 1.23(H) 0.60 - 1.10 mg/dL 08/11/2020 10:18 AM CDT [facility] BUN/CREATININE RATIO 20 12 - 20 ratio 08/11/2020 10:18 AM CDT [facility] CALCIUM 9.3 8.9 - 10.3 mg/dL 08/11/2020 10:18 AM CDT [facility] GFR, EST. NONAFRICAN 42(L) >=60 08/11/2020 10:18 AM CDT [facility] GFR, EST. 51(L) >=60 08/11/2020 10:18 AM CDT [facility] Comment: Creatinine Clearance is the preferred criteria for selecting drug dose adjustments in renally impaired patients. The GFR is provided as additional pertinent clinical information. GFR is reported in mL/min/1.73 sq m. IS THE PATIENT REQUIRED TO BE FASTING? No 08/11/2020 10:18 AM CDT [facility] Blood Venipuncture / Unknown 08/11/2020 9:48 AM CDT 08/11/2020 9:51 AM CDT us Donaldo Shin MD CHEMISTRY ORDERABLES Final Re sult [facility] [address] [place] [address] * HEMOGLOBIN & HEMATOCRIT (H&H) (08/11/2020 9:48 AM CDT) HEMOGLOBIN (HGB) 12.2 12.0 - 15.8 g/dL 08/11/2020 9:58 AM CDT [facility] HEMATOCRIT (HCT) 38.3 36.0 - 47.0 % 08/11/2020 9:58 AM CDT [facility] Blood Venipuncture / Unknown 08/11/2020 9:48 AM CDT 08/11/2020 9:51 AM CDT us Donaldo Shin MD HEMATOLOGY ORDERABLES Final R esult [facility] [address] [place] [address] documented in this encounter Visit Diagnoses Diagnosis Pre-op testing- Primary Preoperative examination, unspecified Pre-op testing Preoperative examination, unspecified documented in this encounter Care Teams Director Of Student Financial Aid Relationship Specialty Start Date End Date Angela Singer MD [address] [facility] [place] [address] PCP - General Internal Medicine 08/08/15 documented as of this encounter
--- OUTSIDE RECORDS SUMMARY | 2024-09-20 13:59 | XMS_ITS | Encounter Summary ---
Author Organization [facility] Address [address] [place] [address] Care Team Providers Care Elastic Attacher Chainstitch Name Role Phone Angela Singer MD Primary Care Provider + [phone] Antonio Grady Unavailable Unavail able Ced Holloway MD Unavailable + Yevgeniy Jenkins MD Unavailable [phone] Colton Graham MD Unavailable Sy Sherman MD Unavailable [phone] Stephanie Gardner LPN Unavailable [phone] Lito Arroyo MD Unavailable [phone] Omaira Rob MD Unavailable [phone] Chris Bates MD Unavailable Winnie Hogan MA Unavailable [phone] Zuleyka Keene LCSW Unavailable [phone] Eduardo Velasco DO Unavailable [phone] Eduardo Velasco DO Unavailable [phone] Encounter Details Date Type Department Care Team (Late st Contact Info) Description 07/22/2021 Telephone [facility] [address] [place] [address] Rosanne Miller, RT Social History Tobacco Use [...] on file 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 Gender Identity Not on file Sexual Orientation Not on file Occupation Industry Job Start Date Job End Date retired Not on file Not on file Not on file documented as of this encounter Plan of Treatment Not on file documented as of this encounter Visit Diagnoses Not on filedocumented in this encounter Care Teams Elastic Attacher Chainstitch Relationship Specialty Start Date End Date Angela Singer MD PCP - General 06/20/16 Antonio Grady Gastroenterology 02/02/17 08/10/24 Ced Holloway MD [address] [place] [address] [address] [place] [address] Consulting Physician Gastroenterology 02/02/17 Yevgeniy Jenkins MD [address] [place] [address] [address] [place] [address] Consulting Physician Ophthalmology 02/02/17 Colton Graham MD [address] [place] [address] [address] [facility] [address] [place] [address] Consulting Physician General Surgery 09/05/19 Sy Sherman MD [address] [place] [address] [address] [facility] [address] [place] [address] Consulting Physician Cardiovascular Disease 01/22/20 Stephanie Gardner, GLUE SPREADER [address] [place] [address] [address] [place] [address] ACO Care Drug Discovery Informatics Specialist 11/12/21 11/21/21 Lito Arroyo MD [address] [place] [address] [address] [place] [address] Referring Physician Orthopedic Surgery 02/06/22 Omaira Rob MD [address] [place] [address] [address] [place] [address] Consulting Physician Cardiology 07/22/22 08/10/24 Chris Bates MD [address] [place] [address] [address] [place] [address] Consulting Physician Pulmonary Disease 07/22/22 Winnie Hogan MA [address] [facility] [address] [place] [address] ACO Care Drug Discovery Informatics Specialist 08/13/22 08/13/22 Zuleyka Keene, [facility] [address] [facility] [address] [place] [address] Tire Center Supervisor Mri Supervisor 08/19/22 09/03/22 Eduardo Velasco DO [address] [address] Referring Physician Internal Medicine 08/11/24 Eduardo Velasco DO [address] [facility] [address] [place] [address] Referring Physician Cardiology 08/11/24 08/11/24 documented as of this encounter
--- OUTSIDE RECORDS SUMMARY | 2024-09-20 13:59 | XMS_ITS | Referral Summary ---
Author Organization [facility] Address [address] [place] [address] Care Team Providers Care Clinic Lpn Name Role Phone Angela Baez MD Primary Care Provider [phone] Ced Holloway MD Unavailable + Yevgeniy Jenkins MD Unavailable [phone] Colton Graham MD Unavailable Lito Arroyo MD Unavailable [phone] Chris Bates MD Unavailable Eduardo Velasco DO Unavailable [phone] Encounters Date Type Department Care Team Description 09/06/2024 Telephone [facility] [address] [place] [address] Angela Baez MD 08/18/2024 Orders Only [facility] [address] [place] [address] Scanning, Provider 08/11/2024 11:30 AM CDT Lab [facility] [address] [place] [address] Type 2 diabetes mellitus with microalbuminuria, with long-term current use of insulin (HCC); Multiple-type hyperlipidemia; Need for hepatitis B screening test; Hypertension complicating diabetes (HCC); Vitamin D deficiency 08/11/2024 8:30 AM CDT Office Visit [facility] [address] [place] [address] Angela Baez MD Annual physical exam (Primary [...] Vitamin D deficiency; Immunization counseling 07/27/2024 Telephone [facility] [address] [facility] [address] [place] [address] Angela Baez MD 07/20/2024 Telephone [facility] Pulmonary at [address] [place] [address] results 07/08/2024 Orders Only [facility] [address] [place] [address] Scanning, Provider 07/08/2024 Ancillary Procedure [facility] 07/05/2024 Orders Only [facility] [address] [facility] [address] [place] [address] Angela Baez MD Chronic pain disorder 07/04/2024 Telephone [facility] [address] [facility] [address] [place] [address] Angela Baez MD 06/21/2024 10:45 AM CDT Office Visit [facility] Pulmonary at [address] [place] [address] Chris Bates MD Moderate persistent asthma without complication (Primary Dx); Lung mass; Chronic diastolic CHF (congestive heart failure) ([facility]) from Last 3 Months Allergies Active Allergy [...] 60 tablet 5 02/04/20 24 Active lancets (AdReadyTouch Delica Plus Lancet) 30 gauge miscIndications:C ontrolled type 2 diabetes mellitus with microalbuminuria, with long-term current use of insulin ([facility]),Type 2 diabetes mellitus with stage 3b chronic kidney disease, with long-term current use of insulin ([facility]) USE TO CHECK BLOOD GLUCOSE LEVEL TWICE DAILY E11.2 200 each 3 02/04/20 24 Active blood glucose diagnostic (OneTouch Ultra Test) strip USE TO MONITOR GLUCOSE LEVELS TWICE DAILY E11.9 100 strip 4 02/04/20 24 Active fluticasone propion-salmetero L (ADVAIR DISKUS) 500-50 mcg/dose diskus inhaler Inhale 1 puff 2 (two) times a day Rinse mouth with water after use. Do not swallow. 60 each 11 06/22/19 25 Active albuterol HFA (PROVENTIL HFA,VENTOLIN HFA,PROAIR HFA) 90 mcg/actuation inhalerIndication s:Mild persistent asthma without complication INHALE 2 PUFFS EVERY 6 HOURS NEEDED FOR WHEEZING 25.5 each 3 07/06/19 25 Active ammonium lactate (AMLACTIN) 12 % creamIndications: Dry Skin Apply topically daily 385 g 11 08/12/19 25 Active traZODone (DESYREL) 50 mg [...] tabletIndications :Chronic diastolic CHF (congestive heart failure) ([facility]),Hypertensio n complicating diabetes ([facility]) Take 1 tablet (20 mg total) by mouth 2 (two) times a day 180 tablet 2 08/12/19 25 Active insulin degludec (TRESIBA) 100 unit/mL (3 mL) pen for injectionIndicati ons:Type 2 diabetes mellitus with stage 3b chronic kidney disease, with long-term current use of insulin ([facility]) Inject 0.3-0.4 mL (30-40 Units total) under the skin daily before breakfast 45 mL 2 08/12/19 25 2025 Active labetaloL (NORMODYNE,TRANDA TE) 100 mg tabletIndications :Type 2 diabetes mellitus with stage 3b chronic kidney disease, with long-term current use of insulin ([facility]),Chronic diastolic CHF (congestive heart failure) ([facility]) Take 1 tablet (100 mg total) by [...] disease, with long-term current use of insulin ([facility]),Microalbumi harshad due to type 2 diabetes mellitus ([facility]),Chronic diastolic CHF (congestive heart failure) ([facility]),Multiple-ty pe hyperlipidemia Take 1 tablet (10 mg total) by mouth daily 90 tablet 2 08/12/19 25 Active spironolactone (ALDACTONE) 25 mg tabletIndications :Chronic diastolic CHF (congestive heart failure) ([facility]),Hypertensio n complicating diabetes ([facility]) Take 1 tablet (25 mg total) by [...] :Microalbuminuria due to type 2 diabetes mellitus ([facility]) USE TO INJECT INSULIN ONCE DAILY. DX: E11.9 100 each 4 09/07/19 25 Active linaGLIPtin (TRADJENTA) 5 mg tabletIndications :type 2 diabetes mellitus Take 1 tablet (5 mg total) by mouth daily 30 tablet 2 01/19/20 20 2019 Discontinued spironolactone-hy droCHLOROthiazide (ALDACTAZIDE) 25-25 mg per tabletIndications :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 ([facility]) Take 1 tablet by mouth daily 90 [...] INSULIN ONCE DAILY. 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 Tenderness and marked weakness as noted above. No acute findings on exam. Will REFER to PT for further assessment. Continue Tylenol/tramadol as needed for pain. Heat/ice as tolerated. Influenza vaccine administered 01/22/2023 Assessment & Plan (01/28/2023 9:24 PM IMPLEMENTATION COORDINATOR): 23-24 influenza vaccine administered in office today. [...] on examination Patient has appointment today with supervisor special services - keep appointment Follow up with Dr. Baez in January or sooner if necessary Closed displaced oblique fracture of shaft of ri ght humerus 11/05/2021 Incisional hernia, without obstruction or gangre ne 10/18/2021 Overview (10/18/2021): Added automatically from request for surgery [id number] SBO (small bowel obstruction) 10/12/2021 On continuous oral anticoagulation 08/13/2021 Lung mass 08/12/2021 Overview (06/22/2024): Consultation June 2024 Dr. Bates, Chris Wallace,:e right lower lung mass did evolve rather [...] 02/25/2023 Assessment & Plan (02/05/2024 8:56 AM IMPLEMENTATION COORDINATOR): Radial EBUS guided biopsies of the original [...] however she would have to travel to [place] for this and she is hesitant. She is amenable to repeat bronchoscopy with biopsy here at [facility] or percutaneous biopsy done here as well. will discuss with the interventional radiologist We will arrange for her to hold Eliquis prior to the procedure when scheduled Assessment & Plan (04/29/2023 2:38 PM IMPLEMENTATION COORDINATOR): The right lower lobe lung mass has [...] 07/16/2021 Assessment & Plan (01/28/2023 9:19 PM IMPLEMENTATION COORDINATOR): BP stable in office today on current [...] therapy. No acute findings on exam. Worsening Pediatric Anesthesiologist on recent labs, will stop spironolactone. Monitor [...] 04/23/2021 Assessment & Plan (04/23/2021 12:26 PM IMPLEMENTATION COORDINATOR): Patient presents today for evaluation prior to [...] findings on exam today. Due to worsening Pediatric Anesthesiologist, will stop spironolactone. Continue current regimen and [...] Signed By: Dr Sy Sherman 2020-05-23 11:50:55 IMPLEMENTATION COORDINATOR Lung function studies 07/16/2020 The study showed [...] clinical correlation is recommended. Autumn Rodrigues MD [phone] Chronic congestive heart failure 05/16/2020 Assessment & Plan (08/19/2022 7:09 PM CDT): Stable on current therapy. No acute findings on exam, BP stable. No edema, taking lasix and spironolactone as rxd. Continue current regimen and heart healthy diet. Keep follows with Dr. valera as scheduled. Umbilical hernia 09/05/2019 Assessment & Plan (02/20/2022 9:35 AM IMPLEMENTATION COORDINATOR): Continue to avoid weight lifting for another [...] counseling Assessment & Plan (01/28/2023 9:25 PM IMPLEMENTATION COORDINATOR): Recent HbA1c was up to 7.3. No [...] (08/19/2022 7:14 PM CDT): done 08/08/22 at [facility] by Dr. Julito Arroyo. Healing [...] often do you attend chur ch or mandaeism services? Never 08/20/2022 Do you belong to any clubs o r organizations such as yazidism groups, unions, fraternal or athletic groups, or [...] place to sleep or slept in a penitentiary (including now)? No 08/20/2022 Personal Safety Answer Date Recorded Have you ever been in or are you currently in a harmful physical or emotional relationship or is someone making you feel afraid or unsafe? Denies 09/18/2023 Comments No Sex and Gender Information Value Date Recorded Sex Assigned at Not on file Legal Sex Female 10:52 AM IMPLEMENTATION COORDINATOR Gender Identity Not on file Sexual Orientation [...] on file Medical Devices Implanted Type Area Automatic Furnace Operator Device Identifier Shelf Expiration Date Model / Serial / Lot [employer]/C R Bard Ventralight St Sepra 6x4in Monofilament Absorbable Low Profile Latex Free [id number] - [id number] Implanted:Qty: 1 on 02/05/2022 by Colton Graham MD at [facility] N/A: Abdomen [employer] Bard 07/17/2023 [id number] / / [id number] Procedures Procedure Name Priority Date/Time Associated Diagnosis [...] * (ABNORMAL) eGFR (08/11/2024 11:30 AM CDT) Pathologist [facility] eGFR 34(L) >=60 mL/min/1. 73 m2 Comment: [...] was last reviewed 2021. Testing performed by: [facility], [address] [place] [address]., [address] Blood 08/11/2024 11:3 0 AM CDT 08/11/2024 8:11 PM CDT Angela Baez MD LAB BLOOD ORDERABLES Final Result [facility] [id number] [facility] Department of Laboratories [place] [id number] * (ABNORMAL) Differential, auto (08/11/2024 11:30 AM CDT) Pathologist [facility] Neutrophil abs 8.26(H) 1.50 - 6.50 K/cumm Comment:Testing performed by : [facility], [address] [place] [address]., [address] Imm gran abs 0.07 0.00 - 0.10 K/cumm C[facility] CH Comment:Testing performed by : [facility], [address] [place] [address]., [address] Lymphocyte abs 1.48 0.80 - 3.30 K/cumm CERNER CH Comment:Testing performed by : [facility], [address] [place] [address]., [address] Monocyte abs 0.78 0.20 - 0.80 K/cumm CERN[facility] CH Comment:Testing performed by : [address] [address] Eosinophil abs 0.27 0.00 - 0.50 K/cumm CERNER CH Comment:Testing performed by : [address], [address] Basophil abs 0.04 0.00 - 0.10 K/cumm CERNER CH Comment:Testing performed by : [address] [address] Neutrophil pct 75.7 % C[facility]ER CH Comment: Interpretive Data Percent cell count reference ranges are not reported, since discordance with absolute values may lead to misinterpretation of CBC data. Current Interpretive Data was last revised on 2017. Testing performed by: [address] [address] Imm gran pct 0.6 % C[facility]ER CH Comment: Interpretive Data Percent cell count reference ranges are not reported, since discordance with absolute values may lead to misinterpretation of CBC data. Current Interpretive Data was last revised on 2017. Testing performed by: [address] [address] Lymphocyte pct 13.6 % [facility] CH Comment: Interpretive Data Percent cell count reference ranges are not reported, since discordance with absolute values may lead to misinterpretation of CBC data. Current Interpretive Data was last revised on 2017. Testing performed by: [address], [address] Monocyte pct 7.2 % C[facility]ER CH Comment: Interpretive Data Percent cell count reference ranges are not reported, since discordance with absolute values may lead to misinterpretation of CBC data. Current Interpretive Data was last revised on 2017. Testing performed by: [address] [address] Eosinophil pct 2.5 % [facility] Comment: Interpretive Data Percent cell count reference ranges are not reported, since discordance with absolute values may lead to misinterpretation of CBC data. Current Interpretive Data was last revised on 2017. Testing performed by: [address] [address] Basophil pct 0.4 % [place] Comment: Interpretive Data Percent cell count reference ranges are not reported, since discordance with absolute values may lead to misinterpretation of CBC data. Current Interpretive Data was last revised on 2017. Testing performed by: [address] [address] Blood 08/11/2024 11:3 0 AM CDT 08/11/2024 6:03 PM CDT us Angela Baez MD LAB BLOOD ORDERABLES Final Result [address] Department [place] [address] * (ABNORMAL) CBC with auto differential (08/11/2024 11:30 AM CDT) WBC 10.90(H) 3.80 - 9.90 K/cumm Comment:Testing performed by : [address] [address] Hgb 10.8(L) 11.9 - 15.5 g/dL [facility] Comment:Testing performed by : [address], [address] Hct 38.4 35.6 - 45.5 % [facility] Comment:Testing performed by : [address] [address] Plt 324 150 - 400 K/cumm [facility] Comment:Testing performed by : [address] [address] MPV 10.0 9.1 - 12.3 fL CERNER Comment:Testing performed by : [facility], [address] [place] [address], [address] RBC 4.63 3.90 - 5.20 M/cumm CERNER CH Comment:Testing performed by : [facility], [address] [place] [address], [address] MCV 82.9 81.3 - 96.4 fL C[facility] CH Comment:Testing performed by : [facility], [address] [place] [address], [address] MCH 23.3(L) 27.1 - 33.3 pg CERNER CH Comment:Testing performed by : [address], [address] MCHC 28.1(L) 32.3 - 35.7 g/dL C[facility] CH Comment:Testing performed by : [address], [address] RDW CV 15.7(H) 11.1 - 14.9 % CERNER Comment:Testing performed by : [facility], [address] [place] [address], [address] RDW SD 46.8 35.7 - 48.1 fL CERNER Comment:Testing performed by : [address], [address] NRBC abs 0.00 0.00 - 0.01 K/cumm CERNER Comment:Testing performed by : [address], [address] Blood 08/11/2024 11:3 0 AM CDT 08/11/2024 6:03 PM CDT us Angela Baez MD LAB BLOOD ORDERABLES Final Result [address] Department [place] [address] * Albumin Creatinine Ratio, Urine (08/11/2024 11:30 AM CDT) Albumin Ur 24.6 mg/L Comment: Interpretive Data No reference range established. Current interpretive data was last revised 2018. Testing performed by: [facility], [address] [place] [address]., [address] Creatinine Ur 83.5 mg/dL [facility] Comment: Interpretive Data No reference range established. Current interpretive data was last revised 2018. Testing performed by: [facility], [address] [place] [address]., [address] Albumin Creatinine Ratio, Ur 29 1 - 29 mg/g [facility] Comment:Testing performed by : [facility], [address] [place] [address]., [address] Urine 08/11/2024 11:3 0 AM CDT 08/11/2024 6:03 PM CDT us Angela Baez MD LAB URINE ORDERABLES Final Result Performing Organization Address [facility] Co de Phone Number [place] [address] [address] Department [email or web address] [address] * Hepatitis B core antibody, total Blood (08/11/2024 11:30 AM CDT) Pathologist [facility] Hep B core IgG/IgM Nonreactive Nonreactive Comment:Testing performed by : [facility], [address] [place]., [address] Blood 08/11/2024 11:3 0 AM CDT 08/12/2024 10:17 AM CDT us Angela Baez MD LAB MICROBIOLOGY - GENERAL ORDERABLES Final Result Performing Organization Address City/[facility]/ZIP Co de Phone Number [facility] [address] [facility] Department [email or web address] [address] * Vitamin D 25 hydroxy (08/11/2024 11:30 AM CDT) Pathologist [facility] Vitamin D 25-OH 42 30 - 80 ng/mL Comment:Testing performed by : [facility], [address] [place] [address]., [address] Blood 08/11/2024 11:3 0 AM CDT 08/11/2024 6:03 PM CDT us Angela Beaz MD LAB BLOOD ORDERABLES Final Result Performing Organization Address [facility] Co de Phone Number [place] [address] [facility] [email or web address] [address] * Hepatitis B surface antibody (immune status) [...] last revised on 19. Testing performed by: [address] [address] Blood 08/11/2024 11:3 0 AM CDT 08/11/2024 6:03 PM CDT us Angela Baez MD LAB MICROBIOLOGY - GENERAL ORDERABLES Final Result Performing Organization Address [facility] Co de Phone Number [facility] [address] [facility] [email or web address] [address] * Hepatitis B Surface Antigen Blood (08/11/2024 11:30 AM CDT) HepBsAg Nonreactive Nonreactive Comment:Testing performed by : [address] [address] Blood 08/11/2024 11:3 0 AM CDT 08/11/2024 6:03 PM CDT us Angela Baez MD LAB MICROBIOLOGY - GENERAL ORDERABLES Final Result Performing Organization Address City/[facility]/ZIP Co de Phone Number [facility] [facility] [email or web address] [address] * TSH (08/11/2024 11:30 AM CDT) Thyroid Stimulating Hormone 2.14 0.30 - 4.20 mcIUnit/mL Comment:Testing performed by : [address] [address] Blood 08/11/2024 11:3 0 AM CDT 08/11/2024 6:03 PM CDT Angela Baez MD LAB BLOOD ORDERABLES Final Result Performing Organization Address [facility] Co de Phone Number [facility] [address] [facility] [place] [address] * (ABNORMAL) Hemoglobin A1c (08/11/2024 11:30 AM CDT) Hgb A1C 7.8(H) 4.0 - 5.6 % Comment:Testing performed by : [address] [address] Estimated Average Glucose 177 mg/dL [place] Comment: The ADA recommends reporting an estimated Average Glucose (eAG) with all Hemoglobin A1c results using the equation derived from a study of 507 normal and diabetic adults. Minority populations were underrepresented and children were not included. (Diabetes Care 31:1159-5244, 2008). The eAG is not equivalent to a fasting glucose. Testing performed by: [address] [address] Blood 08/11/2024 11:3 0 AM CDT 08/11/2024 6:03 PM CDT Angela Baez MD LAB BLOOD ORDERABLES Final Result Performing Organization Address [facility]/ZIP Co de Phone Number [facility] [address] [facility] [place] [address] * Lipid panel (08/11/2024 11:30 AM CDT) [...] last revised on 2017. Testing performed by: [facility], [address] [place] [address]., [address] Triglycerides 102 <=149 mg/dL [place] Comment: Interpretive [...] last revised on 2017. Testing performed by: [facility], [address] [place] [address]., [address] HDL 48 >=40 mg/dL [place] Comment: Interpretive [...] last revised on 2017. Testing performed by: [address] [address] LDL, calculated 74 <=129 mg/dL [facility] Comment: [...] last revised on 2023. Testing performed by: [address] [address] Non-HDL Cholesterol 93 mg/dL [facility] [place] Comment: Interpretive Data Ages [...] last revised on 2017. Testing performed by: [address] [address] Chol/HDL ratio 3 [facility] [place] Comment:Testing performed by : [address] [address] Blood 08/11/2024 11:3 0 AM CDT 08/11/2024 6:03 PM CDT Angela Baez MD LAB BLOOD ORDERABLES Final Result [place] [address] [facility] Department [place] [address] * (ABNORMAL) Comprehensive metabolic panel (08/11/2024 11:30 AM CDT) Sodium 137 135 - 145 mmol/L Comment:Testing performed by : [address] [address] Potassium, pl 4.8 3.3 - 4.9 mmol/L [facility] CH Comment:Testing performed by : [address] [address] Chloride 100 97 - 110 mmol/L [facility] CH Comment:Testing performed by : [address] [address] CO2 23 22 - 32 mmol/L [facility] CH Comment:Testing performed by : [address] [address] Anion gap 14 2 - 15 mmol/L [facility] CH Comment:Testing performed by : [address] [address] BUN 32(H) 6 - 25 mg/dL [facility] CH Comment:Testing performed by : [address] [address] Creatinine 1.49(H) 0.60 - 1.10 mg/dL [facility] CH Comment:Testing performed by : [address] [address] Glucose 157 70 - 199 mg/dL CERNER Comment: Interpretive Data Fasting glucose >/= 126 [...] was last revised 2022. Testing performed by: [address] [address] Calcium 10.0 8.5 - 10.3 mg/dL CERNER Comment:Testing performed by : [address] [address] Bilirubin, total 0.6 0.1 - 1.2 mg/dL C[facility] CH Comment:Testing performed by : [facility], [address] [place] [address], [address] Protein, pl 8.1 6.5 - 8.5 g/dL C[facility] CH Comment:Testing performed by : [facility], [address] [place] [address], [address] Albumin 4.4 3.5 - 5.0 g/dL C[facility] CH Comment:Testing performed by : [facility], [address] [place] [address], [address] Alk phos 122 40 - 130 Units/L C[facility] CH Comment:Testing performed by : [address], [address] ALT 9 7 - 45 Units/L C[facility] CH Comment:Testing performed by : [address], [address] AST 19 10 - 45 Units/L C[facility]ER CH Comment:Testing performed by : [facility], [address] [place] [address], [address] Blood 08/11/2024 11:3 0 AM CDT 08/11/2024 6:03 PM CDT us Angela Baez MD LAB BLOOD ORDERABLES Final Result Performing Organization Address [facility]/ZIP Co de Phone Number [address] Department [place] [address] * CT Body Outside Reference (07/08/2024 12:00 AM CDT) Narrative [facility] - 07/18/2024 11:07 AM CDT This order has been auto-finalized and does not contain a result. us Not In File Miscellaneous IMG CT PROCEDURES Clemencia l Result Performing Organization Address City/[facility]/ZIP Co de Phone Number [facility] * [...] F with given history of screening. Postmenopausal Automatic Furnace Operator/Model: BlackArrow SL (S/N [id number]) CLINICAL INFORMATION: Current height: 61 inches Maximum [...] Rodrigo Jimenez M.D. MF: BUD Report ID: [id number] Reading Location: [place] [address] Procedure Note Rodrigo Jimenez MD - 07/23/2021 EXAM DESCRIPTION: DEXA AXIAL SKELETON BONE DENSITY 1 OR MORE SITES REASON FOR STUDY: 80 y/o year old F with given history ofscreening. Postmenopausal Automatic Furnace Operator/Model: PagerDuty Discovery SL (S/N [id number]) CLINICAL INFORMATION: Current height: 61 inches Maximum [...] Rodrigo Jimenez M.D. MF: BUD Report ID: [id number] Reading Location: [place] [address] Angela Baez MD IMG DXA PROCEDURES Final R esult from Last 3 Months or Most Recently Relevant to Health Maintenance Insurance COMMERCIAL GENERIC MEDICARE MEDICARE [facility] MEDICARE [facility] MEDICARE SUPPLEMENT MEDICARE [facility] MEDICARE SUPPLEMENT Advance Directives For more information, please contact: [phone] Documents on File Type Date Recorded Patient Courtesy Booth Cashier Expl anation ADVANCE DIRECTIVE 08/27/2023 8:24 AM POLST - PHYS ORDER FOR PT PREFERENCES * Full Code (Latest Code Status on File) Date Activated Date Inactivated Comments 06/15/2017 9:33 AM 06/15/2017 2:00 PM Care Teams Clinic Lpn Relationship Specialty Start Date End Date Angela Baez MD PCP - General 06/20/16 Ced Holloway MD [address] [facility] [address] [facility] [address] [place] [address] Consulting Physician Gastroenterology 02/02/17 Yevgeniy Jenkins MD [address] [place] [address] [address] [facility] [address] [place] [address] Consulting Physician Ophthalmology 02/02/17 Colton Graham MD [address] [place] [address] 162 [facility] 204 [place] [address] Consulting Physician General Surgery 09/05/19 Lito Arroyo MD [address] [place] [address] 162 [facility] 204 [place] [address] Referring Physician Orthopedic Surgery 02/06/22 Chris Bates MD [address] [place] [address] Consulting Physician Pulmonary Disease 07/22/22 Eduardo Velasco DO [address] [facility] 162 [facility] 202 [place] [address] Referring Physician Internal Medicine 08/11/24
--- OUTSIDE RECORDS SUMMARY | 2024-09-20 13:59 | XMS_ITS | Clinical Summary ---
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 NONAFRICAN >60 >=60 08/14/2015 7:43 AM CDT [facility] GFR, EST. >60 >=60 08/14/2015 7:43 AM CDT [facility] Comment: Creatinine Clearance is the preferred criteria for selecting drug dose adjustments in renally impaired patients. The GFR is provided as addtional pertinent clinical information. GFR is reported in mL/min/1.73 sq m Blood specimen (specimen) Venous Catheter (IV) / Unknown 08/14/2015 7:30 AM CDT 08/14/2015 7:30 AM CDT us Chino Sage MD CHEMISTRY ORDERABLES Final Res ult [facility] [place] [address] from Last 3 Months or Most Recently Relevant to Health Maintenance Insurance MEDICARE Member Subscriber Plan / Payer (Ef fective 2003-Present) Name:Chel Cardona I Member ID:[id number] Relation to Subscriber:Self Name:Chel Cardona I Subscriber ID:[id number] Payer ID:[id number] Group ID:Not on file Type:Not on file Address: [facility] [address] [facility] [place] [address] [employer] GENERIC Advance Directives Documents on File Type Date Recorded 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
--- OUTSIDE RECORDS SUMMARY | 2024-09-20 13:59 | XMS_ITS | Encounter Summary ---
Author Organization [facility] Address [address] [place] [address] Phone Care Team Providers Care Fisheries Manager Name Role Phone Angela Singer MD Primary Care Provider + [phone] Antonio Grady Unavailable Unavail able Ced Holloway MD Unavailable + Yevgeniy Jenkins MD Unavailable [phone] Colton Graham MD Unavailable Sy Sherman MD Unavailable [phone] Stephanie Gardner LPN Unavailable Lito Arroyo MD Unavailable Omaira Rob MD Unavailable [phone] Chris Bates MD Unavailable Winnie Hogan MA Unavailable Zuleyka Keene LCSW Unavailable [phone] Eduardo Velasco DO Unavailable [phone] Eduardo Velasco DO Unavailable [phone] Encounter Details Date Type Department Care Team (Late st Contact Info) Description 06/27/2021 Orders Only [facility] [address] [place] [address] Amanuel Singer MD [address] [place] [address] Social History Tobacco Use Types Packs/Day Years [...] on file 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 Gender Identity Not on file Sexual Orientation [...] on filedocumented in this encounter Care Teams Fisheries Manager Relationship Specialty Start Date End Date Angela Singer MD PCP - General 06/20/16 Antonio Grady Gastroenterology 02/02/17 08/10/24 Ced Holloway MD 12 [facility] 162 [facility] 204 [place] [address] Consulting Physician Gastroenterology 02/02/17 Yevgeniy Jenkins MD [address] [facility] [address] [place] [address] Consulting Physician Ophthalmology 02/02/17 Colton Graham MD [address] [facility] [address] [address] [place] [address] Consulting Physician General Surgery 09/05/19 Sy Sherman MD [address] [place] [address] Consulting Physician Cardiovascular Disease 01/22/20 Stephanie Gardner, CAPACITOR INSPECTOR [address] [place] [address] [address] [place] [address] [employer] 11/12/21 11/21/21 Lito Arroyo MD [address] [place] [address] [address] [place] [address] Referring Physician Orthopedic Surgery 02/06/22 Omaira Rob MD [address] [place] [address] [address] [place] [address] Consulting Physician Cardiology 07/22/22 08/10/24 Chris Bates MD [address] [place] [address] [address] [place] [address] Consulting Physician Pulmonary Disease 07/22/22 Winnie Hogan MA [address] [place] [address] [address] [place] [address] [employer] 08/13/22 08/13/22 Zuleyka Keene, [address] [place] [address] Surveying Teacher Ems Director 08/19/22 09/03/22 Eduardo Velasco DO [address] [place] [address] Referring Physician Internal Medicine 08/11/24 Eduardo Velasco DO [address] [facility] 202 [place] [address] Referring Physician Cardiology 08/11/24 08/11/24 documented as of this encounter
--- OUTSIDE RECORDS SUMMARY | 2024-09-20 13:59 | XMS_ITS | Encounter Summary ---
Author Organization [facility] Address [address] [place] [address] Phone Care Team Providers Care Seed Mill Superintendent Name Role Phone Angela Singer MD Primary Care Provider + [phone] Antonio Grady Unavailable Unavail able Ced Holloway MD Unavailable + Yevgeniy Jenkins MD Unavailable [phone] Colton Graham MD Unavailable Sy Sherman MD Unavailable [phone] Stephanie Gardner LPN Unavailable Lito Arroyo MD Unavailable Omaira Rob MD Unavailable [phone] Chris Bates MD Unavailable Winnie Hogan MA Unavailable Zuleyka Keene LCSW Unavailable [phone] dEuardo Velasco DO Unavailable [phone] Eduardo Velasco DO Unavailable [phone] Encounter Details Date Type Department Care Team (Late st Contact Info) Description 10/10/2021 Orders Only [facility] [address] [place] [address] Agnela Singer MD [address] [place] [address] Social History Tobacco Use Types Packs/Day Years [...] on file 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 Gender Identity Not on file Sexual Orientation [...] on filedocumented in this encounter Care Teams Seed Mill Superintendent Relationship Specialty Start Date End Date Angela Singer MD PCP - General 06/20/16 Antonio Grady Gastroenterology 02/02/17 08/10/24 eCd Holloway MD [address] [facility] [address] [facility] 204 [place] [address] Consulting Physician Gastroenterology 02/02/17 Yevgeniy Jenkins MD [address] [facility] [address] [place] [address] Consulting Physician Ophthalmology 02/02/17 Colton Graham MD [address] [facility] [address] [place] [address] Consulting Physician General Surgery 09/05/19 Sy Sherman MD [address] [place] [address] Consulting Physician Cardiovascular Disease 01/22/20 Stephanie Gardner LPN [address] [place] [address] [address] [place] [address] [employer] [facility] [employer] 11/12/21 11/21/21 Lito Arroyo MD [address] [place] [address] [address] [place] [address] Referring Physician Orthopedic Surgery 02/06/22 Omaira Rob MD [address] [place] [address] [address] [place] [address] Consulting Physician Cardiology 07/22/22 08/10/24 Chris Bates MD [address] [place] [address] [address] [place] [address] Consulting Physician Pulmonary Disease 07/22/22 Winnie Hogan MA [address] [place] [address] [address] [place] [address] [employer] 08/13/22 08/13/22 Zuleyka Keene, [address] [place] [address] Vacuum Drier Tender Assurance Analyst 08/19/22 09/03/22 Eduardo Velasco DO [address] [place] [address] Referring Physician Internal Medicine 08/11/24 Eduardo Velasco DO [address] [facility] [address] [place] [address] Referring Physician Cardiology 08/11/24 08/11/24 documented as of this encounter
--- NOTE | 2024-09-20 14:00 | ECHO_ITS ---
Patient Info Name: Chel Levine Age: 84 years : 1940 Gender: Female Ht: 61 in Wt: 190 lbs BSA: 1.97 m2 HR: 69 bpm BP: 140 / 99 mmHg Heart Rhythm: Atrial Fibrillation Technical Quality: Fair Exam Date: 09/20/2024 2:00 PM Patient Status: O Admit Date: 09/20/2024 Exam Type: CA echo dop color flow w con Complete two-dimensional, color flow and Doppler transthoracic echocardiogram is performed. Calender Wind Up Helper: Letty Matthews Attending Provider: Eduardo Velasco DO Summary 1. Complete two-dimensional, color flow and Doppler transthoracic echocardiogram is performed. 2. Left ventricular chamber dimension is normal. 3. Left ventricular systolic function is normal, estimated at 60-65. 4. The left ventricular diastolic function is abnormal. 5. E/e' 12 is mildly elevated. 6. Atrial fibrillation. 7. Left atrial chamber dimension is moderately enlarged. 8. The mitral valve has a moderately calcified annulus. 9. There is mild mitral valve regurgitation. 10. There is mild tricuspid valve regurgitation. 11. Mild pulmonary hypertension, estimated pulmonary arterial systolic pressure is 47 mmHg. Left Ventricle E/e' 12 is mildly elevated. Left ventricular chamber dimension is normal. Left ventricular systolic function is normal, estimated at 60-65. The left ventricular diastolic function is abnormal. Atrial fibrillation. Right Ventricle Right ventricular chamber dimension is normal. Right ventricular systolic function is normal. Left Atria Left atrial chamber dimension is moderately enlarged. Right Atria Right atrial chamber dimension is normal. Aortic Valve The aortic valve is trileaflet. There is no aortic valve stenosis. There is no aortic valve regurgitation. Pulmonic Valve There is no pulmonic regurgitation. Mitral Valve The mitral valve has a moderately calcified annulus. There is no mitral valve stenosis. There is mild mitral valve regurgitation. Tricuspid Valve There is mild tricuspid valve regurgitation. Mild pulmonary hypertension, estimated pulmonary arterial systolic pressure is 47 mmHg. Pericardium/Pleural There is no pericardial effusion. Inferior Vena Cava Normal inferior vena cava with >50% collapse upon inspiration consistent with normal right atrial pressure, 5 mmHg. Aorta The aortic root size at the sinus of Valsalva is normal. Left Ventricular Outflow Tract Name Value Normal LVOT 2D LVOT Diameter 1.9 cm LVOT Doppler LVOT Peak Velocity 99 cm/s LVOT Peak Gradient 4 mmHg LVOT Mean Gradient 2 mmHg LVOT VTI 22 cm LVOT VTI/AV VTI Ratio 0.6 LVOT Stroke Volume 64 ml LVOT CO 5.1 l/min LVOT CI 2.6 l/min/m2 Pulmonic Valve Name Value Normal PV Doppler PV Peak Velocity 105 cm/s PV Peak Gradient 4 mmHg Mitral Valve Name Value Normal MV Doppler MV Peak Gradient 12 mmHg MV Mean Gradient 3 mmHg MV Area (Cont Eq VTI) 1.6 cm2 MV Regurgitation Doppler MR Peak Gradient 128 mmHg MV Diastolic Function MV E Peak Velocity 151 cm/s MV A Peak Velocity 74 cm/s MV E/A 2.0 MV Decel Time (PW) 143 ms MV Annular TDI MV E/e' (Septal) 13.8 MV E/e' (Lateral) 11.4 MV E/e' (Average) 12.6 Tricuspid Valve Name Value Normal TV Regurgitation Doppler TR Peak Velocity 326 cm/s TR Peak Gradient 41 mmHg Estimated PAP/RSVP RA Pressure 5 mmHg <=5 PA Systolic Pressure 47 mmHg <36 RV Systolic Pressure 47 mmHg <36 TV Annular TDI TV Lateral Amy s' Velocity 9.1 cm/s >=9.5 Aortic Valve Name Value Normal AV Doppler AV Peak Velocity 173 cm/s AV Peak Gradient 12 mmHg AV Mean Gradient 7 mmHg AV VTI 37 cm AV Area (Cont Eq VTI) 1.7 cm2 >=3.0 AV Area (Cont Eq [place]) 1.7 cm2 AV DI ([place]) 0.57 AV Regurgitation 2D LVOT Area 2.9 cm2 Ventricles Name Value Normal LV Dimensions 2D/MM IVS Diastolic Thickness (2D) 0.9 cm 0.6-1.0 LVID Diastole (2D) 5.0 cm 3.8-5.2 LVIW Diastolic Thickness (2D) 0.9 cm 0.6-0.9 LVID Systole (2D) 3.5 cm 2.2-3.5 LVOT Diameter 1.9 cm LV Mass (2D Cubed) 163.26 g 67.00-162.00 LV Mass Index (2D Cubed) 83 g/m2 43-95 Relative Wall Thickness (2D) 0.37 <=0.42 LV Fractional Shortening/Ejection Fraction 2D/MM LV Fractional Shortening (2D) 30 % 27-45 LV EF (2D Teichholz) 57 % LV Diastolic Volume (4C MOD) 104 ml LV EF (4C MOD) 63 % LV Diastolic Length (4C) 8.3 cm LV Systolic Length (4C) 6.7 cm LV Stroke Volume (4C MOD) 65 ml Atria Name Value Normal LA Dimensions LA Volume (4C A-L) 61 ml LA Volume (BP A-L) 69 ml RA Dimensions RA Systolic Major [place] Length (4C) 6.4 cm 2.2-2.8 RA Area (4C) 16.9 cm2 <=18.0 Report Signatures
== END 2024-09-20 13:56 | disposition home or self-care (01) ==
LOC: CHSIMG 13:57
PROVIDERS: PCP Internal Medicine Geriatric Medicine; Visit Provider Internal Medicine Cardiovascular Disease
DX: I48.0 Paroxysmal atrial fibrillation (principal); I27.20 Pulmonary hypertension, unspecified; I08.1 Rheumatic disorders of both mitral and tricuspid valves
CPT/HCPCS: C8929

== ENCOUNTER 2025-02-28 10:05 | Outpatient (CLI) | payer MEDICARE, SELFPAY ==
[2025-02-28 10:18] LABS: Hematocrit 34.6 % (35.0-42.0); Hemoglobin 10.3 g/dL (11.7-13.8); Immature Granulocyte Percent A 0.4 % (0.0-0.0); Lymphocytes Absolute Auto 1.45 K/mm3 (1.10-4.50); Mean Corpuscular HGB Conc 29.8 g/dL (32-36); Mean Corpuscular Hemoglobin 24.3 pg (27.0-31.0); Mean Corpuscular Volume 81.8 fL (78.0-102.0); Nucleated Red Blood Cells Absolute Auto 0.00 K/mm3 (0.00-0.00); Nucleated Red Blood Cells Perc 0.0 % (0-0.0); Platelet Count Result 314 K/mm3 (150-420); Red Blood Count 4.23 M/mm3 (4.20-5.40); White Blood Count 10.3 K/mm3 (4.8-10.8)
[2025-02-28 13:29] LABS: Alanine Aminotransferase 14 U/L (6-35); Albumin Level 4.5 g/dL (3.5-5.1); Alkaline Phosphatase 108 U/L (38-126); Anion Gap 15 mmol/L (4-12); Aspartate Amino Transferase 23 U/L (14-36); Bilirubin,Total 0.5 mg/dL (0.2-1.3); Blood Urea Nitrogen 29 mg/dL (7-17); Calcium 9.8 mg/dL (8.4-10.2); Carbon Dioxide 23 mmol/L (22-30); Chloride 104 mmol/L (98-107); Cholesterol 134 mg/dL (0-200); Estimated Glomerular Filt Rate 34; Glucose 138 mg/dL (65-110); HDL Direct 55 mg/dL; Magnesium 1.5 mg/dL (1.6-2.3); Osmolality Calculated 301 mOsm/kg (285-295); Potassium 4.7 mmol/L (3.4-5.0); Sodium 142 mmol/L (137-145); Total Protein 7.1 g/dL (6.3-8.2); Triglycerides 136 mg/dL (<150)
[2025-02-28 13:49] LABS: Hemoglobin A1C 7.6 % (<5.7)
[2025-02-28 15:27] LABS: Thyroid Stimulating Hormone Reflex 2.010 uIU/mL (0.465-4.68)
== END 2025-02-28 10:06 | disposition home or self-care (01) ==
LOC: CHSLAB 10:07
PROVIDERS: PCP Internal Medicine Geriatric Medicine; Visit Provider Internal Medicine Cardiovascular Disease
DX: E11.9 Type 2 diabetes mellitus without complications (principal); E78.5 Hyperlipidemia, unspecified
CPT/HCPCS: 36415; 80053; 80061; 83036; 83735; 84443; 85025